=== PATIENT | male | born 1945 | race Hispanic/Latino ===

== ENCOUNTER 2017-11-09 15:39 | Inpatient (IN) | payer OTHER, MEDICARE ==
[2017-11-09] VITALS (12 sets, daily range): BP systolic 104–128; BP diastolic 50–87
[~2017-11-09] VITALS: Ht 162.6 cm; Wt 65.3 kg
[~2017-11-09 15:39] MED LIST: ETOMIDATE 40 MG/ 20ML VIAL IV ONE
[2017-11-09] MEDS: ASPIRIN 325 MG TAB PO ONE ×2 (17:50→18:35)
[2017-11-09] MEDS ORDERED: ONDANSETRON HCL INJ 2 MG/ML VIAL IV STA (17:51)
[2017-11-09] MEDS ORDERED: MORPHINE SULFATE INJ 4 MG/ML INJ IV ONE (18:00)
--- NOTE | 2017-11-09 18:02 | Diagnostic Imaging Report ---
EXAMINATION: CXR 1 [facility] INDICATION: Active heart attack. COMPARISON: None FINDINGS: TUBES and LINES: Median sternotomy wires and mediastinal clips. LUNGS: Lungs are well inflated. There is mild prominence of the central pulmonary vasculature, consistent with pulmonary venous congestion. PLEURA: Possible tiny right pleural effusion. No pneumothorax. HEART AND MEDIASTINUM: Cardiac size is moderately enlarged. There are atherosclerotic calcifications within the aorta. BONES AND SOFT TISSUES: No acute osseous lesion. Soft tissues are unremarkable. UPPER ABDOMEN: No free air under the diaphragm. IMPRESSION: Moderate cardiomegaly with central pulmonary venous congestion. Signed by: Dr. Jourdan Wright M.D. on 11/09/2017 5:59 PM
[2017-11-09] MEDS: DEXTROSE 5%/0.45% SOD CHL 1,000 ML IV SCH (18:23)
[2017-11-09] MEDS ORDERED: ACETAMINOPHEN 325 MG TAB PO STA (18:25)
[2017-11-09] MEDS ORDERED: INSULIN REGULAR, HUMAN 100 UNIT/1 ML 3ML VIAL ONE (18:26)
[2017-11-09] MEDS ORDERED: INSULIN REGULAR, HUMAN 3ML VL 100 UNIT in SODIUM CHLORIDE 0.9% 100 ML IV SCH ×2 (18:30)
[2017-11-09] MEDS ORDERED: SODIUM CHLORIDE 0.9% 250ML 250 ML IV ONE (18:30)
[2017-11-09] MEDS ORDERED: MORPHINE SULFATE 2 MG/ML SYR IV PRN (18:30)
[2017-11-09] MEDS ORDERED: DIPHENHYDRAMINE HCL INJ 50 MG/ML VIAL IV ONE (18:30)
[2017-11-09] MEDS ORDERED: INSULIN DETEMIR 100 UNIT/ML PEN SQ PRN (18:30)
[2017-11-09] MEDS ORDERED: SODIUM CHLORIDE FLUSH 10 ML SYR INJ PRN (18:30)
[2017-11-09] MEDS ORDERED: POTASSIUM CHLORIDE 20MEQ/100ML 200 ML IV PRN (18:30)
[2017-11-09] MEDS: SODIUM CHLORIDE 0.9% 1000ML 1,000 ML IV SCH ×2 (18:37→22:06)
[2017-11-09] MEDS ORDERED: ROCURONIUM BROMIDE 1 ML ONE ×2 (18:40→18:41)
[2017-11-09] MEDS ORDERED: INSULIN REGULAR, HUMAN 100 UNIT/1 ML 3ML VIAL IV ONE (18:45)
[2017-11-09] MEDS ORDERED: CALCIUM GLUCONATE 10% INJ 4.65 MEQ in SODIUM CHLORIDE 0.9% 50ML 50 ML IV ONE (18:45)
[2017-11-09] MEDS ORDERED: MORPHINE SULFATE INJ 4 MG/ML INJ IV PRN (18:45)
[2017-11-09] MEDS ORDERED: ETOMIDATE 2 MG/ML 10 ML INJ IV STA (18:56)
[2017-11-09] MEDS ORDERED: ROCURONIUM BROMIDE 10 MG/ML 5ML VIAL IV ONE (18:56)
[2017-11-09 19:01] LABS: BASOPHILS % 0.1 % (0.0-1.0); LYMPHOCYTES # (AUTO) 1.1 (1.0-3.2); LYMPHOCYTES % 9.5 % (18.0-39.1); MEAN CORPUSCULAR HEMOGLOBIN 29.3 pg (28-32); MEAN CORPUSCULAR HGB CONC 31.5 g/dL (31-35); MEAN CORPUSCULAR VOLUME 92.9 fL (81-99); MONOCYTES # (AUTO) 0.6 (0.2-0.8); MONOCYTES % 5.3 % (4.4-11.3); NEUTROPHILS # (AUTO) 9.1 (2.1-6.9); NEUTROPHILS % 80.1 % (38.7-80.0); PLATELET COUNT 190 x10e3/uL (140-360); RED BLOOD COUNT 1.98 x10e6/uL (4.3-5.7); RED CELL DISTRIBUTION WIDTH 16.5 % (11.7-14.4)
[2017-11-09 19:02] LABS: HEMOGLOBIN 5.8 g/dL (14.0-18.0)
[2017-11-09 19:03] LABS: HEMATOCRIT 18.4 % (38.2-49.6)
[2017-11-09 19:16] LABS: INR 2.01; PROTHROMBIN TIME 24.3 seconds (11.9-14.5)
[2017-11-09 19:19] LABS: ALBUMIN 2.8 g/dL (3.5-5.0); ALBUMIN/GLOBULIN RATIO 0.9 (0.8-2.0); ANION GAP 29.1 mmol/L (8-16); CALCIUM 7.1 mg/dL (8.4-10.2); CREATININE, SERUM 5.14 mg/dL (0.72-1.25)
[2017-11-09 19:25] LABS: CREATINE KINASE MB 4.9 ng/mL (0-5.0)
[2017-11-09 19:28] LABS: POTASSIUM 7.1 mmol/L (3.5-5.1)
[2017-11-09 19:29] LABS: ABG HCO3 14 mmol/L (23-28); ABG PCO2 29 mmHg (41-51); ABG PH 7.28 (7.31-7.41); ABG PO2 237 mmHg (80-105)
[2017-11-09] MEDS ORDERED: FENTANYL CITRATE INJ 2,000 MCG in SODIUM CHLORIDE 0.9% 250ML 210 ML IV PRN (19:30)
[2017-11-09] MEDS ORDERED: MIDAZOLAM HCL 25 MG in SODIUM CHLORIDE 0.9% 50ML 45 ML IV PRN (19:30)
--- NOTE | 2017-11-09 19:40 | Diagnostic Imaging Report ---
EXAMINATION: CHEST XRAY POST PROCEDURE INDICATION: \S\INTUBATION COMPARISON: Chest x-ray 11/09/2017 FINDINGS: AP view TUBES and LINES: Interval placement of endotracheal tube with tip 4.5 cm above the kathy. Median sternotomy wires and mediastinal clips remain present. LUNGS: Lungs are not well inflated. There are bibasilar atelectasis. There is perihilar interstitial opacities, consistent with interstitial edema. PLEURA: No pleural effusion or pneumothorax. HEART AND MEDIASTINUM: Cardiac size is moderately enlarged. There are atherosclerotic calcifications within the aorta. BONES AND SOFT TISSUES: No acute osseous lesion. Soft tissues are unremarkable. UPPER ABDOMEN: No free air under the diaphragm. IMPRESSION: 1. Endotracheal tube tip 4.5 cm above the kathy. 2. Development of interstitial edema. Signed by: Dr. Jourdan Wright M.D. on 11/09/2017 7:37 PM
[2017-11-09] MEDS ORDERED: CARVEDILOL25 MG PO (19:50)
[2017-11-09] MEDS ORDERED: DEXAMETHASONE4 MG PO (19:50)
[2017-11-09] MEDS ORDERED: VALACYCLOVIR500 MG PO (19:50)
[2017-11-09] MEDS ORDERED: ASPIRIN81 MG PO (19:50)
[2017-11-09] MEDS ORDERED: CRESTOR40 MG PO (19:50)
[2017-11-09] MEDS ORDERED: ISOSORBIDE MONO30 MG PO (19:50)
[2017-11-09] MEDS ORDERED: JANUVIA50 MG PO (19:50)
[2017-11-09] MEDS ORDERED: CLOPIDOGREL75 MG PO (19:50)
[2017-11-09 20:17] LABS: LYMPHOCYTES % (MANUAL) 7 % (19-48); MONOCYTES % (MANUAL) 3 % (3.4-9.0); NEUTROPHILS % (MANUAL) 90 % (40-74)
[2017-11-09 20:18] LABS: HYPOCHROMASIA MARKED; PLATELET ESTIMATE ADEQUATE; PLATELET MORPHOLOGY COMMENT NORMAL; RBC MORPHOLOGY COMMENT NORMAL
[2017-11-09 21:27] LABS: ANION GAP 24.7 mmol/L (8-16); CREATININE, SERUM 5.02 mg/dL (0.72-1.25); MAGNESIUM 1.5 MG/DL (1.3-2.1); POTASSIUM 5.7 mmol/L (3.5-5.1)
[2017-11-09 21:39] LABS: CALCIUM 6.8 mg/dL (8.4-10.2)
[2017-11-09 22:04] LABS: CREATINE KINASE MB 4.8 ng/mL (0-5.0)
[2017-11-10] VITALS (85 sets, daily range): BP systolic 106–138; BP diastolic 55–106
[2017-11-10] MEDS ORDERED: SODIUM CHLORIDE 0.9% 250ML 250 ML ONE (01:15)
[2017-11-10] MEDS: SODIUM CHLORIDE 0.9% 1000ML 1,000 ML IV SCH ×3 (01:24→17:49)
[2017-11-10 01:31] LABS: ANION GAP 20.3 mmol/L (8-16); CREATININE, SERUM 4.97 mg/dL (0.72-1.25); MAGNESIUM 1.6 MG/DL (1.3-2.1)
[2017-11-10 01:34] LABS: CALCIUM 6.6 mg/dL (8.4-10.2); POTASSIUM 5.3 mmol/L (3.5-5.1)
[2017-11-10] MEDS ORDERED: MAGNESIUM SULF 1GRAM/DEXTROSE 100 ML IV ONE (01:44)
[2017-11-10] MEDS: MAGNESIUM SULF 1GRAM/DEXTROSE 100 ML IV PRN ×2 (01:48→14:25)
[2017-11-10] MEDS: DEXTROSE 5%/0.45% SOD CHL 1,000 ML IV SCH ×2 (02:03→14:23)
[2017-11-10] MEDS ORDERED: SODIUM CHLORIDE 0.9% 100 ML ONE (04:38)
[2017-11-10] MEDS ORDERED: INSULIN REGULAR, HUMAN 100 UNIT/1 ML 3ML VIAL ONE (04:38)
[2017-11-10 05:45] LABS: ANION GAP 20.2 mmol/L (8-16); CHOL/HDL RATIO 3.3 (3.9-4.7); CREATININE, SERUM 5.04 mg/dL (0.72-1.25); MAGNESIUM 1.9 MG/DL (1.3-2.1); POTASSIUM 5.2 mmol/L (3.5-5.1)
[2017-11-10 05:47] LABS: CREATINE KINASE MB 4.9 ng/mL (0-5.0)
[2017-11-10 05:48] LABS: CALCIUM 6.5 mg/dL (8.4-10.2)
[2017-11-10 06:06] LABS: BASOPHILS % 0.2 % (0.0-1.0); HEMATOCRIT 21.9 % (38.2-49.6); HEMOGLOBIN 7.3 g/dL (14.0-18.0); LYMPHOCYTES # (AUTO) 0.8 (1.0-3.2); MEAN CORPUSCULAR HEMOGLOBIN 30.3 pg (28-32); MEAN CORPUSCULAR HGB CONC 33.3 g/dL (31-35); MEAN CORPUSCULAR VOLUME 90.9 fL (81-99); MONOCYTES # (AUTO) 0.4 (0.2-0.8); MONOCYTES % 4.6 % (4.4-11.3); NEUTROPHILS # (AUTO) 6.9 (2.1-6.9); NEUTROPHILS % 82.3 % (38.7-80.0); PLATELET COUNT 150 x10e3/uL (140-360); RED BLOOD COUNT 2.41 x10e6/uL (4.3-5.7); RED CELL DISTRIBUTION WIDTH 15.1 % (11.7-14.4)
[2017-11-10] MEDS ORDERED: CALCIUM GLUCONATE 10% INJ 0.465 MEQ/ML VIAL ONE (06:20)
[2017-11-10] MEDS ORDERED: SODIUM CHLORIDE 0.45% 100 ML 100 ML IV ONE (06:21)
[2017-11-10] MEDS ORDERED: CALCIUM GLUCONATE 10% INJ 4.65 MEQ in SODIUM CHLORIDE 0.9% 50ML 100 ML IV ONE (06:45)
--- NOTE | 2017-11-10 07:02 | Diagnostic Imaging Report ---
EXAMINATION: CHEST SINGLE (PORTABLE) INDICATION: Intubated COMPARISON: 11/09/2017 FINDINGS: TUBES and LINES: Endotracheal tube is visualized with tip 3.3 cm above the kathy in good position. LUNGS: Lungs are not well inflated. Interlobular septi thickening noted more significant at the lung bases There is mild prominence of the central pulmonary vasculature, consistent with pulmonary venous congestion. PLEURA: No pleural effusion or pneumothorax. HEART AND MEDIASTINUM: Cardiac size is moderately enlarged. There are atherosclerotic calcifications within the aorta. BONES AND SOFT TISSUES: No acute osseous lesion. Soft tissues are unremarkable. UPPER ABDOMEN: No free air under the diaphragm. IMPRESSION: Findings are compatible with cardiogenic fluid overload/edema Signed by: Dr. David Rojas M.D. on 11/10/2017 6:59 AM
[2017-11-10] MEDS ORDERED: PROPOFOL IV EMULSION 10MG/ML 100 ML IV PRN (08:30)
[2017-11-10] MEDS: SODIUM CHLORIDE 0.9% 250ML IRRIG IR SCH ×4 (08:30→21:21)
[2017-11-10] MEDS ORDERED: ENOXAPARIN INJ 80 MG/0.8 ML SYR SC SCH (09:00)
[2017-11-10] MEDS ORDERED: ENOXAPARIN SODIUM INJ 100 MG/ML SYR SC SCH (09:00)
[2017-11-10] MEDS: MIDAZOLAM HCL 2 MG/2 ML VIAL IV PRN ×4 (09:00→22:53)
[2017-11-10] MEDS ORDERED: PHYTONADIONE 10 MG/ML AMP SQ NR (09:00)
[2017-11-10 09:02] LABS: ANISOCYTOSIS MODE; BAND NEUTROPHILS % (MANUAL) 2 %; LYMPHOCYTES % (MANUAL) 16 % (19-48); MONOCYTES % (MANUAL) 4 % (3.4-9.0); NEUTROPHILS % (MANUAL) 78 % (40-74); NUCLEATED RED BLOOD CELLS 1; PLATELET ESTIMATE ADEQUATE; PLATELET MORPHOLOGY COMMENT FEW LARGE; POIKILOCYTOSIS SLIGHT; RBC MORPHOLOGY COMMENT ABNORMAL
[2017-11-10 09:21] LABS: ANION GAP 19.1 mmol/L (8-16); CREATININE, SERUM 5.13 mg/dL (0.72-1.25); MAGNESIUM 1.9 MG/DL (1.3-2.1); POTASSIUM 5.1 mmol/L (3.5-5.1)
--- NOTE | 2017-11-10 09:24 | Consultation ---
DATE OF CONSULTATION: November 10, 2017 PULMONARY CONSULTATION This is a patient of Dr. Palmer, Dr. Holland, and Dr. Mason. This unfortunate, 72-year-old gentleman was admitted approximately 24 hours after receiving chemotherapy. Admitted with shortness of breath, nausea, diaphoresis. The patient has a history of also chest pain. He has been increasingly short of breath lately according to with decreased appetite. He has a history of bone cancer. She was not sure what type, presumably myeloma. He was anemic on admission with a hemoglobin of 5.6. He was acidotic with renal failure. DKA with a glucose of 660. Respiratory failure. He was intubated. According to , his diabetes was diagnosed 2 months ago. He has a history of coronary disease with bypass surgery in the past. He was recently diagnosed with cancer. According to record, his home medications included aspirin, Plavix, Decadron, 40 mg, Ismo, valacyclovir, Coreg, Crestor and Januvia. 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 Born in [facility]. Family history is noncontributory. He did not smoke and rarely drank. PHYSICAL EXAMINATION GENERAL: He is a well-developed white male, awake, alert, intubated. VITALS: Temperature 97.8, pulse 56, respirations 18, blood pressure 118/64. HEENT: Head is normocephalic and atraumatic. LUNGS: Bilateral rales. HEART: Regular rhythm. ABDOMEN: Median sternotomy scar noted. Abdomen is nontender. EXTREMITIES: Not edematous. : Joe catheter is in place. ASSESSMENT 1. Multiorgan system failure. 2. Hyperglycemia. 3. Renal failure. 4. Anemia. 5. Coagulopathy with elevated prothrombin time of 24. 6. Elevated liver functions. 7. Elevated troponin. 8. Inferior wall electrocardiographic changes. Will defer to cardiology and renal services. Consider vitamin K with coagulopathy and liver failure. Continue mechanical ventilator support. Thank you for this kind referral. Job#: [id number]
[2017-11-10 09:36] LABS: ALBUMIN 2.7 g/dL (3.5-5.0); BILIRUBIN,DIRECT 0.7 mg/dL (0.0-0.5)
[2017-11-10] MEDS: METOPROLOL TARTRATE 25 MG TAB PO SCH ×2 (09:45→17:00)
[2017-11-10] MEDS: FUROSEMIDE INJ 10 MG/ML 4 ML VIAL IV SCH ×2 (09:45→18:02)
--- NOTE | 2017-11-10 10:42 | Consultation ---
DATE OF CONSULTATION: November 10, 2017 CARDIOLOGY CONSULTATION REQUESTING PHYSICIAN: Dr. Palmer REASON FOR CONSULTATION: Piq-IA-sbuwzqapd myocardial infarction. HISTORY OF PRESENT ILLNESS: This is a 72-year-old man with chronic systolic heart failure (EF 40%), coronary artery disease status post PCI April 2017, chronic kidney disease with baseline creatinine 2.5, multiple myeloma, diabetes mellitus, and hyperlipidemia, who presents with complaints of shortness of breath. The patient is currently intubated and sedated. All history is therefore obtained from the medical record as well as the patient's . The patient apparently has been complaining of shortness of breath and fatigue for approximately the last year. No history of orthopnea could be elicited, but the patient's suggests the patient may have had symptoms consistent with paroxysmal nocturnal dyspnea for this period of time. Three months ago, the patient began to complain of chest heaviness daily. Patient was recently diagnosed with multiple myeloma and had his first round of chemotherapy on Monday. He subsequently developed worsening chest pain and shortness of breath. He was brought into the ER and subsequently intubated for respiratory distress. REVIEW OF SYSTEMS: Unable to obtain secondary to intubation and sedation. PAST MEDICAL HISTORY: 1. Coronary artery disease status post PCI April 2017. 2. Chronic systolic heart failure with baseline EF 40%. 3. Chronic kidney disease with baseline creatinine 2.5. 4. Multiple myeloma. 5. Diabetes mellitus. 6. Hyperlipidemia. PAST SURGICAL HISTORY: Eye surgery. ALLERGIES: PENICILLIN. MEDICATIONS: Please see medication list. SOCIAL HISTORY: Denies tobacco or illicit drugs. Social alcohol. FAMILY HISTORY: Noncontributory. PHYSICAL EXAMINATION: VITAL SIGNS: Temperature 97.1 degrees, pulse 55, respiratory rate 18, blood pressure 118/64, oxygen saturation 100% on mechanical ventilation. GENERAL: Elderly man, in no acute distress, well-developed, well-nourished. HEENT: Normocephalic, atraumatic. NECK: Supple. No thyromegaly or cervical lymphadenopathy. No carotid bruits. LUNGS: Clear to auscultation bilaterally. No wheezes or crackles. CARDIOVASCULAR: Normal rate, regular rhythm. No murmur. Normal S1 and S2. ABDOMEN: Soft, nontender. EXTREMITIES: 1+ pitting edema. NEURO: Unable to assess secondary to intubation and sedation. LABS: WBC 8.4, hemoglobin 7.3, hematocrit 21.9, platelets 150,000. Sodium 129, potassium 5.2, chloride 99, CO2 15, BUN 58, creatinine 5.04, glucose 432, calcium 6.5. Troponin 6.338. Cholesterol 69, triglycerides 41, HDL 21, LDL 40. Chest x-ray, findings are compatible with cardiogenic fluid overload/edema. EKG, sinus rhythm with first-degree AV block with occasional PVCs; nonspecific intraventricular block; lateral infarct, age undetermined; inferior infarct, age undetermined; T-wave abnormalities. IMPRESSIONS: 1. Asy-OA-qhesnvvid myocardial infarction. 2. Mblpf-dh-faunirf systolic heart failure. 3. Acute renal failure. 4. Hyperosmotic hyperglycemic state. 5. Elevated liver function tests. 6. Anemia. 7. Multiple myeloma. 8. Diabetes mellitus. 9. Hyperlipidemia. RECOMMENDATIONS: Continue aspirin and Plavix given his recent stent as well as ugo-JQ-walbzuuwi myocardial infarction, place patient on heparin drip. Patient is not a candidate for invasive cardiac evaluation at this time given his acute renal failure. Medical management for now. Will attempt diuresis given patient's pehhm-fk-xwqlnbs systolic heart failure. However, given his acute renal failure, he may require dialysis for volume removal. No statin at this time due to elevated LFTs. This may be secondary to congestive hepatopathy. We will monitor in response to volume removal. Continue monitoring patient on telemetry. Trend cardiac enzymes until downtrending. Continue insulin drip. Monitor hemoglobin and hematocrit closely. If his H and H continues to drop, we may need to stop heparin at that time. Thank you for this consult. We will continue to follow. Job#: [id number]
--- NOTE | 2017-11-10 11:38 | Diagnostic Imaging Report ---
EXAM: RUQ ULTRASOUND Date: 11/10/2017 12:00 AM Indication: Comparison: None Technique: Sonographic evaluation of the right upper quadrant. Color doppler was utilized to supplement evaluation. FINDINGS: LIVER: No focal lesion is identified. The liver measures 19.4 cm in the right midclavicular line. Echotexture is normal. BILIARY: The gallbladder has a normal appearance, without evidence for gallstones, gallbladder wall thickening or pericholecystic fluid. The common bile duct measures 0.3 cm. Wall measures 0.5 cm. PANCREAS: The pancreas is incompletely visualized due to overlying bowel gas, but no abnormality identified involving the visualized portions of the pancreas. RIGHT KIDNEY: Measures 11.5 cm in length. No hydronephrosis or solid mass lesion identified. PERITONEUM: No free fluid. VASCULATURE: Aorta: Visualized portions appear unremarkable. Interior vena cava: Visualized portions appear unremarkable. Portal Vein: Nondilated with hepatopedal flow. IMPRESSION: Nonspecific gallbladder wall thickening with no distinct shadowing gallstones identified. Common duct is normal. Findings likely represent decompression. Acalculus cholecystitis could have similar imaging findings. Clinical and laboratory correlation recommended. HIDA scan could be obtained if indicated. Hepatomegaly. Signed by: Dr. Yoshi Antonio MD on 11/10/2017 11:34 AM
[2017-11-10] MEDS ORDERED: LIDOCAINE HCL 1% LOCAL INJ 20 ML VIAL ONE (11:59)
[2017-11-10] MEDS: PANTOPRAZOLE 40 MG 10ML VIAL IV SCH (12:00)
--- NOTE | 2017-11-10 12:37 | Diagnostic Imaging Report ---
PROCEDURE:X-RAY ABDOMEN - KUB COMPARISON:Chest radiograph 11/10/17. INDICATIONS:POST OG TUBE PLACEMENT FINDINGS: NG Tube tip terminates near the GE junction, with the side port in the distal esophagus. Prominent small bowel loops, incompletely evaluated on this radiograph. Partially seen median sternotomy changes. Patchy bibasilar opacities, likely atelectasis. CONCLUSION: NG tube terminates near the GE junction, side port is in the distal esophagus. Recommend advancement of the tube by at least 8 cm. Prominent small bowel loops, which could represent ileus or obstruction, incompletely evaluated on this radiograph. The above findings were discussed by phone with the ICU team on 11/10/17 at 1140 AM, who indicated that the communication was understood. Dictated by: SUE DEWITT M.D. on 11/10/2017 at 11:43 Electronically approved by: SUE DEWITT M.D. on 11/10/2017 at 11:43
[2017-11-10 12:54] LABS: INR 2.01; PARTIAL THROMBOPLASTIN TIME 31.4 seconds (23.8-35.5); PROTHROMBIN TIME 24.3 seconds (11.9-14.5)
[2017-11-10] MEDS: IPRATROPIUM BROMIDE 0.02% 2.5 ML NEB NEB SCH ×3 (13:00→19:10)
[2017-11-10 13:13] LABS: CREATINE KINASE MB 4.6 ng/mL (0-5.0)
[2017-11-10 13:28] LABS: ANION GAP 18.8 mmol/L (8-16); CREATININE, SERUM 5.22 mg/dL (0.72-1.25); MAGNESIUM 1.7 MG/DL (1.3-2.1); POTASSIUM 4.8 mmol/L (3.5-5.1)
[2017-11-10 13:29] LABS: CALCIUM 6.6 mg/dL (8.4-10.2)
--- NOTE | 2017-11-10 13:58 | Diagnostic Imaging Report ---
EXAMINATION: CHEST XRAY LINE PLACEMENT INDICATION: Line placement COMPARISON: Chest radiograph 11/10/2017 and KUB . FINDINGS: TUBES and LINES: Interval placement of a right IJ non tunneled hemodialysis catheter with tip in the lower SVC near the cavoatrial junction. Endotracheal tube terminates 3.3 cm above the kathy. Enteric tube terminates near the GE junction, the side port is in the distal esophagus. LUNGS AND PLEURA: Low lung volumes. Small bilateral pleural effusions, right greater than left. Patchy opacities persist in the lower lung zones. Mild bilateral interstitial opacities. No evidence of pneumothorax. HEART AND MEDIASTINUM: The cardiomediastinal silhouette is unchanged. BONES AND SOFT TISSUES: No acute osseous lesion. Soft tissues are unremarkable. UPPER ABDOMEN: No free air under the diaphragm. IMPRESSION: Interval placement of right IJ non tunneled hematosis catheter with tip near the cavoatrial junction. No evidence of pneumothorax. Other lines and tubes as above. Enteric tube has retracted and terminates near the GE junction, the side-port is in the distal esophagus. Suggest advancement of the tube by at least 9 cm. Mild pulmonary interstitial edema and small bilateral pleural effusions with associated patchy atelectasis. Findings were discussed with the ICU team on 11/10/2017 at 1354, who indicated that the communication was understood. Signed by: Dr. Cristel Dennis MD on 11/10/2017 1:55 PM
--- NOTE | 2017-11-10 14:09 | Diagnostic Imaging Report ---
Procedure: Right internal jugular non-tunneled hemodialysis catheter placement with ultrasound guidance gelatin dynamite packing operator: Dr. Cristel Dennis Pre-operative diagnosis: Requiring HD access. Post-operative diagnosis: Status post HD access placement Sedation: Local The patient's heart rate and pulse oximetry were continuously monitored by the ICU nurse Additional Medications: Lidocaine 1% for local anesthesia Estimated blood loss: Minimal Specimens: None Implants: 13 Fr x 15 cm Trialysis non-tunneled hemodialysis catheter TECHNIQUE/FINDINGS: Informed consent was obtained from the healthcare proxy and documented in the medical record after discussion of risks and benefits. The patient was placed in the supine position. Preliminary sonographic evaluation of the right neck confirmed a patent and compressible right internal jugular vein. The neck was then prepped and draped in a standard sterile fashion. Subsequently, 1% lidocaine was infiltrated into the skin and subcutaneous tissues for local anesthesia. Then under continuous sonographic guidance an 21 gauge needle was advanced into the right internal jugular vein and a .018'' wire was placed. A 5 Fr micropuncture sheath was placed and the existing wire was exchanged for an .035'' Amplatz wire. The tract was sequentially dilated. Then, a 13 Fr x 15 cm Trialysis triple lumen non-tunneled hemodialysis catheter was advanced. The wire was then removed. Each lumen was tested and showed adequate bidirectional flow. The catheter was secured to the skin with Monocryl, flushed with saline, and covered by a sterile dressing. No evidence of immediate complication. IMPRESSION: Placement of a right IJ non-tunneled hemodialysis catheter with ultrasound guidance as above. Signed by: Dr. Cristel Dennis MD on 11/10/2017 2:06 PM
--- NOTE | 2017-11-10 14:20 | Diagnostic Imaging Report ---
Exam: Abdominal radiograph - 1 view Clinical History: NG tube position. Comparison: KUB 11/10/2017 at 1008AM. Findings: Sensitivity limited by portable technique. Single view radiograph centered near the gastroesophageal junction. Enteric tube terminates at the GE junction, the side-port is in the distal esophagus. The lower abdomen is not visualized. Please refer to the concurrently performed chest radiograph for further details. Bowel gas pattern is non-specific. No acute bony findings. Impression: Enteric tube has retracted and terminates near the GE junction, the side-port is in the distal esophagus. Suggest advancement of the tube by at least 9 cm. Please refer to the concurrently performed chest radiograph for further details. Findings were discussed with the ICU team on 11/10/2017 at 1354, who indicated that the communication was understood. Signed by: Dr. Cristel Dennis MD on 11/10/2017 2:17 PM
[2017-11-10] MEDS ORDERED: DEXTROSE 5% 1,000 ML IV SCH (14:30)
[2017-11-10 15:42] LABS: HEMATOCRIT 22.3 % (38.2-49.6); HEMOGLOBIN 7.4 g/dL (14.0-18.0); LYMPHOCYTES # (AUTO) 0.7 (1.0-3.2); LYMPHOCYTES % 8.2 % (18.0-39.1); MEAN CORPUSCULAR HEMOGLOBIN 30.1 pg (28-32); MEAN CORPUSCULAR HGB CONC 33.2 g/dL (31-35); MEAN CORPUSCULAR VOLUME 90.7 fL (81-99); MONOCYTES # (AUTO) 0.4 (0.2-0.8); MONOCYTES % 4.6 % (4.4-11.3); NEUTROPHILS # (AUTO) 6.7 (2.1-6.9); NEUTROPHILS % 83.5 % (38.7-80.0); PLATELET COUNT 127 x10e3/uL (140-360); RED BLOOD COUNT 2.46 x10e6/uL (4.3-5.7); RED CELL DISTRIBUTION WIDTH 15.8 % (11.7-14.4)
[2017-11-10 16:05] LABS: CLARITY,URINE SL CLOUDY (CLEAR); COLOR,URINE YELLOW (YELLOW); LEUKOCYTE ESTERASE ,URINE NEGATIVE (NEGATIVE); NITRITE,URINE NEGATIVE (NEGATIVE); PROTEIN,URINE DIPSTICK 2+ (NEGATIVE)
[2017-11-10 16:06] LABS: BILIRUBIN,URINE NEGATIVE (NEGATIVE); KETONES,URINE NEGATIVE (NEGATIVE); URINE UROBILINOGEN 0.2 mg/dL (0.2 - 1)
[2017-11-10 16:17] LABS: POTASSIUM,URINE 46.3 mmol/L
[2017-11-10 16:18] LABS: WBC,URINE (MAN) 0-5 /HPF (0-5)
[2017-11-10 16:19] LABS: AMORPHOUS SEDIMENT,URINE MANY (FEW); EPITHELIAL CELLS,URINE FEW /LPF
--- NOTE | 2017-11-10 16:24 | Diagnostic Imaging Report ---
RADIOGRAPH(S) OF THE ABDOMEN AND PELVIS, 1 view(s) HISTORY: Recheck OG tube COMPARISON: KUB November 10, 2017 FINDINGS: Sensitivity limited by portable technique. Single image centered near the gastroesophageal junction. Multiple overlying artifacts. The endotracheal tube appears unchanged. Interval advancement of the OG-tube, the tip now projects at the region of the mid to distal stomach. IMPRESSION: Interval advancement of the OG-tube. Signed by: Dr. Delroy Gonzalez D.O., M.M.M. on 11/10/2017 4:20 PM
[2017-11-10] MEDS: ASPIRIN 325 MG TAB EC PO SCH (17:48)
[2017-11-10] MEDS: CLOPIDOGREL BISULFATE 75 MG TAB PO SCH (17:49)
[2017-11-10 18:10] LABS: ANION GAP 18.6 mmol/L (8-16); CREATININE, SERUM 5.32 mg/dL (0.72-1.25); POTASSIUM 4.6 mmol/L (3.5-5.1)
[2017-11-10 18:12] LABS: CALCIUM 6.8 mg/dL (8.4-10.2)
[2017-11-10] MEDS ORDERED: DEXTROSE 50% SYRINGE 50 ML IV PRN (18:30)
[2017-11-10] MEDS ORDERED: INSULIN LISPRO 100 UNIT/1 ML 3ML VIAL SQ SCH (21:00)
[2017-11-10] MEDS: HEPARIN 25,000U/0.45% NS 250ML 800 UNIT in SODIUM CHLORIDE 0.9% 250ML 0 ML IV SCH (21:14)
[2017-11-11] VITALS (78 sets, daily range): BP systolic 81–120; BP diastolic 39–56
[2017-11-11] MEDS: SODIUM CHLORIDE 0.9% 250ML IRRIG IR SCH ×6 (01:05→20:31)
[2017-11-11] MEDS: IPRATROPIUM BROMIDE 0.02% 2.5 ML NEB NEB SCH ×4 (02:35→18:45)
[2017-11-11 03:30] LABS: INR 1.72; PROTHROMBIN TIME 21.5 seconds (11.9-14.5)
[2017-11-11 03:31] LABS: PARTIAL THROMBOPLASTIN TIME 34.9 seconds (23.8-35.5)
[2017-11-11 04:49] LABS: HEMATOCRIT 23.4 % (38.2-49.6); LYMPHOCYTES # (AUTO) 0.4 (1.0-3.2); LYMPHOCYTES % 5.7 % (18.0-39.1); MEAN CORPUSCULAR HEMOGLOBIN 29.5 pg (28-32); MEAN CORPUSCULAR HGB CONC 32.9 g/dL (31-35); MEAN CORPUSCULAR VOLUME 89.7 fL (81-99); MONOCYTES # (AUTO) 0.5 (0.2-0.8); MONOCYTES % 6.9 % (4.4-11.3); NEUTROPHILS # (AUTO) 5.9 (2.1-6.9); NEUTROPHILS % 85.1 % (38.7-80.0); PLATELET COUNT 137 x10e3/uL (140-360); RED BLOOD COUNT 2.61 x10e6/uL (4.3-5.7); RED CELL DISTRIBUTION WIDTH 15.6 % (11.7-14.4)
[2017-11-11 04:51] LABS: HEMOGLOBIN 7.7 g/dL (14.0-18.0)
[2017-11-11 05:11] LABS: ALBUMIN 2.2 g/dL (3.5-5.0); ANION GAP 19.4 mmol/L (8-16); BILIRUBIN,DIRECT 0.6 mg/dL (0.0-0.5); CALCIUM 7.5 mg/dL (8.4-10.2); CREATININE, SERUM 4.48 mg/dL (0.72-1.25); POTASSIUM 4.4 mmol/L (3.5-5.1)
[2017-11-11 05:35] LABS: THYROID STIMULATING HORMONE 2.498 uIU/mL (0.350-4.940)
[2017-11-11] MEDS: MIDAZOLAM HCL 2 MG/2 ML VIAL IV PRN (06:00)
[2017-11-11 07:01] LABS: LYMPHOCYTES % (MANUAL) 9 % (19-48); MONOCYTES % (MANUAL) 6 % (3.4-9.0); NEUTROPHILS % (MANUAL) 85 % (40-74); PLATELET ESTIMATE SLIGHTLY DECREASED; PLATELET MORPHOLOGY COMMENT NORMAL; RBC MORPHOLOGY COMMENT NORMAL
--- NOTE | 2017-11-11 07:35 | Diagnostic Imaging Report ---
EXAMINATION: CHEST SINGLE (PORTABLE) INDICATION: \S\sob \[id number] \S\[id number] COMPARISON: Chest radiograph 11/10/2017 FINDINGS: AP view TUBES and LINES: Right IJ central catheter tip projects at the cavoatrial junction. ET tube tip projects 2.5 cm above the kathy. NG/OG tube tip extends through the GE junction below the field of view. LUNGS: Stable interstitial edema with bibasilar atelectasis. PLEURA: Small bilateral pleural effusion, right greater and left. HEART AND MEDIASTINUM: Stable mild enlargement of the cardiac silhouette. BONES AND SOFT TISSUES: No acute osseous lesion. Median sternotomy wires. Soft tissues are unremarkable. UPPER ABDOMEN: No free air under the diaphragm. IMPRESSION: Stable interstitial edema with bibasilar atelectasis and small pleural effusions. Signed by: DR. Everett Reed MD on 11/11/2017 7:31 AM
[2017-11-11] MEDS ORDERED: SODIUM CHLORIDE 0.9% 1000ML 1,000 ML ONE (07:40)
[2017-11-11] MEDS ORDERED: SODIUM CHLORIDE 0.9% 1000ML 2,000 ML IV PRN (08:30)
[2017-11-11] MEDS ORDERED: HEPARIN SOD (PORCINE) 1000 UNIT/ML SDV IV PRN (08:30)
[2017-11-11] MEDS: FUROSEMIDE INJ 10 MG/ML 4 ML VIAL IV SCH ×3 (09:00→17:00)
[2017-11-11] MEDS: METOPROLOL TARTRATE 25 MG TAB PO SCH ×2 (09:00→17:00)
--- NOTE | 2017-11-11 11:27 | Progress Note ---
DATE: CARDIOLOGY PROGRESS NOTE SUBJECTIVE: Unable to report. OBJECTIVE VITAL SIGNS: Temperature not recorded, pulse 66, respiratory rate not available, blood pressure 104/44, oxygen saturation 100% on mechanical ventilator. CARDIOVASCULAR MEDICATIONS 1. Metolazone IV titrate. 2. Lasix 40 mg IV b.i.d. 3. Plavix 75 p.o. daily. 4. Aspirin 325 p.o. daily. 5. Metoprolol 25 p.o. b.i.d. 6. Propofol IV titrate. LABS: WBC 6.98, hemoglobin 7.7, hematocrit 23.4, platelets 137. Sodium 138, potassium 4.4, BUN 50, creatinine 4.48, calcium 7.5. AST 830, ALT 173, alkaline phosphatase 469. Troponin 3.233. PT 21.5, INR 1.72, PTT 34.9. Chest x-ray from today with stable interstitial edema with bibasilar atelectasis and a small pleural effusion. Echocardiogram from yesterday with left ventricular ejection fraction 20-25% and cljc-zt-operrigf mitral regurgitation present. PHYSICAL EXAM GENERAL: Intubated and sedated. NECK: Supple. LUNGS: Diminished breath sounds throughout with scattered rhonchi. CARDIOVASCULAR: Regular rate and rhythm. Systolic murmur present. Distant heart sounds. ABDOMEN: Rounded. EXTREMITIES: 2+ pitting edema. IMPRESSION 1. Non-ST elevation myocardial infarction. 2. Dentw-fq-blllapc systolic heart failure. 3. Acute renal failure, requiring hemodialysis. 4. Hyperosmotic hyperglycemic state. 5. Elevated liver function test. 6. Anemia. 7. Multiple myeloma. 8. Diabetes mellitus. 9. Hyperlipidemia. RECOMMENDATIONS: Continue with the above-listed cardiac medications given his recent stent as well as non-ST elevation myocardial infarction. This patient is not a candidate for invasive cardiac evaluation at this point given his comorbid condition and also acute renal failure requiring dialysis and acute illness. We will attempt diuresis given his acute systolic heart failure. Renal managing volume. Maintain on telemetry at all time. Continue to monitor H and H closely. Unable to initiate heparin with hemoglobin noted to be 7.7 today. Dictated by: Katia Soto NP Job#: [id number] PKU
[2017-11-11] MEDS: INSULIN LISPRO 100 UNIT/1 ML 3ML VIAL SQ SCH ×3 (12:00→23:45)
[2017-11-11] MEDS: EPOETIN ALFA 10000 UNIT/ML VIAL SC SCH (12:29)
[2017-11-11] MEDS: PANTOPRAZOLE 40 MG 10ML VIAL IV SCH (12:29)
[2017-11-11 13:26] LABS: BASOPHILS % 0.1 % (0.0-1.0); HEMATOCRIT 24.4 % (38.2-49.6); HEMOGLOBIN 8.1 g/dL (14.0-18.0); LYMPHOCYTES # (AUTO) 0.5 (1.0-3.2); LYMPHOCYTES % 5.8 % (18.0-39.1); MEAN CORPUSCULAR HEMOGLOBIN 29.5 pg (28-32); MEAN CORPUSCULAR HGB CONC 33.2 g/dL (31-35); MEAN CORPUSCULAR VOLUME 88.7 fL (81-99); MONOCYTES # (AUTO) 0.8 (0.2-0.8); MONOCYTES % 9.4 % (4.4-11.3); NEUTROPHILS # (AUTO) 6.7 (2.1-6.9); PLATELET COUNT 127 x10e3/uL (140-360); RED BLOOD COUNT 2.75 x10e6/uL (4.3-5.7); RED CELL DISTRIBUTION WIDTH 16.1 % (11.7-14.4)
--- NOTE | 2017-11-11 14:00 | Diagnostic Imaging Report ---
EXAMINATION: CHEST SINGLE (PORTABLE) INDICATION: \S\OGT placement \[id number] \S\1300 COMPARISON: Chest radiograph 11/11/2017 FINDINGS: AP view TUBES and LINES: Right IJ catheter tip projects over the cavoatrial junction. ET tube tip projects 2.8 cm above the kathy. Nasogastric tube tip extends to the GE junction after the field of view. LUNGS: Lungs are well inflated. Stable interstitial edema with bibasilar atelectasis. PLEURA: Stable small pleural effusions, right greater than left. HEART AND MEDIASTINUM: Stable mild enlargement of the cardiac silhouette. BONES AND SOFT TISSUES: No acute osseous lesion. Median sternotomy wires. Soft tissues are unremarkable. UPPER ABDOMEN: No free air under the diaphragm. IMPRESSION: Stable interstitial edema and small pleural effusions. Signed by: DR. Everett Reed MD on 11/11/2017 1:56 PM
--- NOTE | 2017-11-11 14:02 | Diagnostic Imaging Report ---
EXAM: ABDOMEN-1VIEW (KUB), DATE: 11/11/2017 12:58 PM INDICATION: Status post dialysis, intubation COMPARISON: None FINDINGS: LINES/TUBES: NG/OG-tube tip projects over the second duodenal segment. Left femoral catheter tip projects over the left pelvis. BOWEL PATTERN: No evidence for obstruction. SOFT TISSUES: No abnormal calcifications. No mass effect. LUNG BASES: Please refer to same-day chest radiograph. BONES: Median sternotomy wires. No acute findings. IMPRESSION: NG/OG-tube tip projects over the second duodenal segment. Signed by: DR. Everett Reed MD on 11/11/2017 1:59 PM
[2017-11-11] MEDS: ASPIRIN 325 MG TAB EC PO SCH (15:14)
[2017-11-11] MEDS: CLOPIDOGREL BISULFATE 75 MG TAB PO SCH (15:14)
[2017-11-11] MEDS: HEPARIN 25,000U/0.45% NS 250ML 800 UNIT in SODIUM CHLORIDE 0.9% 250ML 0 ML IV SCH (15:15)
--- NOTE | 2017-11-11 18:27 | Consultation ---
DATE OF CONSULTATION: November 11, 2017 CHIEF COMPLAINT: Anemia. HISTORY OF PRESENT ILLNESS: This is a very pleasant 72-year-old man with history of diabetes, admitted with myocardial infarction, diabetic ketoacidosis, and anemia. Hemoglobin was 6.4 on admission. He was intubated and no gross bleeding reported. Patient has some renal failure. Elevated liver function test consistent with shock liver is also present. Patient is currently critically ill. No active bleeding noted or previous bleeding; however, he is anemic. PAST MEDICAL HISTORY: Heart disease, diabetes, hypertension. SURGICAL HISTORY: Open heart surgery. FAMILY HISTORY: Noncontributory. SOCIAL HISTORY: Patient lives at home, no toxic habits. MEDICATIONS: See list that include Plavix. ALLERGIES: NONE SIGNIFICANT. PHYSICAL EXAMINATION VITAL SIGNS: Blood pressure 140/80, pulse 80, temperature 98. GENERAL: This is an elderly man. He is intubated. HEENT: There is no pallor. HEART: Regular rate. LUNGS: Scattered rhonchi. ABDOMEN: Soft, nontender. EXTREMITIES: No edema. ASSESSMENT AND PLAN: Anemia, multifactorial. No evidence of GI bleed. Patient will be transfused and put on PPI for prophylaxis of ulcers. Patient also had elevated LFTs consistent with shock liver. No evidence of gallstones. Ultrasound showed no dilated bowel ducts. White count is normal. We recommend at this time supportive care, continue PPI, dialysis. We will observe for the next 24 hours. If patient is stable, we might start tube feedings as nutritional support. Job#: [id number] CELESTINO
[2017-11-12] VITALS (58 sets, daily range): BP systolic 101–166; BP diastolic 42–67
[2017-11-12] MEDS: SODIUM CHLORIDE 0.9% 250ML IRRIG IR SCH ×6 (00:31→20:30)
[2017-11-12] MEDS: IPRATROPIUM BROMIDE 0.02% 2.5 ML NEB NEB SCH ×4 (02:15→19:00)
[2017-11-12 04:28] LABS: BASOPHILS % 0.1 % (0.0-1.0); HEMATOCRIT 22.9 % (38.2-49.6); HEMOGLOBIN 7.6 g/dL (14.0-18.0); LYMPHOCYTES # (AUTO) 0.7 (1.0-3.2); LYMPHOCYTES % 7.7 % (18.0-39.1); MEAN CORPUSCULAR HGB CONC 33.2 g/dL (31-35); MEAN CORPUSCULAR VOLUME 90.5 fL (81-99); MONOCYTES # (AUTO) 0.9 (0.2-0.8); MONOCYTES % 10.9 % (4.4-11.3); NEUTROPHILS # (AUTO) 6.7 (2.1-6.9); NEUTROPHILS % 79.3 % (38.7-80.0); PLATELET COUNT 129 x10e3/uL (140-360); RED BLOOD COUNT 2.53 x10e6/uL (4.3-5.7); RED CELL DISTRIBUTION WIDTH 16.5 % (11.7-14.4)
[2017-11-12 04:39] LABS: INR 1.32; PROTHROMBIN TIME 17.5 seconds (11.9-14.5)
[2017-11-12 04:48] LABS: ALBUMIN 2.1 g/dL (3.5-5.0); ALBUMIN/GLOBULIN RATIO 0.8 (0.8-2.0); ANION GAP 15.8 mmol/L (8-16); CALCIUM 7.6 mg/dL (8.4-10.2); CREATININE, SERUM 4.02 mg/dL (0.72-1.25); POTASSIUM 3.8 mmol/L (3.5-5.1)
[2017-11-12] MEDS: INSULIN LISPRO 100 UNIT/1 ML 3ML VIAL SQ SCH ×3 (06:11→17:51)
--- NOTE | 2017-11-12 06:56 | Diagnostic Imaging Report ---
EXAMINATION: CHEST SINGLE (PORTABLE) INDICATION: Intubation COMPARISON: 11/11/2017 at 1310 hours FINDINGS: AP view TUBES and LINES: Right IJ catheter tip projects over the cavoatrial junction. ET tube tip projects 2.8 cm above the kathy. Nasogastric tube tip extends to the GE junction after the field of view. LUNGS: Lungs are not well inflated. Stable interstitial edema with bibasilar atelectasis. PLEURA: Stable small pleural effusions, right greater than left. HEART AND MEDIASTINUM: Cardiac size is moderately enlarged. BONES AND SOFT TISSUES: No acute osseous lesion. Median sternotomy wires. Soft tissues are unremarkable. UPPER ABDOMEN: No free air under the diaphragm. IMPRESSION: Stable interstitial edema and small pleural effusions. Tubes and lines are stable in good position. Signed by: Dr. David Rojas M.D. on 11/12/2017 6:53 AM
[2017-11-12] MEDS ORDERED: SODIUM CHLORIDE 0.9% 250ML 250 ML IV ONE (07:45)
[2017-11-12 07:47] LABS: BAND NEUTROPHILS % (MANUAL) 7 %; LYMPHOCYTES % (MANUAL) 5 % (19-48); MONOCYTES % (MANUAL) 9 % (3.4-9.0); NEUTROPHILS % (MANUAL) 79 % (40-74)
[2017-11-12 07:48] LABS: PLATELET ESTIMATE ADEQUATE; PLATELET MORPHOLOGY COMMENT NORMAL; RBC MORPHOLOGY COMMENT NORMAL
[2017-11-12] MEDS: CLOPIDOGREL BISULFATE 75 MG TAB PO SCH (08:34)
[2017-11-12] MEDS: ASPIRIN 325 MG TAB EC PO SCH (08:34)
[2017-11-12] MEDS: FUROSEMIDE INJ 10 MG/ML 4 ML VIAL IV SCH ×2 (08:34→17:50)
[2017-11-12] MEDS: PANTOPRAZOLE 40 MG 10ML VIAL IV SCH (08:34)
[2017-11-12] MEDS: METOPROLOL TARTRATE 25 MG TAB PO SCH ×2 (09:00→17:15)
--- NOTE | 2017-11-12 10:13 | Consultation ---
DATE OF CONSULTATION: November 11, 2017 ATTENDING PHYSICIAN: Dr. Ruelas. Thank you Dr. Ruelas for this consultation. REASON FOR CONSULTATION: Myeloma with anemia. HISTORY OF PRESENT ILLNESS: This is a 72-year-old gentleman with a past medical history includes coronary artery disease, status post PCI in April 2017, chronic systolic heart failure, diabetes, multiple myeloma, hyperlipidemia, and chronic kidney disease. Patient was presented to the hospital with worsening shortness of breath required intubation and mechanical ventilation. Patient was diagnosed with multiple myeloma and started on treatment. He had treatment last Monday. Son was a source of history, does not remember name of the medicine. He does receive dexamethasone with chemo, likely chemo was Velcade. Patient had worsening shortness of breath and chest pain after the treatment. admission showed white cell count was 8.4, hemoglobin 7.3, hematocrit 21.9, BUN 58, creatinine was 5.04, glucose was 432, calcium was 6.5. Patient's x-ray was consistent with fluid overload. Patient had EKG abnormality. Patient was followed with ice guard tester. Initial intubation was possible with non-ST elevation myocardial infarction. Patient recently had good stent placement. Patient was started on Insulin, Plavix, and Heparin. I am currently involved for further management. Patient has been followed with Dr. Arango at [facility]. hematemesis, melena, hematochezia. PAST MEDICAL HISTORY: Coronary artery disease, status post PCI in April 2017, multiple myeloma, diabetes, hyperlipidemia, and chronic kidney disease. PAST SURGICAL HISTORY: Eye surgery. ALLERGY: PENICILLIN. MEDICATIONS: List reviewed. SOCIAL HISTORY: No habits. FAMILY HISTORY: Not relevant. REVIEW OF SYSTEMS: Fully abnormal because of mental condition. PHYSICAL EXAMINATION GENERAL: Patient is currently intubated, appear comfortable with no evidence of any bleeding. HEENT: Normocephalic, atraumatic with sclerae pale. Conjunctivae clear. NECK: Supple. No thyromegaly or cervical lymphadenopathy. LUNGS: Clear to auscultation. No wheezing or crackles. CARDIOVASCULAR: Regular rate and rhythm. ABDOMEN: Soft and nontender. EXTREMITIES: 1+ edema. COMPLIANCE QUALITY PERFORMANCE ANALYST: Patient sedated. SKIN: Intact. LABS AND IMAGING: Reviewed. ASSESSMENT AND PLAN 1. The patient with history of multiple medical conditions, currently in the hospital with non-ST elevation myocardial infarction with congestive heart failure. 2. Acute on chronic kidney disease. 3. Patient is currently following ice guard tester. 4. Patient was also recently diagnosed with multiple myeloma, received treatment. 5. Patient had worsening anemia. RECOMMENDATIONS 1. Complete anemia evaluation. 2. Etiology of anemia multifactorial includes anemia of chronic disease and because of myeloma. 3. We will start the patient on Procrit. 4. Keep hemoglobin above 8. 5. Blood transfusion is needed. 6. Multiple myeloma; newly diagnosed; started on treatment. 7. Calcium is normal. 8. Kidney function got worse, requiring hemodialysis. 9. Continue monitor closely. 10. Further myeloma treatment as an outpatient. 11. Acute on chronic kidney disease. 12. Patient is started on hemodialysis. 13. We will continue remaining care. 14. We will follow patient closely. Job#: [id number] GEMA
--- NOTE | 2017-11-12 10:57 | Progress Note ---
DATE: CARDIOLOGY PROGRESS NOTE SUBJECTIVE: Patient is unable to report. He remains intubated and also sedated. OBJECTIVE VITAL SIGNS: Temperature 96.6, pulse 74, respiratory rate 18, blood pressure 122/50, oxygen saturation 95% on mechanical ventilator. CARDIOVASCULAR MEDICATIONS 1. Plavix 75 mg p.o. daily. 2. Lasix 40 mg IV push b.i.d. 3. Aspirin 325 mg p.o. daily. LABS: WBC 8.45, hemoglobin 7.6, hematocrit 22.9, platelets 129. Sodium 138, potassium 3.8, BUN 35, creatinine 4.02, calcium 7.6. AST 217, ALT 1191, alkaline phosphatase 385. Chest x-ray from this morning with stable interstitial edema and a small pleural effusion. PHYSICAL EXAMINATION GENERAL: Appears to be resting comfortably. Son at the bedside. NECK: Supple. LUNGS: Diminished breath sounds throughout. No wheezing, no rhonchi or crackles noted. CARDIOVASCULAR: Regular rate and rhythm. Systolic murmur present. Distant heart sounds. ABDOMEN: Rounded, nontender. EXTREMITIES: Lower extremities, 2+ pitting edema. IMPRESSION 1. Non-ST elevation myocardial infarction. 2. Giykx-bj-rflpcts systolic heart failure. 3. Acute renal failure requiring hemodialysis. 4. Hyperosmic hyperglycemic state. 5. Elevated liver function tests. 6. Anemia. 7. Multiple myeloma. 8. Diabetes mellitus. 9. Hyperlipidemia. RECOMMENDATIONS: Continue with the above-listed cardiac medications. Given his recent stent as well as gmu-IZ-thonzoiwg myocardial infarction, this patient will need continuation of dual-antiplatelet therapy; however, monitor anemia closely. This patient is not a candidate for invasive cardiovascular evaluation at this point given his comorbid condition as well as acute renal failure requiring hemodialysis. Continue with diuresis and management of volume per nephrology given his acute heart failure. Monitor H and H closely. Recent echocardiogram with ejection fraction between 20-25% and enlarged left atrium with moderate mitral regurgitation present. Dictated by: Katia Soto NP Job#: [id number]
[2017-11-12] MEDS ORDERED: AZTREONAM 1 GM/NS 50 ML 50 ML IV SCH (14:00)
[2017-11-12] MEDS ORDERED: VANCOMYCIN 750MG/NS 150ML IVPB 150 ML IV SCH (14:00)
[2017-11-12] MEDS ORDERED: AZTREONAM 1 GM VIAL IV SCH (14:15)
[2017-11-12] MEDS ORDERED: HEPARIN SOD (PORCINE) 1000 UNIT/ML SDV IV PRN ×2 (14:15→15:45)
[2017-11-12] MEDS ORDERED: HEPARIN SOD (PORCINE) 5,000 UNIT/ML VIAL ONE (14:25)
[2017-11-12] MEDS ORDERED: SODIUM CITRATE 10 GM/250 ML BAG IVF PRN (15:00)
[2017-11-12] MEDS: AZTREONAM 1 GM VIAL IV SCH (16:02)
[2017-11-12 17:55] LABS: BASOPHILS % 0.2 % (0.0-1.0); HEMATOCRIT 30.2 % (38.2-49.6); LYMPHOCYTES # (AUTO) 0.7 (1.0-3.2); LYMPHOCYTES % 6.8 % (18.0-39.1); MEAN CORPUSCULAR HEMOGLOBIN 29.6 pg (28-32); MEAN CORPUSCULAR HGB CONC 33.1 g/dL (31-35); MEAN CORPUSCULAR VOLUME 89.3 fL (81-99); MONOCYTES # (AUTO) 0.9 (0.2-0.8); MONOCYTES % 8.9 % (4.4-11.3); NEUTROPHILS % 81.7 % (38.7-80.0); PLATELET COUNT 121 x10e3/uL (140-360); RED BLOOD COUNT 3.38 x10e6/uL (4.3-5.7); RED CELL DISTRIBUTION WIDTH 15.3 % (11.7-14.4)
[2017-11-13] VITALS (44 sets, daily range): BP systolic 124–170; BP diastolic 48–94
[2017-11-13] MEDS: INSULIN LISPRO 100 UNIT/1 ML 3ML VIAL SQ SCH ×5 (00:20→23:36)
[2017-11-13] MEDS: SODIUM CHLORIDE 0.9% 250ML IRRIG IR SCH ×6 (00:22→19:37)
[2017-11-13 05:05] LABS: BASOPHILS % 0.2 % (0.0-1.0); EOSINOPHILS % 0.2 % (0.0-6.0); HEMATOCRIT 28.7 % (38.2-49.6); HEMOGLOBIN 9.8 g/dL (14.0-18.0); LYMPHOCYTES # (AUTO) 0.7 (1.0-3.2); LYMPHOCYTES % 7.8 % (18.0-39.1); MEAN CORPUSCULAR HEMOGLOBIN 30.2 pg (28-32); MEAN CORPUSCULAR HGB CONC 34.1 g/dL (31-35); MEAN CORPUSCULAR VOLUME 88.3 fL (81-99); MONOCYTES # (AUTO) 0.8 (0.2-0.8); MONOCYTES % 9.6 % (4.4-11.3); NEUTROPHILS # (AUTO) 6.8 (2.1-6.9); NEUTROPHILS % 79.9 % (38.7-80.0); PLATELET COUNT 127 x10e3/uL (140-360); RED BLOOD COUNT 3.25 x10e6/uL (4.3-5.7); RED CELL DISTRIBUTION WIDTH 15.9 % (11.7-14.4)
[2017-11-13 05:41] LABS: ALBUMIN 2.1 g/dL (3.5-5.0); ALBUMIN/GLOBULIN RATIO 0.7 (0.8-2.0); ANION GAP 11.5 mmol/L (8-16); CALCIUM 8.2 mg/dL (8.4-10.2); CREATININE, SERUM 3.65 mg/dL (0.72-1.25); MAGNESIUM 1.7 MG/DL (1.3-2.1); PHOSPHORUS 3.9 MG/DL (2.3-4.7); POTASSIUM 3.5 mmol/L (3.5-5.1)
[2017-11-13] MEDS: IPRATROPIUM BROMIDE 0.02% 2.5 ML NEB NEB SCH ×4 (07:00→20:00)
--- NOTE | 2017-11-13 07:12 | Diagnostic Imaging Report ---
PROCEDURE: CHEST SINGLE (PORTABLE) COMPARISON: 11/12/2017. INDICATIONS: INTUBATED FINDINGS: Endotracheal tube, enteric tube, and right internal jugular temporary hemodialysis catheter are unchanged in position. Aeration of the right lung base has slightly improved relative to 11/12/2017. Persistent cardiomegaly with prominence of the pulmonary interstitium and small bilateral pleural effusions, left greater than right. New airspace consolidations. No acute osseous abnormality. CONCLUSION: Stable position of support lines and tubes. Interval improvement in aeration of the right lung base. Otherwise stable appearance of the chest, with cardiomegaly, interstitial edema, and small bilateral pleural effusions. Dictated by: Narendra Carballo M.D. on 11/13/2017 at 7:20 Electronically approved by: Narendra Carballo M.D. on 11/13/2017 at 7:20
[2017-11-13] MEDS ORDERED: INSULIN DETEMIR 100 UNIT/ML PEN SQ SCH (09:00)
--- NOTE | 2017-11-13 09:31 | Progress Note ---
DATE: November 13, 2017 The patient seen and examined today. Patient appears comfortable, resting comfortably. Patient is off sedation. No evidence of any acute bleeding. Patient's current hemoglobin 9.8. Platelet count also trending upward. PHYSICAL EXAMINATION GENERAL: Patient resting comfortably. HEENT: Normocephalic and atraumatic. Sclerae pink. Conjunctivae clear. NECK: Supple. CHEST: Poor inspiration. ABDOMEN: Soft, distended. CARDIOVASCULAR: Regular rate and rhythm. EXTREMITIES: No edema. COLLEGE FOOTBALL COACH: Patient is resting. LABS: Hemoglobin 9.8, white cell count 8.57, and platelet count 127,000. INR 1.3. Glucose 286, creatinine 3.65, alkaline phosphatase 356, and ALT 780. X-ray shows improvement. ASSESSMENT AND PLAN: Patient with history of multiple medical conditions, include multiple myeloma recently diagnosed, treated on Monday, admitted with shortness of breath. Workup consistent with non-ST elevation myocardial infarction, congestive heart failure, pogcg-wg-rwensik kidney disease. Patient required multiple dialysis, also required blood transfusions. Counts are improving. Kidney function is also improving. Recommendation to continue current care. Myeloma treatment as an outpatient. We will monitor CBC closely, try to avoid frequent blood drawn, try to avoid thrombocytopenic medications. We will monitor patient. Job#: [id number] ELLIE
[2017-11-13] MEDS ORDERED: VANCOMYCIN 750MG/NS 150ML IVPB 150 ML IV PRN (09:45)
[2017-11-13] MEDS: FUROSEMIDE INJ 10 MG/ML 4 ML VIAL IV SCH ×2 (09:48→20:17)
[2017-11-13] MEDS: HEPARIN SOD (PORCINE) 5,000 UNIT/ML VIAL SC SCH ×2 (09:48→20:24)
[2017-11-13] MEDS: AZTREONAM 1 GM VIAL IV SCH (09:48)
[2017-11-13] MEDS: PANTOPRAZOLE 40 MG 10ML VIAL IV SCH (09:48)
[2017-11-13] MEDS: CLOPIDOGREL BISULFATE 75 MG TAB PO SCH (09:49)
[2017-11-13] MEDS: ASPIRIN 325 MG TAB EC PO SCH (09:49)
[2017-11-13] MEDS: METOPROLOL TARTRATE 25 MG TAB PO SCH ×2 (09:49→20:17)
[2017-11-13] MEDS: MAGNESIUM HYDROXIDE 30 ML UDC PO PRN (09:50)
--- NOTE | 2017-11-13 14:32 | Progress Note ---
DATE: November 13, 2017 CARDIOLOGY PROGRESS NOTE SUBJECTIVE: Patient remains unresponsive, off sedation. He is intubated and on mechanical ventilation. OBJECTIVE VITAL SIGNS: Temperature 99.9 degrees, pulse 79, respiratory rate 18, blood pressure 148/63, oxygen saturation 97% on mechanical ventilation. GENERAL: Well-developed and well-nourished man, no acute distress. LUNGS: Clear to auscultation bilaterally. No wheezes or crackles. CARDIOVASCULAR: Normal rate, regular rhythm. No murmur. Normal S1 and S2. ABDOMEN: Soft, nontender. EXTREMITIES: No edema. CARDIAC MEDICATIONS 1. Metoprolol tartrate 25 mg p.o. q.12 hours. 2. Plavix 75 mg p.o. daily. 3. Aspirin 325 mg p.o. daily. 4. Prozac 40 mg IV q.12 hours. LABS: WBC 8.57, hemoglobin 9.8, hematocrit 28.7, and platelets 127. Sodium 134, potassium 3.5, chloride 99, CO2 27, BUN 35, and creatinine 3.65. AST 66, ALT 780, and alkaline phosphatase 356. Sputum culture growing E. coli and staphylococcus aureus. Chest x-ray; stable position of support life and tubes. Interval improvement in aeration of the right lung base, otherwise stable appearance of the chest with cardiomegaly, interstitial edema, and small bilateral pleural effusions. TELEMETRY: Normal sinus rhythm. IMPRESSION 1. Non-ST elevation myocardial infarction. 2. Esvkq-vm-jfbaoim systolic heart failure. 3. Acute renal failure, requiring hemodialysis. 4. Hyperosmotic hyperglycemic state. 5. Elevated liver function tests. 6. Multiple myelomas. 7. Anemia. 8. Diabetes mellitus. 9. Hyperlipidemia. RECOMMENDATIONS: Continue current cardiac medications including dual antiplatelet therapy given patient's recent stent placement in April of this year. No anticoagulation at this time given patient's anemia requiring blood transfusion. Continue diuresis and volume management per nephrology given initiation on hemodialysis. Given his acute renal failure, he is not a candidate for invasive cardiac evaluation. Continue medical management. Glycemic control per primary. Management of multiple myeloma per oncology. LFTs are improving likely secondary to improving volume status. Once they have normalized, we will need to start statin therapy. Continue monitoring patient on telemetry. Thank you for this consult. We will continue to follow. Job#: [id number] PRISCA LEMONS
[2017-11-13] MEDS: DOCUSATE SODIUM LIQD 100 MG/10 ML UDC NG SCH (17:30)
[2017-11-13] MEDS ORDERED: HEPARIN SOD (PORCINE) 5,000 UNIT/ML VIAL SC SCH (21:00)
--- NOTE | 2017-11-13 22:05 | Diagnostic Imaging Report ---
Examination: CT head without contrast Clinical Indication: Obtunded; not responsive. Technique: Transaxial noncontrast images from the skull base through the vertex were obtained. Sagittal and coronal reformatted images were done. Dose modulation, iterative reconstruction, and/or weight based adjustment of the mA/kV was utilized to reduce the radiation dose to as low as reasonably achievable. Comparison: None. Findings: Scalp: No abnormalities. Bones: Intact. No fractures. No blastic or lytic lesions. Brain sulci: Mild volume loss for patient's age. Ventricles: No hydrocephalus. Extra-axial space: No abnormalities. Parenchyma: A 4mm dystrophic calcification of the right middle frontal gyrus from prior infectious or inflammatory process. There are mild confluent areas of low-attenuation within subcortical and periventricular white matter, nonspecific, but could represent microvascular ischemic disease. No masses, hemorrhage, or acute or chronic cortical based vascular insults. Suprasellar region: No abnormalities. Craniocervical junction: The foramen magnum is patent. No Chiari one malformation. Incidental findings: Atherosclerotic calcification of the cavernous and supraclinoid internal carotid arteries. Impression: 1. No acute intracranial finding. 2. Mild chronic microvascular ischemic change and moderate volume loss. Signed by: Dr. Kristie Byrd M.D. on 11/13/2017 10:02 PM
[2017-11-14] VITALS (49 sets, daily range): BP systolic 113–192; BP diastolic 59–97
[2017-11-14] MEDS: SODIUM CHLORIDE 0.9% 250ML IRRIG IR SCH ×6 (00:30→20:16)
[2017-11-14] MEDS: IPRATROPIUM BROMIDE 0.02% 2.5 ML NEB NEB SCH ×4 (00:30→19:15)
--- NOTE | 2017-11-14 05:33 | Diagnostic Imaging Report ---
EXAM: CHEST SINGLE (PORTABLE), AP 1 view INDICATION: Pulmonary edema COMPARISON: AP view of the chest November 12, 2017 FINDINGS: LINES/TUBES: stable appearance of endotracheal tube, nasal/orogastric tube and right internal jugular vein temporary hemodialysis catheter. LUNGS: Improving pulmonary edema PLEURA: Improving pleural effusions HEART AND MEDIASTINUM: Cardiomegaly and median sternotomy wires BONES AND SOFT TISSUES: No acute findings. IMPRESSION: Improving pulmonary edema and pleural effusions Signed by: Dr. Sandra Duong M.D. on 11/14/2017 5:30 AM
[2017-11-14 05:39] LABS: BASOPHILS % 0.2 % (0.0-1.0); EOSINOPHILS % 0.1 % (0.0-6.0); HEMATOCRIT 28.8 % (38.2-49.6); HEMOGLOBIN 9.6 g/dL (14.0-18.0); LYMPHOCYTES # (AUTO) 0.7 (1.0-3.2); LYMPHOCYTES % 7.8 % (18.0-39.1); MEAN CORPUSCULAR HEMOGLOBIN 29.5 pg (28-32); MEAN CORPUSCULAR HGB CONC 33.3 g/dL (31-35); MEAN CORPUSCULAR VOLUME 88.6 fL (81-99); MONOCYTES # (AUTO) 0.7 (0.2-0.8); MONOCYTES % 7.7 % (4.4-11.3); NEUTROPHILS # (AUTO) 7.9 (2.1-6.9); NEUTROPHILS % 82.4 % (38.7-80.0); PLATELET COUNT 127 x10e3/uL (140-360); RED BLOOD COUNT 3.25 x10e6/uL (4.3-5.7); RED CELL DISTRIBUTION WIDTH 16.3 % (11.7-14.4)
[2017-11-14] MEDS: INSULIN LISPRO 100 UNIT/1 ML 3ML VIAL SQ SCH ×4 (06:09→23:40)
[2017-11-14 06:44] LABS: CREATININE, SERUM 4.97 mg/dL (0.72-1.25); POTASSIUM 4.2 mmol/L (3.5-5.1)
[2017-11-14 08:39] LABS: CALCIUM 7.4 mg/dL (8.4-10.2)
[2017-11-14 08:44] LABS: ANION GAP 26.2 mmol/L (8-16)
[2017-11-14] MEDS ORDERED: INSULIN DETEMIR 100 UNIT/ML PEN SQ SCH (09:00)
[2017-11-14] MEDS: INSULIN DETEMIR 100 UNIT/ML PEN SQ SCH (10:00)
--- NOTE | 2017-11-14 10:16 | Progress Note ---
DATE: November 14, 2017 SUBJECTIVE: The patient was seen and examined today. The patient appeared comfortable, still intubated. Receiving hemodialysis. Blood count is stable. PHYSICAL EXAMINATION GENERAL: Intubated. HEENT: Normocephalic and atraumatic. Sclerae pink. Conjunctivae clear. NECK: Supple. CHEST: Decreased breath sounds at the bases. CARDIOVASCULAR: Regular rhythm. ABDOMEN: Soft. EXTREMITIES: 1+ edema. HUMAN RESOURCES CLERK: The patient is resting. SKIN: Intact. LABS AND IMAGING: Reviewed. ASSESSMENT AND PLAN: The patient with history of multiple medical conditions, including oxo-YW-eoepzncrm myocardial infarction; congestive heart failure; jdhsz-gd-qygljfq kidney disease, on hemodialysis; history of multiple myeloma, received treatment; anemia. The patient's blood counts are stable. Clinical condition is improving. Kidney function has improved. No worsening thrombocytopenia and anemia noted. At current, continue Procrit treatment, monitor hemoglobin closely. Monitor platelet closely. Try to avoid thrombocytopenic medication. Will monitor patient. Oncological intervention recommendation as an outpatient. Job#: [id number]
--- NOTE | 2017-11-14 10:49 | Progress Note ---
DATE: November 14, 2017 CARDIOLOGY PROGRESS NOTE SUBJECTIVE: Patient remains intubated and sedated. He is receiving hemodialysis. OBJECTIVE VITAL SIGNS: Temperature 99.1 degrees, pulse 74, respiratory rate 18, blood pressure 161/72, oxygen saturation 100% on mechanical ventilation. GENERAL: Well-developed and well-nourished man, no acute distress, unresponsive. LUNGS: Clear to auscultation anterior lung garcia. No wheezes or crackles. CARDIOVASCULAR: Normal rate, regular rhythm. No murmur. Normal S1 and S2. ABDOMEN: Soft, nontender. EXTREMITIES: No edema. CARDIAC MEDICATIONS 1. Metoprolol tartrate 25 mg p.o. q.12 h. 2. Furosemide 40 mg IV q.12 h. 3. Plavix 75 mg p.o. daily. 4. Aspirin 325 mg p.o. q.a.m. LABS: WBC 9.54, hemoglobin 9.6, hematocrit 28.8, and platelets 127. Sodium 137, potassium 4.2, chloride 97, CO2 18, BUN 59 and creatinine 4.97. Chest x-ray: Improving pulmonary edema and pleural effusion. CT brain: No acute intracranial finding. Mild chronic microvascular ischemic changes and moderate volume loss. TELEMETRY: Normal sinus rhythm. IMPRESSION 1. Non-ST elevation myocardial infarction. 2. Dslsi-td-dnhmhyx systolic heart failure. 3. Acute renal failure requiring hemodialysis. 4. Hyperosmolar, hyperglycemic state. 5. Elevated liver function tests, likely shock liver. 6. Multiple myeloma. 7. Anemia. 8. Diabetes mellitus. 9. Hyperlipidemia. RECOMMENDATIONS: Continue current cardiac medications including dual antiplatelet therapy given recent stent placement in April of this year and dcy-EI-rvpvoasgo myocardial infarction. No anticoagulation at this time given anemia requiring blood transfusion. Diuresis and volume management per nephrology, given initiation on hemodialysis. Given his acute renal failure, he is not a candidate for invasive cardiac evaluation at this time. We will continue medical management. Glycemic control per primary. Management of multiple myeloma per oncology. The patient's LFTs are improving, likely secondary to improving volume status. Once they have normalized, we will need to start statin therapy. Monitor the patient on telemetry while admitted. Thank you for this consult. We will continue to follow. Job#: [id number]
[2017-11-14] MEDS: FUROSEMIDE INJ 10 MG/ML 4 ML VIAL IV SCH ×2 (12:10→20:20)
[2017-11-14] MEDS: AZTREONAM 1 GM VIAL IV SCH (12:10)
[2017-11-14] MEDS: DOCUSATE SODIUM LIQD 100 MG/10 ML UDC NG SCH ×2 (12:11→17:17)
[2017-11-14] MEDS: CLOPIDOGREL BISULFATE 75 MG TAB PO SCH (12:11)
[2017-11-14] MEDS: HEPARIN SOD (PORCINE) 5,000 UNIT/ML VIAL SC SCH ×2 (12:11→20:25)
[2017-11-14] MEDS: ASPIRIN 325 MG TAB EC PO SCH (12:11)
[2017-11-14] MEDS: VANCOMYCIN 750MG/NS 150ML IVPB 150 ML IV SCH (12:11)
[2017-11-14] MEDS: PANTOPRAZOLE 40 MG 10ML VIAL IV SCH (12:11)
[2017-11-14] MEDS: EPOETIN ALFA 10000 UNIT/ML VIAL SC SCH (12:11)
[2017-11-14] MEDS: METOPROLOL TARTRATE 25 MG TAB PO SCH ×2 (12:11→20:20)
[2017-11-15] VITALS (46 sets, daily range): BP systolic 100–186; BP diastolic 54–108
[2017-11-15] MEDS ORDERED: DEXMEDETOMIDINE HCL 200 MCG in SODIUM CHLORIDE 0.9% 50ML 48 ML IV PRN ×2
[2017-11-15] MEDS: SODIUM CHLORIDE 0.9% 250ML IRRIG IR SCH ×6 (00:40→20:38)
[2017-11-15 04:36] LABS: BASOPHILS % 0.1 % (0.0-1.0); EOSINOPHILS # (AUTO) 0.1 (0.0-0.4); EOSINOPHILS % 0.7 % (0.0-6.0); HEMOGLOBIN 8.8 g/dL (14.0-18.0); LYMPHOCYTES # (AUTO) 1.2 (1.0-3.2); LYMPHOCYTES % 11.3 % (18.0-39.1); MEAN CORPUSCULAR HEMOGLOBIN 29.7 pg (28-32); MEAN CORPUSCULAR HGB CONC 32.6 g/dL (31-35); MEAN CORPUSCULAR VOLUME 91.2 fL (81-99); MONOCYTES % 9.3 % (4.4-11.3); NEUTROPHILS # (AUTO) 7.8 (2.1-6.9); NEUTROPHILS % 76.3 % (38.7-80.0); PLATELET COUNT 120 x10e3/uL (140-360); RED BLOOD COUNT 2.96 x10e6/uL (4.3-5.7); RED CELL DISTRIBUTION WIDTH 16.8 % (11.7-14.4)
[2017-11-15 05:06] LABS: ALBUMIN 2.1 g/dL (3.5-5.0); ALBUMIN/GLOBULIN RATIO 0.7 (0.8-2.0); ANION GAP 17.4 mmol/L (8-16); CALCIUM 8.1 mg/dL (8.4-10.2); CREATININE, SERUM 3.75 mg/dL (0.72-1.25); POTASSIUM 4.4 mmol/L (3.5-5.1)
[2017-11-15] MEDS: INSULIN LISPRO 100 UNIT/1 ML 3ML VIAL SQ SCH ×3 (05:49→18:42)
[2017-11-15] MEDS: IPRATROPIUM BROMIDE 0.02% 2.5 ML NEB NEB SCH ×4 (07:25→19:00)
[2017-11-15] MEDS: PANTOPRAZOLE 40 MG 10ML VIAL IV SCH (08:42)
[2017-11-15] MEDS: DOCUSATE SODIUM LIQD 100 MG/10 ML UDC NG SCH ×3 (08:42→21:04)
[2017-11-15] MEDS: FUROSEMIDE INJ 10 MG/ML 4 ML VIAL IV SCH ×2 (08:42→21:04)
[2017-11-15] MEDS: METOPROLOL TARTRATE 25 MG TAB PO SCH ×2 (08:42→21:04)
[2017-11-15] MEDS: AZTREONAM 1 GM VIAL IV SCH (08:42)
[2017-11-15] MEDS: CLOPIDOGREL BISULFATE 75 MG TAB PO SCH (08:42)
[2017-11-15] MEDS: MAGNESIUM HYDROXIDE 30 ML UDC PO PRN (08:42)
[2017-11-15] MEDS: ASPIRIN 325 MG TAB EC PO SCH (08:42)
[2017-11-15] MEDS: INSULIN DETEMIR 100 UNIT/ML PEN SQ SCH (08:46)
[2017-11-15] MEDS: HEPARIN SOD (PORCINE) 5,000 UNIT/ML VIAL SC SCH ×2 (08:46→21:13)
--- NOTE | 2017-11-15 09:09 | Progress Note ---
DATE: November 15, 2017 Patient was seen and examined today. Patient is awake. He is still intubated. Hemoglobin 8.8. No other evidence of any bleeding. Platelet count of 120,000. PHYSICAL EXAMINATION GENERAL: Intubated, awake. HEENT: Normocephalic and atraumatic. Sclerae pink. Conjunctivae clear. NECK: Supple. CHEST: Decreased breath sounds. CARDIOVASCULAR: Regular rate and rhythm. ABDOMEN: Soft. EXTREMITIES: No edema. LABS AND IMAGING: Reviewed. ASSESSMENT AND PLAN 1. The patient with a history of zsc-NM-mdirxymwl myocardial infarction. 2. Jjont-kv-hslasxt systolic hypertension. 3. Acute renal failure. 4. Multiple myeloma. 5. Anemia. 6. Thrombocytopenia. 7. Diabetes. 8. Shock liver. The patient's clinical condition has improved. Kidney function is improved. Hemoglobin slightly dropped, but above 8. Platelet count is stable. No evidence of any active bleeding. At current, continue current care. Oncological workup and management as an outpatient. Will monitor the patient closely. Job#: [id number] TN
[2017-11-15 09:25] LABS: ABG PCO2 47 mmHg (41-51); ABG PH 7.39 (7.31-7.41); ABG PO2 62 mmHg (80-105)
[2017-11-15 09:26] LABS: ABG HCO3 29 mmol/L (23-28)
[2017-11-15] MEDS: DEXMEDETOMIDINE 200MCG/NS 50ML 50 ML IV SCH ×2 (15:44→21:10)
[2017-11-15] MEDS: VANCOMYCIN 750MG/NS 150ML IVPB 150 ML IV SCH (17:45)
--- NOTE | 2017-11-15 18:42 | Progress Note ---
DATE: November 15, 2017 CARDIOLOGY PROGRESS NOTE SUBJECTIVE: Remains intubated and sedated. Plan for hemodialysis followed by attempt at extubation today. OBJECTIVE VITAL SIGNS: Temperature 98.4, pulse 64, respiratory rate 16, blood pressure 170/79 satting 99% on mechanical ventilation. GENERAL: Well-developed, well-nourished man intubated and sedated in no acute distress and able to follow commands. CARDIOVASCULAR: Regular rate and rhythm. PMI is displaced and diffuse, sustained, no murmurs, rubs or gallops. Palpable carotid pulses. Palpable radial pulses. LUNGS: Coarse bilaterally on anterior exam with no wheezes. ABDOMEN: Soft and nondistended. EXTREMITIES: Without significant edema. CARDIAC MEDICATIONS: Reviewed. TELEMETRY DATA: Reviewed and shows normal sinus rhythm. LABORATORY DATA: Reviewed. IMAGING: Chest x-ray reviewed, improving pulmonary edema. ASSESSMENT 1. Une-VL-krampchvc myocardial infarction. 2. Lusym-pm-xigpjxz systolic heart failure. 3. Acute renal failure requiring hemodialysis. 4. Hyperosmolar hyperglycemic state. 5. Elevated liver function test, likely shock liver. 6. Multiple myeloma. 7. Anemia. 8. Diabetes mellitus. 9. Hyperlipidemia. 10. Coronary artery disease status post CABG. PLAN: Continue current cardiac medications including dual antiplatelet therapy given recent stent placement in April of this year and jyw-DN-ltyimkzbm [place]. Was given heparin IV earlier this admission; however, his troponins have long since peaked. Continue DVT prophylaxis only. Diuresis and management per nephrology given initiation of hemodialysis though he does continue to make good urine with Lasix. Given his acute renal failure and critical illness as well as recent anemia requiring blood transfusion, he is not a good candidate for invasive management of his Non-STEMI. He hemodynamically remains stable so will continue to manage medically for now. Once he is extubated and recovers from his ICU stay, will discuss with patient and family regarding undergoing stress test for risk stratification prior to discharge. Thank you for this consult. Will continue to follow. Job#: [id number]
[2017-11-16] VITALS (57 sets, daily range): BP systolic 133–187; BP diastolic 63–107
[2017-11-16] MEDS: INSULIN LISPRO 100 UNIT/1 ML 3ML VIAL SQ SCH ×4 (00:15→18:02)
[2017-11-16] MEDS: SODIUM CHLORIDE 0.9% 250ML IRRIG IR SCH ×6 (00:49→19:47)
[2017-11-16] MEDS: IPRATROPIUM BROMIDE 0.02% 2.5 ML NEB NEB SCH ×4 (02:10→19:15)
[2017-11-16 05:37] LABS: ANION GAP 18.5 mmol/L (8-16); CALCIUM 7.8 mg/dL (8.4-10.2); CREATININE, SERUM 4.87 mg/dL (0.72-1.25); POTASSIUM 4.5 mmol/L (3.5-5.1)
[2017-11-16 06:31] LABS: BASOPHILS % 0.1 % (0.0-1.0); EOSINOPHILS # (AUTO) 0.1 (0.0-0.4); EOSINOPHILS % 0.6 % (0.0-6.0); HEMATOCRIT 26.4 % (38.2-49.6); HEMOGLOBIN 8.6 g/dL (14.0-18.0); LYMPHOCYTES # (AUTO) 1.1 (1.0-3.2); LYMPHOCYTES % 11.6 % (18.0-39.1); MEAN CORPUSCULAR HEMOGLOBIN 29.7 pg (28-32); MEAN CORPUSCULAR HGB CONC 32.6 g/dL (31-35); MONOCYTES # (AUTO) 0.9 (0.2-0.8); MONOCYTES % 9.4 % (4.4-11.3); NEUTROPHILS # (AUTO) 7.4 (2.1-6.9); NEUTROPHILS % 76.6 % (38.7-80.0); PLATELET COUNT 125 x10e3/uL (140-360); RED CELL DISTRIBUTION WIDTH 16.7 % (11.7-14.4)
[2017-11-16] MEDS: CLOPIDOGREL BISULFATE 75 MG TAB PO SCH ×2 (09:00→20:05)
[2017-11-16] MEDS: INSULIN DETEMIR 100 UNIT/ML PEN SQ SCH (09:00)
[2017-11-16] MEDS: ASPIRIN 325 MG TAB EC PO SCH ×2 (09:00→20:05)
[2017-11-16] MEDS: METOPROLOL TARTRATE 25 MG TAB PO SCH ×2 (09:00→21:30)
[2017-11-16] MEDS: DOCUSATE SODIUM LIQD 100 MG/10 ML UDC NG SCH ×2 (09:00→21:30)
[2017-11-16 09:15] LABS: ABG HCO3 25 mmol/L (23-28); ABG PCO2 43 mmHg (41-51); ABG PH 7.37 (7.31-7.41); ABG PO2 110 mmHg (80-105)
[2017-11-16] MEDS ORDERED: METOPROLOL TARTRATE INJ 1 MG/ML VIAL ONE (09:36)
[2017-11-16] MEDS: FUROSEMIDE INJ 10 MG/ML 4 ML VIAL IV SCH ×2 (09:38→21:30)
[2017-11-16] MEDS: PANTOPRAZOLE 40 MG 10ML VIAL IV SCH (09:38)
[2017-11-16] MEDS: AZTREONAM 1 GM VIAL IV SCH (09:38)
[2017-11-16] MEDS ORDERED: EPINEPHRINE 2.25% INH NEBU SOL 0.5 ML VIAL INH STA (09:43)
[2017-11-16] MEDS: ALBUTEROL/IPRATROPIUM 3 ML NEB NEB SCH ×5 (09:45→23:10)
[2017-11-16] MEDS ORDERED: EPINEPHRINE 2.25% INH NEBU SOL 0.5 ML VIAL INH PRN (10:00)
[2017-11-16] MEDS: ONDANSETRON HCL INJ 2 MG/ML VIAL IV PRN (10:04)
[2017-11-16] MEDS: HEPARIN SOD (PORCINE) 5,000 UNIT/ML VIAL SC SCH ×2 (10:05→21:30)
--- NOTE | 2017-11-16 11:41 | Progress Note ---
DATE: November 16, 2017 CARDIOLOGY PROGRESS NOTE SUBJECTIVE: Patient was extubated earlier this morning. He is scheduled to receive hemodialysis. Patient is awake and denies chest pain. OBJECTIVE VITAL SIGNS: Temperature 98.9 degrees, pulse 98, respiratory rate 18, blood pressure 149/60, oxygen saturation 100% on nasal cannula. GENERAL: Well-developed and well-nourished man, no acute distress, awake and alert. LUNGS: Clear to auscultation bilaterally. No wheezes or crackles. CARDIOVASCULAR: Normal rate, regular rhythm. No murmur. Normal S1 and S2. ABDOMEN: Soft, nontender. EXTREMITIES: No edema. CARDIAC MEDICATIONS 1. Furosemide 40 mg IV q.12 hours. 2. Metoprolol tartrate 25 mg p.o. q.12 hours. 3. Plavix 75 mg p.o. daily. 4. Aspirin 325 mg p.o. daily. LABS: Sodium 140, potassium 4.5, chloride 101, CO2 25, BUN 91 and creatinine 4.87. WBC 9.61, hemoglobin 8.6, hematocrit 36.4, and platelets 125. TELEMETRY: Sinus tachycardia. IMPRESSION 1. Non-ST elevation myocardial infarction. 2. Ptimn-fw-dfasfeg systolic heart failure. 3. Acute renal failure requiring hemodialysis. 4. Methicillin-resistant Staphylococcus aureus pneumonia. 5. Hyperosmolar, hyperglycemic state. 6. Elevated liver function tests, likely shock liver. 7. Acute respiratory failure, now extubated. 8. Multiple myeloma. 9. Anemia. 10. Diabetes mellitus. 11. Hyperlipidemia. 12. Coronary artery disease status post recent percutaneous coronary intervention. RECOMMENDATIONS: Continue current cardiac medications. Patient needs to have his swallow evaluation today as he no longer has PO access. If he does not pass his swallow evaluation, he will need NG tube placed for dual antiplatelet therapy administration. Continue current cardiac medications otherwise. Volume management per nephrology, given need for hemodialysis. Given patient's acute renal failure, he is not a candidate for invasive cardiac evaluation at this time. Continue medical management. Based on his clinical course, we will discuss further ischemic evaluation prior to discharge. Antibiotics per primary service. Once his LFTs stabilize, we will need to start statin therapy. Thank you for this consult. We will continue to follow. Job#: [id number] RADHA
--- NOTE | 2017-11-16 11:59 | Progress Note ---
DATE: November 16, 2017 Job#: [id number] PRISCA LEMONS
[2017-11-16] MEDS: METOPROLOL TARTRATE INJ 1 MG/ML VIAL IV SCH ×2 (12:00→16:20)
[2017-11-16] MEDS ORDERED: LIDOCAINE HCL 2% JELLY 5 ML TUBE TOP ONE (14:15)
--- NOTE | 2017-11-16 14:15 | Progress Note ---
DATE: November 16, 2017 Patient seen and examined today. Patient appears better, more awake. He is still intubated, waiting for weaning procedure. No evidence of any bleeding. PHYSICAL EXAMINATION GENERAL: Awake, intubated. HEENT: Normocephalic and atraumatic. Sclerae are pink. Conjunctivae are clear. NECK: Supple. CHEST: Decreased breath sounds at bases. CARDIOVASCULAR: Regular rate and rhythm. EXTREMITIES: No edema. LABS AND IMAGING: Reviewed. ASSESSMENT AND PLAN: The patient has a history of multiple myeloma, anemia, ifz-SB-xbagxbgvu myocardial infarction and thrombocytopenia. The patient also has ledrd-ad-uelrwxk renal failure. The patient is clinically doing better, currently on hemodialysis. Respiratory failure is improving. Counts are stable. At this point, we will continue current myeloma treatment as an outpatient. We will follow the patient. Job#: [id number]
[2017-11-16] MEDS: VANCOMYCIN 750MG/NS 150ML IVPB 150 ML IV SCH (15:38)
[2017-11-16] MEDS: EPOETIN ALFA 10000 UNIT/ML VIAL SC SCH (16:20)
[2017-11-16] MEDS ORDERED: EPINEPHRINE 2.25% INH NEBU SOL 0.5 ML VIAL ONE (16:57)
[2017-11-16] MEDS: HYDRALAZINE HCL 20 MG/ML VIAL IV PRN (17:05)
--- NOTE | 2017-11-16 17:53 | Diagnostic Imaging Report ---
Examination: Single AP view of the chest. COMPARISON: None. INDICATION: Extubation DISCUSSION: Lines/tubes: Interval extubation. Enteric tube with the distal tip not visualized. Right IJ central venous line with the tip at the cavoatrial junction. Sternotomy wires. Lungs: Stable pulmonary edema. Left lower lung atelectasis. Pleura: Left greater than right effusion. Heart and mediastinum: Heart enlarged. Bones and soft tissues: No acute bony abnormalities. IMPRESSION: Stable pulmonary edema. Interval extubation. Signed by: Dr. Vikram Malik M.D. on 11/16/2017 5:49 PM
[2017-11-16] MEDS ORDERED: METHYLPREDNISOLONE SOD SUCC 40 MG/ML VIAL IV NR (18:00)
--- NOTE | 2017-11-16 18:00 | Diagnostic Imaging Report ---
Exam: Abdominal film Clinical History: Enteric tube Comparison: None. DISCUSSION: Frontal view of the abdomen shows a nonobstructive bowel gas pattern with mild amount of retained stool. Enteric tube with the distal tip right of midline overlying the expected distal stomach. IMPRESSION: 1. Enteric tube with the distal tip right of midline overlying the expected distal stomach. Signed by: Dr. Vikram Malik M.D. on 11/16/2017 5:57 PM
[2017-11-16] MEDS: METHYLPREDNISOLONE SOD SUCC 40 MG/ML VIAL IV SCH (22:08)
[2017-11-17] VITALS (41 sets, daily range): BP systolic 141–164; BP diastolic 60–89
[2017-11-17] MEDS: METOPROLOL TARTRATE INJ 1 MG/ML VIAL IV SCH ×4 (00:01→18:34)
[2017-11-17] MEDS: INSULIN LISPRO 100 UNIT/1 ML 3ML VIAL SQ SCH ×4 (00:03→18:36)
[2017-11-17] MEDS: SODIUM CHLORIDE 0.9% 250ML IRRIG IR SCH ×6 (00:04→20:30)
[2017-11-17] MEDS: IPRATROPIUM BROMIDE 0.02% 2.5 ML NEB NEB SCH ×4 (00:56→19:17)
[2017-11-17] MEDS: ALBUTEROL/IPRATROPIUM 3 ML NEB NEB SCH ×6 (02:50→23:20)
[2017-11-17 04:13] LABS: BASOPHILS % 0.2 % (0.0-1.0); EOSINOPHILS % 0.1 % (0.0-6.0); HEMATOCRIT 28.9 % (38.2-49.6); HEMOGLOBIN 9.2 g/dL (14.0-18.0); LYMPHOCYTES % 10.6 % (18.0-39.1); MEAN CORPUSCULAR HEMOGLOBIN 29.6 pg (28-32); MEAN CORPUSCULAR HGB CONC 31.8 g/dL (31-35); MEAN CORPUSCULAR VOLUME 92.9 fL (81-99); MONOCYTES # (AUTO) 0.4 (0.2-0.8); MONOCYTES % 4.7 % (4.4-11.3); NEUTROPHILS # (AUTO) 7.5 (2.1-6.9); NEUTROPHILS % 79.9 % (38.7-80.0); PLATELET COUNT 151 x10e3/uL (140-360); RED BLOOD COUNT 3.11 x10e6/uL (4.3-5.7); RED CELL DISTRIBUTION WIDTH 16.5 % (11.7-14.4)
[2017-11-17 04:35] LABS: ALBUMIN 2.4 g/dL (3.5-5.0); ALBUMIN/GLOBULIN RATIO 0.7 (0.8-2.0); ANION GAP 19.7 mmol/L (8-16); CALCIUM 8.6 mg/dL (8.4-10.2); CREATININE, SERUM 3.41 mg/dL (0.72-1.25); POTASSIUM 4.7 mmol/L (3.5-5.1)
[2017-11-17] MEDS: METHYLPREDNISOLONE SOD SUCC 40 MG/ML VIAL IV SCH ×2 (05:40→14:00)
[2017-11-17] MEDS: DOCUSATE SODIUM LIQD 100 MG/10 ML UDC NG SCH ×2 (08:41→21:30)
[2017-11-17] MEDS: PANTOPRAZOLE 40 MG 10ML VIAL IV SCH (08:41)
[2017-11-17] MEDS: AZTREONAM 1 GM VIAL IV SCH (08:41)
[2017-11-17] MEDS: FUROSEMIDE INJ 10 MG/ML 4 ML VIAL IV SCH ×2 (08:41→21:30)
[2017-11-17] MEDS: CLOPIDOGREL BISULFATE 75 MG TAB PO SCH (08:41)
[2017-11-17] MEDS: ASPIRIN 325 MG TAB EC PO SCH (08:41)
[2017-11-17] MEDS: METOPROLOL TARTRATE 25 MG TAB PO SCH ×2 (08:50→21:30)
[2017-11-17] MEDS: HEPARIN SOD (PORCINE) 5,000 UNIT/ML VIAL SC SCH ×2 (08:56→21:31)
[2017-11-17] MEDS: INSULIN DETEMIR 100 UNIT/ML PEN SQ SCH (08:57)
--- NOTE | 2017-11-17 09:54 | Progress Note ---
DATE: November 17, 2017 CARDIOLOGY PROGRESS NOTE SUBJECTIVE: Patient denies chest pain or shortness of breath. OBJECTIVE VITAL SIGNS: Temperature 98.6 degrees, pulse 73, respiratory rate 18, blood pressure 156/71, oxygen saturation 100% on 4 liters nasal cannula. GENERAL: Well-developed, well-nourished man, no acute distress, awake and alert. LUNGS: Clear to auscultation bilaterally. No wheezes or crackles. CARDIOVASCULAR: Normal rate, regular rhythm. No murmur. Normal S1 and S2. ABDOMEN: Soft, nontender. EXTREMITIES: No edema. CARDIAC MEDICATIONS 1. Metoprolol 25 mg p.o. q.12 h. 2. Furosemide 40 mg IV q.12 h. 3. Plavix 75 mg p.o. daily. 4. Aspirin 325 mg p.o. q.a.m. LABS: WBC 9.38, hemoglobin 9.2, hematocrit 28.9, platelets 151. Sodium 140, potassium 4.7, chloride 99, CO2 26, BUN 59 and creatinine 3.41. AST 172, ALT 245. CHEST X-RAY: Stable pulmonary edema with interval extubation. TELEMETRY: Normal sinus rhythm. IMPRESSION 1. Btp-XA-cdyfmylxc myocardial infarction. 2. Ottzd-ng-ywpolgv systolic heart failure. 3. Acute renal failure requiring hemodialysis. 4. Methicillin-resistant Staphylococcus aureus pneumonia. 5. Hyperosmolar, hyperglycemic state. 6. Elevated liver function tests, likely shock liver versus component of congestive hepatopathy. 7. Acute respiratory failure, now extubated. 8. Multiple myeloma. 9. Anemia. 10. Diabetes mellitus. 11. Hyperlipidemia. 12. Coronary artery disease status post recent percutaneous coronary intervention earlier this year. RECOMMENDATIONS: Continue current cardiac medications including dual antiplatelet therapy. Volume management per nephrology. He is scheduled for further ultrafiltration today. Given the patient's acute renal failure, he is not a candidate for invasive cardiac evaluation at this time. Continue medical management. Based on his clinical course, we will discuss further ischemic evaluation prior to discharge. Antibiotics per primary service. Decrease aspirin to 81 mg today. We will need to start statin once LFTs normalize. Thank you for this consult. We will continue to follow. Job#: [id number]
[2017-11-17 10:04] LABS: ANISOCYTOSIS SLIGHT; EOSINOPHILS % (MANUAL) 1 % (0-7); HYPOCHROMASIA SLIGHT; LYMPHOCYTES % (MANUAL) 17 % (19-48); METAMYELOCYTES % (MANUAL) 2 % (0-0); MONOCYTES % (MANUAL) 11 % (3.4-9.0); MYELOCYTES % (MANUAL) 1 % (0-0); NEUTROPHILS % (MANUAL) 68 % (40-74); PLATELET ESTIMATE ADEQUATE; PLATELET MORPHOLOGY COMMENT FEW LARGE; RBC MORPHOLOGY COMMENT NORMAL
[2017-11-17] MEDS: VANCOMYCIN 750MG/NS 150ML IVPB 150 ML IV SCH (12:30)
[2017-11-17] MEDS ORDERED: INSULIN REGULAR, HUMAN 100 UNIT/1 ML 3ML VIAL IV ONE ×2 (12:30→14:45)
[2017-11-17] MEDS ORDERED: INSULIN DETEMIR 100 UNIT/ML PEN SQ ONE (12:30)
[2017-11-17 16:33] LABS: ANION GAP 25.6 mmol/L (8-16); CALCIUM 7.9 mg/dL (8.4-10.2); CREATININE, SERUM 4.2 mg/dL (0.72-1.25); POTASSIUM 4.6 mmol/L (3.5-5.1)
--- NOTE | 2017-11-17 16:55 | Progress Note ---
DATE: NO DICTATION, length 0 minutes 15 seconds. Job#: [id number] EV
--- NOTE | 2017-11-17 16:59 | Progress Note ---
DATE: HEMATOLOGY/ONCOLOGY PROGRESS NOTE SUBJECTIVE: Patient is seen and examined today. Patient appears comfortable. Clinically doing better. Currently resting. On 2 liters oxygen through nasal cannula. Current count is stable. OBJECTIVE GENERAL: Alert, awake, communicative. HEENT: Normocephalic, atraumatic. Sclerae pale. Conjunctivae clear. NECK: Supple. CHEST: Clear to auscultation. CARDIOVASCULAR: Regular rate and rhythm. ABDOMEN: Soft. EXTREMITIES: No edema. Labs, imaging reviewed. ASSESSMENT AND PLAN: Patient with history of known ST-elevation myocardial infarction, congestive heart failure, fnjiu-wk-pdhhxer kidney failure, multiple myeloma, anemia and thrombocytopenia. Patient clinically doing better. Current count is stable. Hematologically, condition is improving. RECOMMENDATION: Myeloma management as outpatient. Continue current care. Will monitor patient closely. Job#: [id number] EV
[2017-11-18] VITALS (63 sets, daily range): BP systolic 119–173; BP diastolic 52–92
[2017-11-18] MEDS: SODIUM CHLORIDE 0.9% 250ML IRRIG IR SCH (00:03)
[2017-11-18] MEDS: METOPROLOL TARTRATE INJ 1 MG/ML VIAL IV SCH ×3 (00:15→12:00)
[2017-11-18] MEDS: INSULIN LISPRO 100 UNIT/1 ML 3ML VIAL SQ SCH ×5 (00:16→23:44)
[2017-11-18] MEDS: IPRATROPIUM BROMIDE 0.02% 2.5 ML NEB NEB SCH ×4 (00:52→19:00)
[2017-11-18] MEDS: ALBUTEROL/IPRATROPIUM 3 ML NEB NEB SCH ×5 (02:55→23:15)
[2017-11-18] MEDS: HEPARIN SOD (PORCINE) 5,000 UNIT/ML VIAL SC SCH ×2 (09:00→23:33)
[2017-11-18] MEDS: INSULIN DETEMIR 100 UNIT/ML PEN SQ SCH (09:00)
[2017-11-18] MEDS ORDERED: ASPIRIN 325 MG TAB EC PO SCH (09:00)
[2017-11-18] MEDS: DOCUSATE SODIUM LIQD 100 MG/10 ML UDC NG SCH ×2 (09:00→23:31)
[2017-11-18] MEDS: METHYLPREDNISOLONE SOD SUCC 40 MG/ML VIAL IV SCH (09:00)
[2017-11-18] MEDS: METOPROLOL TARTRATE 25 MG TAB PO SCH (09:00)
[2017-11-18] MEDS: CLOPIDOGREL BISULFATE 75 MG TAB PO SCH (09:00)
[2017-11-18] MEDS: AZTREONAM 1 GM VIAL IV SCH (09:00)
[2017-11-18] MEDS: PANTOPRAZOLE 40 MG 10ML VIAL IV SCH (09:00)
[2017-11-18] MEDS: ASPIRIN 81 MG ENTERIC COATED PO SCH (09:00)
[2017-11-18] MEDS: FUROSEMIDE INJ 10 MG/ML 4 ML VIAL IV SCH ×2 (10:00→23:31)
[2017-11-18] MEDS: EPOETIN ALFA 10000 UNIT/ML VIAL SC SCH (10:00)
[2017-11-18] MEDS: HYDRALAZINE HCL 20 MG/ML VIAL IV PRN (12:43)
--- NOTE | 2017-11-18 13:37 | Progress Note ---
DATE: November 18, 2017 CARDIOLOGY PROGRESS NOTE SUBJECTIVE: Patient denies chest pain or shortness of breath. OBJECTIVE VITAL SIGNS: Temperature 97.6 degrees, pulse 67, respiratory rate 18, blood pressure 170/81, oxygen saturation 100% on 3 liters nasal cannula. GENERAL: Well-developed, well-nourished man, no acute distress, awake and alert. LUNGS: Clear to auscultation bilaterally. No wheezes or crackles. CARDIOVASCULAR: Normal rate, regular rhythm. No murmur. Normal S1 and S2. ABDOMEN: Soft, nontender. EXTREMITIES: No edema. CARDIAC MEDICATIONS 1. Metoprolol tartrate 5 mg IV q.6 hours. 2. Furosemide 40 mg IV q.12 hours. 3. Aspirin 81 mg p.o. daily. 4. Metoprolol tartrate 25 mg p.o. q.12 hours. 5. Plavix 75 mg p.o. daily. LABS: WBC 9.38, hemoglobin 9.2, hematocrit 28.9, and platelets 151. Sodium 137, potassium 4.6, chloride 95, CO2 of 21, BUN 87, creatinine 4.2. TELEMETRY: Normal sinus rhythm. IMPRESSION 1. Znl-EG-htyivnuhc myocardial infarction. 2. Scsgv-jl-krtxnpk systolic heart failure. 3. Acute renal failure, requiring hemodialysis. 4. Methicillin-resistant Staphylococcus aureus pneumonia. 5. Hyperosmolar hyperglycemic state. 6. Elevated liver function tests, likely shock liver versus component of congestive hepatopathy. 7. Acute respiratory failure, now extubated. 8. Multiple myeloma. 9. Anemia. 10. Diabetes mellitus. 11. Hyperlipidemia. 12. Coronary artery disease, status post recent percutaneous coronary intervention earlier this year. RECOMMENDATIONS: Continue current cardiac medications including dual-antiplatelet therapy. The patient does not need to be on IV and p.o. metoprolol. We will discontinue IV metoprolol. Volume management per nephrology given need for hemodialysis. Given the patient's acute renal failure, he is not a candidate for invasive cardiac evaluation at this time. Continue medical management. Based on his clinical course, we will discuss further ischemic evaluation prior to discharge. Titrate up beta blockade given hypertension. Antibiotics per primary service. Plan to start statin once LFTs normalized and are stable, likely in the next few days. Thank you for this consult. We will continue to follow. Job#: [id number] PRISCA LEMONS
--- NOTE | 2017-11-18 14:21 | Progress Note ---
DATE: November 18, 2017 SUBJECTIVE: He says his breathing is okay. Staff had noted some wheezing earlier. OBJECTIVE VITAL SIGNS: Temperature of 96.7, blood pressure 170/81, respiratory rate 18. HEENT: Atraumatic. NECK: No definite JVD. CHEST: Faint crackles at the bases. No wheezes. Air entry seems generally diminished. CARDIAC: Normal heart tones. Rhythm sounds regular. EXTREMITIES: Trace edema. LABS: K 4.6, creatinine 4.2, and BUN 87, this is from yesterday. ASSESSMENT 1. Acute kidney injury, presumed acute tubular necrosis with myeloma kidney. 2. Mild acidosis. 3. Fluid overload is improved. PLAN: The plan was to dialyze him back to back for better clearance. Plan hemodialysis today. Plan a 3-1/2-hour run, 2 potassium bath, 2 liters fluid removal, blood flow rate 350 mL per minute, dialysate flow rate is about 500 mL per minute. P.r.n. mannitol and saline for blood pressure support. We will follow along. Job#: [id number] [facility]
[2017-11-18] MEDS: CARVEDILOL 3.125 MG TAB PO SCH (16:23)
--- NOTE | 2017-11-18 16:30 | Progress Note ---
PROGRESS NOTE SUBJECTIVE: I am covering for Dr. Palmer today. The patient has made some improvement. He is not complaining of dyspnea with cough. PHYSICAL EXAMINATION VITAL SIGNS: The patient is afebrile. The vital signs are stable. HEENT: Shows no facial swelling or erythema. The nasal mucosa is normal. The oropharynx is normal. LYMPHATIC: Shows no submandibular, cervical, or supraclavicular adenopathy. CARDIAC: Reveals regular rate and rhythm with a normal S1 and S2. There are no murmurs or rubs. LUNGS: Auscultation of the lungs reveals rhonchorous breath sounds bilaterally. There is some wheezing. ABDOMEN: Soft and nontender. There is no rebound or guarding. EXTREMITIES: There is no leg edema or calf tenderness. IMPRESSION 1. Twisa-tq-lfeleer systolic heart failure. 2. Acute respiratory failure. 3. Methicillin-resistant Staphylococcus aureus pneumonia. 4. Acute renal failure. PLAN Continue dialysis and monitoring by nephrology. Transfer out of ICU. Continue current antibiotics. Job#: [id number] [facility]
[2017-11-18] MEDS: VANCOMYCIN 750MG/NS 150ML IVPB 150 ML IV SCH (23:31)
[2017-11-19] VITALS (10 sets, daily range): BP systolic 126–166; BP diastolic 53–90
[2017-11-19] MEDS: IPRATROPIUM BROMIDE 0.02% 2.5 ML NEB NEB SCH ×4 (01:00→19:00)
[2017-11-19] MEDS: ALBUTEROL/IPRATROPIUM 3 ML NEB NEB SCH ×6 (03:25→22:45)
[2017-11-19 05:29] LABS: CALCIUM 8.3 mg/dL (8.4-10.2); MAGNESIUM 2.8 MG/DL (1.3-2.1); PHOSPHORUS 4.5 MG/DL (2.3-4.7)
[2017-11-19] MEDS: INSULIN LISPRO 100 UNIT/1 ML 3ML VIAL SQ SCH ×3 (06:00→17:50)
[2017-11-19] MEDS: METHYLPREDNISOLONE SOD SUCC 40 MG/ML VIAL IV SCH (08:42)
[2017-11-19] MEDS: ASPIRIN 81 MG ENTERIC COATED PO SCH (08:42)
[2017-11-19] MEDS: AZTREONAM 1 GM VIAL IV SCH (08:42)
[2017-11-19] MEDS: DOCUSATE SODIUM LIQD 100 MG/10 ML UDC NG SCH ×2 (08:42→20:45)
[2017-11-19] MEDS: HEPARIN SOD (PORCINE) 5,000 UNIT/ML VIAL SC SCH ×2 (08:42→20:45)
[2017-11-19] MEDS: FUROSEMIDE INJ 10 MG/ML 4 ML VIAL IV SCH ×2 (08:42→20:45)
[2017-11-19] MEDS: CLOPIDOGREL BISULFATE 75 MG TAB PO SCH (08:42)
[2017-11-19] MEDS: CARVEDILOL 3.125 MG TAB PO SCH ×2 (08:42→16:26)
[2017-11-19] MEDS: PANTOPRAZOLE 40 MG 10ML VIAL IV SCH (08:42)
[2017-11-19] MEDS: INSULIN DETEMIR 100 UNIT/ML PEN SQ SCH (08:43)
--- NOTE | 2017-11-19 12:54 | Progress Note ---
DATE: SUBJECTIVE: Patient was transferred out of the intensive care unit today. He feels better. He has less dyspnea, less congestion, although he has not been out of bed yet. OBJECTIVE VITAL SIGNS: The blood pressure is 166/86 and the saturation is 99% on 2 L. Pulse is 70 and the respiratory rate is 16. HEENT: Shows no facial swelling or erythema. The nasal mucosa is normal. The oropharynx is normal. LYMPHATIC: Shows no submandibular, cervical, or supraclavicular adenopathy. CARDIAC: Reveals regular rate and rhythm with normal S1 and S2. There are no murmurs or rubs. LUNGS: Auscultation of the lungs reveals a few crackles at the bases. ABDOMEN: Soft and nontender. There is no rebound or guarding. EXTREMITIES: There is no leg edema. IMPRESSION 1. Letxl-hi-lysfvoi systolic heart failure. 2. Acute respiratory failure. 3. Methicillin-resistant Staphylococcus aureus pneumonia. 4. Acute renal failure. 5. Diabetes out of control with elevated blood sugars. 6. Passive liver congestion and elevated liver function tests. 7. Multiple myeloma. 8. Anemia. PLAN 1. Continue dialysis as recommended through nephrology. 2. Repeat x-ray in a.m. 3. Repeat blood tests in a.m. 4. Begin physical therapy tomorrow. 5. Continue current antibiotics. Job#: [id number]
--- NOTE | 2017-11-19 22:30 | Progress Note ---
DATE: November 19, 2017 CARDIOLOGY PROGRESS NOTE SUBJECTIVE: Patient denies chest pain or shortness of breath. OBJECTIVE VITAL SIGNS: Temperature 97.9 degrees, pulse 70, respiratory rate 16, blood pressure 166/86, oxygen saturation 99% on 2 L nasal cannula. GENERAL: Well-developed, well-nourished man, no acute distress, awake and alert. LUNGS: Clear to auscultation bilaterally. No wheezes or crackles. CARDIOVASCULAR: Normal rate, regular rhythm. No murmur. Normal S1, S2. ABDOMEN: Soft, nontender. EXTREMITIES: No edema. CARDIAC MEDICATIONS 1. Furosemide 40 mg IV q.12 h. 2. Carvedilol 6.25 mg p.o. b.i.d. 3. Aspirin 81 mg p.o. daily. 4. Plavix 75 mg p.o. daily. LABS: Sodium 140, potassium 4, chloride 99, CO2 22, BUN 66, creatinine 4. TELEMETRY: Normal sinus rhythm. IMPRESSIONS 1. Uqg-KR-mbbpzrcnj myocardial infarction. 2. Vnopj-cw-sflqhjs systolic heart failure. 3. Acute renal failure, requiring hemodialysis. 4. Methicillin-resistant Staphylococcus aureus pneumonia. 5. Hyperosmolar hyperglycemic state. 6. Elevated liver function tests, likely shock liver versus component of congestive hepatopathy. 7. Acute respiratory failure, now extubated. 8. Multiple myeloma. 9. Anemia. 10. Diabetes mellitus. 11. Hyperlipidemia. 12. Coronary artery disease, status post recent percutaneous coronary intervention earlier this year. RECOMMENDATIONS: Continue current cardiac medications including dual-antiplatelet therapy. Volume management per nephrology given need for hemodialysis. Given the patient's acute renal failure, he is not a candidate for invasive cardiac evaluation at this time. Continue medical management. Repeat LFTs in the morning. If they are stable, plan to start statin. As patient remains hypertensive, we will titrate beta-mari further. Based on his clinical course, we will further discuss ischemic evaluation prior to discharge. Antibiotics per primary service. Thank you for this consult. We will continue to follow. Job#: [id number] CQ CRISTO
[2017-11-20] MEDS: INSULIN LISPRO 100 UNIT/1 ML 3ML VIAL SQ SCH ×5 (00:32→23:23)
[2017-11-20] MEDS: IPRATROPIUM BROMIDE 0.02% 2.5 ML NEB NEB SCH ×4 (01:00→19:00)
[2017-11-20] MEDS: ALBUTEROL/IPRATROPIUM 3 ML NEB NEB SCH ×6 (03:05→23:40)
[2017-11-20 04:21] VITALS: BP 148/64
[2017-11-20 05:47] LABS: BASOPHILS % 0.3 % (0.0-1.0); EOSINOPHILS % 0.1 % (0.0-6.0); HEMATOCRIT 31.1 % (38.2-49.6); HEMOGLOBIN 10.2 g/dL (14.0-18.0); LYMPHOCYTES # (AUTO) 1.4 (1.0-3.2); LYMPHOCYTES % 14.4 % (18.0-39.1); MEAN CORPUSCULAR HEMOGLOBIN 29.7 pg (28-32); MEAN CORPUSCULAR HGB CONC 32.8 g/dL (31-35); MEAN CORPUSCULAR VOLUME 90.4 fL (81-99); MONOCYTES # (AUTO) 1.2 (0.2-0.8); MONOCYTES % 11.8 % (4.4-11.3); NEUTROPHILS % 71.6 % (38.7-80.0); PLATELET COUNT 215 x10e3/uL (140-360); RED BLOOD COUNT 3.44 x10e6/uL (4.3-5.7); RED CELL DISTRIBUTION WIDTH 16.2 % (11.7-14.4)
[2017-11-20 05:59] LABS: ALBUMIN 2.8 g/dL (3.5-5.0); BILIRUBIN,DIRECT 0.4 mg/dL (0.0-0.5)
--- NOTE | 2017-11-20 06:45 | Diagnostic Imaging Report ---
EXAM: CHEST SINGLE (PORTABLE), AP 1 view INDICATION: Pulmonary edema COMPARISON: AP view of the chest November 16, 2017 FINDINGS: LINES/TUBES: Stable position right internal jugular vein temporary hemodialysis catheter. Interval removal of nasal/orogastric tube. LUNGS: Improving pulmonary edema. PLEURA: Improving effusions. HEART AND MEDIASTINUM: Stable appearance. BONES AND SOFT TISSUES: No acute findings. IMPRESSION: Improving pulmonary edema and effusions. Signed by: Dr. Sandra Duong M.D. on 11/20/2017 6:42 AM
[2017-11-20 08:00] VITALS: BP 193/91
[2017-11-20] MEDS: CARVEDILOL 12.5 MG TAB PO SCH ×2 (08:00→17:00)
[2017-11-20 08:59] LABS: ANION GAP 26.4 mmol/L (8-16); CALCIUM 7.4 mg/dL (8.4-10.2); CREATININE, SERUM 5.37 mg/dL (0.72-1.25); POTASSIUM 4.4 mmol/L (3.5-5.1)
--- NOTE | 2017-11-20 08:59 | Progress Note ---
DATE: November 20, 2017 Patient is seen and examined today. Patient appears comfortable. Clinical condition is improving. PHYSICAL EXAMINATION GENERAL: Alert, awake and communicative. HEENT: Normocephalic and atraumatic. Sclerae pale. Conjunctivae clear. NECK: Supple. CHEST: Clear to auscultation with decreased breath sounds at the bases. CARDIOVASCULAR: Regular rate and rhythm. ABDOMEN: Soft. EXTREMITIES: No edema. LABS AND IMAGING: Reviewed. ASSESSMENT AND PLAN: The patient with a history of multiple myeloma admitted with ixu-HH-ypjqjxiaw myocardial infarction, anemia, pancytopenia, renal failure, managed conservatively. The patient is intubation and dialysis. Current condition has improved. Hemoglobin improved. Counts improved. Continue current care. Continue Procrit. Avoid frequent blood draws. Avoid thrombocytopenic medications. Myeloma treatment as an outpatient. Will follow. Job#: [id number] [place]
[2017-11-20] MEDS: CLOPIDOGREL BISULFATE 75 MG TAB PO SCH (09:00)
[2017-11-20] MEDS: DOCUSATE SODIUM LIQD 100 MG/10 ML UDC NG SCH ×2 (09:00→21:12)
[2017-11-20] MEDS: INSULIN DETEMIR 100 UNIT/ML PEN SQ SCH (09:00)
[2017-11-20] MEDS: ASPIRIN 81 MG ENTERIC COATED PO SCH (09:00)
[2017-11-20] MEDS: PANTOPRAZOLE 40 MG 10ML VIAL IV SCH (09:00)
[2017-11-20] MEDS: FUROSEMIDE INJ 10 MG/ML 4 ML VIAL IV SCH ×2 (09:00→21:12)
[2017-11-20] MEDS: METHYLPREDNISOLONE SOD SUCC 40 MG/ML VIAL IV SCH (09:00)
[2017-11-20] MEDS: FAMOTIDINE 20 MG TAB PO SCH (11:00)
[2017-11-20 11:52] VITALS: BP 191/86
--- NOTE | 2017-11-20 12:10 | Progress Note ---
DATE: November 20, 2017 CARDIOLOGY PROGRESS NOTE SUBJECTIVE: The patient denies chest pain or shortness of breath. OBJECTIVE VITALS: Temperature 96.5 degrees, pulse 73, respiratory rate 21, blood pressure 193/91, oxygen saturation 99% on 2 liters nasal cannula. GENERAL: Well-developed, well-nourished man, in no acute distress. Awake and alert. LUNGS: Clear to auscultation bilaterally. No wheezes or crackles. CARDIOVASCULAR: Normal rate. Regular rhythm. No murmur. Normal S1 and S2. ABDOMEN: Soft and nontender. EXTREMITIES: No edema. CARDIAC MEDICATIONS 1. Aspirin 81 mg p.o. daily. 2. Furosemide 40 mg IV q.12 hours. 3. Plavix 75 mg p.o. daily. 4. Carvedilol 12.5 mg p.o. b.i.d. LABS: WBC 9.74, hemoglobin 10.2, hematocrit 31.1, and platelets 215. Sodium 138, potassium 4.4, chloride 96, CO2 of 20, BUN 95, creatinine 5.37. AST 14, ALT 80. TELEMETRY: Normal sinus rhythm. IMPRESSION 1. Non-ST elevation myocardial infarction. 2. Akcgu-vk-zjelmyc systolic heart failure. 3. Acute renal failure, requiring hemodialysis. 4. Methicillin-resistant Staphylococcus aureus pneumonia. 5. Hyperosmolar hyperglycemic state. 6. Elevated liver function tests, likely shock liver versus component of congestive hepatopathy. 7. Acute respiratory failure, now extubated. 8. Multiple myeloma. 9. Diabetes mellitus. 10. Hyperlipidemia. 11. Coronary artery disease, status post recent percutaneous coronary intervention earlier this year. 12. Anemia. RECOMMENDATIONS: Continue current cardiac medications including dual-antiplatelet therapy. Volume measure per nephrology given need for hemodialysis. Patient will not be declared end-stage renal disease, but he will need outpatient dialysis for acute kidney injury. He is therefore not a candidate for invasive cardiac evaluation at this time. Continue medical management. We will discuss options with the patient including continuation of medical therapy verus stress test to evaluate burden of ischemia; however, even if ischemia was found, he would be at high risk for cardiac catheterization for contrast-induced nephropathy. No statin at this time as LFTs remained elevated. Follow up as outpatient for initiation. Thank you for this consul. We will continue to follow. Job#: [id number] PRISCA
[2017-11-20 16:00] VITALS: BP 173/81
[2017-11-20 20:48] VITALS: BP 161/72
[2017-11-21] VITALS (10 sets, daily range): BP systolic 168–188; BP diastolic 76–92
[2017-11-21] MEDS: IPRATROPIUM BROMIDE 0.02% 2.5 ML NEB NEB SCH ×4 (00:25→19:00)
[2017-11-21] MEDS: HYDRALAZINE HCL 20 MG/ML VIAL IV PRN ×3 (01:36→20:50)
[2017-11-21] MEDS: ALBUTEROL/IPRATROPIUM 3 ML NEB NEB SCH ×6 (03:35→23:35)
[2017-11-21] MEDS: INSULIN LISPRO 100 UNIT/1 ML 3ML VIAL SQ SCH ×3 (05:59→17:21)
[2017-11-21] MEDS ORDERED: DEXTROSE 5%/0.45% SOD CHL 1,000 ML IV ONE (06:15)
[2017-11-21 06:35] LABS: ANION GAP 26.3 mmol/L (8-16); CREATININE, SERUM 6.58 mg/dL (0.72-1.25); POTASSIUM 4.3 mmol/L (3.5-5.1)
[2017-11-21 06:42] LABS: CALCIUM 6.9 mg/dL (8.4-10.2)
[2017-11-21] MEDS: CARVEDILOL 12.5 MG TAB PO SCH ×2 (08:00→17:00)
[2017-11-21] MEDS ORDERED: CALCIUM GLUCONATE 10% INJ 4.65 MEQ in SODIUM CHLORIDE 0.9% 100 ML IV ONE (08:15)
[2017-11-21] MEDS: CLOPIDOGREL BISULFATE 75 MG TAB PO SCH (09:00)
[2017-11-21] MEDS: FAMOTIDINE 20 MG TAB PO SCH (09:00)
[2017-11-21] MEDS: DOCUSATE SODIUM LIQD 100 MG/10 ML UDC NG SCH ×2 (09:00→20:49)
[2017-11-21] MEDS: FUROSEMIDE INJ 10 MG/ML 4 ML VIAL IV SCH ×2 (09:00→20:49)
[2017-11-21] MEDS: ASPIRIN 81 MG ENTERIC COATED PO SCH (09:00)
--- NOTE | 2017-11-21 09:14 | Progress Note ---
DATE: November 21, 2017 Patient was seen and examined today. Patient appeared comfortable. Clinical condition is stable. No worsening events noted. PHYSICAL EXAMINATION GENERAL: Alert, awake and communicative. HEENT: Normocephalic and atraumatic. Sclerae pink. Conjunctivae clear. NECK: Supple. CHEST: Decreased breath sounds at the bases. CARDIOVASCULAR: Regular rate and rhythm. ABDOMEN: Soft. EXTREMITIES: No edema. LABS AND IMAGING: Reviewed. ASSESSMENT AND PLAN 1. The patient with a history of jjv-XW-dqhwiltrl myocardial infarction. 2. Wckal-hp-bbtbaxd systolic heart failure. 3. Acute renal failure. 4. Pneumonia. 5. Anemia 6. Thrombocytopenia. 7. Multiple myeloma. 8. Diabetes. 9. Hyperlipidemia. Clinical condition has improved. Patient's blood count including platelets and white count are stable and not worsening. Myeloma management as an outpatient. Continue remaining care. Will monitor the patient closely. Job#: [id number] JOSE ALFREDO
--- OUTSIDE RECORDS SUMMARY | 2017-11-21 10:48 | XMS REPORT | Clinical Summary ---
Author Author [facility] Organization [facility] Address Unknown Phone Unavailable Care Team Providers Care Carpenter General Name Role Phone PCP Unavailable Allergies Active Allergy Reactions Severity Noted Date Comments Penicillin G Hives Medium 11/28/2014 Current Medications Prescription Sig. Disp. Refills Start End Date Status Date aspirin (ASPIRIN) 81 mg Chew and swallow 1 tablet 90 tablet 3 04/21/19 Active chewable by mouth daily. 18 tabletIndications: Non-ST elevation (NSTEMI) myocardial infarction carvedilol (COREG) 12.5 Take 1 tablet by mouth 2 90 tablet 3 04/21/19 Active mg tabletIndications: times daily. 18 Non-ST elevation (NSTEMI) myocardial infarction Sitagliptin (JANUVIA) 50 Take 50 mg by mouth Active mg tablet daily. lisinopril (PRINIVIL, Take 2.5 mg by mouth Active ZESTRIL) 2.5 mg tablet daily. ergocalciferol (VITAMIN Take 50,000 Units by Active D2) 50,000 unit capsule mouth weekly. hydrALAZINE (APRESOLINE) Take 1 tablet by mouth 3 30 tablet 3 08/25/19 Active 25 mg tabletIndications: times daily. 18 Non-ST elevation (NSTEMI) myocardial infarction rosuvastatin (CRESTOR) 40 Take 40 mg by mouth at Active mg tablet bedtime nightly. furosemide (LASIX) 20 mg Take 1 tablet by mouth 90 tablet 3 08/24/19 Active tabletIndications: Non-ST daily. 18 elevation (NSTEMI) myocardial infarction hydrALAZINE (APRESOLINE) Take 1 tablet by mouth 3 180 tablet 3 08/24/19 Active 25 mg tabletIndications: times daily. 18 Non-ST elevation (NSTEMI) myocardial infarction clopidogrel (PLAVIX) 75 Take 1 tablet by mouth 90 tablet 3 08/24/19 Active mg tabletIndications: daily. 18 Non-ST elevation (NSTEMI) myocardial infarction amLODIPine (NORVASC) 5 mg Take 1 tablet by mouth 90 tablet 3 08/24/19 Active tabletIndications: daily. 18 Essential hypertension lisinopril (PRINIVIL, Take 1 tablet by mouth 90 tablet 3 08/24/19 Active ZESTRIL) 40 mg daily. 18 tabletIndications: Non-ST elevation (NSTEMI) myocardial infarction atorvastatin (LIPITOR) 80 Take 1 tablet by mouth at 90 tablet 3 08/24/19 Active mg tabletIndications: bedtime nightly. 18 Non-ST elevation (NSTEMI) myocardial infarction gabapentin (NEURONTIN) Take 300 mg by mouth 3 04/21/19 Discontin 300 mg capsule times daily. 18 ued lisinopril (PRINIVIL, Take 2.5 mg by mouth 04/21/19 Discontin ZESTRIL) 2.5 mg tablet daily. 18 ued Sitagliptin-Metformin Take 1 tablet by mouth 2 04/21/19 Discontin (JANUMET) 50-500 mg per times daily (with meals). 18 ued tablet canagliflozin (INVOKANA) Take 1 tablet by mouth 04/21/19 Discontin 300 mg tablet daily (with breakfast). 18 ued rosuvastatin (CRESTOR) 40 Take 40 mg by mouth at 04/21/19 Discontin mg tablet bedtime nightly. 18 ued aspirin (ASPIRIN) 81 mg Chew and swallow 81 mg by 04/21/19 Discontin chewable tablet mouth daily. 18 ued atorvastatin (LIPITOR) 80 Take 1 tablet by mouth at 90 tablet 3 04/21/19 08/24/19 Discontin mg tabletIndications: bedtime nightly. 18 18 ued Non-ST elevation (NSTEMI) myocardial infarction clopidogrel (PLAVIX) 75 Take 1 tablet by mouth 90 tablet 3 04/21/19 08/24/19 Discontin mg tabletIndications: daily. 18 18 ued Non-ST elevation (NSTEMI) myocardial infarction hydrALAZINE (APRESOLINE) Take 1 tablet by mouth 3 30 tablet 3 04/21/19 08/24/19 Discontin 25 mg tabletIndications: times daily. 18 18 ued Non-ST elevation (NSTEMI) myocardial infarction furosemide (LASIX) 20 mg Take 1 tablet by mouth 90 tablet 3 04/21/19 08/24/19 Discontin tabletIndications: Non-ST daily. 18 18 ued elevation (NSTEMI) myocardial infarction amLODIPine (NORVASC) 5 mg Take 5 mg by mouth daily. 08/24/19 Discontin tablet 18 ued lisinopril (PRINIVIL) 10 Take 1 tablet by mouth 30 tablet 3 05/18/19 05/27/19 Discontin mg tabletIndications: daily. 18 18 ued Non-ST elevation (NSTEMI) myocardial infarction lisinopril (PRINIVIL, Take 1 tablet by mouth 90 tablet 3 05/27/19 08/24/19 Discontin ZESTRIL) 40 mg daily. 18 18 ued tabletIndications: Non-ST elevation (NSTEMI) myocardial infarction Active Problems Problem Noted Date Shortness of breath 04/13/2017 Non-ST elevation (NSTEMI) myocardial infarction 04/13/2017 Pulmonary edema cardiac cause 04/13/2017 Elevated troponin 04/13/2017 Hypertensive emergency 04/13/2017 Ischemic cardiomyopathy Acute kidney injury Encounters Date Type Specialty Care Team Description 08/23/2017 Office Visit Cardiology Mary Bueno MD Coronary artery disease of [place] artery [place] heart with stable angina pectoris (Primary Dx); Dizziness; Non-ST elevation (NSTEMI) myocardial infarction; Essential hypertension; Ischemic cardiomyopathy 08/23/2017 Orders Only Cardiology Mary Bueno MD Dizziness; Coronary artery disease of [place] artery [place] heart with stable angina pectoris 08/18/2017 Refill Cardiology Mary Bueno MD Non-ST elevation (NSTEMI) myocardial infarction 06/02/2017 Office Visit Cardiology Mary Bueno MD Uncontrolled hypertension (Primary Dx) 05/26/2017 Office Visit Cardiology Mary Bueno MD Non-ST elevation (NSTEMI) myocardial infarction 05/17/2017 Office Visit Cardiology Adrian Schmidt MD Ischemic cardiomyopathy Mary Bueno MD (Primary Dx); Non-ST elevation (NSTEMI) myocardial infarction; Shortness of breath; Hypertensive emergency 05/04/2017 Office Visit Internal Medicine Chandu Samuel ResidentMD NO SHOW ENCOUNTER (Primary Dx) 04/18/2017 Telephone Luzma Andrew 04/17/2017 Telephone Mic Heller I Interpretation 04/13/2017 Hospital David Patterson MD Non-ST elevation (NSTEMI) - Encounter Mary Bueno MD myocardial infarction 04/20/2017 (Primary Dx); Shortness of breath 04/13/2017 Telephone Aakash Gomez Interpretation after 11/08/2016 Social History Tobacco Use Types Packs/Day Years Used Date Former Smoker Smokeless Tobacco: Never Used Alcohol Use Drinks/Week oz/Week Comments No Sex Assigned at Date Recorded Not on file Last Filed Vital Signs Vital Sign Reading Time Taken Blood Pressure 147/59 08/23/2017 2:10 PM CDT Pulse 76 08/23/2017 2:10 PM CDT Temperature 36.6 C (97.9 F) 08/23/2017 2:06 PM CDT Respiratory Rate 18 08/23/2017 2:06 PM CDT Oxygen Saturation 98% 08/23/2017 2:06 PM CDT Inhaled Oxygen - - Concentration Weight 77.1 kg (170 lb) 08/23/2017 2:06 PM CDT Height 162.6 cm (5' 4") 08/23/2017 2:06 PM CDT Body Mass Index 29.18 08/23/2017 2:06 PM CDT Plan of Treatment Health Maintenance Due Date Last Done Comments Colorectal Cancer Scrn 05/25/1995 Annual (FIT/FOBT) Age 50 to 75 IMM Pneumococcal Age 65 2010 and Up IMM Influenza Seasonal 11/06/2017Nov to April (>/=19 yrs) CORONARY ARTERY DISEASE 04/14/2018 04/14/2017 AGE 18 AND UP Procedures Procedure Name Priority Date/Time Associated Diagnosis Comments BMP POC Routine 05/17/2017 Results for this 2:03 PM CDT procedure are in the results section. POCT BNP (BRAIN Routine 05/17/2017 Results for this NATRIURETIC PEPTIDE) 1:47 PM CDT procedure are in the results section. GLUCOSE POC Routine 04/20/2017 Results for this 12:02 PM CDT procedure are in the results section. GLUCOSE POC Routine 04/20/2017 Results for this 8:22 AM CDT procedure are in the results section. 12 LEAD EKG Routine 04/20/2017 Results for this 4:54 AM CDT procedure are in the results section. MAGNESIUM Routine 04/20/2017 Results for this 4:05 AM CDT procedure are in the results section. CBC Routine 04/20/2017 Results for this 4:05 AM CDT procedure are in the results section. BASIC METABOLIC PANEL Routine 04/20/2017 Results for this 4:05 AM CDT procedure are in the results section. GLUCOSE POC Routine 04/19/2017 Results for this 8:03 PM CDT procedure are in the results section. GLUCOSE POC Routine 04/19/2017 Results for this 5:14 PM CDT procedure are in the results section. BASIC METABOLIC PANEL STAT 04/19/2017 Results for this 12:05 PM CDT procedure are in the results section. GLUCOSE POC Routine 04/19/2017 Results for this 12:00 PM CDT procedure are in the results section. GLUCOSE POC Routine 04/19/2017 Results for this 8:13 AM CDT procedure are in the results section. 12 LEAD EKG Routine 04/19/2017 Results for this 7:37 AM CDT procedure are in the results section. SEQUENTIAL COMPRESSION Routine 04/19/2017 PUMP 4:48 AM CDT MAGNESIUM Routine 04/19/2017 Results for this 4:00 AM CDT procedure are in the results section. CBC Routine 04/19/2017 Results for this 4:00 AM CDT procedure are in the results section. BASIC METABOLIC PANEL Routine 04/19/2017 Results for this 4:00 AM CDT procedure are in the results section. GLUCOSE POC Routine 04/18/2017 Results for this 8:42 PM CDT procedure are in the results section. GLUCOSE POC Routine 04/18/2017 Results for this 5:06 PM CDT procedure are in the results section. GLUCOSE POC Routine 04/18/2017 Results for this 12:30 PM CDT procedure are in the results section. FOLIC ACID STAT 04/18/2017 Results for this 3:45 AM CDT procedure are in the results section. VITAMIN B12 STAT 04/18/2017 Results for this 3:45 AM CDT procedure are in the results section. PHOSPHORUS STAT 04/18/2017 Results for this 3:45 AM CDT procedure are in the results section. MAGNESIUM STAT 04/18/2017 Results for this 3:45 AM CDT procedure are in the results section. CBC/DIFF STAT 04/18/2017 Results for this 3:45 AM CDT procedure are in the results section. BASIC METABOLIC PANEL STAT 04/18/2017 Results for this 3:45 AM CDT procedure are in the results section. 12 LEAD EKG Routine 04/18/2017 Results for this 3:18 AM CDT procedure are in the results section. GLUCOSE POC Routine 04/17/2017 Results for this 5:43 PM CDT procedure are in the results section. GLUCOSE POC Routine 04/17/2017 Results for this 4:27 PM CDT procedure are in the results section. GLUCOSE POC Routine 04/17/2017 Results for this 10:27 AM CDT procedure are in the results section. CORONARY ANGIOGRAPHY WITH 04/17/2017 Results for this GRAFTS 8:46 AM CDT procedure are in the results section. GLUCOSE POC Routine 04/17/2017 Results for this 7:44 AM CDT procedure are in the results section. 12 LEAD EKG Routine 04/17/2017 Results for this 4:08 AM CDT procedure are in the results section. B NATRIURETIC PEPT STAT 04/17/2017 Results for this 4:00 AM CDT procedure are in the results section. IRON PROFILE Routine 04/17/2017 Results for this 2:30 AM CDT procedure are in the results section. FERRITIN Routine 04/17/2017 Results for this 2:30 AM CDT procedure are in the results section. PT/INR/PTT Routine 04/17/2017 Results for this 2:30 AM CDT procedure are in the results section. PHOSPHORUS Routine 04/17/2017 Results for this 2:30 AM CDT procedure are in the results section. MAGNESIUM Routine 04/17/2017 Results for this 2:30 AM CDT procedure are in the results section. CBC/DIFF Routine 04/17/2017 Results for this 2:30 AM CDT procedure are in the results section. BASIC METABOLIC PANEL Routine 04/17/2017 Results for this 2:30 AM CDT procedure are in the results section. GLUCOSE POC Routine 04/16/2017 Results for this 8:35 PM CDT procedure are in the results section. GLUCOSE POC Routine 04/16/2017 Results for this 5:36 PM CDT procedure are in the results section. PT/INR/PTT STAT 04/16/2017 Results for this 5:19 PM CDT procedure are in the results section. XRAY CHEST 1 VIEW Routine 04/16/2017 Shortness of breath Results for this 2:55 PM CDT procedure are in the results section. B NATRIURETIC PEPT STAT 04/16/2017 Results for this 1:17 PM CDT procedure are in the results section. GLUCOSE POC Routine 04/16/2017 Results for this 12:13 PM CDT procedure are in the results section. GLUCOSE POC Routine 04/16/2017 Results for this 7:37 AM CDT procedure are in the results section. PTT Routine 04/16/2017 Results for this 5:00 AM CDT procedure are in the results section. PHOSPHORUS STAT 04/16/2017 Results for this 5:00 AM CDT procedure are in the results section. MAGNESIUM STAT 04/16/2017 Results for this 5:00 AM CDT procedure are in the results section. CBC/DIFF STAT 04/16/2017 Results for this 5:00 AM CDT procedure are in the results section. BASIC METABOLIC PANEL STAT 04/16/2017 Results for this 5:00 AM CDT procedure are in the results section. 12 LEAD EKG Routine 04/16/2017 Results for this 4:06 AM CDT procedure are in the results section. PTT Routine 04/15/2017 Results for this 8:53 PM [employer] procedure are in the results section. GLUCOSE POC Routine 04/15/2017 Results for this 8:28 PM [employer] procedure are in the results section. GLUCOSE POC Routine 04/15/2017 Results for this 5:11 PM [employer] procedure are in the results section. GLUCOSE POC Routine 04/15/2017 Results for this 12:16 PM [employer] procedure are in the results section. PTT STAT 04/15/2017 Results for this 12:15 PM [employer] procedure are in the results section. GLUCOSE POC Routine 04/15/2017 Results for this 7:50 AM [employer] procedure are in the results section. 12 LEAD EKG Routine 04/15/2017 Results for this 3:31 AM [employer] procedure are in the results section. PTT Routine 04/15/2017 Results for this 3:25 AM [employer] procedure are in the results section. PHOSPHORUS STAT 04/15/2017 Results for this 3:25 AM [employer] procedure are in the results section. MAGNESIUM STAT 04/15/2017 Results for this 3:25 AM [employer] procedure are in the results section. CBC/DIFF STAT 04/15/2017 Results for this 3:25 AM [employer] procedure are in the results section. BASIC METABOLIC PANEL STAT 04/15/2017 Results for this 3:25 AM [employer] procedure are in the results section. GLUCOSE POC Routine 04/14/2017 Results for this 8:52 PM [employer] procedure are in the results section. PTT STAT 04/14/2017 Results for this 6:15 PM [employer] procedure are in the results section. GLUCOSE POC Routine 04/14/2017 Results for this 5:21 PM [employer] procedure are in the results section. BASIC METABOLIC PANEL STAT 04/14/2017 Results for this 2:00 PM [employer] procedure are in the results section. GLUCOSE POC Routine 04/14/2017 Results for this 11:56 AM [employer] procedure are in the results section. PTT STAT 04/14/2017 Results for this 11:15 AM [employer] procedure are in the results section. PT/INR STAT 04/14/2017 Results for this 11:15 AM [employer] procedure are in the results section. TROPONIN I STAT 04/14/2017 Results for this 9:05 AM [employer] procedure are in the results section. CK, TOTAL STAT 04/14/2017 Results for this 9:05 AM [employer] procedure are in the results section. GLUCOSE POC Routine 04/14/2017 Results for this 8:00 AM [employer] procedure are in the results section. 12 LEAD EKG Routine 04/14/2017 Results for this 3:33 AM [employer] procedure are in the results section. TROPONIN I STAT 04/14/2017 Results for this 12:20 AM [employer] procedure are in the results section. PHOSPHORUS STAT 04/14/2017 Results for this 12:20 AM [employer] procedure are in the results section. MAGNESIUM STAT 04/14/2017 Results for this 12:20 AM [employer] procedure are in the results section. LIPID PROFILE STAT 04/14/2017 Results for this 12:20 AM [employer] procedure are in the results section. HEMOGLOBIN A1C STAT 04/14/2017 Results for this 12:20 AM [employer] procedure are in the results section. CBC/DIFF STAT 04/14/2017 Results for this 12:20 AM [employer] procedure are in the results section. BASIC METABOLIC PANEL STAT 04/14/2017 Results for this 12:20 AM [employer] procedure are in the results section. SEQUENTIAL COMPRESSION STAT 04/13/2017 PUMP 6:16 PM [employer] GLUCOSE POC Routine 04/13/2017 Results for this 5:30 PM [employer] procedure are in the results section. 12 LEAD EKG Routine 04/13/2017 Results for this 5:10 PM [employer] procedure are in the results section. TROPONIN I STAT 04/13/2017 Results for this 5:00 PM [employer] procedure are in the results section. CK, TOTAL STAT 04/13/2017 Results for this 5:00 PM [employer] procedure are in the results section. PHOSPHORUS STAT 04/13/2017 Results for this 5:00 PM [employer] procedure are in the results section. MAGNESIUM STAT 04/13/2017 Results for this 5:00 PM [employer] procedure are in the results section. BASIC METABOLIC PANEL STAT 04/13/2017 Results for this 5:00 PM [employer] procedure are in the results section. B NATRIURETIC PEPT STAT 04/13/2017 Results for this 5:00 PM [employer] procedure are in the results section. TROPONIN I STAT 04/13/2017 Results for this 5:00 PM [employer] procedure are in the results section. CK, TOTAL STAT 04/13/2017 Results for this 5:00 PM [employer] procedure are in the results section. BASIC METABOLIC PANEL STAT 04/13/2017 Results for this 5:00 PM [employer] procedure are in the results section. TRANSTHORACIC ECHO (TTE) STAT 04/13/2017 Results for this 2:06 PM [employer] procedure are in the results section. TROPONIN I POC Routine 04/13/2017 Results for this 1:16 PM [employer] procedure are in the results section. 12 LEAD EKG Routine 04/13/2017 Results for this 11:21 AM [employer] procedure are in the results section. B NATRIURETIC PEPT STAT 04/13/2017 Results for this 11:20 AM [employer] procedure are in the results section. UA CHEMISTRIES STAT 04/13/2017 Results for this 11:10 AM [employer] procedure are in the results section. XRAY CHEST 1 VIEW STAT 04/13/2017 Shortness of breath Results for this 11:03 AM [employer] procedure are in the results section. VBG POC Routine 04/13/2017 Results for this 10:46 AM [employer] procedure are in the results section. BMP POC Routine 04/13/2017 Results for this 10:45 AM [employer] procedure are in the results section. PT/INR/PTT STAT 04/13/2017 Results for this 10:44 AM [employer] procedure are in the results section. COMPREHENSIVE METABOLIC STAT 04/13/2017 Results for this PANEL(DBIL NOT INCLUDED) 10:44 AM [employer] procedure are in the results section. CBC/DIFF STAT 04/13/2017 Results for this 10:44 AM [employer] procedure are in the results section. TROPONIN I POC Routine 04/13/2017 Results for this 10:43 AM [employer] procedure are in the results section. 12 LEAD EKG Routine 04/13/2017 Results for this 10:38 AM [employer] procedure are in the results section. after 11/08/2016 Results * BMP POC (05/17/2017 2:03 PM) Only the most recent of 2 results within the time period is included. CO2 POC 27 21 - 32 mmol/L [facility] 1 Chloride POC 96 (L) 98 - 107 mmol/L [facility] 1 Potassium POC 4.6 3.50 - 5.10 mmol/L [facility] 1 Sodium POC 134 (L) 136 - 145 mmol/L [facility] 1 Glucose POC 277 (H) 74 - 106 mg/dL [facility] 1 Urea Nitrogen POC 32 (H) 7 - 18 mg/dL [facility] 1 Creatinine POC 1.5 (H) 0.6 - 1.3 mg/dL [facility] 1 Calcium Ionized POC 1.08 (L) 1.15 - 1.29 mmol/L [facility] 1 Hemoglobin POC 12.9 (L) 14.0 - 18.0 g/dL [facility] 1 Hematocrit POC 38.0 (L) 40.0 - 54.0 % [facility] 1 GFR, Estimated 46 mL/min/1.73 m2 [facility] 1 GFR, Estim, Afr-Am 56 mL/min/1.73 m2 [facility] 1 Performing Organization Address City/[facility]/Zipcode Phone Number MISYS [facility] * POCT BNP (BRAIN NATRIURETIC PEPTIDE) (05/17/2017 1:47 PM) B Natr Pept POC 660 (H) 0 - 100 pg/mL [facility] 1 Performing Organization Address City/[facility]/Zipcode Phone Number MISYS [facility] * GLUCOSE POC (04/20/2017 12:02 PM) Only the most recent of 26 results within the time period is included. Glucose POC 259 (H) 74 - 106 mg/dL [facility] 1 Performing Organization Address City/State/Zipcode Phone Number MISYS [facility] * 12 LEAD EKG (04/20/2017 4:54 AM) 12 LEAD EKG FOR [facility] Test Date:2017-04-20 Pat Name: MINISTERIO KERN Department: Room: Gender: M Mold Chipper: JACKSON :1946-0 05-24 Requested By: Order Number: R courtney MD: Adrian Schmidt M.D. Measurements Intervals [place] Rate: 62 P:34 UT: 207 QRS: 5 QRSD: 114 T: 208 QT: 474 QTc:484 Interpretive Statements SINUS RHYTHM LEFT VENTRICULAR HYPERTROPHY AND ST-T CHANGE Electronically Signed On 04-20-17 05:38:30 CDT by Adrian Schmidt M.D. Performing Organization Address [facility] [place] Phone Number SMS * MAGNESIUM (04/20/2017 4:05 AM) Only the most recent of 8 results within the time period is included. Magnesium 2.2 1.9 - 2.7 mg/dL [facility] 3 Specimen Blood Performing Organization Address [facility] [place] Phone Number MISYS [facility] 3 * CBC (04/20/2017 4:05 AM) Only the most recent of 2 results within the time period is included. WBC 8.1 4.5 - 12.0 K/uL [facility] 2 RBC 3.35 (L) 4.60 - 6.20 M/uL [facility] 2 Hemoglobin 10.2 (L) 14.0 - 18.0 g/dL [facility] 2 Hematocrit 31.5 (L) 40.0 - 54.0 % [facility] 2 MCV 94 (H) 82 - 92 fL [facility] 2 MCH 30.4 27.0 - 31.0 pg [facility] 2 MCHC 32.4 32.0 - 36.0 g/dL [facility] 2 RDW 48.5 (H) 35.1 - 43.9 fL [facility] 2 Platelet 238 150 - 400 K/uL [facility] 2 Mean Platelet Volume 10.7 9.4 - 12.4 fL [facility] 2 Percent NRBC 0.0 [facility] 2 Absolute NRBC 0.00 BT [facility] 2 Specimen Blood Performing Organization Address [facility] [place] Phone Number MISYS [facility] 2 * BASIC METABOLIC PANEL (04/20/2017 4:05 AM) Only the most recent of 11 results within the time period is included. CO2 23 21 - 31 mmol/L [facility] 3 Chloride 100 98 - 107 mmol/L [facility] 3 Potassium 4.3 3.5 - 5.1 mmol/L [facility] 3 Sodium 135 (L) 136 - 145 mmol/L [facility] 3 Glucose 124 (H) 70 - 110 mg/dL [facility] 3 Urea Nitrogen 28 (H) 7 - 25 mg/dL [facility] 3 Creatinine 1.40 (H) 0.7 - 1.3 mg/dL [facility] 3 Anion Gap 12 [facility] 3 Calcium 9.1 8.6 - 10.3 mg/dL [facility] 3 GFR, Estimated 50 mL/min/1.73 m2 [facility] 3 GFR, Estim, Afr-Am >60 mL/min/1.73 m2 [facility] 3 Specimen Blood Performing Organization Address [facility] Phone Number MISYS [facility] * 12 LEAD EKG (04/19/2017 7:37 AM) 12 LEAD EKG FOR [facility] Test Date:2017-04-19 Pat Name: MINISTERIO KERN Department: Room: Gender: M Mold Chipper: [id number] :[id number] Requested By: Order Number: Kamran valdez MD: Adrian Schmidt M.D. Measurements Intervals [place] Rate: 67 P:45 UT: 201 QRS: 66 QRSD: 114 T: 247 QT: 451 QTc:479 Interpretive Statements SINUS RHYTHM LEFT VENTRICULAR HYPERTROPHY AND ST-T CHANGE Electronically Signed On 04-19-17 09:53:25 CDT by Adrian Schmidt M.D. Performing Organization Address City/[facility] Phone Number SMS * FOLIC ACID (04/18/2017 3:45 AM) Folic Acid >24.0 5.9 - 24.8 ng/mL [facility] 2 Specimen Blood Performing Organization Address City/[email or web address] Phone Number MISYS [facility] 2 * VITAMIN B12 (04/18/2017 3:45 AM) Vitamin B12 >1500 (H) 211 - 911 pg/mL BT [facility] 2 Specimen Blood Performing Organization Address [facility]/[email or web address] Phone Number MISYS [facility] 2 * PHOSPHORUS (04/18/2017 3:45 AM) Only the most recent of 6 results within the time period is included. Phosphorus 4.7 2.5 - 5.0 mg/dL BT [facility] 4 Specimen Blood Performing Organization Address City/State/Zipcode Phone Number MISYS [facility] 4 * CBC/DIFF (04/18/2017 3:45 AM) Only the most recent of 6 results within the time period is included. WBC 6.2 4.5 - 12.0 K/uL BT [facility] 2 RBC 3.27 (L) 4.60 - 6.20 M/uL BT [facility] 2 Hemoglobin 9.8 (L) 14.0 - 18.0 g/dL BT [facility] 2 Hematocrit 30.8 (L) 40.0 - 54.0 % BT [facility] 2 MCV 94 (H) 82 - 92 fL BT [facility] 2 MCH 30.0 27.0 - 31.0 pg BT [facility] 2 MCHC 31.8 (L) 32.0 - 36.0 g/dL BT [facility] 2 RDW 49.3 (H) 35.1 - 43.9 fL BT [facility] 2 Platelet 264 150 - 400 K/uL [facility] 2 Mean Platelet Volume 11.0 9.4 - 12.4 fL BT MAIN-STATION 2 Percent NRBC 0.0 BT MAIN-STATION 2 Absolute NRBC 0.00 BT MAIN-STATION 2 Neutrophil 47.0 34.0 - 67.9 % BT MAIN-STATION 2 Lymphocyte 40.0 21.8 - 50.0 % BT MAIN-STATION 2 Monocyte 7.0 5.3 - 12.0 % BT MAIN-STATION 2 Eosinophil 4.0 0.8 - 5.0 % BT MAIN-STATION 2 Basophil 2.0 (H) 0.2 - 1.2 % BT MAIN-STATION 2 Neutrophil, Abs 2.90 1.78 - 5.36 K/uL BT MAIN-STATION 2 Lymphocyte, Abs 2.47 1.32 - 3.57 K/uL BT MAIN-STATION 2 Monocyte, Abs 0.43 0.30 - 0.82 K/uL BT MAIN-STATION 2 Eosinophil, Abs 0.25 0.04 - 0.54 K/uL BT MAIN-STATION 2 Basophil, Abs 0.12 (H) 0.01 - 0.08 K/uL BT MAIN-STATION 2 Specimen Blood Performing Organization Address [facility] Phone Number ABRILYS BT MAIN-STATION 2 * 12 LEAD EKG (04/18/2017 3:18 AM) 12 LEAD EKG FOR [facility] Test Date:2017-04-18 Pat Name: MINISTERIO KERN Department: Room: Gender: M Mold Chipper: [id number] :1946 Requested By: Order Number: Kamran valdez MD: Adrian Schmidt M.D. Measurements Intervals [place] Rate: 69 P:20 UT: 195 QRS: 0 QRSD: 114 T: 174 QT: 460 QTc:493 Interpretive Statements SINUS RHYTHM WITH SINUS ARRHYTHMIA POSSIBLE LEFT ATRIAL ENLARGEMENT LEFT VENTRICULAR HYPERTROPHY AND ST-T CHANGE Electronically Signed On 04-18-17 05:14:48 CDT by Adrian Schmidt M.D. Performing Organization Address [facility] Phone Number [facility] * CORONARY ANGIOGRAPHY WITH GRAFTS (04/17/2017 8:46 AM) CORONARY ANGIOGRAPHY WITH Invasive Cardiology Report [facility] MINISTERIO FERGUSON Age:71Gender: M :1945 Exam Date: 04/17/2017 08:46 Exam Location:[facility] Cath Ordering Phys: MARY BUENO ([facility]) Referring Phys:[id number] Reading Phys:Mary Bueno Fellow Phys: Tory Gresham M.D. Fellow Phys: Reason For Exam: Indications: Cardiomyopathy Interventional Fellow Phys: Interventional Fellow Phys: ICD-9 Codes:I42.3 Exam Type:Invasive Cardiology Procedure CPT: 62079 Additional CPT:97890 86241 Height: BSA: Weight: BP:/ HR: Rhythm: Technical Quality: excellent PROCEDURE NOTES History: 71y.o. male with a PMH of CAD s/p 3V CABG in 2001, HTN, DM2 who was transferred from [facility] on 04/13/2017 with heart failure exacerbation and hypertensive urgency. TTE shows EF 20-24% with global HK and inferior AK. Trop .15->.15->.17->11. Procedures Performed: Selective coronary angiography Interpretation & Supervision - Coronaries Left heart catheterization Femoral Angiogram Fluoroscopy 12 lead EKG Vascular closure device Access Site:Right femoral artery. Complications: No complications. Estimated Blood Loss:10ml [place] Removed:No Blood Transfusion: No Device Implanted:Yes Closure Mynx Device Anesthesia/Sedation: No Post ASA Classification: 3 Total Radiation Dose:1786 (mGy) Procedure Staff: Mary Bueno MD Procedure Notes: After explaining the risks and benefits of the procedure informed consent was obtained. (See nursing notes for medications administered.) The right groin was prepped in a sterile fashion and draped. 1% lidocaine was used to infiltrate the right groin. A 6Fr sheath was placed in the right femoral artery using the modified Seldinger technique.Coronary angiography was performed using 6Fr JL4 and JR4 preformed catheters.LVEDP was obtained using JR4 catheter. Nonselective aortogram was performed using 6Fr pigtail catheter. All catheters were removed over a guide wire. The access site was closed using a Mynx vascular closure device. The case ended without any complications. Interventional Information: Hemodynamic Data (pressures in mmHg, all other quantities in CGS units) Hemodynamics Findings LVEDP 24 Intervention Information Intervention Summary Left Ventriculography Mitral Stenosis: Mitral Insufficiency: EF: % EF Method: Left Ventriculography Findings Aortography Aortic Stenosis: Aortic Insufficiency: Aortography Findings: Coronary Diagram Dominance: Right Vessel Angiography Findings LM: 10% stenosis distally LAD: Proximal [employer]EMENT[employer]PERATOR, large high D1 branch with mild diffuse plaque CX: Small system with 2 OM branches, mild diffuse plaque RCA: Ostial [employer]DER [employer]PERATOR, distal rPL & rPD supplied by SVG graft and collaterals from [place] D1 NOLASCO-LAD: patent, supplies LAD and D2 SVG-OM: occluded at the ostium SVG-dRCA: patent with 30% long segment of stenosis in the mid vein graft Other Angiographic Findings Right access site is at the level of the bifurcation which is at the level of the bottom third of the femoral head. No significant atherosclerotic disease seen in visualized vessels. CONCLUSIONS 1. Occluded [place] LAD and RCA with patent NOLASCO and SVG grafts. 2. Occluded SVG-OM graft; [place] CX is small with mild diffuse plaque. 3. LVEDP 24. Recommendations Continue medical management and risk factor modification. Event Log Case Times: Inventory: Procedure Log: Medications: Vital Signs: IMAGE ANCHOR CONTROL - DO NOT REMOVE!!!! Mary Bueno (Electronically Signed) Final Date:20 April 2017 15:10 Performing Organization Address [facility] Phone Number SMS * 12 LEAD EKG (04/17/2017 4:08 AM) 12 LEAD EKG FOR [facility] Test Date:2017-04-17 Pat Name: MINISTERIO KERN Department: Room: Gender: Mold Chipper: 24 :1946-0 05-24 Requested By: Order Number: Kamran valdez MD: Adrian Schmidt M.D. Measurements Intervals [place] Rate: 75 P:22 UT: 200 QRS: 5 QRSD: 113 T: 172 QT: 427 QTc:478 Interpretive Statements SINUS RHYTHM POSSIBLE LEFT ATRIAL ENLARGEMENT [-0.1mV P WAVE IN V1/V2] LEFT VENTRICULAR HYPERTROPHY AND ST-T CHANGE [VOLTAGE CRITERIA PLUS ST/T ABNORMALITY] Electronically Signed On 04-17-17 17:30:06 CDT by Adrian Schmidt M.D. Performing Organization Address [facility] Phone Number SMS * B NATRIURETIC PEPT (04/17/2017 4:00 AM) Only the most recent of 4 results within the time period is included. B Natriuretic Pept 899 (H) <101 pg/mL BT OUTPATIENT DRAW 2 Specimen Blood Performing Organization Address [facility] Phone Number MISYS BT OUTPATIENT DRAW 2 * FERRITIN (04/17/2017 2:30 AM) Ferritin 144.30 23.9 - 336.2 ng/mL BT MAIN-STATION 4 Performing Organization Address [facility] Phone Number MISYS BT MAIN-STATION 4 * PT/INR/PTT (04/17/2017 2:30 AM) Only the most recent of 3 results within the time period is included. PT 13.9 11.8 - 15.0 Seconds BT MAIN-STATION 3 INR 1.1 BT MAIN-STATION 3 SUGGESTED THERAPEUTIC RANGES: INR 2.0-3.0 for MODERATE INTENSITY ANTICOAGULATION INR 2.5-3.5 for HIGH INTENSITY ANTICOAGULATION PTT 99.8 (H)Comment: Discrepancy 23.6 - 36.4 Seconds BT MAIN-STATION 3 from previous results noted, please repeat for confirmation Performing Organization Address [facility] Phone Number MISYS BT MAIN-STATION 3 * IRON PROFILE (04/17/2017 2:30 AM) Iron 51 50 - 212 ug/dL BT MAIN-STATION 4 TIBC 256 250 - 450 ug/dL BT MAIN-STATION 4 % Iron Sat 20 % BT MAIN-STATION 4 Performing Organization Address City/State/Zipcode Phone Number FERNANDEZ BT MAIN-STATION 4 * XRAY CHEST 1 VIEW (04/16/2017 2:55 PM) Only the most recent of 2 results within the time period is included. Impressions Performed At IMPRESSION: SMS Improved pulmonary edema with stable trace bilateral pleural effusions. A "PRELIMINARY" report was made available via [employer] at the time of dictation by the resident indicated below. If the report is described as "FINALIZED" it indicates the attending/staff radiologist below has reviewed the images and agrees with the resident's interpretation. Dictated By: Jamel Putnam MD, 04/17/2017 8:52 AM I have reviewed the study and agree with the findings in this report. Signed By: Lis Hernández MD, 04/17/2017 10:01 AM Narrative Performed At EXAM: XR CHEST 1 VIEW SMS DATE: 04/16/2017 3:07 PM INDICATION: shortness of breath COMPARISON: Chest x-ray 04/13/2017 FINDINGS: Devices, Lines, and Tubes: None. Heart and Mediastinum: Stable but enlarged cardiac silhouette. Lungs and Pleura: Decreased prominence of the hilum with improved diffuse bilateral interstitial opacities. Trace bilateral pleural effusions stable. No pneumothorax. Bones and Soft Tissues: No acute abnormalities. Upper Abdomen: No acute abnormalities. No pneumoperitoneum. Procedure Note Interface, Rad/Mammog In - 04/17/2017 10:07 AM CDT EXAM: XR CHEST 1 VIEW DATE: 04/16/2017 3:07 PM INDICATION: shortness of breath COMPARISON: Chest x-ray 04/13/2017 FINDINGS: Devices, Lines, and Tubes: None. Heart and Mediastinum: Stable but enlarged cardiac silhouette. Lungs and Pleura: Decreased prominence of the hilum with improved diffuse bilateral interstitial opacities. Trace bilateral pleural effusions stable. No pneumothorax. Bones and Soft Tissues: No acute abnormalities. Upper Abdomen: No acute abnormalities. No pneumoperitoneum. IMPRESSION IMPRESSION: Improved pulmonary edema with stable trace bilateral pleural effusions. A "PRELIMINARY" report was made available via [employer] at the time of dictation by the resident indicated below. If the report is described as "FINALIZED" it indicates the attending/staff radiologist below has reviewed the images and agrees with the resident's interpretation. Dictated By: Jamel Putnam MD, 04/17/2017 8:52 AM I have reviewed the study and agree with the findings in this report. Signed By: Lis Hernández MD, 04/17/2017 10:01 AM Performing Organization Address City/State/Zipcode Phone Number SMS * PTT (04/16/2017 5:00 AM) Only the most recent of 6 results within the time period is included. PTT 76.7 (H) 23.6 - 36.4 Seconds BT MAIN-STATION 3 Performing Organization Address [facility] Phone Number MISYS BT MAIN-STATION 3 * 12 LEAD EKG (04/16/2017 4:06 AM) 12 LEAD EKG FOR [facility] Test Date:2017-04-16 Pat Name: MINISTERIO KERN Department: Room: Gender: M Mold Chipper: 24 :1946-0 05-24 Requested By: Order Number: Kamran valdez MD: Adrian Schmidt M.D. Measurements Intervals [place] Rate: 90 P:51 UT: 188 QRS: 7 QRSD: 110 T: 175 QT: 386 QTc:473 Interpretive Statements SINUS RHYTHM POSSIBLE LEFT ATRIAL ENLARGEMENT [-0.1mV P WAVE IN V1/V2] LEFT VENTRICULAR HYPERTROPHY AND ST-T CHANGE [VOLTAGE CRITERIA PLUS ST/T ABNORMALITY] Electronically Signed On 04-17-17 17:30:04 CDT by Adrian Schmidt M.D. Performing Organization Address [facility] Phone Number SMS * 12 LEAD EKG (04/15/2017 3:31 AM) 12 LEAD EKG FOR [facility] Test Date:2017-04-15 Pat Name: MINISTERIO KERN Department: Room: Gender: M Mold Chipper: 24 :1946-0 05-24 Requested By: Order Number: Kamran valdez MD: Lynn Martinez MD Measurements Intervals [place] Rate: 88 P:65 UT: 191 QRS: 10 QRSD: 112 T: 169 QT: 404 QTc:489 Interpretive Statements SINUS RHYTHM LEFT VENTRICULAR HYPERTROPHY AND ST-T CHANGE [VOLTAGE CRITERIA PLUS ST/T ABNORMALITY] Electronically Signed On 04-18-17 10:06:30 CDT by Lynn Martinez MD Performing Organization Address [facility] Phone Number SMS * PT/INR (04/14/2017 11:15 AM) PT 14.3 11.8 - 15.0 Seconds BT MAIN-STATION 3 INR 1.1 BT MAIN-STATION 3 SUGGESTED THERAPEUTIC RANGES: INR 2.0-3.0 for MODERATE INTENSITY ANTICOAGULATION INR 2.5-3.5 for HIGH INTENSITY ANTICOAGULATION Specimen Blood Performing Organization Address [facility] Phone Number [facility] 3 * TROPONIN I (04/14/2017 9:05 AM) Only the most recent of 4 results within the time period is included. Troponin I 0.11 (H) <0.04 ng/mL BT OUTPATIENT DRAW 2 Specimen Blood Performing Organization Address [facility] Phone Number [facility] OUTPATIENT DRAW 2 * CK, TOTAL (04/14/2017 9:05 AM) Only the most recent of 3 results within the time period is included. CK, Total 50 30 - 200 U/L BT OUTPATIENT DRAW 2 Specimen Blood Performing Organization Address [facility] Phone Number [facility] BT OUTPATIENT DRAW 2 * 12 LEAD EKG (04/14/2017 3:33 AM) 12 LEAD EKG FOR [facility] Test Date:2017-04-14 Pat Name: MINISTERIO KERN Department: Room: Gender: M Mold Chipper: GISELLE :1946-0 05-24 Requested By: Order Number: Kamran valdez MD: mariluz wyatt Measurements Intervals [place] Rate: 88 P:17 UT: 148 QRS: 7 QRSD: 118 T: 188 QT: 438 QTc:530 Interpretive Statements SINUS RHYTHM POSSIBLE LEFT ATRIAL ENLARGEMENT [-0.1mV P WAVE IN V1/V2] T wave abnormality consider anterior ischemia LEFT VENTRICULAR HYPERTROPHY AND ST-T CHANGE [VOLTAGE CRITERIA PLUS ST/T ABNORMALITY] Electronically Signed On 04-14-17 14:46:07 HAUL TRUCK DRIVER by mariluz wyatt Performing Organization Address [facility] Phone Number SMS * HEMOGLOBIN A1C (04/14/2017 12:20 AM) Hemoglobin A1c 10.0 (H) 4.3 - 6.1 % BT DIAGNOSTIC IMMUNOLOGY Est Average Gluc 240.3 mg/dL BT DIAGNOSTIC IMMUNOLOGY Performing Organization Address [facility] Phone Number MISYS BT DIAGNOSTIC IMMUNOLOGY * LIPID PROFILE (04/14/2017 12:20 AM) Cholesterol 168 mg/dL BT MAIN-STATION 3 Comment: REFERENCE RANGE: Desirable: <200 mg/dL Borderline: 200-240 mg/dL High Risk: >240 mg/dL Triglyceride 185 (H) <150 mg/dL BT MAIN-STATION 3 Comment: REFERENCE RANGE: Normal: <150 mg/dL Borderline High: 150-199 mg/dL High: 200-499 mg/dL Very High: >ep=180 mg/dL HDL 30 mg/dL BT MAIN-STATION 3 Comment: Increased CHD risk: <40 mg/dL Decreased CHD risk: >60 mg/dL LDL 101 mg/dL BT MAIN-STATION 3 Comment: REFERENCE RANGE: Optimal: <100 mg/dL Near Optimal: 100-129 mg/dL Borderline High: 130-159 mg/dL High: 160-189 mg/dL Very High: >dx=990 mg/dL Performing Organization Address [facility] Phone Number MISYS BT MAIN-STATION 3 * 12 LEAD EKG (04/13/2017 5:10 PM) 12 LEAD EKG FOR [facility] Test Date:2017-04-13 Pat Name: MINISTERIO KERN Department: Room: Gender: M Mold Chipper: LONNIE :1946-0 05-24 Requested By: Order Number: Kamran valdez MD: James LUBIN Measurements Intervals [place] Rate: 106 P: 40 UT: 152 QRS: 5 QRSD: 120 T: 189 QT: 417 QTc:555 Interpretive Statements SINUS TACHYCARDIA Poor anterior R wave cannot r/o prior Anteroseptal Infarct LEFT VENTRICULAR HYPERTROPHY AND ST-T CHANGE [VOLTAGE CRITERIA PLUS ST/T ABNORMALITY] Non-specific ST-T changes in part c/w ischemia Prolonged QTc Abnormal ECG Electronically Signed On 04-13-17 17:40:09 HAUL TRUCK DRIVER by James LUBIN Performing Organization Address [facility]/Zipcode Phone Number SMS * TRANSTHORACIC ECHO (TTE) (04/13/2017 2:06 PM) TRANSTHORACIC ECHO (TTE) Transthoracic SMS Echo Report MINISTERIO KERN Age:71 Gender: M :1945 Exam Date: 04/13/2017 14:06 Exam Location: [facility] Echo Ordering Phys: DAVID PATTERSON Referring Phys:Xi, LEONARDO Reading Phys:Manny Mcneal MD Fellow Phys: Fellow Phys: [employer] Planner: Margarito Pandya Reason For Exam: Indications: acute CHF ICD-9 Codes: Exam Type: Transthoracic Echo Procedure CPT:39572 Addtional CPT: Ht (in): 60 BSA: 1.78HR: 115 Rhythm: Sinus tachycardia Wt (lb): 160BP: 188/ 100 Technical Quality: Technically difficult study History: MEASUREMENTS(Male / Female) Normal Values 2D ECHO LV Diastolic Diameter PLAX4.8 cm 4.2 - 5.9 / 3.9 - 5.3 cm LV Systolic Diameter PLAX 4.2 cm 2.1 - 4.0 cm LV Fractional Shortening PLAX 11.8 % 25 - 46% IVS Diastolic Thickness 1.3 cm IVS Systolic Thickness 1.5 cm LVPW Diastolic Thickness1 .1 cm LVPW Systolic Thickness 1.5 cm LV Relative Wall Thickness0.52 LVOT Diameter 2.2 cm Aortic Root Diameter 3.6 cm LA Systolic Diameter LX 4.2 cm 3.0 - 4.0 / 2.7 - 3.8 cm LA Ao Ratio 1.2 LV Diastolic Volume MOD BP135 cm 67 - 155 / 56 - 104 cm LV Systolic Volume MOD BP 105 cm 22 - 58 / 19 - 49 cm LV Ejection Fraction MOD BP 22.1 % >=55% LV Stroke Volume MOD BP 29.9 cm LV Cardiac Output MOD [id number] cm/min LV Cardiac Index MOD BP 1932 cm/minm LA Area 2C View 19.9 cm <=20 cm LA Length 2C 1.9 cm LA Volume 77 cm 18 - 58 / 22 - 52 cm LA Volume Index 43.2 cm/m 16 - 28 cm/m LA Volume MOD 2C 64.9 cm 18 - 58 / 22 - 52 cm DOPPLER AV Peak Velocity 132 cm/s AV Peak Gradient 7 mmHg AV Mean Velocity 80.1 cm/s AV Mean Gradient 3 mmHg AV Velocity Time Integral 17.1 cm LVOT Peak Velocity 77.6 cm/s LVOT Peak Gradient 2.4 mmHg LVOT Mean Velocity 46 cm/s LVOT Mean Gradient 1 mmHg LVOT Velocity Time Integral 12.1 cm LVOT Stroke Volume 44.4 cm AV Area Cont Eq vti 2.6 cm AV Area Cont Eq pk 2.2 cm RVOT Peak Velocity 81 cm/s RVOT Peak Gradient 2.6 mmHg LV E' Lateral Velocity 10.9 cm/s LV E' Septal Velocity 6.2 cm/s FINDINGS Left Ventricle Ultrasound contrast was used for LV opacification. The left ventricle is at the upper limit of normal in volume. Mild concentric left ventricular hypertrophy. LV mass index 128 g/m2. Severely reduced global left ventricular systolic function. Left ventricular ejection fraction is 20-24%. Abnormal septal motion consistent with left bundle branch block. Severe diffuse hypokinsis with regional variations including inferior akinesis. Cannot grade LV diastology due to tachycardia and E-A fusion. Right Ventricle The right ventricle is normal in size, low-normal systolic function.TAPSE= 1.7 cm. Right Atrium The right atrium is normal in size. Left Atrium Moderate left atrial dilatation. IAS Mitral Valve Structurally normal mitral valve without significant stenosis or prolapse. There is mild mitral regurgitation. Aortic Valve The aortic valve is trileaflet, mildly thickened leaflets (particularly right coronary cusp), otherwise structurally normal. There is aortic valve sclerosis without significant stenosis. There is mild aortic regurgitation. Tricuspid Valve Structurally normal tricuspid valve without significant stenosis. There is trace tricuspid regurgitation.Insufficient TR jet to estimate pulmonary artery systolic pressure. Pulmonic Valve Pulmonic valve not well visualized. No significant pulmonic stenosis or regurgitation by Doppler assessment. Pericardium No pericardial effusion. Aorta Normal aortic root for body surface area. IVC The inferior vena cava is normal in size with greater than 50% respiratory change in dimension, consistent with RA pressure 0-5 mmHg. CONCLUSIONS Technically difficult study, ultrasound contrast was used for LV opacification. The left ventricle is at the upper limit of normal in volume. Mild concentric left ventricular hypertrophy. Severely reduced global left ventricular systolic function, ejection fraction is 20-24%. Severe diffuse hypokinsis with regional variations including inferior akinesis. Abnormal septal motion consistent with left bundle branch block. Cannot grade LV diastology due to tachycardia and E-A fusion. The right ventricle is normal in size, low-normal systolic function. Moderate left atrial dilatation. There is mild mitral regurgitation. There is aortic valve sclerosis without significant stenosis. There is mild aortic regurgitation. Insufficient TR jet to estimate pulmonary artery systolic pressure. No other significant abnormalities noted. No prior study for comparison. Manny Mcneal MD (Electronically Signed) Final Date:13 April 2017 15:12 Amended: 13 April 2017 15:43 2D ECHO LV Diastolic Diameter PLAX4.8 cm 4.2 - 5.9 / 3.9 - 5.3 cm LV Systolic Diameter PLAX 4.2 cm 2.1 - 4.0 cm LV Fractional Shortening PLAX 11.8 % 25 - 46% IVS Diastolic Thickness 1.3 cm IVS Systolic Thickness 1.5 cm LVPW Diastolic Thickness1 .1 cm LVPW Systolic Thickness 1.5 cm LV Relative Wall Thickness0.52 LVOT Diameter 2.2 cm Aortic Root Diameter 3.6 cm LA Systolic Diameter LX 4.2 cm 3.0 - 4.0 / 2.7 - 3.8 cm LA Ao Ratio 1.2 LV Diastolic Volume MOD BP135 cm 67 - 155 / 56 - 104 cm LV Systolic Volume MOD BP 105 cm 22 - 58 / 19 - 49 cm LV Ejection Fraction MOD BP 22.1 % >=55% LV Stroke Volume MOD BP 29.9 cm LV Cardiac Output MOD [id number] cm/min LV Cardiac Index MOD BP 1932 cm/minm LA Area 2C View 19.9 cm <=20 cm LA Length 2C 1.9 cm LA Volume 77 cm 18 - 58 / 22 - 52 cm LA Volume Index 43.2 cm/m 16 - 28 cm/m LA Volume MOD 2C 64.9 cm 18 - 58 / 22 - 52 cm DOPPLER AV Peak Velocity 132 cm/s AV Peak Gradient 7 mmHg AV Mean Velocity 80.1 cm/s AV Mean Gradient 3 mmHg AV Velocity Time Integral 17.1 cm LVOT Peak Velocity 77.6 cm/s LVOT Peak Gradient 2.4 mmHg LVOT Mean Velocity 46 cm/s LVOT Mean Gradient 1 mmHg LVOT Velocity Time Integral 12.1 cm LVOT Stroke Volume 44.4 cm AV Area Cont Eq vti 2.6 cm AV Area Cont Eq pk 2.2 cm RVOT Peak Velocity 81 cm/s RVOT Peak Gradient 2.6 mmHg LV E' Lateral Velocity 10.9 cm/s LV E' Septal Velocity 6.2 cm/s [facility] Organization Address City/[facility] Phone Number SMS * TROPONIN I POC (04/13/2017 1:16 PM) Only the most recent of 2 results within the time period is included. Troponin POC 0.13 (HH) 0.00 - 0.08 ng/mL [facility] MAIN-STATION 1 Performing Organization Address [facility] Phone Number MISYS [facility] MAIN-STATION 1 * 12 LEAD EKG (04/13/2017 11:21 AM) [facility] Date:2017-04-13 Pat Name: MINISTERIO KERN Department: Room: Gender: M Mold Chipper: SHAUN :1946-0 05-24 Requested By: Order Number: Kamran valdez MD: James LUBIN Measurements Intervals [place] Rate: 117 P: 45 UT: 181 QRS: -1 QRSD: 112 T: 203 QT: 315 QTc:441 Interpretive Statements SINUS TACHYCARDIA POSSIBLE LEFT ATRIAL ENLARGEMENT [-0.1mV P WAVE IN V1/V2] LEFT VENTRICULAR HYPERTROPHY AND ST-T CHANGE [VOLTAGE CRITERIA PLUS ST/T ABNORMALITY] Non-specific ST-T changes in part c/w ischemia Poor anterior R wave cannot r/o prior Anteroseptal Infarct ABNORMAL EKG Electronically Signed On 04-13-17 13:04:58 HAUL TRUCK DRIVER by James LUBIN Performing Organization Address [facility] Phone Number SMS * UA CHEMISTRIES (04/13/2017 11:10 AM) Color Yellow [facility] MAIN-STATION 2 Clarity Clear [facility] MAIN-STATION 2 Spec [place] 1.026 1.001 - 1.035 [facility] MAIN-STATION 2 pH 5.0 5 - 8 [facility] MAIN-STATION 2 Protein 3+ (A) NEG [facility] MAIN-STATION 2 Glucose 3+ (A) NEG [facility] MAIN-STATION 2 Ketone 1+ (A) NEG [facility] MAIN-STATION 2 Bilirubin Negative NEG [facility] MAIN-STATION 2 Nitrate Negative NEG [facility] MAIN-STATION 2 Urobilinogen <1.0 0.2 - 1.0 EU/dL [facility] MAIN-STATION 2 Leukocyte Negative NEG [facility] MAIN-STATION 2 Blood Negative NEG [facility] MAIN-STATION 2 RBC 13 (H) 0 - 4 /HPF [facility] MAIN-STATION 2 WBC 11 (H) 0 - 5 /HPF [facility] MAIN-STATION 2 Bacteria Few [facility] MAIN-STATION 2 Epithelial Cell <1 /HPF [facility] MAIN-STATION 2 Amorphous Sed Present [facility] MAIN-STATION 2 Mucous Present [facility] MAIN-STATION 2 Hyaline Cast 16 /LPF [facility] MAIN-STATION 2 Granular Cast 4 /LPF [facility] MAIN-STATION 2 Specimen Urine Performing Organization Address [facility] Phone Number FERNANDEZ [facility] MAINSTATION 2 * VBG POC (04/13/2017 10:46 AM) pH, Rhett POC 7.39Comment: Physician 7.33 - 7.43 [facility] MAIN-STATION 1 Notified pCO2, Rhett POC 42.4 38.0 - 50.0 mm Hg [facility] MAIN-STATION 1 pO2, Rhett POC 26 (L) 50 - 75 mm Hg [facility] [facility] Base Excess, Rhett POC 1 mmol/L [facility] 1 HCO3, Rhett POC 25.8 22.0 - 26.0 mmol/L [facility] % Sat, Rhett POC 46 (L) 60 - 85 % [facility] 1 Lactic Acid, Rhett POC 1.99 0.4 - 2.0 mmol/L [facility] Sample Type Rhett [facility] 1 TCO2, RHETT POC 27 21 - 32 mmol/L [facility] 1 Performing Organization Address [facility] [place] Phone [facility] * COMPREHENSIVE METABOLIC PANEL(DBIL NOT INCLUDED) (04/13/2017 10:44 AM) Albumin 3.6 3.4 - 5.0 g/dL [facility] 2 Calcium 8.9 8.50 - 10.20 mg/dL [facility] 2 CO2 27 21 - 32 mmol/L [facility] 2 Chloride 96 (L) 98 - 107 mmol/L [facility] 2 Creatinine 1.24 0.60 - 1.30 mg/dL [facility] 2 Glucose 244 (H) 70 - 99 mg/dL [facility] 2 Alk Phos 89 45 - 117 U/L [facility] 2 Potassium 3.9 3.50 - 5.10 mmol/L [facility] 2 Sodium 133 (L) 136 - 145 mmol/L [facility] 2 ALT 26 12 - 78 U/L [facility] AST 18 15 - 37 U/L [facility] 2 Urea Nitrogen 11 7 - 18 mg/dL [facility] 2 T Bilirubin 0.4 0.2 - 1.0 mg/dL [facility] 2 T Protein 6.9 6.4 - 8.2 g/dL [facility] 2 GFR, Estimated 57 mL/min/1.73 m2 [facility] 2 GFR, Estim, Afr-Am >60 mL/min/1.73 m2 [facility] 2 Anion Gap 10 [facility] 2 Specimen Blood Performing Organization Address [facility] Phone Number MISYS [facility] * 12 LEAD EKG (04/13/2017 10:38 AM) 12 LEAD EKG FOR [facility] Test Date:2017-04-13 Pat Name: MINISTERIO KERN Department: Room: Gender: M Mold Chipper: SHAUN :[id number] [id number] Requested By: Order Number: Kamran valdez MD: James LUBIN Measurements Intervals [place] Rate: 132 P: 16 UT: 133 QRS: -1 QRSD: 110 T: 186 QT: 308 QTc:457 Interpretive Statements IRREGULAR BASELINE - REGULAR SUPRAVENTRICULAR TACHYCARDIA (ATRIAL FLUTTER VS. SINUS TACHYCARDIA) LEFT VENTRICULAR HYPERTROPHY AND ST-T CHANGE [VOLTAGE CRITERIA PLUS ST/T ABNORMALITY] Non-specific ST-T changes Abnormal ECG Technically Poor Tracing affects interpretation Suggest repeat tracing if clinically indicated. Electronically Signed On 04-13-17 11:50:46 [employer] by James LUBIN Performing Organization Address [facility] Phone Number [facility] after 11/08/2016
--- OUTSIDE RECORDS SUMMARY | 2017-11-21 10:49 | XMS REPORT | Clinical Summary ---
Author Author MAYELIN [facility] Address Unknown Phone Unavailable Care Team Providers Care Oracle Applications Developer Name Role Phone PCP Unavailable Allergies Active Allergy Reactions Severity Noted Date Comments Penicillin G Hives Medium 11/28/2014 Penicillins 10/05/2017 Current Medications Prescription Sig. Disp. Refills Start End Date Status Date aspirin 81 MG chewable Take 81 mg by mouth Active tablet daily. hydrALAZINE (APRESOLINE) Take 25 mg by mouth 3 Active 25 MG tablet (three) times daily. amLODIPine (NORVASC) 10 Take 10 mg by mouth Active MG tablet daily. rosuvastatin (CRESTOR) 40 Take 40 mg by mouth Active MG tablet daily. clopidogrel (PLAVIX) 75 Take 75 mg by mouth Active mg tablet daily. isosorbide mononitrate Take 1 tablet (30 mg 60 tablet 0 10/18/19 Active (IMDUR) 30 MG 24 hr total) by mouth daily. 18 tablet nitroglycerin (NITROSTAT) Put 1 pill under tongue 90 tablet 0 10/17/19 10/17/19 Active 0.4 MG SL tablet every 5min as needed for 18 19 chest pain.. carvedilol (COREG) 25 MG Take 1 tablet (25 mg 120 tablet 0 10/17/19 Active tablet total) by mouth 2 (two) 18 times daily. SITagliptin (JANUVIA) 50 Take 0.5 tablets (25 mg 60 tablet 0 10/17/19 Active MG tablet total) by mouth daily. 18 furosemide (LASIX) 20 MG Take 20 mg by mouth 10/17/19 Discontin tablet daily. 18 ued SITagliptin (JANUVIA) 50 Take 50 mg by mouth 10/17/19 Discontin MG tablet daily. 18 ued SITagliptin-metFORMIN Take 1 tablet by mouth 2 10/17/19 Discontin (JANUMET) 50-500 mg per (two) times daily with 18 ued tablet breakfast and dinner. carvedilol (COREG) 12.5 Take 12.5 mg by mouth 2 10/17/19 Discontin MG tablet (two) times daily with 18 ued breakfast and dinner. Active Problems Problem Noted Date Multiple myeloma (HCC) 10/13/2017 Plasma cell neoplasm 10/12/2017 Hypercalcemia 10/05/2017 Acute kidney injury superimposed on CKD (HCC) 10/05/2017 Type 2 diabetes mellitus, without long-term current use of insulin (HCC) 10/05/2017 Type 2 diabetes mellitus with hyperglycemia, without long-term current use 10/05/2017 of insulin ([facility]) CAD (coronary artery disease), by hx 10/05/2017 Diabetic polyneuropathy associated with type 2 diabetes mellitus ([facility]), by 10/05/2017 hx Anemia 10/05/2017 Hx of CABG 10/05/2017 Ischemic cardiomyopathy, LVEF 20-24% per 04-13-2017 Echo 10/05/2017 Acute renal failure, unspecified acute renal failure type ([facility]) 10/05/2017 Hypertension 10/05/2017 Resolved Problems Problem Noted Date Resolved Date Cardiomyopathy (HCC), 20-24% LVEF per 04-13-2017 Echo 10/05/2017 10/05/2017 Encounters Date Type Specialty Care Team Description 10/05/2017 [facility] General Internal Medicine Junior Dubon MD Acute renal failure, - Encounter Anmol Gonzalez, unspecified acute renal 10/16/2017 [place] failure type ([facility]) MD Silvana (Primary Brain Díaz Dx);Hypercalcemia;Acute kidney injury superimposed on CKD ([facility]);Type 2 diabetes mellitus with diabetic nephropathy, without long-term current use of insulin ([facility]);Ischemic cardiomyopathy, LVEF 20-24% per 04-13-2017 Echo ;Multiple myeloma not having achieved remission ([facility]) 10/05/2017 Orders Only General Internal Medicine after 11/08/2016 Social History Tobacco Use Types Packs/Day Years Used Date Never Smoker Smokeless Tobacco: Never Used Alcohol Use Drinks/Week oz/Week Comments No Sex Assigned at Date Recorded Not on file Last Filed Vital Signs Vital Sign Reading Time Taken Blood Pressure 158/70 10/16/2017 7:43 AM CDT Pulse 66 10/16/2017 7:43 AM CDT Temperature 36 C (96.8 F) 10/16/2017 7:43 AM CDT Respiratory Rate 18 10/16/2017 7:43 AM CDT Oxygen Saturation 97% 10/16/2017 7:43 AM CDT Inhaled Oxygen - - Concentration Weight 71.2 kg (157 lb) 10/14/2017 5:04 AM CDT Height 162.6 cm (5' 4") 10/05/2017 11:53 AM CDT Body Mass Index 26.95 10/14/2017 5:04 AM CDT Plan of Treatment Not on file Procedures Procedure Name Priority Date/Time Associated Diagnosis Comments CRITICAL CARE Routine 10/08/2017 Results for this 1:57 AM CDT procedure are in the results section. after 11/08/2016 Results * RHYTHM STRIP - SCAN (10/17/2017 1:20 PM) * POC-Glucose meter (10/16/2017 7:48 AM) Only the most recent of 38 results within the time period is included. Component Value Ref Range POC-Glucose Meter 113 (H)Comment: TESTED AT [address] 70 - 110 mg/dL [place] [address] Specimen Performing Laboratory Blood [address] [address] * CBC (hemogram only) (10/16/2017 5:47 AM) Only the most recent of 7 results within the time period is included. Component Value Ref Range WBC 8.1 3.5 - 10.5 K/L RBC 2.79 (L) 4.63 - 6.08 M/L Hemoglobin 8.3 (L) 13.7 - 17.5 GM/DL Hematocrit 24.5 (L) 40.1 - 51.0 % MCV 87.8 79.0 - 92.2 fL MCH 29.7 25.7 - 32.2 pg MCHC 33.9 32.3 - 36.5 GM/DL RDW 15.2 (H) 11.6 - 14.4 % Platelets 183 150 - 450 K/CU MM MPV 10.0 9.4 - 12.4 fL nRBC 0 0 - 0 /100 WBC Specimen Performing Laboratory Blood - Arm, Right [address] [address] * Basic Metabolic Panel (10/16/2017 5:47 AM) Only the most recent of 13 results within the time period is included. Component Value Ref Range Sodium 136 136 - 145 meq/L Potassium 3.9 3.5 - 5.1 meq/L Chloride 106 98 - 107 meq/L CO2 21 (L) 22 - 29 meq/L BUN 75 (H) 7 - 21 mg/dL Creatinine 3.29 (H) 0.57 - 1.25 mg/dL Glucose 84 70 - 105 mg/dL Calcium 7.7 (L) 8.4 - 10.2 mg/dL EGFR 19Comment: ESTIMATED GFR IS NOT ACCURATE mL/min/1.73 sq m CREATININE CLEARANCE IN PREDICTING GLOMERULAR FILTRATION RATE. ESTIMATED GFR IS NOT APPLICABLE FOR DIALYSIS PATIENTS. Specimen Performing Laboratory Blood - Arm, [place] [address] * TRANSFUSION SERVICE REPORT - SCAN (10/15/2017 5:51 PM) Only the most recent of 4 results within the time period is included. * Prepare Leuko-Red RBC (10/14/2017 11:55 PM) Only the most recent of 2 results within the time period is included. Component Value Ref Range CROSSMATCH COMPATIBLE Unit ABO B Pos UNIT NUMBER [id number] Status TRANSFUSED Blood Bank Product RED BLOOD CELLS PRODUCT CODE [id number] Specimen Performing Laboratory Other [employer] [place] * Transfuse Leuko-Red RBC (10/13/2017 4:36 PM) Only the most recent of 4 results within the time period is included. * Type and screen, automated (10/13/2017 11:07 AM) Only the most recent of 2 results within the time period is included. Component Value Ref Range ABO/RH AUTOMATED (BEAKER) B POSITIVE Ab Scrn NEGATIVE Specimen Performing Laboratory Blood [address] [address] * Hemoglobin and hematocrit (10/13/2017 9:44 AM) Only the most recent of 2 results within the time period is included. Component Value Ref Range Hemoglobin 6.7 (L) 13.7 - 17.5 GM/DL Hematocrit 20.0 (L) 40.1 - 51.0 % Specimen Performing Laboratory Blood - Arm, Left [address] [address] * Magnesium (10/13/2017 6:17 AM) Only the most recent of 3 results within the time period is included. Component Value Ref Range Magnesium 2.0 1.6 - 2.6 mg/dL Specimen Performing Laboratory Blood - Arm, [place] [address] * CBC with platelet count + automated diff (10/12/2017 5:33 AM) Only the most recent of 7 results within the time period is included. Component Value Ref Range WBC 9.2 3.5 - 10.5 K/L RBC 2.57 (L) 4.63 - 6.08 M/L Hemoglobin 7.6 (L) 13.7 - 17.5 GM/DL Hematocrit 21.7 (L) 40.1 - 51.0 % MCV 84.4 79.0 - 92.2 fL MCH 29.6 25.7 - 32.2 pg MCHC 35.0 32.3 - 36.5 GM/DL RDW 15.3 (H) 11.6 - 14.4 % Platelets 182 150 - 450 K/CU MM MPV 10.0 9.4 - 12.4 fL nRBC 0 0 - 0 /100 WBC % Neutros 83 % % Lymphs 11 % % Monos 4 % % Eos 0 % % Baso 0 % # Neutros 7.64 (H) 1.78 - 5.38 K/L # Lymphs 1.03 (L) 1.32 - 3.57 K/L # Monos 0.36 0.30 - 0.82 K/L # Eos 0.00 (L) 0.04 - 0.54 K/L # Baso 0.01 0.01 - 0.08 K/L Immature 2 (H) 0 - 1 % Granulocytes-Relative Specimen Performing Laboratory Blood - Arm, [place] [address] * CBC with platelet count + automated diff (10/12/2017 5:33 AM) Only the most recent of 7 results within the time period is included. Specimen Performing Laboratory Blood Narrative The following orders were created for panel order CBC with platelet count + automated diff. Procedure Abnormality Status --------- ------ CBC with platelet count ...[[id number]]AbnormalFinal result Please view results for these tests on the individual orders. * Hemoglobin A1c (10/12/2017 5:33 AM) Component Value Ref Range Hemoglobin A1C 9.1 (H) 4.3 - 6.1 % Specimen Performing Laboratory Blood - Arm, Right [address] [address] * Cortisol (10/11/2017 4:27 AM) Component Value Ref Range Cortisol, Total 3.4 (L) 3.7 - 19.4 ug/dL Specimen Performing Laboratory Blood [address] [address] * Sodium, random urine (10/10/2017 6:14 PM) Component Value Ref Range Sodium Urine <20 meq/L Specimen Performing Laboratory Urine [address] [address] Narrative Reference Range: No Normals * Chromosomes Cancer Study (10/10/2017 11:56 AM) Component Value Ref Range Scan Result Specimen Performing Laboratory Bone Marrow [facility] [address] [place] [address] * Flow Cytometry Requisition (10/10/2017 10:27 AM) Component Value Ref Range Flow Cytometry See Separate Report Case # [id number] Specimen Performing Laboratory Bone Marrow [address] [address] * Bone Marrow- Pathology Exam (10/10/2017 10:27 AM) Component Value Ref Range Anatomic Case# [id number] Ordering Physician MULU Performing Physician Pb Clot Rec'd? Yes Biopsy Rec'd? Yes Rec'd for Culture? No Rec'd for Flow? Yes Rec'd for Cytogenetics? Yes Rec'd for Molecular Hold Genetics? Specimen Performing Laboratory Bone Marrow - Iliac [facility] Crest, Left [address] [place] [address] * Flow Cytometry (10/10/2017 10:27 AM) Component Value Ref Range Case Report Flow Cytometry Report Case: [id number] Authorizing Provider:Karli Lindsay MDCollected: 10/10/2017 1027 Ordering Location: [address] Received:10/10/2017 1324 Service Pathologist: Preston Black MD Specimen:Other Flow Interpretation BONE MARROW, FLOW CYTOMETRY: MONOCLONAL KAPPA RESTRICTED PLASMA CELL POPULATION. CORRELATION WITH MORPHOLOGIC FINDINGS REQUIRED. CPT Code(s) 07739 CLINICAL HISTORY Suspected plasma cell neoplasm SPECIMEN SOURCE Bone marrow CELLULAR BIOMARKER CD8, surface-[place], CD56, surface-Lambda, CD5, ANALYSIS CD19, CD10, CD3, CD20, CD4, CD45, CD14, CD13, CD33, CD117, CD34, cKappa, cLambda, CD38, CD138 IMMUNOPHENOTYPIC FINDINGS Specimen Viability: 88.7% Abnormal plasma cell population identified(12.77% of total cellularity) POSITIVE: CD38, CD138, CD56, KAPPA NEGATIVE: CD19, CD20, LAMBDA In addition, the following populations are identified: Blasts: the dim CD45+ CD34+ blasts comprise less than 1% of total cells. The majority of these cells express CD13 and CD33 (myeloblasts). Lymphocytes: Bright CD45+ lymphocytes comprise 6.1% of total cells. T cells show a CD4:CD8 ratio of 1.2. B cells are polytypic with a kappa:lambda ratio of 1.4. Myeloid/monocytic populations: As identified by CD45 and light scatter characteristics, granulocytes comprise the majority of cells analyzed, and monocytes comprise 1.8% of total cells. Plasma cells: as described above. The remaining events analyzed represent nonviable cells, non-hematolymphoid cells, and debris DISCLAIMER These tests were developed and their performance characteristics determined by [facility]. They have not been cleared or approved by the U.S. Food and Drug Administration. The FDA has determined that such clearance or approval is not necessary. It should not be regarded as investigational or for research. This laboratory is certified under the Clinical Laboratory Improvement Amendments of 1988 ("CLIA") as qualified to perform high-complexity clinical testing. Specimen Performing [place] [address] * Bone Marrow Exam (10/10/2017 10:27 AM) Component Value Ref Range Case Report Bone Marrow Pathology Report Case: [id number] Authorizing Provider:Gabriela Calderon MD Collected: 10/10/2017 1027 Ordering Location: [address] Received:10/10/2017 1053 Service Pathologist: Preston Black MD Specimens: A) - Iliac Crest, Left B) - C) - ADDENDUM 2 Expanded plasma cell neoplasm FISH panel is notable for the following abnormalities: Dup1q negative Gains 5, 9, 15 POSITIVE Del13q POSITIVE Del1p negative Del17p(TP53) POSITIVE IGH rearrangement negative. See attached scanned report. ADDENDUM Special stain for Congo Red performed on block C1 (core biopsy) is NEGATIVE for amyloid. 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 RESIDUAL TRILINEAGE HEMATOPOIESIS IS PRESENT. CYTOGENETIC STUDIES ARE PENDING, ADDENDUM TO FOLLOW. PERIPHERAL BLOOD: RARE PLASMACYTOID LYMPHOCYTES. Signing Pathologist Direct Phone Line: [phone] COMMENT Congo red stain for amyloid is pending, an addendum report will follow. CPT Code(s) 80109; 41715; 16166 x 2; 15910; 25669V6, 51041, 75311X1 CLINICAL HISTORY Hypercalcemia, ischemic cardiomyopathy, acute renal failure, acute kidney injury, type 2 diabetes mellitus with diabetic nephropathy, clinical suspicion of plasma cell disorder, multiple myeloma SPECIMEN SOURCE A. Several aspirate smears to include one unstained slide for iron stain; B. Bone marrow aspirate; C. Bone marrow biopsy GROSS DESCRIPTION The specimen is received in three containers labeled with the patient's name, medical record number and site. Specimen A consists of several aspirate smears to include one unstained slide for iron stain. Specimen B: Received in formalin is a 1.0 x 1.0 x 0.5 cm portion of clotted blood. Entirely submitted in cassette B1 Specimen C: in formalin is a 0.5 cm in length altman-white core of osseous tissue. The specimen is entirely submitted in cassettes C1 for decalcification. DB/pl MICROSCOPIC DESCRIPTION BONE MARROW ASPIRATE: QUALITY: Aspirate- Adequate Touch imprint- Adequate MARROW DIFFERENTIAL COUNT: Number of cells counted:200 3% Blasts 8% Promyelocytes 10% Myelocytes/Metamyelocytes 2% Bands/Segmented granulocytes 2% Eosinophils and precursors 0% Basophils and precursors 9% Erythroid precursors 4% Lymphocytes 3% Monocytes 59% Plasma cells Blasts: Not increased Erythropoiesis: Megaloblastoid changes present. Myelopoiesis: Left shifted Lymphocytes/Plasma cells: Small and mature Megakaryocytes: Hypolobated forms present. Stainable iron is identified on marrow particles present on the aspirate smear and appears increased. Occasional ring sideroblasts are identified (less than 1% of erythroid precursors). BONE MARROW BIOPSY: Biopsy- Adequate Clot- Suboptimal, limited marrow present. The marrow core demonstrates a cellularity of approximately 40%. Immunohistochemical studies performed on the core biopsy demonstrates a population of neoplastic plasma cells which are positive for CD138, CD56, and kappa light chain. They are negative for CD20, cyclin D1, and lambda light chain. This population accounts for approximately 80% of the cellular marrow. Blasts are not increased by CD34. Background T cells are highlighted by CD3. Residual trilineage hematopoiesis is present. Stainable iron is not identified on the clot section by the Perls iron special stain, however limited marrow is present for evaluation. PERIPHERAL BLOOD: Red cells: Mild anisopoikilocytosis. White cells: Rare plasmacytoid lymphocytes. Some large granular lymphocytes. No significant Rouleaux formation. Platelets: Unremarkable SPECIAL STUDIES The following special studies were performed on this case and the interpretation is incorporated in the diagnostic report above: BLOCK B1- PERLS IRON BLOCK C1- CD20, CD3, CD34, CD138, CD56, CYCLIN D1, KAPPA, LAMBDA, CONGO RED The immunohistochemistry test was developed and its performance characteristics determined by [facility], Pathology Laboratory. It has not been cleared or approved by the U.S. Food and Drug Administration. The FDA has determined that such clearance or approval is not necessary. The test is used for clinical purposes. It should not be regarded as investigational or for research. This laboratory is certified under the Clinical Laboratory Improvement Amendments of 1988 (CLIA-88) as qualified to perform high complexity clinical laboratory testing. Specimen Performing Laboratory Bone Marrow - Iliac [facility] Crest, Left [address] [place] [address] * Multiple Myeloma Fish (10/10/2017 8:08 AM) Component Value Ref Range Scan Result Specimen Performing Laboratory Bone Marrow [facility] [address] [place] [address] * Troponin I (10/10/2017 4:29 AM) Only the most recent of 9 results within the time period is included. Component Value Ref Range Troponin I 0.24 (HH) 0.00 - 0.03 ng/mL Specimen Performing Laboratory Blood - Arm, Right [address] [address] Narrative Troponin I (TnI) levels must be interpreted in the context of the presenting symptoms and the clinical findings. Elevated TnI levels indicate myocardial damage, but are not specific for ischemic heart disease. Elevated TnI levels are seen in patients with other cardiac conditions (including myocarditis and congestive heart failure), and slight TnI elevations occur in patients with other conditions, including sepsis, renal failure, acidosis, acute neurological disease, and persistent tachyarrhythmia. * Platelet count (10/10/2017 4:29 AM) Component Value Ref Range Platelets 161 150 - 450 K/CU MM Specimen Performing Laboratory Blood - Arm, Right [address] [address] Narrative Baseline and daily starting prior to initiation of heparin infusion * Calcium, Ionized (10/09/2017 5:50 AM) Only the most recent of 15 results within the time period is included. Component Value Ref Range Calcium, Ion 1.36 (H) 1.12 - 1.27 mmol/L pH, Blood 7.48 Specimen Performing Laboratory Blood - Arm, Left [address] [address] * Calcium (10/08/2017 11:56 PM) Only the most recent of 10 results within the time period is included. Component Value Ref Range Calcium 12.4 (H) 8.4 - 10.2 mg/dL Specimen Performing Laboratory Blood - Arm, Left [address] [address] * Urine Immunofixation, random (10/08/2017 11:06 PM) Component Value Ref Range Protein, Urine 58 (H) 0 - 14 mg/dL Albumin %, Urine 20.6 % Globulin %, Urine 79.4 % URINE CHEO ID Free kappa light chains, monoclonal Pathologist: Tabitha Reich MD (electronic signature) Specimen Performing Laboratory Urine - Urine, Voided [address] [address] * ECHOCARDIOGRAM REPORT - SCAN (10/08/2017 5:25 PM) * [place] / lambda light chains, serum (10/08/2017 12:33 PM) Component Value Ref Range [place] Lt Chain,Free 1178.6 (H) 3.3 - 19.4 mg/L Lambda Lt Chain,Free 12.7 5.7 - 26.3 mg/L [place]/Lambda,Free 92.80 (H) 0.26 - 1.65 Comment: Free kappa/lambda ratio in serum of normal individuals is 0.26-1.65. Excess production of free kappa or lambda light chains alters the ratio. Ratios outside the normal range are attributed to the presence of monoclonal free light chains. Monoclonal free light chains are found in the serum of patients with multiple myeloma, Waldenstrom's macroglobulinemia, mu-heavy chain disease, primary amyloidosis, light chain deposition disease, monoclonal gammopathy of undetermined significance, and lymphoproliferative disorders. Measurement of free light chain concentration in serum is useful for diagnosis, prognosis, monitoring disease activity and following response to therapy of these disorders. Specimen Performing Laboratory Blood - Arm, [facility] [address] [address] Narrative Performing Lab [facility] [address] [address] Rebeka Ballard MD, PhD, LAURA * aPTT (10/08/2017 12:33 PM) Only the most recent of 6 results within the time period is included. Component Value Ref Range PTT 64.6 (H) 22.5 - 36.0 seconds Specimen Performing Laboratory Blood - Arm, [address] [address] * Immunofixation electrophoresis (CHEO) (10/08/2017 12:33 PM) Component Value Ref Range IgG 618 540 - 1822 mg/dL IgA 102 63 - 484 mg/dL IgM 23 22 - 293 mg/dL Serum CHEO Identification Free kappa light chains, monoclonal Pathologist: Tabitha Reich MD (electronic signature) Specimen Performing Laboratory Blood - Arm, [address] [address] * Immunoglobulin A (IgA) (10/08/2017 12:33 PM) Component Value Ref Range IgA 102 63 - 484 mg/dL Specimen Performing Laboratory Blood - Arm, [address] [address] * Immunoglobulin M (IgM) (10/08/2017 12:33 PM) Component Value Ref Range IgM 23 22 - 293 mg/dL Specimen Performing Laboratory Blood - Arm, [address] [address] * Immunoglobulin G (IgG) (10/08/2017 12:33 PM) Component Value Ref Range IgG 618 540 - 1822 mg/dL Specimen Performing Laboratory Blood - Arm, Right [facility] [address] [address] * 2D Echo W/Doppler(CW/PW/Color) (10/08/2017 11:43 AM) Component Value Ref Range Ejection Fraction Specimen Performing Laboratory SLE ECHO [facility] MKCKESSON CPACS Narrative Transthoracic Echocardiography Report (TTE) Demographics Patient Name SAMMY ASHLEY Date of Study 10/08/2017 ENE [id number] Visit Number [id number] Room Number 7306 Number Date of Birth1945Referring Physician VEDA Gonzalez Age72 year(s)[employer] Loader Dominga [place], [facility] AnalystIzoPhysician DANITZA Price Procedure Type of Study TTE procedure:2DECHO W DOPPLER(CW/PW/COLOR) (SONI) Indications:Acute Chest Pain/ Suspected CAD. Clinical History CABG, Coronary artery disease, Congestive heart failure, Diabetes mellitus II, Hyperlipidemia, Hypertension, Acute kidney injury, Chronic kidney disease, Ischemic cardiomyopathy (EF 20-24% on previous echo 04/13/17) HGB 6.2 HCT 18.6 % Height: 64 inches Weight: 72.12 kg (159 lbs) BSA: 1.77 m^2 BMI: 27.29 kg/m^2 HR: 70 bpm BP: 161/67 mmHg Summary The left ventricle is chamber size (by PSLAX dimension) is normal (male - LVIDd 4.2-5.8cm) . Mild concentric LV hypertrophy. The following segment(s) appear hypokinetic: basal inferior . The other segments contract normally. LVEF by Sinha's method of disk assessment is normal (55-60%) . The LVEF was measured using Sinha's bi-plane method of disk . Unable to estimate peak systolic PA pressure; inadequate TR velocity signal. No pericardial effusion is visualized. Signature Findings Technical Quality: Good visualization Left Ventricle The left ventricle is chamber size (by PSLAX dimension) is normal (male - LVIDd 4.2-5.8cm) . Mild concentric LV hypertrophy. The following segment(s) appear hypokinetic: basal inferior . The other segments contract normally. LVEF by Sinha's method of disk assessment is normal (55-60%) . The LVEF was measured using Sinha's bi-plane method of disk . Left AtriumLA size is severely enlarged (>48 ml/m2) . Right VentricleThe right ventricular chamber size and systolic function are within normal limits. Right Atrium RA cavity size is normal . Aortic Valve Mild AoV cusp thickening. A trace of aortic regurgitation. Mitral Valve Mild MV leaflet thickening. Mild mitral annular calcification. Trace mitral regurgitation. Tricuspid ValveTV structure is normal. Unable to estimate peak systolic PA pressure; inadequate TR velocity signal. Pulmonic Valve PV is not well visualized; function appears normal by Doppler visualized. AortaAortic root size (SInus of Valsalva diameter) is normal . Proximal ascending aorta size is normal . PericardiumNo pericardial effusion is visualized. IVC/SVC/PA/PV/PleuralThe estimated RA pressure by IVC dynamics 5-10mmHg . Chambers/Structures Left Atrium LA Volume: 103.91 mlLA Area: 29.08 cm^2 LA Vol. Index: 59 ml/m^2 Left Ventricle LVIDd: 4.66 cm LV Septum Diastolic: 1.47 cm LV PW Diastolic: 1.29 cm LVEDV Sinha's:120 ml LVESV Sinha's:51.87 ml LVEF Sinha's: 56.8 %LVEDVI: 68 ml/m^2 LVESVI: 29 ml/m^2 LVOT Diameter: 2.08 cm Right Atrium RA Vol. (Sngl Plane): 51.99 ml Aorta Ao Root S of Graciela.: 3.28 cmAscending Aorta: 3.29 cm Doppler/Quantitative Measurements Aortic Valve Peak Velocity: 1.64 m/sMean Velocity: 1.09 m/s Peak Gradient: 10.74 mmHgMean Gradient: 5.66 mmHg AV Area (continuity): 2.75 cm^2 AV VTI: 32.05 cm AV DVI: 0.81 LVOT Peak Velocity: 1.13 m/s Peak Gradient: 5.09 mmHg Mean Velocity: 0.84 m/s Mean Gradient: 3.17 mmHg LVOT Diameter: 2.08 cmLVOT VTI: 25.96 cm LVOT Area: 3.4 cm^2 LVOT SV:88.17 ml LVOT CO: 6.17 l/min LVOT CI: 3.49 l/min/m^2 Procedure Note Interface, External Ris In - 10/08/2017 4:49 PM CDT Transthoracic Echocardiography Report (TTE) Demographics Patient Name SAMMY ASHLEY Date of Study 10/08/2017 ENE Gender Male Visit Number [id number] Race Unknown Room Number 7306 Number Date of 1945 Referring Physician VEDA Gonzalez Age 72 year(s) [employer] Dominga Samayoa, [facility] Manager Deli Janis Samson Interpreting Physician DANITZA Banegas Procedure Type of Study TTE procedure:2DECHO W DOPPLER(CW/PW/COLOR) (SONI) Indications:Acute Chest Pain/ Suspected CAD. Clinical History CABG, Coronary artery disease, Congestive heart failure, Diabetes mellitus II, Hyperlipidemia, Hypertension, Acute kidney injury, Chronic kidney disease, Ischemic cardiomyopathy (EF 20-24% on previous echo 04/13/17) HGB 6.2 HCT 18.6 % Height: 64 inches Weight: 72.12 kg (159 lbs) BSA: 1.77 m^2 BMI: 27.29 kg/m^2 HR: 70 bpm BP: 161/67 mmHg Summary The left ventricle is chamber size (by PSLAX dimension) is normal (male - LVIDd 4.2-5.8cm) . Mild concentric LV hypertrophy. The following segment(s) appear hypokinetic: basal inferior . The other segments contract normally. LVEF by Sinha's method of disk assessment is normal (55-60%) . The LVEF was measured using Sinha's bi-plane method of disk . Unable to estimate peak systolic PA pressure; inadequate TR velocity signal. No pericardial effusion is visualized. Signature Findings Technical Quality: Good visualization Left Ventricle The left ventricle is chamber size (by PSLAX dimension) is normal (male - LVIDd 4.2-5.8cm) . Mild concentric LV hypertrophy. The following segment(s) appear hypokinetic: basal inferior . The other segments contract normally. LVEF by Sinha's method of disk assessment is normal (55-60%) . The LVEF was measured using Sinha's bi-plane method of disk . Left Atrium LA size is severely enlarged (>48 ml/m2) . Right Ventricle The right ventricular chamber size and systolic function are within normal limits. Right Atrium RA cavity size is normal . Aortic Valve Mild AoV cusp thickening. A trace of aortic regurgitation. Mitral Valve Mild MV leaflet thickening. Mild mitral annular calcification. Trace mitral regurgitation. Tricuspid Valve TV structure is normal. Unable to estimate peak systolic PA pressure; inadequate TR velocity signal. Pulmonic Valve PV is not well visualized; function appears normal by Doppler visualized. Aorta Aortic root size (SInus of Valsalva diameter) is normal . Proximal ascending aorta size is normal . Pericardium No pericardial effusion is visualized. IVC/SVC/PA/PV/Pleural The estimated RA pressure by IVC dynamics 5-10mmHg . Chambers/Structures Left Atrium LA Volume: 103.91 ml LA Area: 29.08 cm^2 LA Vol. Index: 59 ml/m^2 Left Ventricle LVIDd: 4.66 cm LV Septum Diastolic: 1.47 cm LV PW Diastolic: 1.29 cm LVEDV Sinha's:120 ml LVESV Sinha's:51.87 ml LVEF Sinha's: 56.8 % LVEDVI: 68 ml/m^2 LVESVI: 29 ml/m^2 LVOT Diameter: 2.08 cm Right Atrium RA Vol. (Sngl Plane): 51.99 ml Aorta Ao Root S of Graciela.: 3.28 cm Ascending Aorta: 3.29 cm Doppler/Quantitative Measurements Aortic Valve Peak Velocity: 1.64 m/s Mean Velocity: 1.09 m/s Peak Gradient: 10.74 mmHg Mean Gradient: 5.66 mmHg AV Area (continuity): 2.75 cm^2 AV VTI: 32.05 cm AV DVI: 0.81 LVOT Peak Velocity: 1.13 m/s Peak Gradient: 5.09 mmHg Mean Velocity: 0.84 m/s Mean Gradient: 3.17 mmHg LVOT Diameter: 2.08 cm LVOT VTI: 25.96 cm LVOT Area: 3.4 cm^2 LVOT SV:88.17 ml LVOT CO: 6.17 l/min LVOT CI: 3.49 l/min/m^2 * Protein electrophoresis, serum (10/08/2017 4:07 AM) Only the most recent of 2 results within the time period is included. Component Value Ref Range Albumin Fraction 3.5 3.5 - 5.5 g/dL Alpha 1 Fraction 0.4 0.2 - 0.4 g/dL Alpha 2 Fraction 1.2 (H) 0.5 - 0.9 g/dL Beta Fraction 1.1 0.6 - 1.1 g/dL Gamma Globulin Fraction 0.8 0.7 - 1.7 g/dL Interpretation Pattern continues to be consistent with acute inflammatory response; no significant change from previous study performed 10-05-17. No monoclonal bands detected. Pathologist: Tabitha Reich MD (electronic signature) Protein, Total 6.9 6.0 - 8.3 gm/dL Specimen Performing Laboratory Blood [address] [address] * Lactate dehydrogenase (LDH) (10/08/2017 4:07 AM) Component Value Ref Range LDH 192 125 - 220 U/L Specimen Performing Laboratory Blood [address] [address] * Beta 2 microglobulin (10/08/2017 4:07 AM) Component Value Ref Range B2 Microglobulin, Serum 11.80 (H) < OR=2.51 mg/L Specimen Performing Laboratory Blood [facility] [address] [place] [address] Narrative Performing Lab [facility] [address] [place] [address] Rebeka Ballard MD, PhD, LAURA * ED ECG Interpretation (10/08/2017 1:57 AM) Junior Sanchez MD 10/08/20171:57 AM ECG/EKG Interpretation Date/Time: 10/05/2017 3:31 PM Performed by: JUNIOR DUBON Authorized by: JUNIOR DUBON The ECG was interpreted by ED physician. This ECG was not compared with previous ECG(s).There was no previous ECG available for comparison. The ECG is interpreted as sinus rhythm. Rate is normal rate. Heart rate is 74 BPM. Abnormal conduction noted: pr. 0.220and 1st degree. ST segments normal. T waves normal. [place] is normal. Other findings include: LVH. Q-waves are present in lead(s) II. Clinical Impression: abnormal ECGECG reviewed and does not meet STEMI criteria. Patient tolerance: Patient tolerated the procedure well with no immediate complications * Critical Care (10/08/2017 1:57 AM) Junior Sanchez MD 10/08/20171:57 AM Critical Care Performed by: JUNIOR DUBON Authorized by: JUNIOR DUBON Total critical care time: 45 minutes Critical care was necessary to treat or prevent imminent or life-threatening deterioration of the following conditions: dehydration, metabolic crisis, endocrine crisis and renal failure. Critical care was time spent personally by me on the following activities: development of treatment plan with patient or surrogate, discussions with consultants, interpretation of cardiac output measurements, evaluation of patient's response to treatment, examination of patient, obtaining history from patient or surrogate, ordering and performing treatments and interventions, ordering and review of laboratory studies, ordering and review of radiographic studies, pulse oximetry, re-evaluation of patient's condition and review of old charts. * ECG 12 lead (10/07/2017 7:52 PM) Only the most recent of 6 results within the time period is included. Specimen Performing Laboratory [facility] M[facility] Narrative Ventricular Rate 89 BPM Atrial Rate 89 BPM P-R Interval 224 ms QRS Duration 118 ms Q-T Interval 364 ms QTC Calculation(Bazett) 442 ms P [place] 68 degrees R [place] 15 degrees T [place] 191 degrees Sinus rhythm with 1st degree A-V block LVH with repolarization abnormality Incomplete left bundle branch block Possible Inferior infarct (cited on or before 06-OCT-2017) ST depression inferolateral leads + ST elevattion in aVR consider subendocardial sichemia or changes secondary to LVH Abnormal ECG When compared with ECG of 07-OCT-2017 06:09, No significant changes Confirmed by MD ENCINAS YOCHAI ([id number]) on 10/11/2017 8:11:11 AM Procedure Note Interface, External Ris In - 10/11/2017 8:11 AM CDT Ventricular Rate 89 BPM Atrial Rate 89 BPM P-R Interval 224 ms QRS Duration 118 ms Q-T Interval 364 ms QTC Calculation(Bazett) 442 ms P [place] 68 degrees R [place] 15 degrees T [place] 191 degrees Sinus rhythm with 1st degree A-V block LVH with repolarization abnormality Incomplete left bundle branch block Possible Inferior infarct (cited on or before 06-OCT-2017) ST depression inferolateral leads + ST elevattion in aVR consider subendocardial sichemia or changes secondary to LVH Abnormal ECG When compared with ECG of 07-OCT-2017 06:09, No significant changes Confirmed by MD ENCINAS YOCHAI ([id number]) on 10/11/2017 8:11:11 AM * CT chest without IV contrast (10/07/2017 6:04 PM) Specimen Performing Laboratory [facility] Narrative FINAL REPORT CLINICAL HISTORY: Unintended weight loss, nonlocalized abdominal pain FINDINGS: Multiple axial images of the chest, abdomen and pelvis were performed without IV contrast.Oral contrast was given. This exam was performed according to our departmental dose-optimization program, which includes automated exposure control, adjustment of the mA and/or kV according to patient size and/or use of the iterative reconstruction technique. The examination is limited by motion artifact. Comparison: None. Chest: Lung parenchyma: No pulmonary mass or suspicious nodule. Bilateral dependent atelectasis. Pleural effusion: Trace bilateral effusions Pneumothorax: None. Tracheobronchial tree: No significant findings. Pulmonary vasculature: No significant findings. Cardiac contours and great vessels: Cardiomegaly. Atherosclerotic calcification of the coronary arteries, aorta and great vessels arising from the arch. Previous CABG. Mediastinum: No significant findings. Lymph Nodes: No adenopathy in the mediastinum or allison. Skeleton: Innumerable punctate lucent lesions throughout the skeleton. Abdomen and pelvis: Liver: No significant findings. Gallbladder and biliary tree: No significant findings. Spleen: No significant findings. Adrenal Glands: No significant findings. Kidneys and ureters: Atrophic left kidney Stomach and Duodenum: No significant findings. Pancreas: No significant findings. Bowel: No significant findings. Appendix: Not seen. No local inflammatory changes. Bladder: No significant findings. Major vascular structures: Atherosclerotic calcifications Reproductive organs: No significant findings. Other: No free air, fluid or adenopathy Skeleton: Diffuse punctate lucent lesions throughout the skeleton. IMPRESSION: There are innumerable punctate lucent lesions throughout the visualized skeleton. The appearance is nonspecific but concerning for primary myelogenous or metastatic malignancy. Evaluation with skeletal survey MRI or bone scan is recommended. No suspicious lesion is seen elsewhere in the chest, abdomen or pelvis. Cardiomegaly and trace bilateral pleural effusions. Signed: Luis Miguel Gamez MD Report Verified Date/Time:10/07/2017 18:54:11 Reading Location: [address] Reading Room Procedure Note Interface, External Ris In - 10/07/2017 6:56 PM CDT FINAL REPORT CLINICAL HISTORY: Unintended weight loss, nonlocalized abdominal pain FINDINGS: Multiple axial images of the chest, abdomen and pelvis were performed without IV contrast. Oral contrast was given. This exam was performed according to our departmental dose-optimization program, which includes automated exposure control, adjustment of the mA and/or kV according to patient size and/or use of the iterative reconstruction technique. The examination is limited by motion artifact. Comparison: None. Chest: Lung parenchyma: No pulmonary mass or suspicious nodule. Bilateral dependent atelectasis. Pleural effusion: Trace bilateral effusions Pneumothorax: None. Tracheobronchial tree: No significant findings. Pulmonary vasculature: No significant findings. Cardiac contours and great vessels: Cardiomegaly. Atherosclerotic calcification of the coronary arteries, aorta and great vessels arising from the arch. Previous CABG. Mediastinum: No significant findings. Lymph Nodes: No adenopathy in the mediastinum or allison. Skeleton: Innumerable punctate lucent lesions throughout the skeleton. Abdomen and pelvis: Liver: No significant findings. Gallbladder and biliary tree: No significant findings. Spleen: No significant findings. Adrenal Glands: No significant findings. Kidneys and ureters: Atrophic left kidney Stomach and Duodenum: No significant findings. Pancreas: No significant findings. Bowel: No significant findings. Appendix: Not seen. No local inflammatory changes. Bladder: No significant findings. Major vascular structures: Atherosclerotic calcifications Reproductive organs: No significant findings. Other: No free air, fluid or adenopathy Skeleton: Diffuse punctate lucent lesions throughout the skeleton. IMPRESSION: There are innumerable punctate lucent lesions throughout the visualized skeleton. The appearance is nonspecific but concerning for primary myelogenous or metastatic malignancy. Evaluation with skeletal survey MRI or bone scan is recommended. No suspicious lesion is seen elsewhere in the chest, abdomen or pelvis. Cardiomegaly and trace bilateral pleural effusions. Signed: Luis Miguel Gamez MD Report Verified Date/Time: 10/07/2017 18:54:11 Reading Location: [address] Reading Room * CT abdomen/pelvis without iv contrast (10/07/2017 6:04 PM) Specimen Performing Laboratory [facility] Narrative FINAL REPORT CLINICAL HISTORY: Unintended weight loss, nonlocalized abdominal pain FINDINGS: Multiple axial images of the chest, abdomen and pelvis were performed without IV contrast.Oral contrast was given. This exam was performed according to our departmental dose-optimization program, which includes automated exposure control, adjustment of the mA and/or kV according to patient size and/or use of the iterative reconstruction technique. The examination is limited by motion artifact. Comparison: None. Chest: Lung parenchyma: No pulmonary mass or suspicious nodule. Bilateral dependent atelectasis. Pleural effusion: Trace bilateral effusions Pneumothorax: None. Tracheobronchial tree: No significant findings. Pulmonary vasculature: No significant findings. Cardiac contours and great vessels: Cardiomegaly. Atherosclerotic calcification of the coronary arteries, aorta and great vessels arising from the arch. Previous CABG. Mediastinum: No significant findings. Lymph Nodes: No adenopathy in the mediastinum or allison. Skeleton: Innumerable punctate lucent lesions throughout the skeleton. Abdomen and pelvis: Liver: No significant findings. Gallbladder and biliary tree: No significant findings. Spleen: No significant findings. Adrenal Glands: No significant findings. Kidneys and ureters: Atrophic left kidney Stomach and Duodenum: No significant findings. Pancreas: No significant findings. Bowel: No significant findings. Appendix: Not seen. No local inflammatory changes. Bladder: No significant findings. Major vascular structures: Atherosclerotic calcifications Reproductive organs: No significant findings. Other: No free air, fluid or adenopathy Skeleton: Diffuse punctate lucent lesions throughout the skeleton. IMPRESSION: There are innumerable punctate lucent lesions throughout the visualized skeleton. The appearance is nonspecific but concerning for primary myelogenous or metastatic malignancy. Evaluation with skeletal survey MRI or bone scan is recommended. No suspicious lesion is seen elsewhere in the chest, abdomen or pelvis. Cardiomegaly and trace bilateral pleural effusions. Signed: Luis Miguel Gamez MD Report Verified Date/Time:10/07/2017 18:54:11 Reading Location: [address] Reading Room Procedure Note Interface, External Ris In - 10/07/2017 6:56 PM CDT FINAL REPORT CLINICAL HISTORY: Unintended weight loss, nonlocalized abdominal pain FINDINGS: Multiple axial images of the chest, abdomen and pelvis were performed without IV contrast. Oral contrast was given. This exam was performed according to our departmental dose-optimization program, which includes automated exposure control, adjustment of the mA and/or kV according to patient size and/or use of the iterative reconstruction technique. The examination is limited by motion artifact. Comparison: None. Chest: Lung parenchyma: No pulmonary mass or suspicious nodule. Bilateral dependent atelectasis. Pleural effusion: Trace bilateral effusions Pneumothorax: None. Tracheobronchial tree: No significant findings. Pulmonary vasculature: No significant findings. Cardiac contours and great vessels: Cardiomegaly. Atherosclerotic calcification of the coronary arteries, aorta and great vessels arising from the arch. Previous CABG. Mediastinum: No significant findings. Lymph Nodes: No adenopathy in the mediastinum or allison. Skeleton: Innumerable punctate lucent lesions throughout the skeleton. Abdomen and pelvis: Liver: No significant findings. Gallbladder and biliary tree: No significant findings. Spleen: No significant findings. Adrenal Glands: No significant findings. Kidneys and ureters: Atrophic left kidney Stomach and Duodenum: No significant findings. Pancreas: No significant findings. Bowel: No significant findings. Appendix: Not seen. No local inflammatory changes. Bladder: No significant findings. Major vascular structures: Atherosclerotic calcifications Reproductive organs: No significant findings. Other: No free air, fluid or adenopathy Skeleton: Diffuse punctate lucent lesions throughout the skeleton. IMPRESSION: There are innumerable punctate lucent lesions throughout the visualized skeleton. The appearance is nonspecific but concerning for primary myelogenous or metastatic malignancy. Evaluation with skeletal survey MRI or bone scan is recommended. No suspicious lesion is seen elsewhere in the chest, abdomen or pelvis. Cardiomegaly and trace bilateral pleural effusions. Signed: Luis Miguel Gamez MD Report Verified Date/Time: 10/07/2017 18:54:11 Reading Location: [address] Reading Room * Vitamin B12 and Folate (10/07/2017 4:01 PM) Component Value Ref Range Vitamin B12 >2000 (H) 213 - 816 pg/mL Folate 13.2 >=7.0 ng/mL Specimen Performing Laboratory Blood - Arm, [address] [address] * Iron, TIBC, % sat. (without ferritin) (10/07/2017 4:01 PM) Component Value Ref Range Iron 47 40 - 160 ug/dL TIBC 206 (L) 250 - 450 ug/dL Iron % Saturation 23 20 - 55 % Specimen Performing Laboratory Blood - Arm, [address] [address] * Ferritin (10/07/2017 4:01 PM) Component Value Ref Range Ferritin 730 (H) 5 - 275 ng/mL Specimen Performing Laboratory Blood - Arm, [address] [address] * C-Reactive Protein (10/07/2017 6:22 AM) Component Value Ref Range CRP 8.97 (H) 0.00 - 0.50 mg/dL Specimen Performing Laboratory Blood [address] [address] * Prothrombin time/INR (10/07/2017 6:22 AM) Component Value Ref Range Protime 14.7 11.7 - 14.7 seconds INR 1.1 <=5.9 Specimen Performing [place] [address] Narrative RECOMMENDED COUMADIN/WARFARIN INR THERAPY RANGES STANDARD DOSE: 2.0 - 3.0 Includes: PROPHYLAXIS for venous thrombosis, systemic embolization; TREATMENT for venous thrombosis and/or pulmonary embolus. HIGH RISK: Target INR is 2.5-3.5 for patients with mechanical heart valves. * B-type natriuretic peptide (10/07/2017 6:22 AM) Component Value Ref Range BNP 2783 (H) 0 - 100 pg/mL Specimen Performing [place] [address] * Lipid panel (10/07/2017 6:22 AM) Component Value Ref Range Triglycerides 177 mg/dL Cholesterol 136 mg/dL HDL 34 mg/dL LDL Calculated 67 mg/dL Specimen Performing [place] [address] Narrative Triglyceride Reference Range: Low Risk <150 [id number] High Risk 200-499 Very High Risk>=500 Cholesterol Reference Range: Low Risk <200 [id number] High Risk>240 HDL Cholesterol Reference Range: Low Risk >=60 High Risk <40 LDL Cholesterol Reference Range: Optimal<100 Near [id number] Very High >=190 * Creatine Kinase (CK), Total and MB (10/07/2017 4:03 AM) Only the most recent of 2 results within the time period is included. Component Value Ref Range Total CK 49 29 - 200 U/L CK-MB 3.3 0.0 - 6.6 ng/mL MB Relative Index 6.7 % Specimen Performing Laboratory Blood [address] [address] Narrative CK-MB Reference Range: <6.7Normal 6.7-10.0Borderline >10.0 Abnormal * XR skull less than 4 views (10/06/2017 11:46 PM) Specimen Performing Laboratory [facility] Narrative FINAL REPORT CLINICAL HISTORY: hypoercalcemiahypercalcemia TECHNIQUE: 2 views of the skull COMPARISON: None IMPRESSION: The calvarium is intact without evidence of fracture. No aggressive osseous lesions in the thyroid on this two view plain radiograph of the skull. Again noted is osteopenia particularly of the scapula. Partially evaluated median sternotomy. Visualized lungs are clear. Ribs are intact. Signed: Edward Pinon MD Report Verified Date/Time:10/06/2017 23:52:35 Reading Location: [address] Transitional Reading Room Procedure Note Interface, External Ris In - 10/06/2017 11:54 PM CDT FINAL REPORT CLINICAL HISTORY: hypoercalcemiahypercalcemia TECHNIQUE: 2 views of the skull COMPARISON: None IMPRESSION: The calvarium is intact without evidence of fracture. No aggressive osseous lesions in the thyroid on this two view plain radiograph of the skull. Again noted is osteopenia particularly of the scapula. Partially evaluated median sternotomy. Visualized lungs are clear. Ribs are intact. Signed: Edward Pinon MD Report Verified Date/Time: 10/06/2017 23:52:35 Reading Location: [address] Transitional Reading Room * Blood gas, arterial (10/06/2017 8:56 PM) Component Value Ref Range pH, Arterial 7.44 7.35 - 7.45 pCO2, Arterial 41 35 - 45 mmHg pO2, Arterial 272 (H) 80 - 90 mmHg O2 Sat, Arterial 99.7 (H) 96.0 - 97.0 % HCO3, Arterial 27 21 - 29 mmol/L Base Excess, Arterial 2.6 -2.0 - 3.0 mmol/L Patient Temperature 36.9 C FIO2 100.0 % Specimen Performing Laboratory Blood, [place] [address] * XR chest 1 view portable / bedside (10/06/2017 8:45 PM) Specimen Performing Laboratory [facility] Narrative FINAL REPORT RAD, CHEST, 1 VIEW, NON DEPT INDICATION: hypoxia, SOB COMPARISON: Prior day's exam FINDINGS: Portable frontal view of the chest. IMPRESSION: Support Lines: Stable. Lungs and pleura: Low lung volumes with increased pulmonary vascular congestion. Mild bilateral lower lobe atelectasis, superimposed infection cannot be excluded. No pneumothorax. No pleural effusion. Heart and mediastinum: Stable contours. Stable surgical changes. Additional findings: None. Signed: Edward Pinon MD Report Verified Date/Time:10/06/2017 23:16:53 Reading Location: [address] Transitional Reading Room Procedure Note Interface, External Ris In - 10/06/2017 11:19 PM CDT FINAL REPORT RAD, CHEST, 1 VIEW, NON DEPT INDICATION: hypoxia, SOB COMPARISON: Prior day's exam FINDINGS: Portable frontal view of the chest. IMPRESSION: Support Lines: Stable. Lungs and pleura: Low lung volumes with increased pulmonary vascular congestion. Mild bilateral lower lobe atelectasis, superimposed infection cannot be excluded. No pneumothorax. No pleural effusion. Heart and mediastinum: Stable contours. Stable surgical changes. Additional findings: None. Signed: Edward Pinon MD Report Verified Date/Time: 10/06/2017 23:16:53 Reading Location: [address] Transitional Reading Room * Creatinine, random urine (10/06/2017 12:02 PM) Component Value Ref Range Creatinine, Ur 29.5 mg/dL Specimen Performing Laboratory Urine - Urine, [place] [address] Narrative Reference Range: No Normals * Calcium, random urine (10/06/2017 12:02 PM) Component Value Ref Range Calcium, Ur 18.8 mg/dL Specimen Performing Laboratory Urine - [place]rine, [place] [address] Narrative Reference Range: No Normals * Calcitriol (10/06/2017 12:00 PM) Component Value Ref Range Vit.D,1,25 (Oh)2,Tot <8 (L) 18 - 72 pg/mL Vit.D3, 1,25 (Oh)2 <8 pg/mL Vit.D2, 1,25 (Oh)2 <8 pg/mL Comment: Vitamin D2, 1,25 (OH)2: Reference ranges are established for total 1,25-dihydroxy vitamin D. Values for subcomponents D2 (derived from plant or fungal sources) and D3 (derived from human or animal sources) are provided for informational purposes only. This test was developed and its analytical performance characteristics have been determined by [employer] [facility]. It has not been cleared or approved by the [place] Food and Drug Administration. This assay has been validated pursuant to the CLIA regulations and is used for clinical purposes. Specimen Performing Laboratory Blood - Arm, Right [facility] [address] [place] [address] Narrative Performing Lab *[facility], [address] [place] [address] [place] MD, PhD * Urine Protein Electrophoresis, random (10/06/2017 10:39 AM) Component Value Ref Range Protein, Urine 67 (H) 0 - 14 mg/dL Albumin %, Urine 20.6 % Globulin %, Urine 79.4 % UPEP,ID Spillage of albumin and all globulin fractions. Indistinct restriction in terminal gamma region; therefore, urine CHEO pending for further characterization and to exclude presence of monoclonal protein. Pathologist: Tabitha Reich MD (electronic signature) Specimen Performing Laboratory Urine - Urine, [place] [address] * PSA, total and free (10/06/2017 8:41 AM) Component Value Ref Range PSA, Total 0.9 < OR=4.0 ng/mL PSA, Free 0.20 ng/mL PSA, % Free N/A (A) >25 % (calc) Comment: Reference Ranges for % Free PSA: Estimated (x) PSA Free PSA Probability of ng/mL % Cancer (as %) 0-2.5 (N/A) Approx. 1 2.6-4.0 (1) 0-27 (2)24 (3) 4.1-10 ([phone] 11-15 28 16-20 20 21-25 16 >=26 8 >10 (+) N/A>50 References: (1) Obi et al.: Urology 60: 469-474 (2002) (2) Obi et al.: J Urol 168: 922-925 (2002) Free PSA %Sensitivity (%)Specificity (%) <=2585 19 <=3093 9 (3) Catalradha, et al.: JEFFERY 277: 3753-9278 (1996) (4) Catalona, et al.: JEFFERY 279: 5784-9076 (1997) (x) These estimates vary with age, ethnicity, family history and KAVON results. (N/A) The diagnostic usefulness of % Free PSA has not been established in patients with total PSA below 2.6 ng/mL. (+) In men with PSA values above 10 ng/mL, prostate cancer risk is determined by total PSA alone. The Total PSA value from this assay system is standardized against the equimolar PSA standard. The test result will be approximately 20% higher when compared to the WHO-standardized Total PSA (Siemens assay). Comparison of serial PSA results should be interpreted with this fact in mind. PSA was performed using the Rodney Klever Immunoassay method. Values obtained from different assay methods cannot be used interchangeably. PSA levels, regardless of value, should not be interpreted as absolute evidence of the presence or absence of disease. Specimen Performing Laboratory Blood - Arm, Right [facility] [address] [address] Narrative Performing Lab [facility] [address] [address] Rebeka Ballard MD, PhD, LAURA * Alkaline phosphatase (10/06/2017 8:41 AM) Component Value Ref Range Alkaline Phosphatase 115 40 - 150 U/L Specimen Performing Laboratory Blood - Arm, [place] [address] * Phosphorus (10/06/2017 5:23 AM) Only the most recent of 2 results within the time period is included. Component Value Ref Range Phosphorus 3.9 2.3 - 4.7 mg/dL Specimen Performing [place] [address] * US renal complete (10/05/2017 6:31 PM) Specimen Performing Laboratory Otto Clave RIS Narrative FINAL REPORT Ultrasound of the Kidneys Clinical History:Acute renal failure Discussion: Sonographic evaluation of the kidneys is performed. Right kidney:Measures 11.4 x 6.1 x 5.6 cm, with cortical thickness of 1.6 cm.Normal cortical echogenicity.No mass.No shadowing calculus. No hydronephrosis. Left kidney: Measures 8 x 3.9 x 3.2 cm, with cortical thickness of 1.1 cm.Normal cortical echogenicity.No mass.No shadowing calculus.No hydronephrosis. Limited doppler evaluation of bilateral main renal arteries and veins demonstrate patency. Bladder:Unremarkable. Impression: Atrophic left kidney. Otherwise unremarkable renal ultrasound. No hydronephrosis. Signed: Jorje Swain MD Report Verified Date/Time:10/05/2017 19:08:08 Reading Location: [facility] C013 Consult Reading Room Procedure Note Interface, External Ris In - 10/05/2017 7:10 PM CDT FINAL REPORT Ultrasound of the Kidneys Clinical History: Acute renal failure Discussion: Sonographic evaluation of the kidneys is performed. Right kidney: Measures 11.4 x 6.1 x 5.6 cm, with cortical thickness of 1.6 cm. Normal cortical echogenicity. No mass. No shadowing calculus. No hydronephrosis. Left kidney: Measures 8 x 3.9 x 3.2 cm, with cortical thickness of 1.1 cm. Normal cortical echogenicity. No mass. No shadowing calculus. No hydronephrosis. Limited doppler evaluation of bilateral main renal arteries and veins demonstrate patency. Bladder: Unremarkable. Impression: Atrophic left kidney. Otherwise unremarkable renal ultrasound. No hydronephrosis. Signed: Jorje Swain MD Report Verified Date/Time: 10/05/2017 19:08:08 Reading Location: [facility] C013 Consult Reading Room * PTH-related peptide (10/05/2017 6:11 PM) Component Value Ref Range PTH-Related Protein 21 14 - 27 pg/mL Comment: This is a C-terminal PTH-RP assay. PTH-RP is useful in the differential diagnosis of hypercalcemia and levels may be elevated in patients with tumor-associated hypercalcemia. Elevated results may also be observed in patients with renal disease. This test was developed and its analytical performance characteristics have been determined by [employer] [facility]. It has not been cleared or approved by FDA. This assay has been validated pursuant to the CLIA regulations and is used for clinical purposes. Specimen Performing Laboratory Blood - Arm, Left [facility] [address] [address] Narrative Performing Lab [facility] [address] [address] Rebeka Ballard MD, PhD, LAURA * Urinalysis w/Microscopic (10/05/2017 5:07 PM) Component Value Ref Range Color, UA Light Yellow Clarity, UA Clear Specific [place], UA 1.004 1.001 - 1.035 pH, UA 7.5 5.0 - 8.0 Protein, UA 30 mg/dL (A) Negative Glucose, UA 100 mg/dL (A) Negative Ketones, UA Negative Negative Bilirubin, UA Negative Negative Blood, UA Small (A) Negative Nitrite, UA Negative Negative Leukocytes, UA Negative Negative Urobilinogen, UA 0.2 0.2 - 1.0 mg/dL RBC, UA <1 /HPF WBC, UA <1 /HPF Bacteria, UA Rare Squam Epithel, UA <1 /HPF Specimen Source Urine, Voided Specimen Performing Laboratory Urine - Urine, [place] [address] * TSH/Free T4 If Indicated (10/05/2017 3:12 PM) Component Value Ref Range TSH 2.71 0.35 - 4.94 uIU/mL Specimen Performing Laboratory Blood - Arm, [place] [address] * Hepatic function panel (10/05/2017 3:12 PM) Component Value Ref Range Protein, Total 7.8 6.0 - 8.3 gm/dL Albumin 4.4 3.5 - 5.0 g/dL Total Bilirubin 0.8 0.2 - 1.2 mg/dL Bilirubin, Direct 0.4 0.1 - 0.5 mg/dL Alkaline Phosphatase 136 40 - 150 U/L AST 20 5 - 34 U/L ALT 14 6 - 55 U/L Specimen Performing Laboratory Blood - Arm, [place] [address] * XR chest 2 views (10/05/2017 2:51 PM) Specimen Performing Laboratory GE RIS Narrative FINAL REPORT TECHNIQUE: Frontal and lateral chest radiographs dated 10/05/2017. CLINICAL HISTORY: Abnormal COMPARISON STUDY: None FINDINGS: Lungs are clear. No pleural effusion or pneumothorax. Cardiomediastinal silhouette is normal in size. No pulmonary edema. No fracture. Degenerative changes are seen in the spine. Bones are osteopenic. Midline sternotomy wires are intact and well aligned. IMPRESSION: Clear lungs. Signed: Bere Valencia MD Report Verified Date/Time:10/05/2017 16:22:10 Reading Location: [facility] [address] Radiology Reading Room Procedure Note Interface, External Ris In - 10/05/2017 4:24 PM CDT FINAL REPORT TECHNIQUE: Frontal and lateral chest radiographs dated 10/05/2017. CLINICAL HISTORY: Abnormal COMPARISON STUDY: None FINDINGS: Lungs are clear. No pleural effusion or pneumothorax. Cardiomediastinal silhouette is normal in size. No pulmonary edema. No fracture. Degenerative changes are seen in the spine. Bones are osteopenic. Midline sternotomy wires are intact and well aligned. IMPRESSION: Clear lungs. Signed: Bere Valencia MD Report Verified Date/Time: 10/05/2017 16:22:10 Reading Location: [facility] [address] Radiology Reading Room * Blood gas, venous (10/05/2017 2:50 PM) Component Value Ref Range pH, Rhett 7.41 7.32 - 7.42 pCO2, Rhett 61 (H) 41 - 51 mmHg pO2, Rhett 32 25 - 40 mmHg O2 Sat, Rhett 59.5 40.0 - 70.0 % HCO3, Rhett 38 (H) 21 - 29 mmol/L Base Excess, Rhett 11.8 (H) -2.0 - 3.0 mmol/L Patient Temperature 37.0 C FIO2 21.0 % Specimen Performing Laboratory Blood - Arm, Left [address] [address] after 11/08/2016
--- OUTSIDE RECORDS SUMMARY | 2017-11-21 10:50 | XMS REPORT ---
Author Author [facility] Address Unknown Phone Unavailable Care Team Providers Care Specimen Transporter Name Role Phone ODELL Keya ADILENE Unavailable Unavailable JUNIOR DUBON Unavailable Unavailable Problems This patient has no known problems. Allergies, Adverse Reactions, Alerts This patient has no known allergies or adverse reactions. Medications This patient has no known medications. Encounters Start Date/Time End Date/Time Encounter Type Admission Type Attending [facility] Care Facility Care Department Encounter ID 2017-04-16 14:03:36 [facility] [id number] 2017-10-04 00:00:00 2017-10-04 00:00:00 Out[facility] [id number] 2017-09-06 00:00:00 2017-09-06 00:00:00 [facility] [id number] 2017-08-28 00:00:00 2017-08-28 00:00:00 [facility] [id number] 2017-08-23 14:02:30 2017-08-23 14:02:30 [facility] [id number] 2017-06-02 12:22:29 2017-06-02 12:22:29 [facility] [id number] 2017-05-26 11:04:04 2017-05-26 11:04:04 [facility] [id number] 2017-05-18 00:00:00 2017-05-18 00:00:00 [facility] [id number] 2017-05-17 12:35:40 2017-05-17 12:35:40 [facility] [id number] 2017-05-04 00:00:00 2017-05-04 00:00:00 [facility] [id number] 2017-04-17 08:06:46 2017-04-17 00:00:00 [facility]patient [facility] [id number] 2017-04-15 23:14:43 2017-04-15 00:00:00 [facility]patient [facility] [id number] 2017-04-13 11:46:07 2017-04-13 11:46:07 Emergency [facility] [id number] 2017-04-13 10:50:58 2017-04-13 10:50:58 Emergency [facility] [id number] 2017-04-13 10:31:22 2017-04-13 10:31:22 Inpatient [facility] [id number] Results Test Description Test Time Test Comments Text Results Atomic Results Result Comments CHEST SINGLE (PORTABLE) 2017-11-20 06:41:00 [place] [address] Patient Name: MINISTERIO KERN MR #: [id number] : 1945 Age/Sex: 72/M Req #: [id number] Adm Physician: ADILENE BAIN MD Ordered by: MAUDE DOMINGUEZ MD Report #: [id number] Location: MED/SURG2 Room/Bed: [facility] Procedure: [id number] DX/CHEST SINGLE (PORTABLE) Exam Date: 11/20/17 Exam Time: 0535 REPORT STATUS: Signed EXAM: CHEST SINGLE (PORTABLE), AP 1 view INDICATION: Pulmonary edema COMPARISON: AP view of the chest November 16, 2017 FINDINGS: LINES/TUBES: Stable position right internal jugular vein temporary hemodialysis catheter. Interval removal of nasal/orogastric tube. LUNGS: Improving pulmonary edema. PLEURA: Improving effusions. HEART AND MEDIASTINUM: Stable appearance. BONES AND SOFT TISSUES: No acute findings. IMPRESSION: Improving pulmonary edema and effusions. Signed by: Dr. Indra Duong M.D. on 11/20/2017 6:42 AM Dictated By: INDRA DUONG MD 1 Transcribed By: REGLA on 11/20/17641 COPY TO: MAUDE DOMINGUEZ MD ABDOMEN-1VIEW (KUB) 2017-11-16 17:56:00 [place] [address] Patient Name: MINISTERIO KERN MR #: [id number] : 1945 Age/Sex: 72/M Req #: [id number] Adm Physician: ADILENE BAIN MD Ordered by: ADILENE BAIN MD Report #: [id number] Location: ICU Room/Bed: ICU [facility] Procedure: [id number] DX/ABDOMEN-1VIEW (KUB) Exam Date: 11/16/17 Exam Time: 1720 REPORT STATUS: Signed Exam: Abdominal film Clinical History: Enteric tube Comparison: None. DISCUSSION: Frontal view of the abdomen shows a nonobstructive bowel gas pattern with mild amount of retained stool. Enteric tube with the distal tip right of midline overlying the expected distal stomach. IMPRESSION: 1. Enteric tube with the distal tip right of midline overlying the expected distal stomach. Signed by: Dr. Brandin Delgado M.D. on 11/16/2017 5:57 PM Dictated By: BRANDIN DELGADO MD 56 Transcribed By: REGLA on 11/16/171756 COPY TO: ADILENE BAIN MD CHEST SINGLE (PORTABLE) 2017-11-16 17:48:00 [place] [address] Patient Name: MINISTERIO KERN MR #: [id number] : 1945 Age/Sex: 72/M Req #: [id number] Adm Physician: ADILENE BAIN MD Ordered by: AMIRA SULLIVAN MD Report #: [id number] Location: ICU Room/Bed: ICU [facility] Procedure: [id number] DX/CHEST SINGLE (PORTABLE) Exam Date: 11/16/17 Exam Time: 1720 REPORT STATUS: Signed Examination: Single AP view of the chest. COMPARISON: None. INDICATION: Extubation DISCUSSION: Lines/tubes: Interval extubation. Enteric tube with the distal tip not visualized. Right IJ central venous line with the tip at the cavoatrial junction. Sternotomy wires. Lungs: Stable pulmonary edema. Left lower lung atelectasis. Pleura: Left greater than right effusion. Heart and mediastinum: Heart enlarged. Bones and soft tissues: No acute bony abnormalities. IMPRESSION: Stable pulmonary edema. Interval extubation. Signed by: Dr. Brandin Delgado M.D. on 11/16/2017 5:49 PM Dictated By: BRANDIN DELGADO MD 48 Transcribed By: REGLA on 11/16/171748 COPY TO: AMIRA SULLIVAN MD CHEST SINGLE (PORTABLE) 2017-11-14 05:29:00 [place] [address] Patient Name: MINISTERIO KERN MR #: [id number] : 1945 Age/Sex: 72/M Req #: [id number] Adm Physician: ADILENE BAIN MD Ordered by: ADILENE BAIN MD Report #: [id number] Location: ICU Room/Bed: ICU 189 Procedure: [id number] DX/CHEST SINGLE (PORTABLE) Exam Date: 11/14/17 Exam Time: 0415 REPORT STATUS: Signed EXAM: CHEST SINGLE (PORTABLE), AP 1 view INDICATION: Pulmonary edema COMPARISON: AP view of the chest November 12, 2017 FINDINGS: LINES/TUBES: stable appearance of endotracheal tube, nasal/orogastric tube and right internal jugular vein temporary hemodialysis catheter. LUNGS: Improving pulmonary edema PLEURA: Improving pleural effusions HEART AND MEDIASTINUM: Cardiomegaly and median sternotomy wires BONES AND SOFT TISSUES: No acute findings. IMPRESSION: Improving pulmonary edema and pleural effusions Signed by: Dr. Indra Duong M.D. on 11/14/2017 5:30 AM Dictated By: INDRA DUONG MD 9 Transcribed By: REGLA on 11/14/17529 COPY TO: ADILENE BAIN MD CT BRAIN WO 2017-11-13 21:54:00 [place] [address] Patient Name: MINISTERIO KERN MR #: [id number] : 1945 Age/Sex: 72/M Req #: [id number] Adm Physician: ADILENE BAIN MD Ordered by: ADILENE BAIN MD Report #: [id number] Location: ICU Room/Bed: ICU 189 Procedure: [id number] CT/CT BRAIN WO Exam Date: 11/13/17 Exam Time: 2038 REPORT STATUS: Signed Examination: CT head without contrast Clinical Indication: Obtunded; not responsive. Technique: Transaxial noncontrast images from the skull base through the vertex were obtained. Sagittal and coronal reformatted images were done. Dose modulation, iterative reconstruction, and/or weight based adjustment of the mA/kV was utilized to reduce the radiation dose to as low as reasonably achievable. Comparison: None. Findings: Scalp: No abnormalities. Bones: Intact. No fractures. No blastic or lytic lesions. Brain sulci: Mild volume loss for patient's age. Ventricles: No hydrocephalus. Extra-axial space: No abnormalities. Parenchyma: A 4mm dystrophic calcification of the right middle frontal gyrus from prior infectious or inflammatory process. There are mild confluent areas of low-attenuation within subcortical and periventricular white matter, nonspecific, but could represent microvascular ischemic disease. No masses, hemorrhage, or acute or chronic cortical based vascular insults. Suprasellar region: No abnormalities. Craniocervical junction: The foramen magnum is patent. No Chiari one malformation. Incidental findings: Atherosclerotic calcification of the cavernous and supraclinoid internal carotid arteries. Impression: 1. No acute intracranial finding. 2. Mild chronic microvascular ischemic change and moderate volume loss. Signed by: Dr. Nela Byrd M.D. on 11/13/2017 10:02 PM Dictated By: NELA RAMIREZ MD 01 Transcribed By: REGLA on 11/13/172201 COPY TO: ADILENE BAIN MD CHEST SINGLE (PORTABLE) 2017-11-13 07:20:00 [place] [address] Patient Name: MINISTERIO KERN MR #: [id number] : 1945 Age/Sex: 72/M Req #: [id number] Adm Physician: ADILENE BAIN MD Ordered by: KHADRA MELLO MD Report #: [id number] Location: ICU Room/Bed: ICU [facility] Procedure: [id number] DX/CHEST SINGLE (PORTABLE) Exam Date: Exam Time: REPORT STATUS: Signed PROCEDURE: CHEST SINGLE (PORTABLE) COMPARISON: 11/12/2017. INDICATIONS: INTUBATED FINDINGS: Endotracheal tube, enteric tube, and right internal jugular temporary hemodialysis catheter are unchanged in position. Aeration of the right lung base has slightly improved relative to 11/12/2017. Persistent cardiomegaly with prominence of the pulmonary interstitium and small bilateral pleural effusions, left greater than right. New airspace consolidations. No acute osseous abnormality. CONCLUSION: Stable position of support lines and tubes. Interval improvement in aeration of the right lung base. Otherwise stable appearance of the chest, with cardiomegaly, interstitial edema, and small bilateral pleural effusions. Dictated by: Khadra Carballo M.D. on 11/13/2017 at 7:20 Electronically approved by: Khadra Carballo M.D. on 11/13/2017 at 7:20 Dictated By: KHADRA CARBALLO MD 9 Transcribed By: RADHA on 11/13/17719 COPY TO: KHADRA MELLO MD CHEST SINGLE (PORTABLE) 2017-11-12 06:36:00 [place] [address] Patient Name: MINISTERIO KERN MR #: [id number] : 1945 Age/Sex: 72/M Req #: [id number] Adm Physician: ADILENE BAIN MD Ordered by: KHADRA MELLO MD Report #: [id number] Location: ICU Room/Bed: ICU [facility] Procedure: [id number] DX/CHEST SINGLE (PORTABLE) Exam Date: 11/12/17 Exam Time: 0545 REPORT STATUS: Signed EXAMINATION: CHEST SINGLE (PORTABLE) INDICATION: Intubation COMPARISON: 11/11/2017 at 1310 hours FINDINGS: AP view TUBES and LINES: Right IJ catheter tip projects over the cavoatrial junction. ET tube tip projects 2.8 cm above the kathy. Nasogastric tube tip extends to the GE junction after the field of view. LUNGS: Lungs are not well inflated. Stable interstitial edema with bibasilar atelectasis. PLEURA: Stable small pleural effusions, right greater than left. HEART AND MEDIASTINUM: Cardiac size is moderately enlarged. BONES AND SOFT TISSUES: No acute osseous lesion. Median sternotomy wires. Soft tissues are unremarkable. UPPER ABDOMEN: No free air under the diaphragm. IMPRESSION: Stable interstitial edema and small pleural effusions. Tubes and lines are stable in good position. Signed by: Dr. David Rojas M.D. on 11/12/2017 6:53 AM Dictated By: DAVID HENAO MD 2 Transcribed By: REGLA on 11/12/17652 COPY TO: KHADRA MELLO MD [facility] (KUB) 2017-11-11 13:57:00 [place] [address] Patient Name: MINISTERIO KERN MR #: [id number] : 1945 Age/Sex: 72/M Req #: [id number] Adm Physician: ADILENE BAIN MD Ordered by: KHADRA MELLO MD Report #: [id number] Location: ICU Room/Bed: ICU [facility] Procedure: [id number] DX/ABDOMEN-1VIEW (KUB) Exam Date: 11/11/17 Exam Time: 1300 REPORT STATUS: Signed EXAM: ABDOMEN-1VIEW (KUB), DATE: 11/11/2017 12:58 PM INDICATION: Status post dialysis, intubation COMPARISON: None FINDINGS: LINES/TUBES: NG/OG-tube tip projects over the second duodenal segment. Left femoral catheter tip projects over the left pelvis. BOWEL PATTERN: No evidence for obstruction. SOFT TISSUES: No abnormal calcifications. No mass effect. LUNG BASES: Please refer to same- day chest radiograph. BONES: Median sternotomy wires. No acute findings. IMPRESSION: NG/OG-tube tip projects over the second duodenal segment. Signed by: DR. Everett Sidhu MD on 11/11/2017 1:59 PM Dictated By: EVERETT SIDHU MD 1354 Transcribed By: REGLA on 11/11/17 1359 COPY TO: KHADRA MELLO MD CHEST SINGLE (PORTABLE) 2017-11-11 13:53:00 [place] [address] Patient Name: MINISTERIO KERN MR #: [id number] : 1945 Age/Sex: 72/M Req #: [id number] Adm Physician: ADILENE BAIN MD Ordered by: KHADRA MELLO MD Report #: [id number] Location: ICU Room/Bed: ICU 189 Procedure: [id number] DX/CHEST SINGLE (PORTABLE) Exam Date: 11/11/17 Exam Time: 1300 REPORT STATUS: Signed EXAMINATION: CHEST SINGLE (PORTABLE) INDICATION: COMPARISON: Chest radiograph 11/11/2017 FINDINGS: AP view TUBES and LINES: Right IJ catheter tip projects over the cavoatrial junction. ET tube tip projects 2.8 cm above the kathy. Nasogastric tube tip extends to the GE junction after the field of view. LUNGS: Lungs are well inflated. Stable interstitial edema with bibasilar atelectasis. PLEURA: Stable small pleural effusions, right greater than left. HEART AND MEDIASTINUM: Stable mild enlargement of the cardiac silhouette. BONES AND SOFT TISSUES: No acute osseous lesion. Median sternotomy wires. Soft tissues are unremarkable. UPPER ABDOMEN: No free air under the diaphragm. IMPRESSION: Stable interstitial edema and small pleural effusions. Signed by: DR. Everett Sidhu MD on 11/11/2017 1:56 PM Dictated By: EVERETT SIDHU MD 1356 Transcribed By: REGLA on 11/11/17 1356 COPY TO: KHADRA MELLO MD CHEST SINGLE (PORTABLE) 2017-11-11 07:26:00 [place] [address] Patient Name: MINISTERIO KERN MR #: [id number] : 1945 Age/Sex: 72/M Req #: [id number] Adm Physician: ADILENE BAIN MD Ordered by: KHADRA MELLO MD Report #: [id number] Location: ICU Room/Bed: ICU [facility] Procedure: [id number] DX/CHEST SINGLE (PORTABLE) Exam Date: 11/11/17 Exam Time: 514 REPORT STATUS: Signed EXAMINATION: CHEST SINGLE (PORTABLE) INDICATION: COMPARISON: Chest radiograph 11/10/2017 FINDINGS: AP view TUBES and LINES: Right IJ central catheter tip projects at the cavoatrial junction. ET tube tip projects 2.5 cm above the kathy. NG/OG tube tip extends through the GE junction below the field of view. LUNGS: Stable interstitial edema with bibasilar atelectasis. PLEURA: Small bilateral pleural effusion, right greater and left. HEART AND MEDIASTINUM: Stable mild enlargement of the cardiac silhouette. BONES AND SOFT TISSUES: No acute osseous lesion. Median sternotomy wires. Soft tissues are unremarkable. UPPER ABDOMEN: No free air under the diaphragm. IMPRESSION: Stable interstitial edema with bibasilar atelectasis and small pleural effusions. Signed by: DR. Everett Sidhu MD on 11/11/2017 7:31 AM Dictated By: EVERETT SIDHU MD 0 Transcribed By: REGLA on 11/11/17730 COPY TO: KHADRA MELLO MD ABDOMEN-1VIEW (KUB) 2017-11-10 16:17:00 [place] [address] Patient Name: MINISTERIO KERN MR #: [id number] : 1945 Age/Sex: 72/M Req #: [id number] Adm Physician: ADILENE BAIN MD Ordered by: ADILENE BAIN MD Report #: [id number] Location: ICU Room/Bed: ICU [facility] Procedure: [id number] DX/ABDOMEN-1VIEW (KUB) Exam Date: Exam Time: REPORT STATUS: Signed RADIOGRAPH(S) OF THE ABDOMEN AND PELVIS, 1 view(s) HISTORY: Recheck OG tube COMPARISON: KUB November 10, 2017 FINDINGS: Sensitivity limited by portable technique. Single image centered near the gastroesophageal junction. Multiple overlying artifacts. The endotracheal tube appears unchanged. Interval advancement of the OG-tube, the tip now projects at the region of the mid to distal stomach. IMPRESSION: Interval advancement of the OG-tube. Signed by: Dr. Delroy Desai D.O., M.M.M. on 11/10/2017 4:20 PM Dictated By: DELROY DESAI DO 19 Transcribed By: REGLA on 11/10/171619 COPY TO: ADILENE BAIN MD ABDOMEN-1VIEW ([facility]) 2017-11-10 13:55:00 [place] [address] Patient Name: MINISTERIO KERN MR #: [id number] : 1945 Age/Sex: 72/M Req #: [id number] Adm Physician: ADILENE BAIN MD Ordered by: SOCORRO EVANS MD Report #: [id number] Location: ICU Room/Bed: [place] [address] Procedure: [id number] DX/ABDOMEN-1VIEW ([facility]) Exam Date: 11/10/17 Exam Time: 1255 REPORT STATUS: Signed Exam: Abdominal radiograph - 1 view Clinical History: NG tube position. Comparison: KUB 11/10/2017 at 1008AM. Findings: Sensitivity limited by portable technique. Single view radiograph centered near the gastroesophageal junction. Enteric tube terminates at the GE junction, the side-port is in the distal esophagus. The lower abdomen is not visualized. Please refer to the concurrently performed chest radiograph for further details. Bowel gas pattern is non-specific. No acute bony findings. Impression: Enteric tube has retracted and terminates near the GE junction, the side-port is in the distal esophagus. Suggest advancement of the tube by at least 9 cm. Please refer to the concurrently performed chest radiograph for further details. Findings were discussed with the ICU team on 11/10/2017 at 1354, who indicated that the communication was understood. Signed by: Dr. Sue Dewitt MD on 11/10/2017 2:17 PM Dictated By: SUE DEWITT MD 16 Transcribed By: REGLA on 11/10/171416 COPY TO: SOCORRO EVANS MD CHEST XRAY LINE PLACEMENT 2017-11-10 13:46:00 [place] [address] Patient Name: MINISTERIO KERN MR #: [id number] : 1945 Age/Sex: 72/M Req #: [id number] Adm Physician: ADILENE BAIN MD Ordered by: SOCORRO EVANS MD Report #: [id number] Location: ICU Room/Bed: ICU [facility] Procedure: [id number] DX/CHEST XRAY LINE PLACEMENT Exam Date: 11/10/17 Exam Time: 1255 REPORT STATUS: Signed EXAMINATION: CHEST XRAY LINE PLACEMENT INDICATION: Line placement COMPARISON: Chest radiograph 11/10/2017 and KUB . FINDINGS: TUBES and LINES: Interval placement of a right IJ non tunneled hemodialysis catheter with tip in the lower SVC near the cavoatrial junction. Endotracheal tube terminates 3.3 cm above the kathy. Enteric tube terminates near the GE junction, the side port is in the distal esophagus. LUNGS AND PLEURA: Low lung volumes. Small bilateral pleural effusions, right greater than left. Patchy opacities persist in the lower lung zones. Mild bilateral interstitial opacities. No evidence of pneumothorax. HEART AND MEDIASTINUM: The cardiomediastinal silhouette is unchanged. BONES AND SOFT TISSUES: No acute osseous lesion. Soft tissues are unremarkable. UPPER ABDOMEN: No free air under the diaphragm. IMPRESSION: Interval placement of right IJ non tunneled hematosis catheter with tip near the cavoatrial junction. No evidence of pneumothorax. Other lines and tubes as above. Enteric tube has retracted and terminates near the GE junction, the side-port is in the distal esophagus. Suggest advancement of the tube by at least 9 cm. Mild pulmonary interstitial edema and small bilateral pleural effusions with associated patchy atelectasis. Findings were discussed with the ICU team on 11/10/2017 at 1354, who indicated that the communication was understood. Signed by: Dr. Sue Dewitt MD on 11/10/2017 1:55 PM Dictated By: SUE DEWITT MD 1355 Transcribed By: REGLA on 11/10/17 1355 COPY TO: SOCORRO EVANS MD IR CONSULT 2017-11-10 13:04:00 [place] [address] Patient Name: MINISTERIO KERN MR #: [id number] : 1945 Age/Sex: 72/M Req #: [id number] Adm Physician: ADILENE BAIN MD Ordered by: SOCORRO EVANS MD Report #: [id number] Location: ICU Room/Bed: ICU [facility] Procedure: [id number] DX/IR CONSULT Exam Date: Exam Time: REPORT STATUS: Signed Procedure: Right internal jugular non-tunneled hemodialysis catheter placement with ultrasound guidance rubber covering machine operator: Dr. Sue Dewitt Pre-operative diagnosis: Requiring HD access. Post-operative diagnosis: Status post HD access placement Sedation: Local The patient's heart rate and pulse oximetry were continuously monitored by the ICU nurse Additional Medications: Lidocaine 1% for local anesthesia Estimated blood loss: Minimal Specimens: None Implants: 13 Fr x 15 cm Trialysis non-tunneled hemodialysis catheter TECHNIQUE/FINDINGS: Informed consent was obtained from the healthcare proxy and documented in the medical record after discussion of risks and benefits. The patient was placed in the supine position. Preliminary sonographic evaluation of the right neck confirmed a patent and compressible right internal jugular vein. The neck was then prepped and draped in a standard sterile fashion. Subsequently, 1% lidocaine was infiltrated into the skin and subcutaneous tissues for local anesthesia. Then under continuous sonographic guidance an 21 gauge needle was advanced into the right internal jugular vein and a .018'' wire was placed. A 5 Fr micropuncture sheath was placed and the existing wire was exchanged for an .035'' Amplatz wire. The tract was sequentially dilated. Then, a 13 Fr x 15 cm Trialysis triple lumen non-tunneled hemodialysis catheter was advanced. The wire was then removed. Each lumen was tested and showed adequate bidirectional flow. The catheter was secured to the skin with Monocryl, flushed with saline, and covered by a sterile dressing. No evidence of immediate complication. IMPRESSION: Placement of a right IJ non-tunneled hemodialysis catheter with ultrasound guidance as above. Signed by: Dr. Sue Dewitt MD on 11/10/2017 2:06 PM Dictated By: SUE DEWITT MD 140 Transcribed By: REGLA on 11/10/17 1406 COPY TO: SOCORRO EVANS MD US GUIDANCE FOR VASCULAR ACCES 2017-11-10 13:04:00 [place] [address] Patient Name: MINISTERIO KERN MR #: [id number] : 1945 Age/Sex: 72/M Req #: [id number] [facility] Physician: ADLIENE BAIN MD Ordered by: SOCORRO EVANS MD Report #: [id number] Location: ICU Room/Bed: ICU [facility] Procedure: [id number] US/US GUIDANCE FOR VASCULAR ACCES Exam Date: 11/10/17 Exam Time: 1215 REPORT STATUS: Signed Procedure: Right internal jugular non- tunneled hemodialysis catheter placement with ultrasound guidance rubber covering machine operator: Dr. Sue Dewitt Pre-operative diagnosis: Requiring HD access. Post-operative diagnosis: Status post HD access placement Sedation: Local The patient's heart rate and pulse oximetry were continuously monitored by the ICU nurse Additional Medications: Lidocaine 1% for local anesthesia Estimated blood loss: Minimal Specimens: None Implants: 13 Fr x 15 cm Trialysis non-tunneled hemodialysis catheter TECHNIQUE/FINDINGS: Informed consent was obtained from the healthcare proxy and documented in the medical record after discussion of risks and benefits. The patient was placed in the supine position. Preliminary sonographic evaluation of the right neck confirmed a patent and compressible right internal jugular vein. The neck was then prepped and draped in a standard sterile fashion. Subsequently, 1% lidocaine was infiltrated into the skin and subcutaneous tissues for local anesthesia. Then under continuous sonographic guidance an 21 gauge needle was advanced into the right internal jugular vein and a .018'' wire was placed. A 5 Fr micropuncture sheath was placed and the existing wire was exchanged for an .035'' Amplatz wire. The tract was sequentially dilated. Then, a 13 Fr x 15 cm Trialysis triple lumen non-tunneled hemodialysis catheter was advanced. The wire was then removed. Each lumen was tested and showed adequate bidirectional flow. The catheter was secured to the skin with Monocryl, flushed with saline, and covered by a sterile dressing. No evidence of immediate complication. IMPRESSION: Placement of a right IJ non-tunneled hemodialysis catheter with ultrasound guidance as above. Signed by: Dr. Sue Dewitt MD on 11/10/2017 2:06 PM Dictated By: SUE DEWITT MD 05 Transcribed By: REGLA on 11/10/171405 COPY TO: SOCORRO EVANS MD NON-TUNNELLED CVC CATH PLACMNT 2017-11-10 13:04:00 [place] [address] Patient Name: MINISTERIO KERN MR #: [id number] : 1945 Age/Sex: 72/M Req #: [id number] Adm Physician: ADILENE BAIN MD Ordered by: SOCORRO EVANS MD Report #: [id number] Location: ICU Room/Bed: [place] [address] Procedure: [id number] IR/NON- TUNNELLED CVC CATH PLACMNT Exam Date: 11/10/17 Exam Time: 1215 REPORT STATUS: Signed Procedure: Right internal jugular non- tunneled hemodialysis catheter placement with ultrasound guidance rubber covering machine operator: Dr. Sue Dewitt Pre-operative diagnosis: Requiring HD access. Post-operative diagnosis: Status post HD access placement Sedation: Local The patient's heart rate and pulse oximetry were continuously monitored by the ICU nurse Additional Medications: Lidocaine 1% for local anesthesia Estimated blood loss: Minimal Specimens: None Implants: 13 Fr x 15 cm Trialysis non-tunneled hemodialysis catheter TECHNIQUE/FINDINGS: Informed consent was obtained from the healthcare proxy and documented in the medical record after discussion of risks and benefits. The patient was placed in the supine position. Preliminary sonographic evaluation of the right neck confirmed a patent and compressible right internal jugular vein. The neck was then prepped and draped in a standard sterile fashion. Subsequently, 1% lidocaine was infiltrated into the skin and subcutaneous tissues for local anesthesia. Then under continuous sonographic guidance an 21 gauge needle was advanced into the right internal jugular vein and a .018'' wire was placed. A 5 Fr micropuncture sheath was placed and the existing wire was exchanged for an .035'' Amplatz wire. The tract was sequentially dilated. Then, a 13 Fr x 15 cm Trialysis triple lumen non-tunneled hemodialysis catheter was advanced. The wire was then removed. Each lumen was tested and showed adequate bidirectional flow. The catheter was secured to the skin with Monocryl, flushed with saline, and covered by a sterile dressing. No evidence of immediate complication. IMPRESSION: Placement of a right IJ non-tunneled hemodialysis catheter with ultrasound guidance as above. Signed by: Dr. Sue Dewitt MD on 11/10/2017 2:06 PM Dictated By: SUE DEWITT MD 140 Transcribed By: REGLA on 11/10/17 140 COPY TO: SOCORRO EVANS MD ABDOMEN-1VIEW (KUB) 2017-11-10 11:44:00 [place] [address] Patient Name: MINISTERIO KERN MR #: [id number] : 1945 Age/Sex: 72/M Req #: [id number] Adm Physician: ADILENE BAIN MD Ordered by: ADILENE BAIN MD Report #: [id number] Location: ICU Room/Bed: ICU [facility] Procedure: [id number] DX/ABDOMEN-1VIEW (KUB) Exam Date: 11/10/17 Exam Time: 0940 REPORT STATUS: Signed PROCEDURE: X-RAY ABDOMEN - KUB COMPARISON: Chest radiograph 11/10/17. INDICATIONS: POST OG TUBE PLACEMENT FINDINGS: NG Tube tip terminates near the GE junction, with the side port in the distal esophagus. Prominent small bowel loops, incompletely evaluated on this radiograph. Partially seen median sternotomy changes. Patchy bibasilar opacities, likely atelectasis. CONCLUSION: NG tube terminates near the GE junction, side port is in the distal esophagus. Recommend advancement of the tube by at least 8 cm. Prominent small bowel loops, which could represent ileus or obstruction, incompletely evaluated on this radiograph. The above findings were discussed by phone with the ICU team on 11/10/17 at 1140 AM, who indicated th at the communication was understood. Dictated by: SUE DEWITT M.D. on 11/10/2017 at 11:43 Electronically approved by: SUE DEWITT M.D. on 11/10/2017 at 11:43 Dictated By: SUE DEWITT MD 1144 Transcribed By: RADHA on 11/10/17 1144 COPY TO: ADILENE BAIN MD US ABDOMEN LIMITED 2017-11-10 11:32:00 [place] [address] Patient Name: MINISTERIO KERN MR #: [id number] : 1945 Age/Sex: 72/M Req #: [id number] Adm Physician: ADILENE BAIN MD Ordered by: KHADRA MELLO MD Report #: [id number] Location: ICU Room/Bed: ICU [facility] Procedure: [id number] US/US ABDOMEN LIMITED Exam Date: 11/10/17 Exam Time: 954 REPORT STATUS: Signed EXAM: RUQ ULTRASOUND Date: 11/10/2017 12:00 AM Indication: Comparison: None Technique: Sonographic evaluation of the right upper quadrant. Color doppler was utilized to supplement evaluation. FINDINGS: LIVER: No focal lesion is identified. The liver measures 19.4 cm in the right midclavicular line. Echotexture is normal. BILIARY: The gallbladder has a normal marta earance, without evidence for gallstones, gallbladder wall thickening or pericholecystic fluid. The common bile duct measures 0.3 cm. Wall measures 0.5 cm. PANCREAS: The pancreas is incompletely visualized due to overlying bowel gas, but no abnormality identified involving the visualized portions of the pancreas. RIGHT KIDNEY: Measures 11.5 cm in length. No hydronephrosis or solid mass lesion identified. PERITONEUM: No free fluid. VASCULATURE: Aorta: Visualized portions appear unremarkable. Interior vena cava: Visualized portions appear unremarkable. Portal Vein: Nondilated with hepatopedal flow. IMPRESSION: Nonspecific gallbladder wall thickening with no distinct shadowing gallstones identified. Common duct is normal. Findings likely represent decompression. Acalculus cholecystitis could have similar imaging findings. Clinical and laboratory correlation recommended. HIDA scan could be obtained if indicated. Hepatomegaly. Signed by: Dr. Annie Antonio MD on 11/10/2017 11:34 AM Dictated By: ANNIE ANTONIO MD 1134 Transcribed By: REGLA on 11/10/17 1134 COPY TO: KHADRA MELLO MD CHEST SINGLE (PORTABLE) 2017-11-10 06:57:00 [place] [address] Patient Name: MINISTERIO KERN MR #: [id number] : 1945 Age/Sex: 72/M Req #: [id number] Adm Physician: ADILENE BAIN MD Ordered by: AMIRA SULLIVAN MD Report #: [id number] Location: ICU Room/Bed: ICU [facility] Procedure: [id number] DX/CHEST SINGLE (PORTABLE) Exam Date: 11/10/17 Exam Time: 0530 REPORT STATUS: Signed EXAMINATION: CHEST SINGLE (PORTABLE) INDICATION: Intubated COMPARISON: 11/09/2017 FINDINGS: TUBES and LINES: Endotracheal tube is visualized with tip 3.3 cm above the kathy in good position. LUNGS: Lungs are not well inflated. Interlobular septi thickening noted more significant at the lung bases There is mild prominence of the central pulmonary vasculature, consistent with pulmonary venous congestion. PLEURA: No pleural effusion or pneumothorax. HEART AND MEDIASTINUM: Cardiac size is moderately enlarged. There are atherosclerotic calcifications within the aorta. BONES AND SOFT TISSUES: No acute osseous lesion. Soft tissues are unremarkable. UPPER ABDOMEN: No free air under the diaphragm. IMPRESSION: Findings are compatible with cardiogenic fluid overload/edema Signed by: Dr. David Rojas M.D. on 11/10/2017 6:59 AM Dictated By: DAVID HENAO MD 8 Transcribed By: REGLA on 11/10/17658 COPY TO: AMIRA SULLIVAN MD CHEST XRAY POST PROCEDURE 2017-11-09 19:35:00 [place] [address] Patient Name: MINISTERIO KERN MR #: [id number] : 1945 Age/Sex: 72/M Req #: [id number] Adm Physician: ADILENE BAIN MD Ordered by: KATHIE MORALEZ MD Report #: [id number] Location: [facility] Room/Bed: [place] [address] Procedure: [id number] DX/CHEST XRAY POST PROCEDURE Exam Date: Exam Time: REPORT STATUS: Signed EXAMINATION: CHEST XRAY POST PROCEDURE INDICATION: S INTUBATION COMPARISON: Chest x-ray 11/09/2017 FINDINGS: AP view TUBES and LINES: Interval placement of endotracheal tube with tip 4.5 cm above the kathy. Median sternotomy wires and mediastinal clips remain present. LUNGS: Lungs are not well inflated. There are bibasilar atelectasis. There is perihilar interstitial opacities, consistent with interstitial edema. PLEURA: No pleural effusion or pneumothorax. HEART AND MEDIASTINUM: Cardiac size is moderately enlarged. There are atherosclerotic calcifications within the aorta. BONES AND SOFT TISSUES: No acute osseous lesion. Soft tissues are unremarkable. UPPER ABDOMEN: No free air under the diaphragm. IMPRESSION: 1. Endotracheal tube tip 4.5 cm above the kathy. 2. Development of interstitial edema. Signed by: Dr. Jourdan Wilkins M.D. on 11/09/2017 7:37 PM Dictated By: JOURDAN WILKINS MD 36 Transcribed By: REGLA on 11/09/171936 COPY TO: KATHIE MORALEZ MD CXR 1 VEW - HOPD 2017-11-09 17:58:00 [place] [address] Patient Name: MINISTERIO KERN MR #: [id number] : 1945 Age/Sex: 72/M Req #: [id number] Adm Physician: Ordered by: KEN CLEMONS MD Report #: [id number] Location: [facility] Room/Bed: Procedure: [id number] HOPD/CXR 1 VEW - HOPD Exam Date: Exam Time: REPORT STATUS: Signed EXAMINATION: CXR 1 W - [facility] INDICATION: Active heart attack. COMPARISON: None FINDINGS: TUBES and LINES: Median sternotomy wires and mediastinal clips. LUNGS: Lungs are well inflated. There is mild prominence of the central pulmonary vasculature, consistent with pulmonary venous congestion. PLEURA: Possible tiny right pleural effusion. No pneumothorax. HEART AND MEDIASTINUM: Cardiac size is moderately enlarged. There are atherosclerotic calcifications within the aorta. BONES AND SOFT TISSUES: No acute osseous lesion. Soft tissues are unremarkable. UPPER ABDOMEN: No free air under the diaphragm. IMPRESSION: Moderate cardiomegaly with central pulmonary venous congestion. Signed by: Dr. Jourdan Wilkins M.D. on 11/09/2017 5:59 PM Dictated By: JOUDRAN WILKINS MD 58 Transcribed By: REGLA on 11/09/171758 COPY TO: KEN CLEMONS MD BONE MARROW EXAM 2017-10-19 16:52:00 Bone Marrow Pathology Report Case: [id number] Authorizing Provider: Gabriela Calderon MD Collected: 10/10/2017 1027 Ordering Location: [address] Received: 10/10/2017 1053 Service Pathologist: Preston Black MD Specimens: A) - Iliac Crest, Left B) - C) - Expanded plasma cell neoplasm FISH panel is notable for the following abnormalities:Dup1q negativeGains 5, 9, 15 LGCLOFGQYzs89g VXYAKLHOChg9c aaadbirxDkb08j(TP53) POSITIVEIGH rearrangement negative.See attached scanned report.Addendum electronically signed by Preston Black MD on 10/19/2017 at 4:52 PMSpecial stain for Congo Red performed on block C1 (core biopsy) is NEGATIVE for amyloid.Addendum electronically signed by Preston Black MD on 10/13/2017 at 12:41 PMBONE MARROW ASPIRATE, CLOT, AND DECALCIFIED BIOPSY: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 PERIPHERAL BLOOD:RARE PLASMACYTOID LYMPHOCYTES. Signing Pathologist Direct Phone Line: [phone] signed by Preston Black MD on 10/11/2017 at 3:40 PMCongo red stain for amyloid is pending, an addendum report will follow. 29515; 56787; 55262 x 2; 82604; 63053K2, 57232, 34833L0Bpqgxabrcvzca, ischemic cardiomyopathy, acute renal failure, acute kidney injury, type 2 diabetes mellitus with diabetic nephropathy, clinical suspicion of plasma cell disorder, multiple myelomaA. Several aspirate smears to include one unstained slide for iron stain; B. Bone marrow aspirate; C. Bone marrow biopsyThe specimen is received in three containers labeled with the patient's name, medical record nu mber and site.Specimen A consists of several aspirate smears to include one unstained slide for iron stain. Specimen B: Received in formalin is a 1.0 x 1.0 x 0.5 cm portion of clotted blood. Entirely submitted in cassette B1 Specimen C: in formalin is a 0.5 cm in length altman-white core of osseous tissue. The specimen is entirely submitted in cassettes C1 for decalcification. DB/plBONE MARROW ASPIRATE: QUALITY: Aspirate- AdequateTouch imprint- AdequateMARROW DIFFERENTIAL COUNT: Number of cells counted:200 3% Blasts 8% Promyelocytes 10% Myelocytes/Metamyelocytes 2% Bands/Segmented granulocytes 2% Eosinophils and precursors 0% Basophils and precursors 9% Erythroid precursors 4% Lymphocytes 3% Monocytes 59% Plasma cells Blasts: Not increasedErythropoiesis: Megaloblastoid changes present.Myelopoiesis: Left shiftedLymphocytes/Plasma cells: Small and mature Megakaryocytes: Hypolobated forms present.Stainable iron is identified on marrow particles present on the aspirate smear and appears increased. Occasional ring sideroblasts are identified (less than 1% of erythroid precursors). BONE MARROW BIOPSY: Biopsy- Adequate Clot- Suboptimal, limited marrow present.The marrow core demonstrates a cellularity of approximately [...] limited marrow is present for evaluation. PERIPHERAL BLOOD:Red cells: Mild anisopoikilocytosis. White cells: Rare plasmacytoid lymphocytes. Some large granular lymphocytes. No significant Rouleaux formation.Platelets: UnremarkableThe following special studies were performed on this case and the interpretation is incorporated in the diagnostic report above:BLOCK B1- PERLS IRONBLOCK C1- CD20, CD3, CD34, CD138, CD56, CYCLIN D1, KAPPA, LAMBDA, CONGO REDThe immunohistochemistry test was developed and its performance characteristics determined by [facility], Pathology Laboratory. It has not been cleared or approved by the U.S. Food and Drug A dministration. The FDA has determined that such clearance or approval is not necessary. The test is used for clinical purposes. It should not be regarded as investigational or for research. This laboratory is certified under the Clinical Laboratory Improvement Amendments of 1988 (CLIA-88) as qualified to perform high complexity clinical laboratory testing. FLOW CYTOMETRY REQUISITION 2017-10-17 14:43:00 FLOW CYTOMETRY RESULT POINTER (JACK) (test hhmb=8789) See Separate Report FLOW CYTOMETRY AP CASE # (JACK) (test figx=6987) [id number] POCT-GLUCOSE [id number] 08:16:00* Test Item Value Reference Range Comments POC-GLUCOSE METER (JACK) (test kjxr=6814) 113 mg/dL 70-110 TESTED AT [address] [address] BASIC METABOLIC [id number] 06:50:00* Test Item Value Reference Range Comments SODIUM (BEAKER) (test lerv=018) 136 meq/L 136-145 POTASSIUM (BEAKER) (test waon=103) 3.9 meq/L 3.5-5.1 CHLORIDE (BEAKER) (test nlih=642) 106 meq/L 98-107 CO2 (BEAKER) (test txtn=928) 21 meq/L 22-29 BLOOD UREA NITROGEN (BEAKER) (test vogy=444) 75 mg/dL 7-21 CREATININE (BEAKER) (test reub=551) 3.29 mg/dL 0.57-1.25 GLUCOSE RANDOM (BEAKER) (test wvwg=550) 84 mg/dL 70-105 CALCIUM (BEAKER) (test afye=948) 7.7 mg/dL 8.4-10.2 EGFR (BEAKER) (test jdga=9276) 19 mL/min/1.73 sq m ESTIMATED GFR IS NOT ACCURATE CREATININE CLEARANCE IN PREDICTING GLOMERULAR FILTRATION RATE. ESTIMATED GFR IS NOT APPLICABLE FOR DIALYSIS PATIENTS. CBC (HEMOGRAM ONLY)2017-10-16 06:23:00* Test Item Value Reference Range Comments WHITE BLOOD CELL COUNT (BEAKER) (test wskl=319) 8.1 K/ L 3.5-10.5 RED BLOOD CELL COUNT (BEAKER) (test wjgl=708) 2.79 M/ L 4.63-6.08 HEMOGLOBIN (BEAKER) (test deqz=339) 8.3 GM/DL 13.7-17.5 HEMATOCRIT (BEAKER) (test jfoy=102) 24.5 % 40.1-51.0 MEAN CORPUSCULAR VOLUME (BEAKER) (test lkso=505) 87.8 fL 79.0-92.2 MEAN CORPUSCULAR HEMOGLOBIN (BEAKER) (test splg=559) 29.7 pg 25.7-32.2 MEAN CORPUSCULAR HEMOGLOBIN CONC (BEAKER) (test edhc=305) 33.9 GM/DL 32.3-36.5 RED CELL DISTRIBUTION WIDTH (BEAKER) (test uwcn=006) 15.2 % 11.6-14.4 PLATELET COUNT (BEAKER) (test bhuv=387) 183 K/CU MM 150-450 MEAN PLATELET VOLUME (BEAKER) (test kach=748) 10.0 fL 9.4-12.4 NUCLEATED RED BLOOD CELLS (BEAKER) (test baww=056) 0 /100 WBC 0-0 POCT-GLUCOSE [id number] 21:51:00* Test Item Value Reference Range Comments POC-GLUCOSE METER (BEAKER) (test udse=2046) 179 mg/dL 70-110 TESTED AT [facility] [address] [facility] [address] POCT-GLUCOSE [id number] 17:05:00* Test Item Value Reference Range Comments POC-GLUCOSE METER (BEAKER) (test wihz=0171) 142 mg/dL 70-110 TESTED AT [place] [id number] [facility] [address] POCT-GLUCOSE [id number] 11:34:00* Test Item Value Reference Range Comments POC-GLUCOSE METER (BEAKER) (test muvz=4447) 107 mg/dL 70-110 TESTED AT [place] [id number] [facility] [address] POCT-GLUCOSE [id number] 10:26:00* Test Item Value Reference Range Comments POC-GLUCOSE METER (BEAKER) (test kqgj=7225) 82 mg/dL 70-110 TESTED AT [address] [address] POCT-GLUCOSE [id number] 09:25:00* Test Item Value Reference Range Comments POC-GLUCOSE METER (BEAKER) (test weic=8065) 59 mg/dL 70-110 TESTED AT [address] [address] POCT-GLUCOSE [id number] 07:43:00* Test Item Value Reference Range Comments POC-GLUCOSE METER (BEAKER) (test xibg=5604) 73 mg/dL 70-110 TESTED AT [address] [address] BASIC METABOLIC [id number] 06:37:00* Test Item Value Reference Range Comments SODIUM (BEAKER) (test iqeq=886) 136 meq/L 136-145 POTASSIUM (BEAKER) (test hsbc=274) 3.9 meq/L 3.5-5.1 CHLORIDE (BEAKER) (test tusz=438) 104 meq/L 98-107 CO2 (BEAKER) (test pvlt=597) 20 meq/L 22-29 BLOOD UREA NITROGEN (BEAKER) (test zlwg=786) 92 mg/dL 7-21 CREATININE (BEAKER) (test oval=212) 3.78 mg/dL 0.57-1.25 GLUCOSE RANDOM (BEAKER) (test jmxq=506) 69 mg/dL 70-105 CALCIUM (BEAKER) (test ztsj=556) 8.0 mg/dL 8.4-10.2 EGFR (BEAKER) (test ashe=8862) 16 mL/min/1.73 sq m ESTIMATED GFR IS NOT ACCURATE CREATININE CLEARANCE IN PREDICTING GLOMERULAR FILTRATION RATE. ESTIMATED GFR IS NOT APPLICABLE FOR DIALYSIS PATIENTS. CBC (HEMOGRAM ONLY)2017-10-15 06:11:00* Test Item Value Reference Range Comments WHITE BLOOD CELL COUNT (BEAKER) (test zaco=512) 8.2 K/ L 3.5-10.5 RED BLOOD CELL COUNT (BEAKER) (test joiu=524) 2.43 M/ L 4.63-6.08 HEMOGLOBIN (BEAKER) (test kqvh=409) 7.5 GM/DL 13.7-17.5 HEMATOCRIT (BEAKER) (test xutp=708) 21.2 % 40.1-51.0 MEAN CORPUSCULAR VOLUME (BEAKER) (test locr=827) 87.2 fL 79.0-92.2 MEAN CORPUSCULAR HEMOGLOBIN (BEAKER) (test mpbs=306) 30.9 pg 25.7-32.2 MEAN CORPUSCULAR HEMOGLOBIN CONC (BEAKER) (test pfuw=019) 35.4 GM/DL 32.3-36.5 RED CELL DISTRIBUTION WIDTH (BEAKER) (test ylxj=978) 15.3 % 11.6-14.4 PLATELET COUNT (BEAKER) (test asnt=084) 214 K/CU MM 150-450 MEAN PLATELET VOLUME (BEAKER) (test wylk=275) 9.8 fL 9.4-12.4 NUCLEATED RED BLOOD CELLS (BEAKER) (test qvnh=589) 0 /100 WBC 0-0 POCT-GLUCOSE [id number] 22:15:00* Test Item Value Reference Range Comments POC-GLUCOSE METER (BEAKER) (test nkwo=4599) 229 mg/dL 70-110 TESTED AT [place] [id number] [facility] [address] POCT-GLUCOSE [id number] 17:04:00* Test Item Value Reference Range Comments POC-GLUCOSE METER (BEAKER) (test jner=0389) 195 mg/dL 70-110 TESTED AT [address] [address] POCT-GLUCOSE [id number] 11:52:00* Test Item Value Reference Range Comments POC-GLUCOSE METER (BEAKER) (test lsun=5400) 102 mg/dL 70-110 TESTED AT [address] [address] URINE IMMUNOFIXATION, [id number] 11:19:00* Test Item Value Reference Range Comments PROTEIN, URINE (BEAKER) (test qocu=1100) 58 mg/dL 0-14 ALBUMIN URINE ELP (BEAKER) (test dfyl=7492) 20.6 % GAMMA GLOBULIN URINE (BEAKER) (test xvft=6312) 79.4 % URINE CHEO ID-402 (BEAKER) (test iaao=7119) Free kappa light chains, monoclonal [id number] (BEAKER) (test lhzb=5771) Tabitha Reich MD (electronic signature) IMMUNOFIXATION ELECTROPHORESIS (CHEO)2017-10-14 11:19:00* Test Item Value Reference Range Comments IMMUNOGLOBULIN G (IGG) (BEAKER) (test covl=029) 618 mg/dL 540-1822 IMMUNOGLOBULIN A (IGA) (BEAKER) (test lgzx=994) 102 mg/dL 63-484 IMMUNOGLOBULIN M (IGM) (BEAKER) (test lyej=679) 23 mg/dL 22-293 SERUM CHEO ID (BEAKER) (test nxoy=4464) Free kappa light chains, monoclonal [id number] (BEAKER) (test emjj=0294) Tabitha Reich MD (electronic signature) POCT-GLUCOSE [id number] 09:31:00* Test Item Value Reference Range Comments POC-GLUCOSE METER (BEAKER) (test glfo=2032) 113 mg/dL 70-110 TESTED AT [place] [id number] POCT-GLUCOSE [id number] 08:00:00* Test Item Value Reference Range Comments POC-GLUCOSE METER (BEAKER) (test izeo=1815) 64 mg/dL 70-110 TESTED AT [address] [address] BASIC METABOLIC [id number] 07:26:00* Test Item Value Reference Range Comments SODIUM (BEAKER) (test pgpp=448) 133 meq/L 136-145 POTASSIUM (BEAKER) (test lhjt=743) 4.2 meq/L 3.5-5.1 CHLORIDE (BEAKER) (test yiqt=961) 103 meq/L 98-107 CO2 (BEAKER) (test ifad=107) 20 meq/L 22-29 BLOOD UREA NITROGEN (BEAKER) (test ptqu=685) 96 mg/dL 7-21 CREATININE (BEAKER) (test lgcg=442) 3.87 mg/dL 0.57-1.25 GLUCOSE RANDOM (BEAKER) (test wjio=381) 69 mg/dL 70-105 CALCIUM (BEAKER) (test aqij=407) 8.3 mg/dL 8.4-10.2 EGFR (BEAKER) (test ezar=3107) 15 mL/min/1.73 sq m ESTIMATED GFR IS NOT ACCURATE CREATININE CLEARANCE IN PREDICTING GLOMERULAR FILTRATION RATE. ESTIMATED GFR IS NOT APPLICABLE FOR DIALYSIS PATIENTS. CBC (HEMOGRAM ONLY)2017-10-14 05:51:00* Test Item Value Reference Range Comments WHITE BLOOD CELL COUNT (BEAKER) (test rrlu=846) 7.1 K/ L 3.5-10.5 RED BLOOD CELL COUNT (BEAKER) (test uyfj=518) 2.71 M/ L 4.63-6.08 HEMOGLOBIN (BEAKER) (test kbjx=383) 8.2 GM/DL 13.7-17.5 HEMATOCRIT (BEAKER) (test ihjj=166) 23.4 % 40.1-51.0 MEAN CORPUSCULAR VOLUME (BEAKER) (test drly=727) 86.3 fL 79.0-92.2 MEAN CORPUSCULAR HEMOGLOBIN (BEAKER) (test wvyv=755) 30.3 pg 25.7-32.2 MEAN CORPUSCULAR HEMOGLOBIN CONC (BEAKER) (test ifwr=291) 35.0 GM/DL 32.3-36.5 RED CELL DISTRIBUTION WIDTH (BEAKER) (test blnz=685) 15.2 % 11.6-14.4 PLATELET COUNT (BEAKER) (test qpoh=882) 180 K/CU MM 150-450 MEAN PLATELET VOLUME (BEAKER) (test rltf=920) 10.0 fL 9.4-12.4 NUCLEATED RED BLOOD CELLS (BEAKER) (test hokq=386) 0 /100 WBC 0-0 POCT-GLUCOSE [id number] 21:35:00* Test Item Value Reference Range Comments POC-GLUCOSE METER (BEAKER) (test lsam=4980) 176 mg/dL 70-110 TESTED AT [facility] [address] [facility] [address] POCT-GLUCOSE [id number] 17:32:00* Test Item Value Reference Range Comments POC-GLUCOSE METER (BEAKER) (test uavu=3657) 281 mg/dL 70-110 TESTED AT [facility] [address] [facility] [address] POCT-GLUCOSE [id number] 12:23:00* Test Item Value Reference Range Comments POC-GLUCOSE METER (BEAKER) (test njrg=2574) 313 mg/dL 70-110 Notified GARY BOSCH/TESTED AT [facility] [address] [facility] [address] HEMOGLOBIN AND [id number] 09:55:00* Test Item Value Reference Range Comments HEMOGLOBIN (BEAKER) (test monm=658) 6.7 GM/DL 13.7-17.5 HEMATOCRIT (BEAKER) (test mycu=518) 20.0 % 40.1-51.0 POCT-GLUCOSE [id number] 07:50:00* Test Item Value Reference Range Comments POC-GLUCOSE METER (BEAKER) (test gxjw=1365) 297 mg/dL 70-110 TESTED AT [place] [id number] [facility] [address] CBC (HEMOGRAM ONLY)2017-10-13 07:32:00* Test Item Value Reference Range Comments WHITE BLOOD CELL COUNT (BEAKER) (test lffe=554) 7.0 K/ L 3.5-10.5 RED BLOOD CELL COUNT (BEAKER) (test annm=024) 2.26 M/ L 4.63-6.08 HEMOGLOBIN (BEAKER) (test hnvu=950) 6.6 GM/DL 13.7-17.5 HEMATOCRIT (BEAKER) (test vwhe=436) 19.6 % 40.1-51.0 MEAN CORPUSCULAR VOLUME (BEAKER) (test viku=981) 86.7 fL 79.0-92.2 MEAN CORPUSCULAR HEMOGLOBIN (BEAKER) (test xqyy=034) 29.2 pg 25.7-32.2 MEAN CORPUSCULAR HEMOGLOBIN CONC (BEAKER) (test myap=064) 33.7 GM/DL 32.3-36.5 RED CELL DISTRIBUTION WIDTH (BEAKER) (test utrn=421) 15.7 % 11.6-14.4 PLATELET COUNT (BEAKER) (test fymq=798) 180 K/CU MM 150-450 MEAN PLATELET VOLUME (BEAKER) (test urhp=622) 9.9 fL 9.4-12.4 NUCLEATED RED BLOOD CELLS (BEAKER) (test tdki=270) 0 /100 WBC 0-0 BASIC METABOLIC [id number] 07:31:00* Test Item Value Reference Range Comments SODIUM (BEAKER) (test dqpg=528) 126 meq/L 136-145 POTASSIUM (BEAKER) (test umck=641) 4.2 meq/L 3.5-5.1 CHLORIDE (BEAKER) (test yxrc=979) 96 meq/L 98-107 CO2 (BEAKER) (test ibzg=256) 20 meq/L 22-29 BLOOD UREA NITROGEN (BEAKER) (test fetp=826) 105 mg/dL 7-21 CREATININE (BEAKER) (test dhsp=776) 4.04 mg/dL 0.57-1.25 GLUCOSE RANDOM (BEAKER) (test eimt=636) 280 mg/dL 70-105 CALCIUM (BEAKER) (test enxg=506) 8.1 mg/dL 8.4-10.2 EGFR (BEAKER) (test kfot=6385) 15 mL/min/1.73 sq m ESTIMATED GFR IS NOT ACCURATE CREATININE CLEARANCE IN PREDICTING GLOMERULAR FILTRATION RATE. ESTIMATED GFR IS NOT APPLICABLE FOR DIALYSIS PATIENTS. [id number] 07:28:00* Test Item Value Reference Range Comments MAGNESIUM (BEAKER) (test mxfl=251) 2.0 mg/dL 1.6-2.6 POCT-GLUCOSE [id number] 22:24:00* Test Item Value Reference Range Comments POC-GLUCOSE METER (BEAKER) (test pxpo=7266) 281 mg/dL 70-110 TESTED AT [address] [address] POCT-GLUCOSE [id number] 17:14:00* Test Item Value Reference Range Comments POC-GLUCOSE METER (BEAKER) (test shos=6669) 381 mg/dL 70-110 Notified GARY BOSCH/TESTED AT [address] [address] FLOW [id number] 15:39:00Flow Cytometry Report Case: [id number] Authorizing Provider: Karli Lindsay MD Collected: 10/10/2017 1027 Ordering Location: [address] Received: 10/10/2017 1324 Service Pathologist: Preston Black MD Specimen: Other BONE MARROW, FLOW CYTOMETRY:MONOCLONAL KAPPA RESTRICTED PLASMA CELL POPULATION.CORRELATION WITH MORPHOLOGIC FINDINGS REQUIRED. [id number] plasma cell neoplasmBone marrowCD8, surface-[place], CD56, surface-Lambda, CD5, CD19, CD10, CD3, CD20, CD4, CD45, CD14, CD13, CD33, CD117, CD34, cKappa, cLambda, CD38, [id number] Viability: 88.7%Abnormal plasma cell population identified (12.77% of total cellularity)POSITIVE: CD38, CD138, CD56, KAPPANEGATIVE: CD19, CD20, LAMBDAIn addition, the following populations are identified:Blasts: the dim CD45+ CD34+ blasts comprise less than 1% of total cells. The majority of these cells express CD13 and CD33 (myeloblasts).Lymphocytes: Bright CD45+ lymphocytes comprise 6.1% of total cells. T cells show a CD4:CD8 ratio of 1.2. B cells are polytypic with a kappa:lambda ratio of 1.4.Myeloid/monocytic populations: As identified by CD45 and light scatter characteristics, granulocytes comprise the majority of cells analyzed, and monocytes comprise 1.8% of total cells.Plasma cells: as described above.The remaining events analyzed represent nonviable cells, non- hematolymphoid cells, and debrisThese tests were developed and their performance characteristics determined by [facility]. They have not been cleared or approved by the U.S. Food and Drug Administration. The FDA has determined that such clearance or approval is not necessary. It should not be regarded as inve stigational or for research. This laboratory is certified under the Clinical Lab oratory Improvement Amendments of 1988 ("CLIA") as qualified to perform high-com plexity clinical testing.POCT-GLUCOSE [id number] 14:38:00* Test Item Value Reference Range Comments POC-GLUCOSE METER (BEAKER) (test lbzm=2087) 384 mg/dL 70-110 Notified GARY BOSCH/TESTED AT [facility] [address] [facility] [address] HEMOGLOBIN [id number] 13:37:00* Test Item Value Reference Range Comments HEMOGLOBIN A1C (BEAKER) (test hrwd=210) 9.1 % 4.3-6.1 POCT-GLUCOSE [id number] 12:12:00* Test Item Value Reference Range Comments POC-GLUCOSE METER (BEAKER) (test fyii=6656) 417 mg/dL 70-110 Notified GARY BOSCH/TESTED AT [address] [address] POCT-GLUCOSE [id number] 08:09:00* Test Item Value Reference Range Comments POC-GLUCOSE METER (BEAKER) (test ofju=7681) 322 mg/dL 70-110 TESTED AT [place] [id number] [facility] [address] BASIC METABOLIC [id number] 06:22:00* Test Item Value Reference Range Comments SODIUM (BEAKER) (test kmqo=368) 129 meq/L 136-145 POTASSIUM (BEAKER) (test eslt=987) 4.1 meq/L 3.5-5.1 CHLORIDE (BEAKER) (test ydzl=046) 96 meq/L 98-107 CO2 (BEAKER) (test poxs=764) 22 meq/L 22-29 BLOOD UREA NITROGEN (BEAKER) (test oacb=876) 87 mg/dL 7-21 CREATININE (BEAKER) (test mkfr=449) 4.26 mg/dL 0.57-1.25 GLUCOSE RANDOM (BEAKER) (test hvtl=698) 246 mg/dL 70-105 CALCIUM (BEAKER) (test lpet=090) 9.6 mg/dL 8.4-10.2 EGFR (BEAKER) (test onxu=1591) 14 mL/min/1.73 sq m ESTIMATED GFR IS NOT ACCURATE CREATININE CLEARANCE IN PREDICTING GLOMERULAR FILTRATION RATE. ESTIMATED GFR IS NOT APPLICABLE FOR DIALYSIS PATIENTS. CBC W/PLT COUNT & AUTO [id number] 06:14:00* Test Item Value Reference Range Comments WHITE BLOOD CELL COUNT (BEAKER) (test qwok=841) 9.2 K/ L 3.5-10.5 RED BLOOD CELL COUNT (BEAKER) (test cbks=484) 2.57 M/ L 4.63-6.08 HEMOGLOBIN (BEAKER) (test srri=188) 7.6 GM/DL 13.7-17.5 HEMATOCRIT (BEAKER) (test ksej=415) 21.7 % 40.1-51.0 MEAN CORPUSCULAR VOLUME (BEAKER) (test dbwa=755) 84.4 fL 79.0-92.2 MEAN CORPUSCULAR HEMOGLOBIN (BEAKER) (test rybs=709) 29.6 pg 25.7-32.2 MEAN CORPUSCULAR HEMOGLOBIN CONC (BEAKER) (test sjus=586) 35.0 GM/DL 32.3-36.5 RED CELL DISTRIBUTION WIDTH (BEAKER) (test gbhc=831) 15.3 % 11.6-14.4 PLATELET COUNT (BEAKER) (test nwzl=972) 182 K/CU MM 150-450 MEAN PLATELET VOLUME (BEAKER) (test hipz=298) 10.0 fL 9.4-12.4 NUCLEATED RED BLOOD CELLS (BEAKER) (test kkjb=549) 0 /100 WBC 0-0 NEUTROPHILS RELATIVE PERCENT (BEAKER) (test imgo=596) 83 % LYMPHOCYTES RELATIVE PERCENT (BEAKER) (test mrqc=622) 11 % MONOCYTES RELATIVE PERCENT (BEAKER) (test wluw=529) 4 % EOSINOPHILS RELATIVE PERCENT (BEAKER) (test liwg=550) 0 % BASOPHILS RELATIVE PERCENT (BEAKER) (test bdhb=953) 0 % NEUTROPHILS ABSOLUTE COUNT (BEAKER) (test fezv=150) 7.64 K/ L 1.78-5.38 LYMPHOCYTES ABSOLUTE COUNT (BEAKER) (test capg=801) 1.03 K/ L 1.32-3.57 MONOCYTES ABSOLUTE COUNT (BEAKER) (test rwej=125) 0.36 K/ L 0.30-0.82 EOSINOPHILS ABSOLUTE COUNT (BEAKER) (test juck=740) 0.00 K/ L 0.04-0.54 BASOPHILS ABSOLUTE COUNT (BEAKER) (test rfle=356) 0.01 K/ L 0.01-0.08 IMMATURE GRANULOCYTES-RELATIVE PERCENT (BEAKER) (test haso=3736) 2 % 0-1 CBC (HEMOGRAM ONLY)2017-10-12 05:58:00* Test Item Value Reference Range Comments WHITE BLOOD CELL COUNT (BEAKER) (test hcak=329) 9.2 K/ L 3.5-10.5 RED BLOOD CELL COUNT (BEAKER) (test cbiv=995) 2.57 M/ L 4.63-6.08 HEMOGLOBIN (BEAKER) (test euzx=533) 7.6 GM/DL 13.7-17.5 HEMATOCRIT (BEAKER) (test cxpn=949) 21.7 % 40.1-51.0 MEAN CORPUSCULAR VOLUME (BEAKER) (test bthg=397) 84.4 fL 79.0-92.2 MEAN CORPUSCULAR HEMOGLOBIN (BEAKER) (test kkhn=340) 29.6 pg 25.7-32.2 MEAN CORPUSCULAR HEMOGLOBIN CONC (BEAKER) (test biwe=547) 35.0 GM/DL 32.3-36.5 RED CELL DISTRIBUTION WIDTH (BEAKER) (test byej=113) 15.3 % 11.6-14.4 PLATELET COUNT (BEAKER) (test mjqb=880) 182 K/CU MM 150-450 MEAN PLATELET VOLUME (BEAKER) (test ztmr=612) 10.0 fL 9.4-12.4 NUCLEATED RED BLOOD CELLS (BEAKER) (test edsm=080) 0 /100 WBC 0-0 POCT-GLUCOSE [id number] 23:56:00* Test Item Value Reference Range Comments POC-GLUCOSE METER (BEAKER) (test mpvu=3221) 317 mg/dL 70-110 TESTED AT [address] [address] POCT-GLUCOSE [id number] 20:38:00* Test Item Value Reference Range Comments POC-GLUCOSE METER (BEAKER) (test xlmw=5148) 485 mg/dL 70-110 TESTED AT [address] [address] POCT-GLUCOSE [id number] 16:26:00* Test Item Value Reference Range Comments POC-GLUCOSE METER (BEAKER) (test wfyu=1148) 464 mg/dL 70-110 TESTED AT [address] [address] URINE PROTEIN ELECTROPHORESIS, [id number] 13:56:00* Test Item Value Reference Range Comments PROTEIN, URINE (BEAKER) (test mboy=3127) 67 mg/dL 0-14 ALBUMIN URINE ELP (BEAKER) (test lqzy=2674) 20.6 % GAMMA GLOBULIN URINE (BEAKER) (test cswm=3563) 79.4 % UPEP, ID-438 (BEAKER) (test lkmb=9210) Spillage of albumin and all globulin fractions. Indistinct restriction in terminal gamma region; therefore, urine CHEO pending for further characterization and to exclude presence of monoclonal protein. [id number] (BEAKER) (test soea=0840) Tabitha Reich MD (electronic signature) POCT-GLUCOSE [id number] 13:35:00* Test Item Value Reference Range Comments POC-GLUCOSE METER (BEAKER) (test zfsd=8675) 371 mg/dL 70-110 Notified GARY BOSCH/TESTED AT [address] [address] PROTEIN ELECTROPHORESIS, [id number] 12:54:00* Test Item Value Reference Range Comments ALBUMIN FRACTION (BEAKER) (test xhuk=729) 3.5 g/dL 3.5-5.5 ALPHA 1 FRACTION (BEAKER) (test zbdw=545) 0.4 g/dL 0.2-0.4 ALPHA 2 FRACTION (BEAKER) (test tdec=303) 1.2 g/dL 0.5-0.9 BETA FRACTION (BEAKER) (test rwjq=613) 1.1 g/dL 0.6-1.1 GAMMA GLOBULIN FRACTION (BEAKER) (test riga=870) 0.8 g/dL 0.7-1.7 INTERPRETATION-119 (BEAKER) (test ufln=4080) Pattern continues to be consistent with acute inflammatory response; no significant change from previous study performed 10-05-17. No monoclonal bands detected. [id number] (BEAKER) (test jevs=7806) Tabitha Reich MD (electronic signature) PROTEIN TOTAL SERUM, SPEP (BEAKER) (test isnk=7263) 6.9 gm/dL 6.0-8.3 POCT-GLUCOSE [id number] 12:10:00* Test Item Value Reference Range Comments POC-GLUCOSE METER (BEAKER) (test bqxc=5836) 429 mg/dL 70-110 TESTED AT [address] [address] POCT-GLUCOSE [id number] 07:56:00* Test Item Value Reference Range Comments POC-GLUCOSE METER (BEAKER) (test nccn=0364) 353 mg/dL 70-110 TESTED AT [address] [address] [id number] 06:17:00* Test Item Value Reference Range Comments CORTISOL, TOTAL (BEAKER) (test eymw=2566) 3.4 ug/dL 3.7-19.4 BASIC METABOLIC [id number] 06:01:00* Test Item Value Reference Range Comments SODIUM (BEAKER) (test cfvq=400) 130 meq/L 136-145 POTASSIUM (BEAKER) (test lrpj=230) 4.8 meq/L 3.5-5.1 CHLORIDE (BEAKER) (test itjw=969) 93 meq/L 98-107 CO2 (BEAKER) (test bieb=128) 24 meq/L 22-29 BLOOD UREA NITROGEN (BEAKER) (test fobq=093) 77 mg/dL 7-21 CREATININE (BEAKER) (test slbb=182) 4.97 mg/dL 0.57-1.25 GLUCOSE RANDOM (BEAKER) (test lmkp=156) 321 mg/dL 70-105 CALCIUM (BEAKER) (test ltgb=854) 10.8 mg/dL 8.4-10.2 EGFR (BEAKER) (test ajjq=8077) 12 mL/min/1.73 sq m ESTIMATED GFR IS NOT ACCURATE CREATININE CLEARANCE IN PREDICTING GLOMERULAR FILTRATION RATE. ESTIMATED GFR IS NOT APPLICABLE FOR DIALYSIS PATIENTS. CBC (HEMOGRAM ONLY)2017-10-11 05:13:00* Test Item Value Reference Range Comments WHITE BLOOD CELL COUNT (BEAKER) (test njno=305) 5.8 K/ L 3.5-10.5 RED BLOOD CELL COUNT (BEAKER) (test ysvz=603) 2.69 M/ L 4.63-6.08 HEMOGLOBIN (BEAKER) (test koeq=667) 7.8 GM/DL 13.7-17.5 HEMATOCRIT (BEAKER) (test bryq=470) 22.7 % 40.1-51.0 MEAN CORPUSCULAR VOLUME (BEAKER) (test yegs=207) 84.4 fL 79.0-92.2 MEAN CORPUSCULAR HEMOGLOBIN (BEAKER) (test vyix=107) 29.0 pg 25.7-32.2 MEAN CORPUSCULAR HEMOGLOBIN CONC (BEAKER) (test dvbz=459) 34.4 GM/DL 32.3-36.5 RED CELL DISTRIBUTION WIDTH (BEAKER) (test swkb=960) 15.0 % 11.6-14.4 PLATELET COUNT (BEAKER) (test laqh=134) 165 K/CU MM 150-450 MEAN PLATELET VOLUME (BEAKER) (test dhnp=825) 10.1 fL 9.4-12.4 NUCLEATED RED BLOOD CELLS (BEAKER) (test vyim=179) 0 /100 WBC 0-0 CBC W/PLT COUNT & AUTO [id number] 05:13:00* Test Item Value Reference Range Comments WHITE BLOOD CELL COUNT (BEAKER) (test pgty=087) 5.8 K/ L 3.5-10.5 RED BLOOD CELL COUNT (BEAKER) (test exnn=545) 2.69 M/ L 4.63-6.08 HEMOGLOBIN (BEAKER) (test bkwp=903) 7.8 GM/DL 13.7-17.5 HEMATOCRIT (BEAKER) (test pbfi=017) 22.7 % 40.1-51.0 MEAN CORPUSCULAR VOLUME (BEAKER) (test vkfj=670) 84.4 fL 79.0-92.2 MEAN CORPUSCULAR HEMOGLOBIN (BEAKER) (test eska=647) 29.0 pg 25.7-32.2 MEAN CORPUSCULAR HEMOGLOBIN CONC (BEAKER) (test pojc=816) 34.4 GM/DL 32.3-36.5 RED CELL DISTRIBUTION WIDTH (BEAKER) (test dwmb=696) 15.0 % 11.6-14.4 PLATELET COUNT (BEAKER) (test mlbd=604) 165 K/CU MM 150-450 MEAN PLATELET VOLUME (BEAKER) (test glrc=192) 10.1 fL 9.4-12.4 NUCLEATED RED BLOOD CELLS (BEAKER) (test fyep=617) 0 /100 WBC 0-0 NEUTROPHILS RELATIVE PERCENT (BEAKER) (test dzgb=245) 74 % LYMPHOCYTES RELATIVE PERCENT (BEAKER) (test oefl=669) 19 % MONOCYTES RELATIVE PERCENT (BEAKER) (test olaw=346) 3 % EOSINOPHILS RELATIVE PERCENT (BEAKER) (test sxvl=165) 1 % BASOPHILS RELATIVE PERCENT (BEAKER) (test afvo=069) 0 % NEUTROPHILS ABSOLUTE COUNT (BEAKER) (test vlkt=610) 4.29 K/ L 1.78-5.38 LYMPHOCYTES ABSOLUTE COUNT (BEAKER) (test vxtu=925) 1.12 K/ L 1.32-3.57 MONOCYTES ABSOLUTE COUNT (BEAKER) (test feyo=858) 0.17 K/ L 0.30-0.82 EOSINOPHILS ABSOLUTE COUNT (BEAKER) (test rovf=836) 0.08 K/ L 0.04-0.54 BASOPHILS ABSOLUTE COUNT (BEAKER) (test ytqe=540) 0.01 K/ L 0.01-0.08 IMMATURE GRANULOCYTES-RELATIVE PERCENT (BEAKER) (test lhwc=0544) 3 % 0-1 POCT-GLUCOSE [id number] 23:19:00* Test Item Value Reference Range Comments POC-GLUCOSE METER (BEAKER) (test eqdj=8328) 267 mg/dL 70-110 TESTED AT [facility] [address] [facility] [address] POCT-GLUCOSE [id number] 18:29:00* Test Item Value Reference Range Comments POC-GLUCOSE METER (BEAKER) (test lfvn=1241) 240 mg/dL 70-110 TESTED AT [address] [address] SODIUM, RANDOM [id number] 18:28:00* Test Item Value Reference Range Comments SODIUM URINE (BEAKER) (test mdef=253) < meq/L Reference Range: No NormalsBONE MARROW PROCESS.2017-10-10 10:57:00* Test Item Value Reference Range Comments ANATOMIC CASE# (BEAKER) (test rhjj=5857) [id number] ORDERED BY DOCTOR# (BEAKER) (test ukyv=7029) HU PERFORMED BY DOCTOR# (BEAKER) (test odsc=5168) [place] CLOT RECEIVED? (BEAKER) (test bzph=3215) Yes BIOPSY RECEIVED? (BEAKER) (test lonk=9365) Yes CULTURE RECEIVED? (BEAKER) (test lgmp=9525) No FLOW RECEIVED? (BEAKER) (test hehs=2552) Yes CYTOGENICS? (BEAKER) (test giaf=2151) Yes MOLECULAR GENETICS? (BEAKER) (test zvjp=7839) Hold BASIC METABOLIC [id number] 06:44:00* Test Item Value Reference Range Comments SODIUM (BEAKER) (test swhy=602) 129 meq/L 136-145 POTASSIUM (BEAKER) (test avcb=266) 3.5 meq/L 3.5-5.1 CHLORIDE (BEAKER) (test oghe=811) 91 meq/L 98-107 CO2 (BEAKER) (test lynn=052) 27 meq/L 22-29 BLOOD UREA NITROGEN (BEAKER) (test ctij=765) 61 mg/dL 7-21 CREATININE (BEAKER) (test gkez=488) 4.37 mg/dL 0.57-1.25 GLUCOSE RANDOM (BEAKER) (test afzt=894) 128 mg/dL 70-105 CALCIUM (BEAKER) (test wwjq=593) 10.8 mg/dL 8.4-10.2 EGFR (BEAKER) (test chsm=7718) 13 mL/min/1.73 sq m ESTIMATED GFR IS NOT ACCURATE CREATININE CLEARANCE IN PREDICTING GLOMERULAR FILTRATION RATE. ESTIMATED GFR IS NOT APPLICABLE FOR DIALYSIS PATIENTS. TROPONIN [id number] 06:31:00* Test Item Value Reference Range Comments TROPONIN I (BEAKER) (test wuce=548) 0.24 ng/mL 0.00-0.03 Troponin I (TnI) levels must be interpreted in the context of the presenting sym ptoms and the clinical findings. Elevated TnI levels indicate myocardial damage, but are not specific for ischemic heart disease. Elevated TnI levels are seen in patients with other cardiac conditions (including myocarditis and congestive h eart failure), and slight TnI elevations occur in patients with other conditions , including sepsis, renal failure, acidosis, acute neurological disease, and per sistent tachyarrhythmia.CBC W/PLT COUNT & AUTO [id number] 06:28:00* Test Item Value Reference Range Comments WHITE BLOOD CELL COUNT (BEAKER) (test qkyr=391) 4.5 K/ L 3.5-10.5 RED BLOOD CELL COUNT (BEAKER) (test hshl=270) 2.48 M/ L 4.63-6.08 HEMOGLOBIN (BEAKER) (test dtld=253) 7.3 GM/DL 13.7-17.5 HEMATOCRIT (BEAKER) (test vins=244) 21.2 % 40.1-51.0 MEAN CORPUSCULAR VOLUME (BEAKER) (test ikmr=461) 85.5 fL 79.0-92.2 MEAN CORPUSCULAR HEMOGLOBIN (BEAKER) (test byho=059) 29.4 pg 25.7-32.2 MEAN CORPUSCULAR HEMOGLOBIN CONC (BEAKER) (test qdki=441) 34.4 GM/DL 32.3-36.5 RED CELL DISTRIBUTION WIDTH (BEAKER) (test hvaq=026) 15.5 % 11.6-14.4 PLATELET COUNT (BEAKER) (test xryk=691) 161 K/CU MM 150-450 MEAN PLATELET VOLUME (BEAKER) (test ehrv=970) 10.3 fL 9.4-12.4 NUCLEATED RED BLOOD CELLS (BEAKER) (test wifx=232) 0 /100 WBC 0-0 NEUTROPHILS RELATIVE PERCENT (BEAKER) (test bxxq=383) 46 % LYMPHOCYTES RELATIVE PERCENT (BEAKER) (test bjez=666) 27 % MONOCYTES RELATIVE PERCENT (BEAKER) (test yzmu=130) 14 % EOSINOPHILS RELATIVE PERCENT (BEAKER) (test yeup=557) 11 % BASOPHILS RELATIVE PERCENT (BEAKER) (test hgzd=295) 0 % NEUTROPHILS ABSOLUTE COUNT (BEAKER) (test hjof=597) 2.06 K/ L 1.78-5.38 LYMPHOCYTES ABSOLUTE COUNT (BEAKER) (test qrbk=316) 1.21 K/ L 1.32-3.57 MONOCYTES ABSOLUTE COUNT (BEAKER) (test lugr=705) 0.62 K/ L 0.30-0.82 EOSINOPHILS ABSOLUTE COUNT (BEAKER) (test yksy=918) 0.50 K/ L 0.04-0.54 BASOPHILS ABSOLUTE COUNT (BEAKER) (test vwvo=615) 0.02 K/ L 0.01-0.08 IMMATURE GRANULOCYTES-RELATIVE PERCENT (BEAKER) (test gfem=4940) 1 % 0-1 PLATELET [id number] 06:10:00* Test Item Value Reference Range Comments PLATELET COUNT (BEAKER) (test xpiz=408) 161 K/CU MM 150-450 Baseline and daily starting prior to initiation of heparin infusionPOCT-GLUCOSE [id number] 18:25:00* Test Item Value Reference Range Comments POC-GLUCOSE METER (BEAKER) (test okns=4042) 217 mg/dL 70-110 TESTED AT [facility] [address] [facility] [address] POCT-GLUCOSE [id number] 17:07:00* Test Item Value Reference Range Comments POC-GLUCOSE METER (BEAKER) (test finm=6905) 204 mg/dL 70-110 TESTED AT [facility] [address] [facility] [address] POCT-GLUCOSE [id number] 12:38:00* Test Item Value Reference Range Comments POC-GLUCOSE METER (BEAKER) (test mdkr=5537) 271 mg/dL 70-110 TESTED AT [facility] [address] [facility] [address] POCT-GLUCOSE [id number] 08:57:00* Test Item Value Reference Range Comments POC-GLUCOSE METER (BEAKER) (test yotz=5924) 139 mg/dL 70-110 TESTED AT [facility] [address] [facility] [address] BASIC METABOLIC [id number] 06:34:00* Test Item Value Reference Range Comments SODIUM (BEAKER) (test ynbx=832) 129 meq/L 136-145 POTASSIUM (BEAKER) (test rezu=076) 3.6 meq/L 3.5-5.1 CHLORIDE (BEAKER) (test fptl=037) 89 meq/L 98-107 CO2 (BEAKER) (test iflk=904) 29 meq/L 22-29 BLOOD UREA NITROGEN (BEAKER) (test rvtb=623) 50 mg/dL 7-21 CREATININE (BEAKER) (test niav=123) 4.31 mg/dL 0.57-1.25 GLUCOSE RANDOM (BEAKER) (test pfui=989) 141 mg/dL 70-105 CALCIUM (BEAKER) (test bpbj=303) 12.2 mg/dL 8.4-10.2 EGFR (BEAKER) (test efph=5242) 14 mL/min/1.73 sq m ESTIMATED GFR IS NOT ACCURATE CREATININE CLEARANCE IN PREDICTING GLOMERULAR FILTRATION RATE. ESTIMATED GFR IS NOT APPLICABLE FOR DIALYSIS PATIENTS. CALCIUM, [id number] 06:09:00* Test Item Value Reference Range Comments CALCIUM IONIZED (BEAKER) (test wzsu=206) 1.36 mmol/L 1.12-1.27 PH, BLOOD (BEAKER) (test wwcj=1181) 7.48 CBC (HEMOGRAM ONLY)2017-10-09 06:05:00* Test Item Value Reference Range Comments WHITE BLOOD CELL COUNT (BEAKER) (test dmfp=987) 4.5 K/ L 3.5-10.5 RED BLOOD CELL COUNT (BEAKER) (test rkxe=960) 2.24 M/ L 4.63-6.08 HEMOGLOBIN (BEAKER) (test cqhn=224) 6.7 GM/DL 13.7-17.5 HEMATOCRIT (BEAKER) (test mchf=517) 19.7 % 40.1-51.0 MEAN CORPUSCULAR VOLUME (BEAKER) (test ltns=375) 87.9 fL 79.0-92.2 MEAN CORPUSCULAR HEMOGLOBIN (BEAKER) (test alea=337) 29.9 pg 25.7-32.2 MEAN CORPUSCULAR HEMOGLOBIN CONC (BEAKER) (test jmwk=448) 34.0 GM/DL 32.3-36.5 RED CELL DISTRIBUTION WIDTH (BEAKER) (test unet=941) 14.0 % 11.6-14.4 PLATELET COUNT (BEAKER) (test urfi=577) 175 K/CU MM 150-450 MEAN PLATELET VOLUME (BEAKER) (test njqv=788) 9.3 fL 9.4-12.4 NUCLEATED RED BLOOD CELLS (BEAKER) (test uity=217) 0 /100 WBC 0-0 [id number] 00:31:00* Test Item Value Reference Range Comments CALCIUM (BEAKER) (test gjfw=800) 12.4 mg/dL 8.4-10.2 POCT-GLUCOSE [id number] 21:20:00* Test Item Value Reference Range Comments POC-GLUCOSE METER (BEAKER) (test wzsm=0089) 201 mg/dL 70-110 TESTED AT [place] [id number] [facility] [address] [id number] 18:32:00* Test Item Value Reference Range Comments CALCIUM (BEAKER) (test zhfs=204) 13.2 mg/dL 8.4-10.2 CALCIUM, [id number] 18:19:00* Test Item Value Reference Range Comments CALCIUM IONIZED (BEAKER) (test xuqh=086) 1.48 mmol/L 1.12-1.27 PH, BLOOD (BEAKER) (test kabf=3019) 7.51 POCT-GLUCOSE [id number] 17:24:00* Test Item Value Reference Range Comments POC-GLUCOSE METER (BEAKER) (test ojnb=0057) 211 mg/dL 70-110 TESTED AT [facility] [address] [facility] [address] IMMUNOGLOBULIN M (IGM)2017-10-08 14:39:00* Test Item Value Reference Range Comments IMMUNOGLOBULIN M (IGM) (BEAKER) (test pxoz=230) 23 mg/dL 22-293 IMMUNOGLOBULIN G (IGG)2017-10-08 14:00:00* Test Item Value Reference Range Comments IMMUNOGLOBULIN G (IGG) (BEAKER) (test lgen=641) 618 mg/dL 540-1822 IMMUNOGLOBULIN A (IGA)2017-10-08 14:00:00* Test Item Value Reference Range Comments IMMUNOGLOBULIN A (IGA) (BEAKER) (test ozyt=520) 102 mg/dL 63-484 TROPONIN [id number] 13:14:00* Test Item Value Reference Range Comments TROPONIN I (BEAKER) (test rqtv=283) 0.43 ng/mL 0.00-0.03 Troponin I (TnI) levels must be interpreted in the context of the presenting sym ptoms and the clinical findings. Elevated TnI levels indicate myocardial damage, but are not specific for ischemic heart disease. Elevated TnI levels are seen in patients with other cardiac conditions (including myocarditis and congestive h eart failure), and slight TnI elevations occur in patients with other conditions , including sepsis, renal failure, acidosis, acute neurological disease, and per sistent tachyarrhythmia.[id number] 13:02:00* Test Item Value Reference Range Comments CALCIUM (BEAKER) (test ldnd=217) 13.4 mg/dL 8.4-10.2 [id number] 12:56:00* Test Item Value Reference Range Comments PARTIAL THROMBOPLASTIN TIME (BEAKER) (test wizx=046) 64.6 seconds 22.5-36.0 CALCIUM, [id number] 12:49:00* Test Item Value Reference Range Comments CALCIUM IONIZED (BEAKER) (test qayc=610) 1.52 mmol/L 1.12-1.27 PH, BLOOD (BEAKER) (test zhwp=4041) 7.49 HEMOGLOBIN AND [id number] 12:44:00* Test Item Value Reference Range Comments HEMOGLOBIN (BEAKER) (test rvyh=177) 7.4 GM/DL 13.7-17.5 HEMATOCRIT (BEAKER) (test fqrd=178) 21.4 % 40.1-51.0 POCT-GLUCOSE [id number] 12:26:00* Test Item Value Reference Range Comments POC-GLUCOSE METER (BEAKER) (test xzlr=7693) 270 mg/dL 70-110 TESTED AT [facility] [address] [facility] [address] CALCIUM, [id number] 05:45:00* Test Item Value Reference Range Comments CALCIUM IONIZED (BEAKER) (test qxfx=900) 1.56 mmol/L 1.12-1.27 PH, BLOOD (BEAKER) (test bqyz=9728) 7.45 BASIC METABOLIC [id number] 05:14:00* Test Item Value Reference Range Comments SODIUM (BEAKER) (test lnll=076) 133 meq/L 136-145 POTASSIUM (BEAKER) (test gqjp=385) 3.2 meq/L 3.5-5.1 CHLORIDE (BEAKER) (test yjvl=695) 90 meq/L 98-107 CO2 (BEAKER) (test cidx=175) 31 meq/L 22-29 BLOOD UREA NITROGEN (BEAKER) (test ewfi=413) 40 mg/dL 7-21 CREATININE (BEAKER) (test xjkz=245) 4.01 mg/dL 0.57-1.25 GLUCOSE RANDOM (BEAKER) (test xptc=315) 186 mg/dL 70-105 CALCIUM (BEAKER) (test uagb=388) 13.4 mg/dL 8.4-10.2 EGFR (BEAKER) (test rxdh=8653) 15 mL/min/1.73 sq m ESTIMATED GFR IS NOT ACCURATE CREATININE CLEARANCE IN PREDICTING GLOMERULAR FILTRATION RATE. ESTIMATED GFR IS NOT APPLICABLE FOR DIALYSIS PATIENTS. TROPONIN [id number] 05:14:00* Test Item Value Reference Range Comments TROPONIN I (BEAKER) (test wcfl=601) 0.57 ng/mL 0.00-0.03 Troponin I (TnI) levels must be interpreted in the context of the presenting sym ptoms and the clinical findings. Elevated TnI levels indicate myocardial damage, but are not specific for ischemic heart disease. Elevated TnI levels are seen in patients with other cardiac conditions (including myocarditis and congestive h eart failure), and slight TnI elevations occur in patients with other conditions , including sepsis, renal failure, acidosis, acute neurological disease, and per sistent tachyarrhythmia.CBC W/PLT COUNT & AUTO [id number] 04:50:00* Test Item Value Reference Range Comments WHITE BLOOD CELL COUNT (BEAKER) (test vtrc=588) 6.8 K/ L 3.5-10.5 RED BLOOD CELL COUNT (BEAKER) (test lpdr=229) 2.07 M/ L 4.63-6.08 HEMOGLOBIN (BEAKER) (test thgk=821) 6.2 GM/DL 13.7-17.5 HEMATOCRIT (BEAKER) (test nktq=293) 18.6 % 40.1-51.0 MEAN CORPUSCULAR VOLUME (BEAKER) (test ecsg=969) 89.9 fL 79.0-92.2 MEAN CORPUSCULAR HEMOGLOBIN (BEAKER) (test wilt=159) 30.0 pg 25.7-32.2 MEAN CORPUSCULAR HEMOGLOBIN CONC (BEAKER) (test crpk=965) 33.3 GM/DL 32.3-36.5 RED CELL DISTRIBUTION WIDTH (BEAKER) (test hiws=631) 14.1 % 11.6-14.4 PLATELET COUNT (BEAKER) (test zsjv=973) 219 K/CU MM 150-450 MEAN PLATELET VOLUME (BEAKER) (test mymy=153) 9.5 fL 9.4-12.4 NUCLEATED RED BLOOD CELLS (BEAKER) (test gzsu=776) 0 /100 WBC 0-0 NEUTROPHILS RELATIVE PERCENT (BEAKER) (test xghq=720) 60 % LYMPHOCYTES RELATIVE PERCENT (BEAKER) (test qjky=024) 24 % MONOCYTES RELATIVE PERCENT (BEAKER) (test kkee=424) 11 % EOSINOPHILS RELATIVE PERCENT (BEAKER) (test hzni=892) 5 % BASOPHILS RELATIVE PERCENT (BEAKER) (test rqob=146) 0 % NEUTROPHILS ABSOLUTE COUNT (BEAKER) (test dgmo=840) 4.05 K/ L 1.78-5.38 LYMPHOCYTES ABSOLUTE COUNT (BEAKER) (test lxjd=586) 1.59 K/ L 1.32-3.57 MONOCYTES ABSOLUTE COUNT (BEAKER) (test dqux=855) 0.73 K/ L 0.30-0.82 EOSINOPHILS ABSOLUTE COUNT (BEAKER) (test nztf=788) 0.32 K/ L 0.04-0.54 BASOPHILS ABSOLUTE COUNT (BEAKER) (test ujgc=580) 0.03 K/ L 0.01-0.08 IMMATURE GRANULOCYTES-RELATIVE PERCENT (BEAKER) (test edkw=2254) 1 % 0-1 LACTATE DEHYDROGENASE (LDH)2017-10-08 04:49:00* Test Item Value Reference Range Comments LACTATE DEHYDROGENASE (BEAKER) (test ddsw=827) 192 U/L 125-220 [id number] 04:39:00* Test Item Value Reference Range Comments PARTIAL THROMBOPLASTIN TIME (BEAKER) (test aijk=309) 95.2 seconds 22.5-36.0 [id number] 01:05:00* Test Item Value Reference Range Comments CALCIUM (BEAKER) (test axrx=269) 13.1 mg/dL 8.4-10.2 CALCIUM, [id number] 00:47:00* Test Item Value Reference Range Comments CALCIUM IONIZED (BEAKER) (test okpo=172) 1.54 mmol/L 1.12-1.27 PH, BLOOD (BEAKER) (test maoj=3130) 7.49 TROPONIN [id number] 23:19:00* Test Item Value Reference Range Comments TROPONIN I (BEAKER) (test hbbm=022) 0.58 ng/mL 0.00-0.03 Troponin I (TnI) levels must be interpreted in the context of the presenting sym ptoms and the clinical findings. Elevated TnI levels indicate myocardial damage, but are not specific for ischemic heart disease. Elevated TnI levels are seen in patients with other cardiac conditions (including myocarditis and congestive h eart failure), and slight TnI elevations occur in patients with other conditions , including sepsis, renal failure, acidosis, acute neurological disease, and per sistent tachyarrhythmia.[id number] 23:00:00* Test Item Value Reference Range Comments PARTIAL THROMBOPLASTIN TIME (BEAKER) (test lfck=063) 92.1 seconds 22.5-36.0 [id number] 19:38:00* Test Item Value Reference Range Comments CALCIUM (BEAKER) (test mwag=456) 13.7 mg/dL 8.4-10.2 POCT-GLUCOSE [id number] 19:35:00* Test Item Value Reference Range Comments POC-GLUCOSE METER (BEAKER) (test qmsi=7722) 255 mg/dL 70-110 TESTED AT [facility] [address] [facility] [address] CALCIUM, [id number] 19:05:00* Test Item Value Reference Range Comments CALCIUM IONIZED (BEAKER) (test zods=756) 1.47 mmol/L 1.12-1.27 PH, BLOOD (BEAKER) (test cywl=9926) 7.50 CT, CHEST, WITHOUT [id number] 18:54:00FINAL REPORT CLINICAL HISTORY: Unintended weight loss, nonlocalized [...] vessels arising from the arch. Previous CABG. M ediastinum: No significant findings. Lymph Nodes: No adenopathy in the mediastin um or alilson. Skeleton: Innumerable punctate lucent lesions throughout the skeleto n. Abdomen and pelvis: Liver: No significant findings. Gallbladder and biliary tree: No significant findings. Spleen: No significant findings. Adrenal Glands: No significant findings. Kidneys and ureters: Atrophic left kidney Stomach and D uodenum: No significant findings. Pancreas: No significant findings. Bowel: No s ignificant findings. Appendix: Not seen. No local inflammatory changes. Bladder: No significant findings. Major vascular structures: Atherosclerotic calcificati ons Reproductive organs: No significant findings. Other: No free air, fluid or a denopathy Skeleton: Diffuse punctate lucent lesions throughout the skeleton. IM PRESSION: There are innumerable punctate lucent lesions throughout the visualize d skeleton. The appearance is nonspecific but concerning for primary myelogenous or metastatic malignancy. Evaluation with skeletal survey MRI or bone scan is r ecommended. No suspicious lesion is seen elsewhere in the chest, abdomen or pelv is. Cardiomegaly and trace bilateral pleural effusions. Signed: Luis Miguel Gamez MD Report Verified Date/Time: 10/07/2017 18:54:11 Reading Location: [address] Reading Room Electronically signed by: LUIS MIGUEL GAMEZ M.D. on 06:[address], [id number] 18:54:00Patient has malignant hypercalcemiaFINAL REPORT CLINICAL HISTORY: Unintended weight loss, nonlocalized [...] skeletal survey MRI or bone scan is r ecommended. No suspicious lesion is seen elsewhere in the chest, abdomen or pelv is. Cardiomegaly and trace bilateral pleural effusions. Signed: Luis Miguel Gamez MD Report Verified Date/Time: 10/07/2017 18:54:11 Reading Location: [address] Reading Room Electronically signed by: LUIS MIGUEL GAMEZ M.D. on 06:54 PM VITAMIN B12 AND [id number] 17:22:00* Test Item Value Reference Range Comments VITAMIN B12 (BEAKER) (test atnf=686) > pg/mL 213-816 FOLATE (BEAKER) (test mydu=865) 13.2 ng/mL >=7.0 [id number] 17:15:00* Test Item Value Reference Range Comments FERRITIN (BEAKER) (test vtkr=412) 730 ng/mL 5-275 TROPONIN [id number] 16:50:00* Test Item Value Reference Range Comments TROPONIN I (BEAKER) (test uufi=797) 0.84 ng/mL 0.00-0.03 Troponin I (TnI) levels must be interpreted in the context of the presenting sym ptoms and the clinical findings. Elevated TnI levels indicate myocardial damage, but are not specific for ischemic heart disease. Elevated TnI levels are seen in patients with other cardiac conditions (including myocarditis and congestive h eart failure), and slight TnI elevations occur in patients with other conditions , including sepsis, renal failure, acidosis, acute neurological disease, and per sistent tachyarrhythmia.IRON, TIBC, % SAT. (WITHOUT FERRITIN)2017-10-07 16:39:00 * Test Item Value Reference Range Comments IRON (BEAKER) (test rqil=238) 47 ug/dL 40-160 TOTAL IRON BINDING CAPACITY (BEAKER) (test eakj=232) 206 ug/dL 250-450 IRON % SATURATION (2) (BEAKER) (test fzad=1693) 23 % 20-55 TROPONIN [id number] 16:29:00* Test Item Value Reference Range Comments TROPONIN I (BEAKER) (test mkph=793) 0.92 ng/mL 0.00-0.03 Troponin I (TnI) levels must be interpreted in the context of the presenting sym ptoms and the clinical findings. Elevated TnI levels indicate myocardial damage, but are not specific for ischemic heart disease. Elevated TnI levels are seen in patients with other cardiac conditions (including myocarditis and congestive h eart failure), and slight TnI elevations occur in patients with other conditions , including sepsis, renal failure, acidosis, acute neurological disease, and per sistent tachyarrhythmia.[id number] 14:14:00* Test Item Value Reference Range Comments CALCIUM (BEAKER) (test long=134) 13.7 mg/dL 8.4-10.2 [id number] 13:52:00* Test Item Value Reference Range Comments PARTIAL THROMBOPLASTIN TIME (BEAKER) (test nofc=383) 104.5 seconds 22.5-36.0 CALCIUM, [id number] 13:48:00* Test Item Value Reference Range Comments CALCIUM IONIZED (BEAKER) (test hagq=798) 1.40 mmol/L 1.12-1.27 PH, BLOOD (BEAKER) (test xyxc=8932) 7.46 TROPONIN [id number] 07:52:00* Test Item Value Reference Range Comments TROPONIN I (BEAKER) (test jjqn=203) 1.09 ng/mL 0.00-0.03 Troponin I (TnI) levels must be interpreted in the context of the presenting sym ptoms and the clinical findings. Elevated TnI levels indicate myocardial damage, but are not specific for ischemic heart disease. Elevated TnI levels are seen in patients with other cardiac conditions (including myocarditis and congestive h eart failure), and slight TnI elevations occur in patients with other conditions , including sepsis, renal failure, acidosis, acute neurological disease, and per sistent tachyarrhythmia.LIPID [id number] 07:36:00* Test Item Value Reference Range Comments TRIGLYCERIDES (BEAKER) (test bvwo=626) 177 mg/dL CHOLESTEROL (BEAKER) (test ojjq=350) 136 mg/dL HDL CHOLESTEROL (BEAKER) (test cqkf=175) 34 mg/dL LDL CHOLESTEROL CALCULATED (AKER) (test jkqp=604) 67 mg/dL Triglyceride Reference Range: Low Risk <150 Borderline 150-199 High Risk 200-499 Very High Risk >=500Cholesterol Reference Range: Low Risk <200 Borderline 200-239 High Risk >240HDL Cholesterol Reference Range: Low Risk >=60 High Risk <40LDL Cholesterol Reference Range: Optimal <100 Near Optimal 100-129 Borderline 130-159 High 160-189 Very High >=190 C- REACTIVE [id number] 07:36:00* Test Item Value Reference Range Comments C-REACTIVE PROTEIN (BEAKER) (test dfjh=074) 8.97 mg/dL 0.00-0.50 B-TYPE NATRIURETIC FACTOR (BNP)2017-10-07 07:18:00* Test Item Value Reference Range Comments B-TYPE NATRIURETIC PEPTIDE (BEAKER) (test ztlj=503) 2783 pg/mL 0-100 CALCIUM, [id number] 06:54:00* Test Item Value Reference Range Comments CALCIUM IONIZED (BEAKER) (test oiop=342) 1.58 mmol/L 1.12-1.27 PH, BLOOD (BEAKER) (test tjgz=0629) 7.43 PROTHROMBIN TIME/[id number] 06:50:00* Test Item Value Reference Range Comments PROTIME (BEAKER) (test exce=261) 14.7 seconds 11.7-14.7 INR (BEAKER) (test xhsn=534) 1.1 <=5.9 RECOMMENDED COUMADIN/WARFARIN INR THERAPY RANGESSTANDARD DOSE: 2.0 - 3.0 Inclu wilfredo: PROPHYLAXIS for venous thrombosis, systemic embolization; TREATMENT for [place] ous thrombosis and/or pulmonary embolus.HIGH RISK: Target INR is 2.5-3.5 for pat ients with mechanical heart valves.[id number] 06:50:00* Test Item Value Reference Range Comments PARTIAL THROMBOPLASTIN TIME (BEAKER) (test ucjd=113) 34.7 seconds 22.5-36.0 BASIC METABOLIC [id number] 05:06:00* Test Item Value Reference Range Comments SODIUM (BEAKER) (test dzzk=732) 138 meq/L 136-145 POTASSIUM (BEAKER) (test apxa=249) 3.5 meq/L 3.5-5.1 CHLORIDE (BEAKER) (test wjgo=761) 100 meq/L 98-107 CO2 (BEAKER) (test ovvb=585) 25 meq/L 22-29 BLOOD UREA NITROGEN (BEAKER) (test uzzh=004) 35 mg/dL 7-21 CREATININE (BEAKER) (test fxka=310) 3.91 mg/dL 0.57-1.25 GLUCOSE RANDOM (BEAKER) (test uxtg=610) 162 mg/dL 70-105 CALCIUM (BEAKER) (test nrcw=718) 13.2 mg/dL 8.4-10.2 EGFR (BEAKER) (test oixb=7975) 15 mL/min/1.73 sq m ESTIMATED GFR IS NOT ACCURATE CREATININE CLEARANCE IN PREDICTING GLOMERULAR FILTRATION RATE. ESTIMATED GFR IS NOT APPLICABLE FOR DIALYSIS PATIENTS. TROPONIN [id number] 05:05:00* Test Item Value Reference Range Comments TROPONIN I (BEAKER) (test vtkm=879) 0.99 ng/mL 0.00-0.03 Troponin I (TnI) levels must be interpreted in the context of the presenting sym ptoms and the clinical findings. Elevated TnI levels indicate myocardial damage, but are not specific for ischemic heart disease. Elevated TnI levels are seen in patients with other cardiac conditions (including myocarditis and congestive h eart failure), and slight TnI elevations occur in patients with other conditions , including sepsis, renal failure, acidosis, acute neurological disease, and per sistent tachyarrhythmia.CREATINE KINASE (CK), TOTAL AND [id number] 05:01:00* Test Item Value Reference Range Comments CREATINE KINASE TOTAL (BEAKER) (test ykqg=781) 49 U/L 29-200 CREATINE KINASE-MB (BEAKER) (test oxum=615) 3.3 ng/mL 0.0-6.6 CREATINE KINASE-MB INDEX (BEAKER) (test zhio=231) 6.7 % CK-MB Reference Range:<6.7 Normal6.7-10.0 Borderline>10.0 AbnormalCBC W/PLT COUNT & AUTO [id number] 04:39:00* Test Item Value Reference Range Comments WHITE BLOOD CELL COUNT (BEAKER) (test jfkt=838) 4.9 K/ L 3.5-10.5 RED BLOOD CELL COUNT (BEAKER) (test uxfs=702) 2.38 M/ L 4.63-6.08 HEMOGLOBIN (BEAKER) (test sofb=518) 7.2 GM/DL 13.7-17.5 HEMATOCRIT (BEAKER) (test dfqi=295) 22.4 % 40.1-51.0 MEAN CORPUSCULAR VOLUME (BEAKER) (test dvzl=099) 94.1 fL 79.0-92.2 MEAN CORPUSCULAR HEMOGLOBIN (BEAKER) (test zgvz=033) 30.3 pg 25.7-32.2 MEAN CORPUSCULAR HEMOGLOBIN CONC (BEAKER) (test ligi=560) 32.1 GM/DL 32.3-36.5 RED CELL DISTRIBUTION WIDTH (BEAKER) (test smxu=804) 14.5 % 11.6-14.4 PLATELET COUNT (BEAKER) (test vzci=193) 183 K/CU MM 150-450 MEAN PLATELET VOLUME (BEAKER) (test etby=410) 9.8 fL 9.4-12.4 NUCLEATED RED BLOOD CELLS (BEAKER) (test qcyx=871) 0 /100 WBC 0-0 NEUTROPHILS RELATIVE PERCENT (BEAKER) (test baek=790) 68 % LYMPHOCYTES RELATIVE PERCENT (BEAKER) (test eogy=478) 19 % MONOCYTES RELATIVE PERCENT (BEAKER) (test ifsp=423) 8 % EOSINOPHILS RELATIVE PERCENT (BEAKER) (test xxln=648) 4 % BASOPHILS RELATIVE PERCENT (BEAKER) (test xfhg=470) 1 % NEUTROPHILS ABSOLUTE COUNT (BEAKER) (test idvg=814) 3.33 K/ L 1.78-5.38 LYMPHOCYTES ABSOLUTE COUNT (BEAKER) (test gdtb=943) 0.93 K/ L 1.32-3.57 MONOCYTES ABSOLUTE COUNT (BEAKER) (test yuuo=321) 0.38 K/ L 0.30-0.82 EOSINOPHILS ABSOLUTE COUNT (BEAKER) (test gius=526) 0.21 K/ L 0.04-0.54 BASOPHILS ABSOLUTE COUNT (BEAKER) (test enia=900) 0.04 K/ L 0.01-0.08 IMMATURE GRANULOCYTES-RELATIVE PERCENT (BEAKER) (test uwra=7132) 1 % 0-1 RAD, SKULL, LESS THAN 4 [id number] 23:52:00Reason for exam:-> hypoercalcemiahypercalcemiaFINAL REPORT CLINICAL HISTORY: hypoercalcemiahypercalcemia TECHNIQUE: 2 views of the skull COMPARISON: None IMPRESSION: The calvarium is intact without evidence of fracture. No aggressive osseous lesions in the thyroid on this two view plain radiograph of the skull. Again noted is osteopenia particularly of the scapula. Partially evaluated median sternotomy. Visualized lungs are clear. Ribs are intact. Signed: Edward Pinon Verified Date/Time: 10/06/2017 23:52:35 Reading Location: [address] Reading Room , CHEST, 1 VIEW, NON DEPT 2017-10-06 23:16:00Reason for exam:->hypoxia, SOBShould this be performed at the bedside?->YesFINAL REPORT RAD, CHEST, 1 VIEW, NON DEPT INDICATION: hypoxia, SOB COMPARISON: Prior day's exam FINDINGS: Portable frontal view of the chest. IMPRESSION: Support Lines: Stable. Lungs and pleura: Low lung volumes with increased pulmonary vascular congestion. Mild bilateral lower lobe atelectasis, superimposed infection cannot be excluded. No pneumothorax. No pleural effusion.Heart and mediastinum: Stable contours. Stable surgical changes.Additional findings: None. Signed: Edward Pinon Verified Date/Time: 10/06/2017 23:16:53 Reading Location: [address] Transitional Reading Room ONIN [id number] 21:39:00* Test Item Value Reference Range Comments TROPONIN I (BEAKER) (test hkyi=500) 0.23 ng/mL 0.00-0.03 Troponin I (TnI) levels must be interpreted in the context of the presenting sym ptoms and the clinical findings. Elevated TnI levels indicate myocardial damage, but are not specific for ischemic heart disease. Elevated TnI levels are seen in patients with other cardiac conditions (including myocarditis and congestive h eart failure), and slight TnI elevations occur in patients with other conditions , including sepsis, renal failure, acidosis, acute neurological disease, and per sistent tachyarrhythmia.CREATINE KINASE (CK), TOTAL AND [id number] 21:33:00* Test Item Value Reference Range Comments CREATINE KINASE TOTAL (BEAKER) (test zirf=231) 55 U/L 29-200 CREATINE KINASE-MB (BEAKER) (test ldbr=402) 2.9 ng/mL 0.0-6.6 CREATINE KINASE-MB INDEX (BEAKER) (test jxyi=754) 5.3 % CK-MB Reference Range:<6.7 Normal6.7-10.0 Borderline>10.0 Abnormal BASIC METABOLIC [id number] 21:31:00* Test Item Value Reference Range Comments SODIUM (BEAKER) (test cjzy=592) 138 meq/L 136-145 POTASSIUM (BEAKER) (test zins=792) 3.8 meq/L 3.5-5.1 CHLORIDE (BEAKER) (test pntu=360) 101 meq/L 98-107 CO2 (BEAKER) (test befy=775) 24 meq/L 22-29 BLOOD UREA NITROGEN (BEAKER) (test meif=594) 34 mg/dL 7-21 CREATININE (BEAKER) (test wetw=062) 3.80 mg/dL 0.57-1.25 GLUCOSE RANDOM (BEAKER) (test idmr=290) 214 mg/dL 70-105 CALCIUM (BEAKER) (test bxmm=776) 13.1 mg/dL 8.4-10.2 EGFR (BEAKER) (test uxnc=1880) 16 mL/min/1.73 sq m ESTIMATED GFR IS NOT ACCURATE CREATININE CLEARANCE IN PREDICTING GLOMERULAR FILTRATION RATE. ESTIMATED GFR IS NOT APPLICABLE FOR DIALYSIS PATIENTS. CALCIUM, [id number] 21:08:00* Test Item Value Reference Range Comments CALCIUM IONIZED (BEAKER) (test qebn=365) 1.46 mmol/L 1.12-1.27 PH, BLOOD (BEAKER) (test jolp=1563) 7.44 BLOOD GAS, [id number] 21:08:00* Test Item Value Reference Range Comments PH ARTERIAL (BEAKER) (test nzxk=456) 7.44 7.35-7.45 PCO2 ARTERIAL (BEAKER) (test suaw=923) 41 mmHg 35-45 PO2 ARTERIAL (BEAKER) (test pcog=447) 272 mmHg 80-90 O2 SATURATION ARTERIAL (BEAKER) (test wddw=530) 99.7 % 96.0-97.0 HCO3 ARTERIAL (BEAKER) (test uwpz=913) 27 mmol/L 21-29 BASE EXCESS ARTERIAL (BEAKER) (test xbhr=258) 2.6 mmol/L -2.0-3.0 PATIENT TEMPERATURE (BEAKER) (test xjsq=5424) 36.9 C FIO2 (BEAKER) (test ilvt=4154) 100.0 % [id number] 19:03:00* Test Item Value Reference Range Comments CALCIUM (BEAKER) (test sdyr=597) 13.1 mg/dL 8.4-10.2 CALCIUM, [id number] 18:39:00* Test Item Value Reference Range Comments CALCIUM IONIZED (BEAKER) (test hdxp=807) 1.56 mmol/L 1.12-1.27 PH, BLOOD (BEAKER) (test ufpr=8134) 7.45 PROTEIN ELECTROPHORESIS, [id number] 15:36:00* Test Item Value Reference Range Comments ALBUMIN FRACTION (BEAKER) (test gkyg=901) 3.2 g/dL 3.5-5.5 ALPHA 1 FRACTION (BEAKER) (test stpl=152) 0.5 g/dL 0.2-0.4 ALPHA 2 FRACTION (BEAKER) (test sxwx=129) 1.1 g/dL 0.5-0.9 BETA FRACTION (BEAKER) (test tqdd=033) 0.9 g/dL 0.6-1.1 GAMMA GLOBULIN FRACTION (BEAKER) (test yujo=237) 0.8 g/dL 0.7-1.7 INTERPRETATION-119 (BEAKER) (test yxuu=6620) Pattern suggestive of acute inflammatory process. No monoclonal bands detected. [id number]-[id number]-212 (BEAKER) (test gblp=5814) Tabitha Reich MD (electronic signature) PROTEIN TOTAL SERUM, SPEP (BEAKER) (test gfuo=2973) 6.5 gm/dL 6.0-8.3 [id number] 13:03:00* Test Item Value Reference Range Comments CALCIUM (BEAKER) (test eqyg=414) 13.3 mg/dL 8.4-10.2 CALCIUM, RANDOM [id number] 12:54:00* Test Item Value Reference Range Comments CALCIUM URINE (BEAKER) (test lyws=315) 18.8 mg/dL Reference Range: No NormalsCREATININE, RANDOM [id number] 12:54:00* Test Item Value Reference Range Comments CREATININE URINE (BEAKER) (test jsvd=172) 29.5 mg/dL Reference Range: No NormalsCALCIUM, [id number] 12:06:00* Test Item Value Reference Range Comments CALCIUM IONIZED (BEAKER) (test yulq=183) 1.55 mmol/L 1.12-1.27 PH, BLOOD (BEAKER) (test onqu=1054) 7.43 ALKALINE [id number] 09:15:00* Test Item Value Reference Range Comments ALKALINE PHOSPHATASE (BEAKER) (test czvv=665) 115 U/L 40-150 [id number] 06:43:00* Test Item Value Reference Range Comments CALCIUM (BEAKER) (test uefj=204) 14.1 mg/dL 8.4-10.2 BASIC METABOLIC [id number] 06:43:00* Test Item Value Reference Range Comments SODIUM (BEAKER) (test ejxr=817) 136 meq/L 136-145 POTASSIUM (BEAKER) (test regu=148) 3.1 meq/L 3.5-5.1 CHLORIDE (BEAKER) (test qena=307) 99 meq/L 98-107 CO2 (BEAKER) (test qcpc=297) 26 meq/L 22-29 BLOOD UREA NITROGEN (BEAKER) (test trsm=264) 38 mg/dL 7-21 CREATININE (BEAKER) (test lbzm=271) 3.91 mg/dL 0.57-1.25 GLUCOSE RANDOM (BEAKER) (test hpya=586) 153 mg/dL 70-105 CALCIUM (BEAKER) (test xqln=610) 14.1 mg/dL 8.4-10.2 EGFR (BEAKER) (test jdzi=8981) 15 mL/min/1.73 sq m ESTIMATED GFR IS NOT ACCURATE CREATININE CLEARANCE IN PREDICTING GLOMERULAR FILTRATION RATE. ESTIMATED GFR IS NOT APPLICABLE FOR DIALYSIS PATIENTS. [id number] 06:31:00* Test Item Value Reference Range Comments PHOSPHORUS (BEAKER) (test gkah=834) 3.9 mg/dL 2.3-4.7 [id number] 06:31:00* Test Item Value Reference Range Comments MAGNESIUM (BEAKER) (test ronc=212) 1.5 mg/dL 1.6-2.6 CALCIUM, [id number] 06:23:00* Test Item Value Reference Range Comments CALCIUM IONIZED (BEAKER) (test culq=852) 1.66 mmol/L 1.12-1.27 PH, BLOOD (BEAKER) (test fbqy=8596) 7.40 CBC W/PLT COUNT & AUTO [id number] 06:00:00* Test Item Value Reference Range Comments WHITE BLOOD CELL COUNT (BEAKER) (test ghvk=795) 4.5 K/ L 3.5-10.5 RED BLOOD CELL COUNT (BEAKER) (test dkii=377) 2.34 M/ L 4.63-6.08 HEMOGLOBIN (BEAKER) (test gghp=536) 7.1 GM/DL 13.7-17.5 HEMATOCRIT (BEAKER) (test qjwf=618) 21.9 % 40.1-51.0 MEAN CORPUSCULAR VOLUME (BEAKER) (test mfnh=784) 93.6 fL 79.0-92.2 MEAN CORPUSCULAR HEMOGLOBIN (BEAKER) (test wzaq=214) 30.3 pg 25.7-32.2 MEAN CORPUSCULAR HEMOGLOBIN CONC (BEAKER) (test mkhs=654) 32.4 GM/DL 32.3-36.5 RED CELL DISTRIBUTION WIDTH (BEAKER) (test iwan=638) 14.3 % 11.6-14.4 PLATELET COUNT (BEAKER) (test allk=727) 157 K/CU MM 150-450 MEAN PLATELET VOLUME (BEAKER) (test ewxm=861) 10.0 fL 9.4-12.4 NUCLEATED RED BLOOD CELLS (BEAKER) (test oard=824) 0 /100 WBC 0-0 NEUTROPHILS RELATIVE PERCENT (BEAKER) (test npeh=707) 59 % LYMPHOCYTES RELATIVE PERCENT (BEAKER) (test bcdu=202) 22 % MONOCYTES RELATIVE PERCENT (BEAKER) (test ohki=801) 10 % EOSINOPHILS RELATIVE PERCENT (BEAKER) (test pfti=271) 9 % BASOPHILS RELATIVE PERCENT (BEAKER) (test tdrl=694) 0 % NEUTROPHILS ABSOLUTE COUNT (BEAKER) (test arad=753) 2.64 K/ L 1.78-5.38 LYMPHOCYTES ABSOLUTE COUNT (BEAKER) (test siio=485) 0.97 K/ L 1.32-3.57 MONOCYTES ABSOLUTE COUNT (BEAKER) (test qsxa=862) 0.46 K/ L 0.30-0.82 EOSINOPHILS ABSOLUTE COUNT (BEAKER) (test pnry=998) 0.38 K/ L 0.04-0.54 BASOPHILS ABSOLUTE COUNT (BEAKER) (test tjse=605) 0.01 K/ L 0.01-0.08 IMMATURE GRANULOCYTES-RELATIVE PERCENT (BEAKER) (test yptv=7013) 1 % 0-1 [id number] 01:04:00* Test Item Value Reference Range Comments CALCIUM (BEAKER) (test mwam=496) 13.8 mg/dL 8.4-10.2 CALCIUM, [id number] 00:34:00* Test Item Value Reference Range Comments CALCIUM IONIZED (BEAKER) (test vyhr=068) 1.66 mmol/L 1.12-1.27 PH, BLOOD (BEAKER) (test axkt=9693) 7.43 POCT-GLUCOSE [id number] 21:01:00* Test Item Value Reference Range Comments POC-GLUCOSE METER (BEAKER) (test dhmp=2844) 142 mg/dL 70-110 TESTED AT [facility] [address] [facility] [address] U/S, RENAL, [id number] 19:08:00Reason for exam:->ABNORMAL LABReason for exam:->acute renal failureFINAL REPORT Ultrasound of the Kidneys Clinical History: [...] renal ultrasound. No hydronephrosis. Signed: Jorje Swain MDReport Verified Date/Time: 10/05/2017 19:08:08 Reading Location: [facility] Consult Reading Room IUM, [id number] 18:14:00* Test Item Value Reference Range Comments CALCIUM IONIZED (BEAKER) (test bnqr=596) 1.53 mmol/L 1.12-1.27 PH, BLOOD (BEAKER) (test jcig=4720) 7.56 URINALYSIS W/ [id number] 17:23:00* Test Item Value Reference Range Comments COLOR (BEAKER) (test nvmx=490) Light Yellow CLARITY (BEAKER) (test henk=010) Clear SPECIFIC GRAVITY UA (BEAKER) (test xdbp=590) 1.004 1.001-1.035 PH UA (BEAKER) (test zsed=228) 7.5 5.0-8.0 PROTEIN UA (BEAKER) (test mutq=097) 30 mg/dL Negative GLUCOSE UA (BEAKER) (test eldg=759) 100 mg/dL Negative KETONES UA (BEAKER) (test jqiq=088) Negative Negative BILIRUBIN UA (BEAKER) (test qvsv=283) Negative Negative BLOOD UA (BEAKER) (test ormv=217) Small Negative NITRITE UA (BEAKER) (test kswn=944) Negative Negative LEUKOCYTE ESTERASE UA (BEAKER) (test bjmc=524) Negative Negative UROBILINOGEN UA (BEAKER) (test brmd=994) 0.2 mg/dL 0.2-1.0 RBC UA (BEAKER) (test eafm=499) < /HPF WBC UA (BEAKER) (test wxsh=000) < /HPF BACTERIA (BEAKER) (test txby=586) Rare SQUAMOUS EPITHELIAL (BEAKER) (test puth=473) < /HPF SOURCE(BEAKER) (test gexa=1768) Urine, Voided RAD, CHEST, 2 [id number] 16:22:00Reason for exam:->ABNORMAL LABFINAL REPORT TECHNIQUE: Frontal and lateral chest radiographs dated 10/05/2017. CLINICAL HISTORY: Abnormal COMPARISON STUDY: None FINDINGS: Lungs are clear. No pleural effusion or pneumothorax. Cardiomediastinal silhouette is normal in size. No pulmonary edema. No fracture. Degenerative changes are seen in the spine. Bones are osteopenic. Midline sternotomy wires are intact and well aligned. IMPRESSION: Clear lungs. Signed: Bere Valencia Verified Date/Time: 10/05/2017 16:22:10 Reading Location: [facility] Radiology Reading Room D GAS, [id number] 16:08:00* Test Item Value Reference Range Comments PH VENOUS (BEAKER) (test hylg=034) 7.41 7.32-7.42 PCO2 VENOUS (BEAKER) (test reec=022) 61 mmHg 41-51 PO2 VENOUS (BEAKER) (test yypm=984) 32 mmHg 25-40 O2 SATURATION VENOUS (BEAKER) (test parp=515) 59.5 % 40.0-70.0 HCO3 VENOUS (BEAKER) (test pdsn=281) 38 mmol/L 21-29 BASE EXCESS VENOUS (BEAKER) (test eyny=053) 11.8 mmol/L -2.0-3.0 PATIENT TEMPERATURE (BEAKER) (test xpxd=0976) 37.0 C FIO2 (BEAKER) (test nwvz=4384) 21.0 % TSH/FREE T4 IF [id number] 15:55:00* Test Item Value Reference Range Comments THYROID STIMULATING HORMONE (BEAKER) (test mwmk=406) 2.71 uIU/mL 0.35-4.94 [id number] 15:37:00* Test Item Value Reference Range Comments PHOSPHORUS (BEAKER) (test cbim=116) 4.3 mg/dL 2.3-4.7 [id number] 15:37:00* Test Item Value Reference Range Comments MAGNESIUM (BEAKER) (test spna=044) 1.8 mg/dL 1.6-2.6 HEPATIC FUNCTION [id number] 15:37:00* Test Item Value Reference Range Comments TOTAL PROTEIN (BEAKER) (test wrsa=424) 7.8 gm/dL 6.0-8.3 ALBUMIN (BEAKER) (test kxrd=0528) 4.4 g/dL 3.5-5.0 BILIRUBIN TOTAL (BEAKER) (test izvv=293) 0.8 mg/dL 0.2-1.2 BILIRUBIN DIRECT (BEAKER) (test zhsr=447) 0.4 mg/dL 0.1-0.5 ALKALINE PHOSPHATASE (BEAKER) (test esez=122) 136 U/L 40-150 AST (SGOT) (BEAKER) (test gosi=070) 20 U/L 5-34 ALT (SGPT) (BEAKER) (test jeuj=732) 14 U/L 6-55 [id number] 15:30:00* Test Item Value Reference Range Comments PARTIAL THROMBOPLASTIN TIME (BEAKER) (test mebu=754) 26.3 seconds 22.5-36.0 CALCIUM, [id number] 15:23:00* Test Item Value Reference Range Comments CALCIUM IONIZED (BEAKER) (test bbgf=064) 1.90 mmol/L 1.12-1.27 PH, BLOOD (BEAKER) (test genh=9026) 7.41 BASIC METABOLIC [id number] 12:45:00* Test Item Value Reference Range Comments SODIUM (BEAKER) (test cleg=201) 135 meq/L 136-145 POTASSIUM (BEAKER) (test caot=068) 3.6 meq/L 3.5-5.1 CHLORIDE (BEAKER) (test omds=142) 91 meq/L 98-107 CO2 (BEAKER) (test bhye=010) 32 meq/L 22-29 BLOOD UREA NITROGEN (BEAKER) (test vuau=612) 48 mg/dL 7-21 CREATININE (BEAKER) (test udus=154) 4.39 mg/dL 0.57-1.25 GLUCOSE RANDOM (BEAKER) (test yaos=128) 147 mg/dL 70-105 CALCIUM (BEAKER) (test kuno=195) 16.1 mg/dL 8.4-10.2 EGFR (BEAKER) (test kzon=8605) 13 mL/min/1.73 sq m ESTIMATED GFR IS NOT ACCURATE CREATININE CLEARANCE IN PREDICTING GLOMERULAR FILTRATION RATE. ESTIMATED GFR IS NOT APPLICABLE FOR DIALYSIS PATIENTS. CBC W/PLT COUNT & AUTO [id number] 12:31:00* Test Item Value Reference Range Comments WHITE BLOOD CELL COUNT (BEAKER) (test hyvb=354) 6.9 K/ L 3.5-10.5 RED BLOOD CELL COUNT (BEAKER) (test lpzy=006) 2.71 M/ L 4.63-6.08 HEMOGLOBIN (BEAKER) (test pvqn=046) 8.3 GM/DL 13.7-17.5 HEMATOCRIT (BEAKER) (test mnyj=968) 25.2 % 40.1-51.0 MEAN CORPUSCULAR VOLUME (BEAKER) (test afkq=857) 93.0 fL 79.0-92.2 MEAN CORPUSCULAR HEMOGLOBIN (BEAKER) (test ukoc=714) 30.6 pg 25.7-32.2 MEAN CORPUSCULAR HEMOGLOBIN CONC (BEAKER) (test ukuk=976) 32.9 GM/DL 32.3-36.5 RED CELL DISTRIBUTION WIDTH (BEAKER) (test ghgb=054) 14.6 % 11.6-14.4 PLATELET COUNT (BEAKER) (test lcnn=868) 176 K/CU MM 150-450 MEAN PLATELET VOLUME (BEAKER) (test zqek=037) 10.0 fL 9.4-12.4 NUCLEATED RED BLOOD CELLS (BEAKER) (test jdvg=085) 0 /100 WBC 0-0 NEUTROPHILS RELATIVE PERCENT (BEAKER) (test obem=155) 57 % LYMPHOCYTES RELATIVE PERCENT (BEAKER) (test qqzl=172) 24 % MONOCYTES RELATIVE PERCENT (BEAKER) (test qdvr=168) 11 % EOSINOPHILS RELATIVE PERCENT (BEAKER) (test zxmt=588) 8 % BASOPHILS RELATIVE PERCENT (BEAKER) (test ysar=330) 0 % NEUTROPHILS ABSOLUTE COUNT (BEAKER) (test gsmf=241) 3.90 K/ L 1.78-5.38 LYMPHOCYTES ABSOLUTE COUNT (BEAKER) (test zxxk=722) 1.63 K/ L 1.32-3.57 MONOCYTES ABSOLUTE COUNT (BEAKER) (test ohmo=841) 0.72 K/ L 0.30-0.82 EOSINOPHILS ABSOLUTE COUNT (BEAKER) (test gmkn=807) 0.57 K/ L 0.04-0.54 BASOPHILS ABSOLUTE COUNT (BEAKER) (test myet=431) 0.02 K/ L 0.01-0.08 IMMATURE GRANULOCYTES-RELATIVE PERCENT (BEAKER) (test wbmd=0320) 1 % 0-1
--- OUTSIDE RECORDS SUMMARY | 2017-11-21 10:56 | XMS REPORT | Clinical Summary ---
Author Author [facility] Organization [facility] Address Unknown Phone Unavailable Care Team Providers Care Senior Quality Control Technician Name Role Phone PCP Unavailable Allergies Active [...] Mary Bueno MD Coronary artery disease of [place] artery of [place] heart with stable angina pectoris (Primary Dx); Dizziness; Non-ST elevation (NSTEMI) myocardial infarction; Essential hypertension; Ischemic cardiomyopathy 08/23/2017 Orders Only Cardiology Mary Bueno MD Dizziness; Coronary artery disease of [place] artery of [place] heart with stable angina pectoris 08/18/2017 Refill [...] Routine 04/15/2017 Results for this 8:53 PM STONE CUTTER procedure are in the results section. GLUCOSE POC Routine 04/15/2017 Results for this 8:28 PM STONE CUTTER procedure are in the results section. GLUCOSE POC Routine 04/15/2017 Results for this 5:11 PM STONE CUTTER procedure are in the results section. GLUCOSE POC Routine 04/15/2017 Results for this 12:16 PM STONE CUTTER procedure are in the results section. PTT STAT 04/15/2017 Results for this 12:15 PM STONE CUTTER procedure are in the results section. GLUCOSE POC Routine 04/15/2017 Results for this 7:50 AM STONE CUTTER procedure are in the results section. 12 LEAD EKG Routine 04/15/2017 Results for this 3:31 AM STONE CUTTER procedure are in the results section. PTT Routine 04/15/2017 Results for this 3:25 AM STONE CUTTER procedure are in the results section. PHOSPHORUS STAT 04/15/2017 Results for this 3:25 AM STONE CUTTER procedure are in the results section. MAGNESIUM STAT 04/15/2017 Results for this 3:25 AM STONE CUTTER procedure are in the results section. CBC/DIFF STAT 04/15/2017 Results for this 3:25 AM STONE CUTTER procedure are in the results section. BASIC METABOLIC PANEL STAT 04/15/2017 Results for this 3:25 AM STONE CUTTER procedure are in the results section. GLUCOSE POC Routine 04/14/2017 Results for this 8:52 PM STONE CUTTER procedure are in the results section. PTT STAT 04/14/2017 Results for this 6:15 PM STONE CUTTER procedure are in the results section. GLUCOSE POC Routine 04/14/2017 Results for this 5:21 PM STONE CUTTER procedure are in the results section. BASIC METABOLIC PANEL STAT 04/14/2017 Results for this 2:00 PM STONE CUTTER procedure are in the results section. GLUCOSE POC Routine 04/14/2017 Results for this 11:56 AM STONE CUTTER procedure are in the results section. PTT STAT 04/14/2017 Results for this 11:15 AM STONE CUTTER procedure are in the results section. PT/INR STAT 04/14/2017 Results for this 11:15 AM STONE CUTTER procedure are in the results section. TROPONIN I STAT 04/14/2017 Results for this 9:05 AM STONE CUTTER procedure are in the results section. CK, TOTAL STAT 04/14/2017 Results for this 9:05 AM STONE CUTTER procedure are in the results section. GLUCOSE POC Routine 04/14/2017 Results for this 8:00 AM STONE CUTTER procedure are in the results section. 12 LEAD EKG Routine 04/14/2017 Results for this 3:33 AM STONE CUTTER procedure are in the results section. TROPONIN I STAT 04/14/2017 Results for this 12:20 AM STONE CUTTER procedure are in the results section. PHOSPHORUS STAT 04/14/2017 Results for this 12:20 AM STONE CUTTER procedure are in the results section. MAGNESIUM STAT 04/14/2017 Results for this 12:20 AM STONE CUTTER procedure are in the results section. LIPID PROFILE STAT 04/14/2017 Results for this 12:20 AM STONE CUTTER procedure are in the results section. HEMOGLOBIN A1C STAT 04/14/2017 Results for this 12:20 AM STONE CUTTER procedure are in the results section. CBC/DIFF STAT 04/14/2017 Results for this 12:20 AM STONE CUTTER procedure are in the results section. BASIC METABOLIC PANEL STAT 04/14/2017 Results for this 12:20 AM STONE CUTTER procedure are in the results section. SEQUENTIAL COMPRESSION STAT 04/13/2017 PUMP 6:16 PM STONE CUTTER GLUCOSE POC Routine 04/13/2017 Results for this 5:30 PM STONE CUTTER procedure are in the results section. 12 LEAD EKG Routine 04/13/2017 Results for this 5:10 PM STONE CUTTER procedure are in the results section. TROPONIN I STAT 04/13/2017 Results for this 5:00 PM STONE CUTTER procedure are in the results section. CK, TOTAL STAT 04/13/2017 Results for this 5:00 PM STONE CUTTER procedure are in the results section. PHOSPHORUS STAT 04/13/2017 Results for this 5:00 PM STONE CUTTER procedure are in the results section. MAGNESIUM STAT 04/13/2017 Results for this 5:00 PM STONE CUTTER procedure are in the results section. BASIC METABOLIC PANEL STAT 04/13/2017 Results for this 5:00 PM STONE CUTTER procedure are in the results section. B NATRIURETIC PEPT STAT 04/13/2017 Results for this 5:00 PM STONE CUTTER procedure are in the results section. TROPONIN I STAT 04/13/2017 Results for this 5:00 PM STONE CUTTER procedure are in the results section. CK, TOTAL STAT 04/13/2017 Results for this 5:00 PM STONE CUTTER procedure are in the results section. BASIC METABOLIC PANEL STAT 04/13/2017 Results for this 5:00 PM STONE CUTTER procedure are in the results section. TRANSTHORACIC ECHO (TTE) STAT 04/13/2017 Results for this 2:06 PM STONE CUTTER procedure are in the results section. TROPONIN I POC Routine 04/13/2017 Results for this 1:16 PM STONE CUTTER procedure are in the results section. 12 LEAD EKG Routine 04/13/2017 Results for this 11:21 AM STONE CUTTER procedure are in the results section. B NATRIURETIC PEPT STAT 04/13/2017 Results for this 11:20 AM STONE CUTTER procedure are in the results section. UA CHEMISTRIES STAT 04/13/2017 Results for this 11:10 AM STONE CUTTER procedure are in the results section. XRAY CHEST 1 VIEW STAT 04/13/2017 Shortness of breath Results for this 11:03 AM STONE CUTTER procedure are in the results section. VBG POC Routine 04/13/2017 Results for this 10:46 AM STONE CUTTER procedure are in the results section. BMP POC Routine 04/13/2017 Results for this 10:45 AM STONE CUTTER procedure are in the results section. PT/INR/PTT STAT 04/13/2017 Results for this 10:44 AM STONE CUTTER procedure are in the results section. COMPREHENSIVE METABOLIC STAT 04/13/2017 Results for this PANEL(DBIL NOT INCLUDED) 10:44 AM STONE CUTTER procedure are in the results section. CBC/DIFF STAT 04/13/2017 Results for this 10:44 AM STONE CUTTER procedure are in the results section. TROPONIN I POC Routine 04/13/2017 Results for this 10:43 AM STONE CUTTER procedure are in the results section. 12 LEAD EKG Routine 04/13/2017 Results for this 10:38 AM STONE CUTTER procedure are in the results section. after [...] m2 BT MAIN-STATION 1 Performing Organization Address City/[facility]/Zipcode Phone Number MISYS BT MAIN-STATION 1 * POCT BNP (BRAIN NATRIURETIC PEPTIDE) (05/17/2017 1:47 PM) B Natr Pept POC 660 (H) 0 - 100 pg/mL BT MAIN-STATION 1 Performing Organization Address City/[facility]/Zipcode Phone Number MISYS BT MAIN-STATION 1 * GLUCOSE POC (04/20/2017 12:02 PM) Only the most recent of 26 results within the time period is included. Glucose POC 259 (H) 74 - 106 mg/dL BT MAIN-STATION 1 Performing Organization Address City/State/Zipcode Phone Number MISYS BT MAIN-STATION 1 * 12 LEAD EKG (04/20/2017 4:54 AM) 12 LEAD EKG FOR [facility] Test Date:2017-04-20 Pat Name: MINISTERIO KERN Department: Room: Gender: M Cake Press Operator: JACKSON :1946-0 05-24 Requested By: Order Number: R courtney MD: Adrian Schmidt M.D. Measurements Intervals [place] Rate: 62 P:34 KS: 207 QRS: 5 QRSD: 114 T: 208 QT: 474 QTc:484 Interpretive Statements SINUS RHYTHM LEFT VENTRICULAR HYPERTROPHY AND ST-T CHANGE Electronically Signed On 04-20-17 05:38:30 CDT by Adrian Schmidt M.D. Performing Organization Address [facility] Phone Number SMS * MAGNESIUM (04/20/2017 4:05 AM) Only the most recent of 8 results within the time period is included. Magnesium 2.2 1.9 - 2.7 mg/dL BT MAIN-STATION 3 Specimen Blood Performing Organization Address [facility] Phone Number MISYS BT MAIN-STATION 3 * [...] MAIN-STATION 2 Specimen Blood Performing Organization Address [facility] Phone Number MISYS BT MAIN-STATION 2 * [...] MAIN-STATION 3 Specimen Blood Performing Organization Address [facility] Phone Number MISYS BT MAIN-STATION 3 * 12 LEAD EKG (04/19/2017 7:37 AM) 12 LEAD EKG FOR [facility] Test Date:2017-04-19 Pat Name: MINISTERIO KERN Department: Room: Gender: M Cake Press Operator: [id number] :1946-0 05-24 Requested By: Order Number: Kamran valdez MD: Adrian Schmidt M.D. Measurements Intervals [place] Rate: 67 P:45 KS: 201 QRS: 66 QRSD: 114 T: 247 QT: 451 QTc:479 Interpretive Statements SINUS RHYTHM LEFT VENTRICULAR HYPERTROPHY AND ST-T CHANGE Electronically Signed On 04-19-17 09:53:25 CDT by Adrian Schmidt M.D. Performing Organization Address City/[facility] Phone Number SMS * FOLIC ACID (04/18/2017 3:45 AM) Folic Acid >24.0 5.9 - 24.8 ng/mL BT MAIN-STATION 2 Specimen Blood Performing Organization Address City/[employer] Phone Number MISYS BT MAIN-STATION 2 * VITAMIN B12 (04/18/2017 3:45 AM) Vitamin B12 >1500 (H) 211 - 911 pg/mL BT MAIN-STATION 2 Specimen Blood Performing Organization Address [facility]/[employer] Phone Number MISYS BT MAIN-STATION 2 * [...] MAIN-STATION 2 Specimen Blood Performing Organization Address City/[facility] Phone Number ABRILYS BT MAIN-STATION 2 * 12 LEAD EKG (04/18/2017 3:18 AM) 12 LEAD EKG FOR [facility] Test Date:2017-04-18 Pat Name: MINISTERIO KERN Department: Room: Gender: M Cake Press Operator: [id number] :1946 Requested By: Order Number: Kamran valdez MD: Adrian Schmidt M.D. Measurements Intervals [place] Rate: 69 P:20 KS: 195 QRS: 0 QRSD: 114 T: 174 QT: 460 QTc:493 Interpretive Statements SINUS RHYTHM WITH SINUS ARRHYTHMIA POSSIBLE LEFT ATRIAL ENLARGEMENT LEFT VENTRICULAR HYPERTROPHY AND ST-T CHANGE Electronically Signed On 04-18-17 05:14:48 CDT by Adrian Schmidt M.D. Performing Organization Address [facility] Phone Number [facility] * CORONARY ANGIOGRAPHY WITH GRAFTS (04/17/2017 8:46 AM) CORONARY ANGIOGRAPHY WITH Invasive Cardiology Report [facility] MINISTERIO FERGUSON Age:71Gender: M :1945 Exam Date: 04/17/2017 08:46 Exam Location:[facility] Cath Ordering Phys: MARY BUENO ([facility]) Referring Phys:[id number] Reading Phys:Mary Bueno Fellow Phys: Tory Gresham M.D. Fellow Phys: Reason For Exam: Indications: Cardiomyopathy Interventional Fellow Phys: Interventional Fellow Phys: ICD-9 Codes:I42.3 Exam Type:Invasive Cardiology Procedure CPT: 89971 Additional CPT:88895 79155 Height: BSA: Weight: BP:/ HR: Rhythm: Technical Quality: excellent PROCEDURE NOTES History: 71y.o. male with a PMH of CAD s/p 3V CABG in 2001, HTN, DM2 who was transferred from [facility] on 04/13/2017 with heart failure exacerbation [...] Findings LM: 10% stenosis distally LAD: Proximal [employer]ION SERVICES MANAGER, large high D1 branch with mild diffuse plaque CX: Small system with 2 OM branches, mild diffuse plaque RCA: Ostial [employer]VENTION SERVICES MANAGER, distal rPL & rPD supplied by SVG graft and collaterals from [place] D1 NOLASCO-LAD: patent, supplies LAD and D2 SVG-OM: occluded at the ostium SVG-dRCA: patent with 30% long segment of stenosis in the mid vein graft Other Angiographic Findings Right access site is at the level of the bifurcation which is at the level of the bottom third of the femoral head. No significant atherosclerotic disease seen in visualized vessels. CONCLUSIONS 1. Occluded [place] LAD and RCA with patent NOLASCO and SVG grafts. 2. Occluded SVG-OM graft; [place] CX is small with mild diffuse plaque. 3. LVEDP 24. Recommendations Continue medical management and risk factor modification. Event Log Case Times: Inventory: Procedure Log: Medications: Vital Signs: IMAGE ANCHOR CONTROL - DO NOT REMOVE!!!! Mary Bueno (Electronically Signed) Final Date:20 April 2017 15:10 Performing Organization Address [facility] Phone Number SMS * 12 LEAD EKG (04/17/2017 4:08 AM) 12 LEAD EKG FOR [facility] Test Date:2017-04-17 Pat Name: MINISTERIO KERN Department: Room: Gender: Cake Press Operator: 24 :1946-0 05-24 Requested By: Order Number: Kamran valdez MD: Adrian Schmidt M.D. Measurements Intervals [place] Rate: 75 P:22 KS: 200 QRS: 5 QRSD: 113 T: 172 QT: 427 QTc:478 Interpretive Statements SINUS RHYTHM POSSIBLE LEFT ATRIAL ENLARGEMENT [-0.1mV P WAVE IN V1/V2] LEFT VENTRICULAR HYPERTROPHY AND ST-T CHANGE [VOLTAGE CRITERIA PLUS ST/T ABNORMALITY] Electronically Signed On 04-17-17 17:30:06 CDT by Adrian Schmidt M.D. Performing Organization Address [facility] Phone Number SMS * B NATRIURETIC PEPT (04/17/2017 4:00 AM) Only the most recent of 4 results within the time period is included. B Natriuretic Pept 899 (H) <101 pg/mL BT OUTPATIENT DRAW 2 Specimen Blood Performing Organization Address [facility] Phone Number MISYS BT OUTPATIENT DRAW 2 * FERRITIN (04/17/2017 2:30 AM) Ferritin 144.30 23.9 - 336.2 ng/mL BT MAIN-STATION 4 Performing Organization Address [facility] Phone Number MISYS BT MAIN-STATION 4 * [...] please repeat for confirmation Performing Organization Address [facility] Phone Number MISYS BT MAIN-STATION 3 * [...] A "PRELIMINARY" report was made available via [employer] at the time of dictation by the [...] A "PRELIMINARY" report was made available via [employer] at the time of dictation by the resident indicated below. If the report is described as "FINALIZED" it indicates the attending/staff radiologist below has reviewed the images and agrees with the resident's interpretation. Dictated By: Jamel Putnam MD, 04/17/2017 8:52 AM I have reviewed the study and agree with the findings in this report. Signed By: Lis Hernánedz MD, 04/17/2017 10:01 AM Performing Organization Address City/State/Zipcode Phone Number SMS * PTT (04/16/2017 5:00 AM) Only the most recent of 6 results within the time period is included. PTT 76.7 (H) 23.6 - 36.4 Seconds BT MAIN-STATION 3 Performing Organization Address City/[facility] Phone Number [facility] BT MAIN-STATION 3 * 12 LEAD EKG (04/16/2017 4:06 AM) 12 LEAD EKG FOR [facility] Test Date:2017-04-16 Pat Name: MINISTERIO KERN Department: Room: Gender: M Cake Press Operator: 24 :1946-0 05-24 Requested By: Order Number: Kamran valdez MD: Adrian Schmidt M.D. Measurements Intervals [place] Rate: 90 P:51 KS: 188 QRS: 7 QRSD: 110 T: 175 QT: 386 QTc:473 Interpretive Statements SINUS RHYTHM POSSIBLE LEFT ATRIAL ENLARGEMENT [-0.1mV P WAVE IN V1/V2] LEFT VENTRICULAR HYPERTROPHY AND ST-T CHANGE [VOLTAGE CRITERIA PLUS ST/T ABNORMALITY] Electronically Signed On 04-17-17 17:30:04 CDT by Adrian Schmidt M.D. Performing Organization Address City/[facility] Phone Number SMS * 12 LEAD EKG (04/15/2017 3:31 AM) 12 LEAD EKG FOR [facility] Test Date:2017-04-15 Pat Name: MINISTERIO KERN Department: Room: Gender: M Cake Press Operator: 24 :1946-0 05-24 Requested By: Order Number: Kamran valdez MD: Lynn Martinez MD Measurements Intervals [place] Rate: 88 P:65 KS: 191 QRS: 10 QRSD: 112 T: 169 QT: 404 QTc:489 Interpretive Statements SINUS RHYTHM LEFT VENTRICULAR HYPERTROPHY AND ST-T CHANGE [VOLTAGE CRITERIA PLUS ST/T ABNORMALITY] Electronically Signed On 04-18-17 10:06:30 CDT by Lynn Martinez MD Performing Organization Address [facility] Phone Number SMS * PT/INR (04/14/2017 11:15 AM) PT 14.3 11.8 - 15.0 Seconds BT MAIN-STATION 3 INR 1.1 BT MAIN-STATION 3 SUGGESTED THERAPEUTIC RANGES: INR 2.0-3.0 for MODERATE INTENSITY ANTICOAGULATION INR 2.5-3.5 for HIGH INTENSITY ANTICOAGULATION Specimen Blood Performing Organization Address [facility] Phone [facility] * TROPONIN I (04/14/2017 9:05 AM) Only the most recent of 4 results within the time period is included. Troponin I 0.11 (H) <0.04 ng/mL BT OUTPATIENT DRAW 2 Specimen Blood Performing Organization Address [facility] Phone Number [facility] * CK, TOTAL (04/14/2017 9:05 AM) Only the most recent of 3 results within the time period is included. CK, Total 50 30 - 200 U/L BT OUTPATIENT DRAW 2 Specimen Blood Performing Organization Address [facility] Phone Number [facility] * 12 LEAD EKG (04/14/2017 3:33 AM) 12 LEAD EKG FOR [facility] Test Date:2017-04-14 Pat Name: MINISTERIO KERN Department: Room: Gender: M Cake Press Operator: GISELLE :1946-0 05-24 Requested By: Order Number: Kamran valdez MD: mariluz wyatt Measurements Intervals [place] Rate: 88 P:17 KS: 148 QRS: 7 QRSD: 118 T: 188 QT: 438 QTc:530 Interpretive Statements SINUS RHYTHM POSSIBLE LEFT ATRIAL ENLARGEMENT [-0.1mV P WAVE IN V1/V2] T wave abnormality consider anterior ischemia LEFT VENTRICULAR HYPERTROPHY AND ST-T CHANGE [VOLTAGE CRITERIA PLUS ST/T ABNORMALITY] Electronically Signed On 04-14-17 14:46:07 STONE CUTTER by mariluz wyatt Performing Organization Address [facility] Phone Number SMS * HEMOGLOBIN A1C (04/14/2017 12:20 AM) Hemoglobin A1c 10.0 (H) 4.3 - 6.1 % BT DIAGNOSTIC IMMUNOLOGY Est Average Gluc 240.3 mg/dL BT DIAGNOSTIC IMMUNOLOGY Performing Organization Address [facility] Phone Number MISYS BT DIAGNOSTIC IMMUNOLOGY * LIPID PROFILE (04/14/2017 12:20 AM) Cholesterol 168 mg/dL BT MAIN-STATION 3 Comment: REFERENCE RANGE: Desirable: <200 mg/dL Borderline: 200-240 mg/dL High Risk: >240 mg/dL Triglyceride 185 (H) <150 mg/dL BT MAIN-STATION 3 Comment: REFERENCE RANGE: Normal: <150 mg/dL Borderline High: 150-199 mg/dL High: 200-499 mg/dL Very High: >kk=292 mg/dL HDL 30 mg/dL BT MAIN-STATION 3 Comment: Increased CHD risk: <40 mg/dL Decreased CHD risk: >60 mg/dL LDL 101 mg/dL BT MAIN-STATION 3 Comment: REFERENCE RANGE: Optimal: <100 mg/dL Near Optimal: 100-129 mg/dL Borderline High: 130-159 mg/dL High: 160-189 mg/dL Very High: >oi=387 mg/dL Performing Organization Address [facility] Phone Number MISYS BT MAIN-STATION 3 * 12 LEAD EKG (04/13/2017 5:10 PM) 12 LEAD EKG FOR [facility] Test Date:2017-04-13 Pat Name: MINISTERIO KERN Department: Room: Gender: M Cake Press Operator: LONNIE :1946-0 05-24 Requested By: Order Number: Kamran valdez MD: James LUBIN Measurements Intervals [place] Rate: 106 P: 40 KS: 152 QRS: 5 QRSD: 120 T: 189 QT: 417 QTc:555 Interpretive Statements SINUS TACHYCARDIA Poor anterior R wave cannot r/o prior Anteroseptal Infarct LEFT VENTRICULAR HYPERTROPHY AND ST-T CHANGE [VOLTAGE CRITERIA PLUS ST/T ABNORMALITY] Non-specific ST-T changes in part c/w ischemia Prolonged QTc Abnormal ECG Electronically Signed On 04-13-17 17:40:09 STONE CUTTER by James LUBIN Performing Organization Address [facility]/Zipcode Phone Number SMS * TRANSTHORACIC ECHO (TTE) (04/13/2017 2:06 PM) TRANSTHORACIC ECHO (TTE) Transthoracic SMS Echo Report MINISTERIO KERN Age:71 Gender: M :1945 Exam Date: 04/13/2017 14:06 Exam Location: [facility] Echo Ordering Phys: DAVID PATTERSON Referring Phys:Xi, LEONARDO Reading Phys:Manny Mcneal MD Fellow Phys: Fellow Phys: Alligator Shear Operator: Margarito Pandya Reason For Exam: Indications: acute CHF ICD-9 Codes: Exam Type: Transthoracic Echo Procedure CPT:59416 Addtional CPT: Ht (in): 60 BSA: 1.78HR: [...] BP 29.9 cm LV Cardiac Output MOD [id number] cm/min LV Cardiac Index MOD BP 1932 [...] BP 29.9 cm LV Cardiac Output MOD [id number] cm/min LV Cardiac Index MOD BP 1932 [...] cm/s LV E' Septal Velocity 6.2 cm/s [facility] Organization Address City/[facility] Phone Number SMS * TROPONIN I POC (04/13/2017 1:16 PM) Only the most recent of 2 results within the time period is included. Troponin POC 0.13 (HH) 0.00 - 0.08 ng/mL [facility] MAIN-STATION 1 Performing Organization Address [facility] Phone Number MISYS [facility] MAIN-STATION 1 * 12 LEAD EKG (04/13/2017 11:21 AM) [facility] Test Date:2017-04-13 Pat Name: MINISTERIO KERN Department: Room: Gender: M Cake Press Operator: SHAUN :1946-0 05-24 Requested By: Order Number: Kamran valdez MD: James LUBIN Measurements Intervals [place] Rate: 117 P: 45 KS: 181 QRS: -1 QRSD: 112 T: 203 QT: 315 QTc:441 Interpretive Statements SINUS TACHYCARDIA POSSIBLE LEFT ATRIAL ENLARGEMENT [-0.1mV P WAVE IN V1/V2] LEFT VENTRICULAR HYPERTROPHY AND ST-T CHANGE [VOLTAGE CRITERIA PLUS ST/T ABNORMALITY] Non-specific ST-T changes in part c/w ischemia Poor anterior R wave cannot r/o prior Anteroseptal Infarct ABNORMAL EKG Electronically Signed On 04-13-17 13:04:58 STONE CUTTER by James LUBIN Performing Organization Address [facility] Phone Number SMS * UA CHEMISTRIES (04/13/2017 11:10 AM) Color Yellow [facility] MAIN-STATION 2 Clarity Clear [facility] MAIN-STATION 2 Spec [place] 1.026 1.001 - 1.035 [facility] MAIN-STATION 2 [...] WBC 11 (H) 0 - 5 /HPF [facility] MAIN-STATION 2 Bacteria Few [facility] MAIN-STATION 2 Epithelial Cell <1 /HPF [facility] MAIN-STATION 2 Amorphous Sed Present [facility] MAIN-STATION 2 Mucous Present [facility] MAIN-STATION 2 Hyaline Cast 16 /LPF [facility] MAIN-STATION 2 Granular Cast 4 /LPF [facility] MAIN-STATION 2 Specimen Urine Performing Organization Address [facility] Phone Number FERNANDEZ [facility] MAINSTATION 2 * VBG POC (04/13/2017 10:46 AM) pH, Rhett POC 7.39Comment: Physician 7.33 - 7.43 [facility] MAIN-STATION 1 Notified pCO2, Rhett POC 42.4 38.0 - 50.0 mm Hg [facility] MAIN-STATION 1 pO2, Rhett POC 26 (L) 50 - 75 mm Hg [facility] MAIN-STATION 1 Base Excess, Rhett POC 1 mmol/L [facility] MAINSTATION 1 HCO3, Rhett POC 25.8 22.0 - 26.0 mmol/L [facility] MAINSTATION 1 % Sat, Rhett POC 46 (L) 60 - 85 % [facility] MAINSTATION 1 Lactic Acid, Rhett POC 1.99 0.4 - 2.0 mmol/L [facility] Sample Type Rhett [facility] MAIN-STATION 1 TCO2, RHETT POC 27 21 - 32 mmol/L [facility] MAIN-[facility] 1 Performing Organization Address [facility] Phone [facility] * COMPREHENSIVE METABOLIC PANEL(DBIL NOT INCLUDED) (04/13/2017 10:44 AM) Albumin 3.6 3.4 - 5.0 g/dL [facility] 2 Calcium 8.9 8.50 - 10.20 mg/dL [facility] 2 CO2 27 21 - 32 mmol/L [facility] 2 Chloride 96 (L) 98 - 107 mmol/L [facility] 2 Creatinine 1.24 0.60 - 1.30 mg/dL [facility] 2 Glucose 244 (H) 70 - 99 mg/dL [facility] 2 Alk Phos 89 45 - 117 U/L [facility] 2 Potassium 3.9 3.50 - 5.10 mmol/L [facility] 2 Sodium 133 (L) 136 - 145 mmol/L [facility] 2 ALT 26 12 - 78 U/L [facility] 2 AST 18 15 - 37 U/L [facility] 2 Urea Nitrogen 11 7 - 18 mg/dL [facility] 2 T Bilirubin 0.4 0.2 - 1.0 mg/dL [facility] 2 T Protein 6.9 6.4 - 8.2 g/dL [facility] 2 GFR, Estimated 57 mL/min/1.73 m2 [facility] 2 GFR, Estim, Afr-Am >60 mL/min/1.73 m2 [facility] 2 Anion Gap 10 [facility] 2 Specimen Blood Performing Organization Address [facility] Phone Number MISYS [facility] 2 * 12 LEAD EKG (04/13/2017 10:38 AM) 12 LEAD EKG FOR [facility] Test Date:2017-04-13 Pat Name: MINISTERIO KERN Department: Room: Gender: M Cake Press Operator: SHAUN :[id number] 05-24 Requested By: Order Number: Kamran valdez MD: James LUBIN Measurements Intervals [place] Rate: 132 P: 16 KS: 133 QRS: -1 QRSD: 110 T: 186 QT: 308 QTc:457 Interpretive Statements IRREGULAR BASELINE - REGULAR SUPRAVENTRICULAR TACHYCARDIA (ATRIAL FLUTTER VS. SINUS TACHYCARDIA) LEFT VENTRICULAR HYPERTROPHY AND ST-T CHANGE [VOLTAGE CRITERIA PLUS ST/T ABNORMALITY] Non-specific ST-T changes Abnormal ECG Technically Poor Tracing affects interpretation Suggest repeat tracing if clinically indicated. Electronically Signed On 04-13-17 11:50:46 STONE CUTTER by James LUBIN Performing Organization Address City/[facility] Phone Number [facility] after 11/08/2016
--- OUTSIDE RECORDS SUMMARY | 2017-11-21 10:57 | XMS REPORT | Clinical Summary ---
Author Author MAYELIN [facility] Address Unknown Phone Unavailable Care Team Providers Care Welding Teacher Name Role Phone PCP Unavailable Allergies Active [...] without long-term current use 10/05/2017 of insulin ([facility]) CAD (coronary artery disease), by hx 10/05/2017 Diabetic polyneuropathy associated with type 2 diabetes mellitus ([facility]), by 10/05/2017 hx Anemia 10/05/2017 Hx of CABG 10/05/2017 Ischemic cardiomyopathy, LVEF 20-24% per 04-13-2017 Echo 10/05/2017 Acute renal failure, unspecified acute renal failure type ([facility]) 10/05/2017 Hypertension 10/05/2017 Resolved Problems Problem Noted Date Resolved Date Cardiomyopathy (HCC), 20-24% LVEF per 04-13-2017 Echo 10/05/2017 10/05/2017 Encounters Date Type Specialty Care Team Description 10/05/2017 [facility] General Internal Medicine Junior Dubon MD Acute renal failure, - Encounter Anmol Gonzalez, unspecified acute renal 10/16/2017 [place]ren[place]ice failure type ([facility]) MD Silvana (Primary Brain Díaz Dx);Hypercalcemia;Acute kidney injury superimposed on CKD ([facility]);Type 2 diabetes mellitus with diabetic nephropathy, without long-term current use of insulin ([facility]);Ischemic cardiomyopathy, LVEF 20-24% per 04-13-2017 Echo ;Multiple myeloma not having achieved remission ([facility]) 10/05/2017 Orders Only General Internal Medicine after [...] Range POC-Glucose Meter 113 (H)Comment: TESTED AT [address] 70 - 110 mg/dL [place] [address] Specimen Performing Laboratory Blood [address] [address] * CBC (hemogram only) (10/16/2017 5:47 AM) [...] Specimen Performing Laboratory Blood - Arm, Right [address] [address] * Basic Metabolic Panel (10/16/2017 5:47 AM) [...] Specimen Performing Laboratory Blood - [place], [place] [address] * TRANSFUSION SERVICE REPORT - SCAN (10/15/2017 5:51 PM) Only the most recent of 4 results within the time period is included. * Prepare Leuko-Red RBC (10/14/2017 11:55 PM) Only the most recent of 2 results within the time period is included. Component Value Ref Range CROSSMATCH COMPATIBLE Unit ABO B Pos UNIT NUMBER [id number] Status TRANSFUSED Blood Bank Product RED BLOOD CELLS PRODUCT CODE [id number] Specimen Performing Laboratory Other [facility] [place] * Transfuse Leuko-Red RBC (10/13/2017 4:36 PM) Only the most recent of 4 results within the time period is included. * Type and screen, automated (10/13/2017 11:07 AM) Only the most recent of 2 results within the time period is included. Component Value Ref Range ABO/RH AUTOMATED (BEAKER) B POSITIVE Ab Scrn NEGATIVE Specimen Performing Laboratory Blood [address] [address] * Hemoglobin and hematocrit (10/13/2017 9:44 AM) Only the most recent of 2 results within the time period is included. Component Value Ref Range Hemoglobin 6.7 (L) 13.7 - 17.5 GM/DL Hematocrit 20.0 (L) 40.1 - 51.0 % Specimen Performing Laboratory Blood - Arm, Left [address] [address] * Magnesium (10/13/2017 6:17 AM) Only the most recent of 3 results within the time period is included. Component Value Ref Range Magnesium 2.0 1.6 - 2.6 mg/dL Specimen Performing Laboratory Blood - [place], [place] [address] * CBC with platelet count + automated [...] Specimen Performing Laboratory Blood - Arm, [place] [address] * CBC with platelet count + automated diff (10/12/2017 5:33 AM) Only the most recent of 7 results within the time period is included. Specimen Performing Laboratory Blood Narrative The following orders were created for panel order CBC with platelet count + automated diff. Procedure Abnormality Status --------- ------ CBC with platelet count ...[[id number]]AbnormalFinal result Please view results for these tests on the individual orders. * Hemoglobin A1c (10/12/2017 5:33 AM) Component Value Ref Range Hemoglobin A1C 9.1 (H) 4.3 - 6.1 % Specimen Performing Laboratory Blood - Arm, Right [address] [address] * Cortisol (10/11/2017 4:27 AM) Component Value Ref Range Cortisol, Total 3.4 (L) 3.7 - 19.4 ug/dL Specimen Performing Laboratory Blood [address] [address] * Sodium, random urine (10/10/2017 6:14 PM) Component Value Ref Range Sodium Urine <20 meq/L Specimen Performing Laboratory Urine [address] [address] Narrative Reference Range: No Normals * Chromosomes Cancer Study (10/10/2017 11:56 AM) Component Value Ref Range Scan Result Specimen Performing Laboratory Bone Marrow [facility] [address] [facility] [facility] [place] [address] * Flow Cytometry Requisition (10/10/2017 10:27 AM) Component Value Ref Range Flow Cytometry See Separate Report Case # [id number] Specimen Performing Laboratory [facility]row [address] [address] * Bone Marrow- Pathology Exam (10/10/2017 10:27 AM) Component Value Ref Range Anatomic Case# [id number] Ordering Physician MULU Performing Physician Pb Clot Rec'd? Yes Biopsy Rec'd? Yes Rec'd for Culture? No Rec'd for Flow? Yes Rec'd for Cytogenetics? Yes Rec'd for Molecular Hold Genetics? Specimen Performing Laboratory Bone Marrow - Iliac [facility] Crest, Left [address] [place] [address] * Flow Cytometry (10/10/2017 10:27 AM) Component Value Ref Range Case Report Flow Cytometry Report Case: [id number] Authorizing Provider:Karli Lindsay MDCollected: 10/10/2017 1027 Ordering Location: [address] Received:10/10/2017 1324 Service Pathologist: Preston Black MD Specimen:Other Flow Interpretation BONE MARROW, FLOW CYTOMETRY: MONOCLONAL KAPPA RESTRICTED PLASMA CELL POPULATION. CORRELATION WITH MORPHOLOGIC FINDINGS REQUIRED. CPT Code(s) 14318 CLINICAL HISTORY Suspected plasma cell neoplasm SPECIMEN SOURCE Bone marrow CELLULAR BIOMARKER CD8, surface-[place], CD56, surface-Lambda, CD5, ANALYSIS CD19, CD10, CD3, [...] developed and their performance characteristics determined by [facility]. They have not been cleared or approved by the U.S. Food and Drug Administration. The FDA has determined that such clearance or approval is not necessary. It should not be regarded as investigational or for research. This laboratory is certified under the Clinical Laboratory Improvement Amendments of 1988 ("CLIA") as qualified to perform high-complexity clinical testing. Specimen Performing Laboratory [place] [address] * Bone Marrow Exam (10/10/2017 10:27 AM) Component Value Ref Range Case Report Bone Marrow Pathology Report Case: [id number] Authorizing Provider:Gabriela Calderon MD Collected: 10/10/2017 1027 Ordering Location: [address] Received:10/10/2017 1053 Service Pathologist: Preston Black [...] PLASMACYTOID LYMPHOCYTES. Signing Pathologist Direct Phone Line: [phone] COMMENT [place] red stain for amyloid is pending, an addendum report will follow. CPT Code(s) 43517; 88959; 07278 x 2; 82722; 23677I7, 16014, 13479H9 CLINICAL HISTORY Hypercalcemia, ischemic cardiomyopathy, acute renal [...] developed and its performance characteristics determined by [facility], Pathology Laboratory. It has not been cleared [...] Specimen Performing Laboratory Bone Marrow - Iliac [facility] Crest, Left [address] [place] [address] * Multiple Myeloma Fish (10/10/2017 8:08 AM) Component Value Ref Range Scan Result Specimen Performing Laboratory [facility] [address] [place] [address] * Troponin I (10/10/2017 4:29 AM) Only the most recent of 9 results within the time period is included. Component Value Ref Range Troponin I 0.24 (HH) 0.00 - 0.03 ng/mL Specimen Performing Laboratory Blood - Arm, Right [address] [address] Narrative Troponin I (TnI) levels must be [...] Specimen Performing Laboratory Blood - Arm, Right [address] [address] Narrative Baseline and daily starting prior to initiation of heparin infusion * Calcium, Ionized (10/09/2017 5:50 AM) Only the most recent of 15 results within the time period is included. Component Value Ref Range Calcium, Ion 1.36 (H) 1.12 - 1.27 mmol/L pH, Blood 7.48 Specimen Performing Laboratory Blood - Arm, Left [address] [address] * Calcium (10/08/2017 11:56 PM) Only the most recent of 10 results within the time period is included. Component Value Ref Range Calcium 12.4 (H) 8.4 - 10.2 mg/dL Specimen Performing Laboratory Blood - Arm, Left [address] [address] * Urine Immunofixation, random (10/08/2017 11:06 PM) Component Value Ref Range Protein, Urine 58 (H) 0 - 14 mg/dL Albumin %, Urine 20.6 % Globulin %, Urine 79.4 % URINE CHEO ID Free kappa light chains, monoclonal Pathologist: Tabitha Reich MD (electronic signature) Specimen Performing Laboratory Urine - Urine, Voided [address] [address] * ECHOCARDIOGRAM REPORT - SCAN (10/08/2017 5:25 PM) * [place] / lambda light chains, serum (10/08/2017 12:33 PM) Component Value Ref Range [place] Lt Chain,Free 1178.6 (H) 3.3 - 19.4 mg/L Lambda Lt Chain,Free 12.7 5.7 - 26.3 mg/L [place]/Lambda,Free 92.80 (H) 0.26 - 1.65 Comment: Free [...] disorders. Specimen Performing Laboratory Blood - Arm, [facility] [address] [address] Narrative Performing Lab [facility] [address] [address] Rebeka Ballard MD, PhD, LAURA * aPTT (10/08/2017 12:33 PM) Only the most recent of 6 results within the time period is included. Component Value Ref Range PTT 64.6 (H) 22.5 - 36.0 seconds Specimen Performing Laboratory Blood - Arm, [address] [address] * Immunofixation electrophoresis (CHEO) (10/08/2017 12:33 PM) Component Value Ref Range IgG 618 540 - 1822 mg/dL IgA 102 63 - 484 mg/dL IgM 23 22 - 293 mg/dL Serum CHEO Identification Free kappa light chains, monoclonal Pathologist: Tabitha Reich MD (electronic signature) Specimen Performing Laboratory Blood - Arm, [address] [address] * Immunoglobulin A (IgA) (10/08/2017 12:33 PM) Component Value Ref Range IgA 102 63 - 484 mg/dL Specimen Performing Laboratory Blood - Arm, [address] [address] * Immunoglobulin M (IgM) (10/08/2017 12:33 PM) Component Value Ref Range IgM 23 22 - 293 mg/dL Specimen Performing Laboratory Blood - Arm, [address] [address] * Immunoglobulin G (IgG) (10/08/2017 12:33 PM) Component Value Ref Range IgG 618 540 - 1822 mg/dL Specimen Performing Laboratory Blood - Arm, Right [facility] [address] [address] * 2D Echo W/Doppler(CW/PW/Color) (10/08/2017 11:43 AM) Component Value Ref Range Ejection Fraction Specimen Performing Laboratory SLE ECHO HEARTLAB MKCKESSON CPACS Narrative Transthoracic Echocardiography Report (TTE) Demographics Patient Name SAMMY ASHLEY Date of Study 10/08/2017 ENE [id number] Visit Number [id number] Room Number 7306 Number Date of Birth1945Referring Physician VEDA Gonzalez Age72 year(s)Oyster Buyer Dominga Samayoa, [facility] AnalystIzoPhysician DANITZA Price Procedure Type of Study [...] Study 10/08/2017 ENE Gender Male Visit Number [id number] Race Unknown Room Number 7306 Number Date of 1945 Referring Physician VEDA Gonzalez Age 72 year(s) Oyster Buyer Dominga Samayoa, [facility] Transport Technician Janis Samson Interpreting Physician DANITZA Banegas Procedure [...] 10-05-17. No monoclonal bands detected. Pathologist: Tabitha Reihc MD (electronic signature) Protein, Total 6.9 6.0 - 8.3 gm/dL Specimen Performing Laboratory Blood [address] [address] * Lactate dehydrogenase (LDH) (10/08/2017 4:07 AM) Component Value Ref Range LDH 192 125 - 220 U/L Specimen Performing Laboratory Blood [address] [address] * Beta 2 microglobulin (10/08/2017 4:07 AM) Component Value Ref Range B2 Microglobulin, Serum 11.80 (H) < OR=2.51 mg/L Specimen Performing Laboratory Blood [facility] [address] [place] [address] Narrative Performing Lab [facility] [address] [place] [address] Rebeka Ballard MD, PhD, LAURA * ED [...] degree. ST segments normal. T waves normal. [place] is normal. Other findings include: LVH. Q-waves [...] time period is included. Specimen Performing Laboratory [facility] Narrative Ventricular Rate 89 BPM Atrial Rate 89 BPM P-R Interval 224 ms QRS Duration 118 ms Q-T Interval 364 ms QTC Calculation(Bazett) 442 ms P [place] 68 degrees R [place] 15 degrees T [place] 191 degrees Sinus rhythm with 1st degree [...] 364 ms QTC Calculation(Bazett) 442 ms P [place] 68 degrees R [place] 15 degrees T [place] 191 degrees Sinus rhythm with 1st degree A-V block LVH with repolarization abnormality Incomplete left bundle branch block Possible Inferior infarct (cited on or before 06-OCT-2017) ST depression inferolateral leads + ST elevattion in aVR consider subendocardial sichemia or changes secondary to LVH Abnormal ECG When compared with ECG of 07-OCT-2017 06:09, No significant changes Confirmed by MD ENCINAS YOCHAI ([id number]) on 10/11/2017 8:11:11 AM * CT chest without IV contrast (10/07/2017 6:04 PM) Specimen Performing Laboratory DutyCalculator Narrative FINAL REPORT CLINICAL HISTORY: Unintended weight [...] MD Report Verified Date/Time:10/07/2017 18:54:11 Reading Location: [address] Reading Room Procedure Note Interface, External [...] Report Verified Date/Time: 10/07/2017 18:54:11 Reading Location: [address] Reading Room * CT abdomen/pelvis without iv contrast (10/07/2017 6:04 PM) Specimen Performing Laboratory DutyCalculator Narrative FINAL REPORT CLINICAL HISTORY: Unintended weight [...] MD Report Verified Date/Time:10/07/2017 18:54:11 Reading Location: [address] Reading Room Procedure Note Interface, External [...] Report Verified Date/Time: 10/07/2017 18:54:11 Reading Location: [address] Reading Room * Vitamin B12 and Folate (10/07/2017 4:01 PM) Component Value Ref Range Vitamin B12 >2000 (H) 213 - 816 pg/mL Folate 13.2 >=7.0 ng/mL Specimen Performing Laboratory Blood - Arm, [address] [address] * Iron, TIBC, % sat. (without ferritin) (10/07/2017 4:01 PM) Component Value Ref Range Iron 47 40 - 160 ug/dL TIBC 206 (L) 250 - 450 ug/dL Iron % Saturation 23 20 - 55 % Specimen Performing Laboratory Blood - Arm, [address] [address] * Ferritin (10/07/2017 4:01 PM) Component Value Ref Range Ferritin 730 (H) 5 - 275 ng/mL Specimen Performing Laboratory Blood - Arm, [address] [address] * C-Reactive Protein (10/07/2017 6:22 AM) Component Value Ref Range CRP 8.97 (H) 0.00 - 0.50 mg/dL Specimen Performing Laboratory Blood [address] [address] * Prothrombin time/INR (10/07/2017 6:22 AM) Component Value Ref Range Protime 14.7 11.7 - 14.7 seconds INR 1.1 <=5.9 Specimen [place] [address] Narrative RECOMMENDED COUMADIN/WARFARIN INR THERAPY RANGES STANDARD DOSE: 2.0 - 3.0 Includes: PROPHYLAXIS for venous thrombosis, systemic embolization; TREATMENT for venous thrombosis and/or pulmonary embolus. HIGH RISK: Target INR is 2.5-3.5 for patients with mechanical heart valves. * B-type natriuretic peptide (10/07/2017 6:22 AM) Component Value Ref Range BNP 2783 (H) 0 - 100 pg/mL Specimen [place] [address] * Lipid panel (10/07/2017 6:22 AM) Component Value Ref Range Triglycerides 177 mg/dL Cholesterol 136 mg/dL HDL 34 mg/dL LDL Calculated 67 mg/dL Specimen [place] [address] Narrative Triglyceride Reference Range: Low Risk <150 Yiffbowjrf524-790 High Risk 200-499 Very High Risk>=500 Cholesterol Reference Range: Low Risk <200 Reygdcmzzo166-943 High Risk>240 HDL Cholesterol Reference Range: Low Risk >=60 High Risk <40 LDL Cholesterol Reference Range: Optimal<100 Near Oxycwyt873-149 Sluxttalmd580-781 Vwpm387-157 Very High >=190 * Creatine Kinase (CK), Total and MB (10/07/2017 4:03 AM) Only the most recent of 2 results within the time period is included. Component Value Ref Range Total CK 49 29 - 200 U/L CK-MB 3.3 0.0 - 6.6 ng/mL MB Relative Index 6.7 % Specimen Performing Laboratory Blood [address] [address] Narrative CK-MB Reference Range: <6.7Normal 6.7-10.0Borderline >10.0 [...] MD Report Verified Date/Time:10/06/2017 23:52:35 Reading Location: [address] Transitional Reading Room Procedure Note Interface, [...] Report Verified Date/Time: 10/06/2017 23:52:35 Reading Location: [address] Transitional Reading Room * Blood gas, [...] % Specimen Performing Laboratory Blood, [place] [address] * XR chest 1 view portable / [...] MD Report Verified Date/Time:10/06/2017 23:16:53 Reading Location: [address] Transitional Reading Room Procedure Note Interface, [...] Report Verified Date/Time: 10/06/2017 23:16:53 Reading Location: [address] Transitional Reading Room * Creatinine, random urine (10/06/2017 12:02 PM) Component Value Ref Range Creatinine, Ur 29.5 mg/dL Specimen Performing Laboratory Urine - Urine, [place] [address] Narrative Reference Range: No Normals * Calcium, random urine (10/06/2017 12:02 PM) Component Value Ref Range Calcium, Ur 18.8 mg/dL Specimen Performing Laboratory Urine - Urine, [place] [address] Narrative Reference Range: No Normals * Calcitriol [...] analytical performance characteristics have been determined by [facility]. It has not been cleared or approved by the US Food and Drug Administration. This assay has been validated pursuant to the CLIA regulations and is used for clinical purposes. Specimen Performing Laboratory Blood - Arm, Right [facility] [address] [place] [address] Narrative Performing Lab *[facility], [address] [place] [address] [place] MD, PhD * Urine Protein [...] Specimen Performing Laboratory Urine - [place], [place] [address] * PSA, total and free (10/06/2017 8:41 [...] 9 (3) Catalradha, et al.: JEFFERY 277: 4017-6785 (1996) (4) Catalona, et al.: JEFFERY 279: 0380-0597 (1997) (x) These estimates vary with age, [...] Blood - Arm, Right [facility] [address] [address] Narrative Performing Lab [facility] [address] [address] Rebeka Ballard MD, PhD, LAURA * Alkaline phosphatase (10/06/2017 8:41 AM) Component Value Ref Range Alkaline Phosphatase 115 40 - 150 U/L Specimen Performing Laboratory Blood - [place], [place] [address] * Phosphorus (10/06/2017 5:23 AM) Only the most recent of 2 results within the time period is included. Component Value Ref Range Phosphorus 3.9 2.3 - 4.7 mg/dL Specimen [place] [address] * US renal complete (10/05/2017 6:31 PM) Specimen Performing Laboratory [facility] Narrative FINAL REPORT Ultrasound of the [...] MD Report Verified Date/Time:10/05/2017 19:08:08 Reading Location: [facility] C013 Consult Reading Room Procedure Note Interface, [...] Report Verified Date/Time: 10/05/2017 19:08:08 Reading Location: [facility] C013 Consult Reading Room * PTH-related peptide [...] analytical performance characteristics have been determined by [facility]. It has not been cleared or approved by FDA. This assay has been validated pursuant to the CLIA regulations and is used for clinical purposes. Specimen Performing Laboratory Blood - Arm, Left [facility] [address] [address] Narrative Performing Lab [facility] [address] [address] Rebeka Ballard MD, PhD, LAURA * Urinalysis w/Microscopic (10/05/2017 5:07 PM) Component Value Ref Range Color, UA Light Yellow Clarity, UA Clear Specific [place], UA 1.004 1.001 - 1.035 pH, UA [...] Specimen Performing Laboratory Urine - [place]rine, [place] [address] * TSH/Free T4 If Indicated (10/05/2017 3:12 PM) Component Value Ref Range TSH 2.71 0.35 - 4.94 uIU/mL Specimen Performing Laboratory Blood - Arm, [place] [address] * Hepatic function panel (10/05/2017 3:12 PM) Component Value Ref Range Protein, Total 7.8 6.0 - 8.3 gm/dL Albumin 4.4 3.5 - 5.0 g/dL Total Bilirubin 0.8 0.2 - 1.2 mg/dL Bilirubin, Direct 0.4 0.1 - 0.5 mg/dL Alkaline Phosphatase 136 40 - 150 U/L AST 20 5 - 34 U/L ALT 14 6 - 55 U/L Specimen Performing Laboratory Blood - Arm, [place] [address] * XR chest 2 views (10/05/2017 2:51 [...] MD Report Verified Date/Time:10/05/2017 16:22:10 Reading Location: [facility] Radiology Reading Room Procedure Note Interface, External [...] Report Verified Date/Time: 10/05/2017 16:22:10 Reading Location: [facility] Radiology Reading Room * Blood gas, venous [...] Specimen Performing Laboratory Blood - Arm, Left [address] [address] after 11/08/2016
[2017-11-21] MEDS ORDERED: VANCOMYCIN 750MG/NS 150ML IVPB 150 ML IV SCH (12:00)
[2017-11-21] MEDS ORDERED: LIDOCAINE HCL 1% LOCAL INJ 20 ML VIAL ONE (14:02)
[2017-11-21] MEDS ORDERED: SODIUM CHLORIDE 0.9% 500ML 500 ML ONE ×2 (14:02→14:58)
[2017-11-21] MEDS ORDERED: FENTANYL CITRATE/PF 100MCG/2 ML INJ ONE (14:02)
[2017-11-21] MEDS ORDERED: MIDAZOLAM HCL 2 MG/2 ML VIAL ONE (14:02)
[2017-11-21] MEDS ORDERED: HEPARIN SOD (PORCINE) 1000 UNIT/ML 30ML ONE (15:07)
[2017-11-21] MEDS: MAGNESIUM HYDROXIDE 30 ML UDC PO PRN (16:32)
--- NOTE | 2017-11-21 23:00 | Progress Note ---
DATE: November 21, 2017 CARDIOLOGY PROGRESS NOTE SUBJECTIVE: The patient denies chest pain or shortness of breath. He was seen in hemodialysis. OBJECTIVE: VITAL SIGNS: Temperature 97.3 degrees, pulse 73, respiratory rate 18, blood pressure 168/82, oxygen saturation 96%. GENERAL: Well-developed, well-nourished man, in no acute distress, awake and alert. LUNGS: Clear to auscultation bilaterally. No wheezes or crackles. CARDIOVASCULAR: Normal rate, regular rhythm. No murmur. Normal S1 and S2. ABDOMEN: Soft, nontender. EXTREMITIES: No edema. CARDIAC MEDICATIONS: Furosemide 40 mg IV q.12h., carvedilol 12.5 mg p.o. b.i.d., aspirin 81 mg p.o. daily, Plavix 75 mg p.o. daily. LABS: None today. TELEMETRY: Normal sinus rhythm. IMPRESSION: 1. Zuq-BI-aiyugurul myocardial infarction. 2. Pmovn-kz-obeupxo systolic heart failure. 3. Acute renal failure requiring hemodialysis. 4. Methicillin-resistant Staphylococcus aureus pneumonia. 5. Hyperosmolar hyperglycemic state. 6. Elevated liver function tests, likely shock liver versus component of congestive hepatopathy. 7. Acute respiratory failure, now extubated. 8. Multiple myeloma. 9. Diabetes mellitus. 10. Hyperlipidemia. 11. Coronary artery disease, status post recent percutaneous coronary intervention earlier this year. 12. Anemia. RECOMMENDATIONS: Continue current cardiac medications including dual-antiplatelet therapy. Volume management per nephrology given need for hemodialysis. He is currently not a candidate for invasive cardiac evaluation at this time as he has not been declared end-stage renal disease. Continue medical management. Proceed with pharmacologic nuclear stress test tomorrow. No statin at this time as LFTs remained elevated. Follow up as outpatient for statin initiation. Thank you for this consult. We will continue to follow. Job#: [id number]
[2017-11-22] MEDS: ONDANSETRON HCL INJ 2 MG/ML VIAL IV PRN ×2 (00:16→17:30)
[2017-11-22 00:28] VITALS: BP 163/78
[2017-11-22] MEDS ORDERED: BENZONATATE 100 MG CAP PO PRN (00:30)
[2017-11-22] MEDS: IPRATROPIUM BROMIDE 0.02% 2.5 ML NEB NEB SCH ×3 (01:00→10:56)
--- NOTE | 2017-11-22 01:48 | Diagnostic Imaging Report ---
EXAM: ABDOMEN-1VIEW (KUB) DATE: 11/22/2017 12:29 AM Time stamp on exam: 12:55 AM INDICATION: Coughing and vomiting COMPARISON: 11/16/2017 FINDINGS: LINES/TUBES: None BOWEL PATTERN: No evidence for obstruction. SOFT TISSUES: No abnormal calcifications. No mass effect. LUNG BASES: Not included BONES: No acute findings. IMPRESSION: Nonobstructive bowel gas pattern. Signed by: Dr. David Rojas M.D. on 11/22/2017 1:45 AM
--- NOTE | 2017-11-22 01:49 | Diagnostic Imaging Report ---
EXAMINATION: CHEST SINGLE (PORTABLE) INDICATION: Patient is coughing COMPARISON: 11/20/2017 FINDINGS: TUBES and LINES: Interval placement of right IJ tunneled dual-lumen dialysis catheter. Right IJ central line catheter is stable. LUNGS: Lungs are not well inflated. Lungs are clear. There is mild prominence of the central pulmonary vasculature, consistent with pulmonary venous congestion. PLEURA: No pleural effusion or pneumothorax. HEART AND MEDIASTINUM: Cardiac size is mildly enlarged. There are atherosclerotic calcifications within the aorta. BONES AND SOFT TISSUES: No acute osseous lesion. Soft tissues are unremarkable. UPPER ABDOMEN: No free air under the diaphragm. IMPRESSION: 1. No acute thoracic abnormality. 2. Interval placement of right IJ dual-lumen dialysis catheter Signed by: Dr. David Rojas M.D. on 11/22/2017 1:46 AM
[2017-11-22] MEDS: ALBUTEROL/IPRATROPIUM 3 ML NEB NEB SCH ×5 (03:30→23:00)
[2017-11-22 05:12] VITALS: BP 149/72
[2017-11-22] MEDS: INSULIN LISPRO 100 UNIT/1 ML 3ML VIAL SQ SCH ×5 (06:00→23:46)
[2017-11-22 08:00] VITALS: BP 151/73
[2017-11-22] MEDS ORDERED: REGADENOSON 0.4 MG/5 ML SYR IV ONE (10:43)
--- NOTE | 2017-11-22 10:46 | Diagnostic Imaging Report ---
PROCEDURE: PLACEMENT OF RIGHT IJ TUNNELED HEMODIALYSIS CATHETER INDICATION: Need for dialysis. OPERATORS: Cristel Dennis MD RADIATION EXPOSURE: Fluoroscopy Time: 1.3 minutes Dose area product (DAP): 261 cGycm2 CONSENT: The patient was informed of the nature of the proposed procedure. The purposes, alternatives, risks, and benefits were explained and discussed. All questions were answered and written consent was obtained. ANESTHESIA: Local MEDICATIONS: 15 cc of 1% subcutaneous lidocaine TECHNIQUE: The patient was brought to the angiography suite, and the right neck and upper chest were prepped and draped in standard sterile fashion. All elements of maximal sterile barrier technique were followed including cap and mask, sterile gown, sterile gloves, large sterile sheet, hand hygiene and 2% chlorhexidine for cutaneous antisepsis. Pre-procedure time-out confirmed the patient identity and the procedure to be performed. Initial side stitching machine operator image demonstrated an existing right IJ non-tunneled hemodialysis catheter with tip near the cavoatrial junction. Using standard sterile technique, 1 % lidocaine was administered subcutaneously for local anesthesia. Ultrasound demonstrated that the right internal jugular was patent and compressible. Under continuous sonographic guidance, the right internal jugular vein was accessed using a 21 G micropuncture needle. The access needle was exchanged for a 5 Fr micropuncture sheath. An 0.035'' Amplatz wire was advanced into the IVC to secure access. The venotomy site was dilated. Appropriate measurements were made using the 8 Fr dilator. Attention was then turned towards the subcutaneous tunnel. After administration of 1% lidocaine subcutaneously for local anesthesia, a 16 Fr x 19 cm Hemosplit hemodialysis catheter was tunneled in an antegrade direction from skin exit site to venotomy site. The dilator was exchanged for the peel-away sheath under direct fluoroscopic visualization. The catheter was then advanced through the peel-away sheath into the superior vena cava. After confirming appropriate position with fluoroscopy the catheter tip in the right atrium, the peel-away sheath was removed, and both lumens aspirated, check flushed, and terminally flushed with 2 cc each of heparin solution (1000 units/cc of heparin). The catheter was secured using 3-0 Ethilon pursestring suture at the catheter exit site and also 3-0 Ethilon sutures at the catheter hub. The venotomy site was closed with a single subcutaneous Vicryl suture, Dermabond, and steri-strips. Sterile dressings were applied. The patient tolerated the procedure well without immediate complication and was transported back to the floor in stable condition. FINDINGS: 1. Patent and compressible right IJV accessed with continuous ultrasound guidance. 2. Placement of 16 Fr x 19 cm tunneled right IJV hemodialysis catheter. 3. Post-procedure intraprocedural chest radiograph showed the catheter tip in the proximal right atrium, no kinks along course of catheter, and no pneumothorax. Catheter is ready for use. 4. Non-tunneled right IJ hemodialysis catheter with tip terminating near the cavoatrial junction. IMPRESSION: Placement of right IJ tunneled hemodialysis catheter. Catheter is ready for immediate use. Signed by: Dr. Cristel Dennis MD on 11/21/2017 5:15 PM
[2017-11-22] MEDS ORDERED: ONDANSETRON HCL INJ 2 MG/ML VIAL ONE (12:34)
--- NOTE | 2017-11-22 13:44 | Progress Note ---
DATE: November 22, 2017 CARDIOVASCULAR PROGRESS NOTE SUBJECTIVE: No major events overnight. No chest pain, no shortness of breath. OBJECTIVE VITAL SIGNS: Temperature 97.7, pulse 82, respiratory rate 18, blood pressure 151/73, satting 96% on room air. GENERAL: man. No acute distress. Well developed, well nourished. CARDIOVASCULAR: PMI is displaced and diffuse. Palpable carotid pulses. Palpable radial pulses. Lower extremity pulses are weak but palpable, 1+ ankle edema, no ulcers or varicosities. LUNGS: Clear to auscultation bilaterally. No respiratory distress. ABDOMEN: Soft, nontender, nondistended. No masses. NEURO AND PSYCH: Alert and oriented to person, place and time. Normal affect. CARDIOVASCULAR MEDICATIONS: Reviewed. LABORATORY DATA: Reviewed. IMAGING DATA: Reviewed. TELEMETRY DATA: Reviewed. Shows normal sinus rhythm. ASSESSMENT AND PLAN: 1. Rwm-UH-azrdgigyt myocardial infarction. 2. Cpavw-hh-ctjvutx systolic heart failure. 3. Acute renal failure requiring hemodialysis. 4. Methicillin-resistant Staph aureus pneumonia. 5. Hyperosmolar, hyperglycemic state. 6. Elevated liver function tests likely from shock liver versus congestive hepatopathy. 7. Acute respiratory failure requiring mechanical ventilation, now extubated. 8. Multiple myeloma. 9. Diabetes mellitus. 10. Hyperlipidemia. 11. Coronary artery disease, status post coronary artery bypass graft in the past and recent percutaneous coronary intervention earlier this year. 12. Anemia. RECOMMENDATIONS: Continue current cardiac medications including dual antiplatelet therapy with aspirin and Plavix for recent non-STEMI. Given patient's age, comorbidities and other ongoing issues, I had a long discussion with family regarding invasive versus ischemia-guided strategy for treatment. At this point will elect to do ischemia-guided strategy. Patient will continue on his dual antiplatelet therapy and undergo a nuclear stress test for risk stratification later today. If the stress test shows high-risk features, then will proceed with coronary angiography. Otherwise will plan to manage medically. Thank you for this consult. Will continue to follow. Job#: [id number] JUNG
[2017-11-22 13:52] VITALS: BP 161/84
[2017-11-22] MEDS: CARVEDILOL 12.5 MG TAB PO SCH ×2 (14:22→17:09)
[2017-11-22] MEDS: CLOPIDOGREL BISULFATE 75 MG TAB PO SCH (14:23)
[2017-11-22] MEDS: FUROSEMIDE INJ 10 MG/ML 4 ML VIAL IV SCH (14:23)
[2017-11-22] MEDS: FAMOTIDINE 20 MG TAB PO SCH (14:23)
[2017-11-22] MEDS: ASPIRIN 81 MG ENTERIC COATED PO SCH (14:23)
[2017-11-22] MEDS: DOCUSATE SODIUM LIQD 100 MG/10 ML UDC NG SCH ×2 (14:23→21:49)
[2017-11-22 16:10] VITALS: BP 134/63
[2017-11-22 20:00] VITALS: BP 122/65
[2017-11-22] MEDS: PANTOPRAZOLE 40 MG 10ML VIAL IV SCH (21:49)
[2017-11-23] VITALS (7 sets, daily range): BP systolic 108–190; BP diastolic 66–83
[2017-11-23] MEDS: INSULIN LISPRO 100 UNIT/1 ML 3ML VIAL SQ SCH ×3 (06:00→17:44)
[2017-11-23 06:57] LABS: BASOPHILS % 0.4 % (0.0-1.0); EOSINOPHILS # (AUTO) 0.5 (0.0-0.4); EOSINOPHILS % 6.8 % (0.0-6.0); HEMATOCRIT 30.6 % (38.2-49.6); LYMPHOCYTES % 14.5 % (18.0-39.1); MEAN CORPUSCULAR HEMOGLOBIN 29.6 pg (28-32); MEAN CORPUSCULAR HGB CONC 32.7 g/dL (31-35); MEAN CORPUSCULAR VOLUME 90.5 fL (81-99); MONOCYTES # (AUTO) 0.5 (0.2-0.8); MONOCYTES % 6.8 % (4.4-11.3); NEUTROPHILS # (AUTO) 4.8 (2.1-6.9); NEUTROPHILS % 70.8 % (38.7-80.0); PLATELET COUNT 196 x10e3/uL (140-360); RED BLOOD COUNT 3.38 x10e6/uL (4.3-5.7); RED CELL DISTRIBUTION WIDTH 16.3 % (11.7-14.4)
[2017-11-23] MEDS: ALBUTEROL/IPRATROPIUM 3 ML NEB NEB SCH ×3 (07:04→23:00)
[2017-11-23 07:10] LABS: CALCIUM 7.5 mg/dL (8.4-10.2); CREATININE, SERUM 5.57 mg/dL (0.72-1.25)
[2017-11-23] MEDS: CARVEDILOL 12.5 MG TAB PO SCH ×2 (08:00→17:05)
[2017-11-23] MEDS: DOCUSATE SODIUM LIQD 100 MG/10 ML UDC NG SCH ×2 (09:00→22:04)
[2017-11-23] MEDS: ASPIRIN 81 MG ENTERIC COATED PO SCH (09:00)
[2017-11-23] MEDS: FUROSEMIDE 40 MG TAB PO SCH ×2 (09:00→17:04)
[2017-11-23] MEDS: PANTOPRAZOLE 40 MG 10ML VIAL IV SCH ×2 (09:00→17:03)
--- NOTE | 2017-11-23 10:24 | Progress Note ---
DATE: November 23, 2017 SUBJECTIVE: Patient seen and examined today. Patient appeared comfortable. No worsening event noted. Clinical condition is improving. PHYSICAL EXAMINATION: GENERAL: Alert, awake, communicative. HEENT: Normocephalic, atraumatic. Sclerae pale. Conjunctivae clear. NECK: Supple. CHEST: Decreased breath sounds on bases. CARDIOVASCULAR: Regular rate and rhythm. ABDOMEN: Soft. EXTREMITIES: No edema. LABS AND IMAGING: Reviewed. ASSESSMENT AND PLAN: Patient with history of multiple medical conditions. I am currently following for anemia. Patient also has pancytopenia. Blood counts improving and stable. Patient also has multiple myeloma, recommendation outpatient management. Patient admitted with non-ST elevation myocardial infarction, currently following bonding molder. Recommendation, continue current care. Will continue remaining care. Will follow patient closely. Job#: [id number]
[2017-11-23] MEDS ORDERED: HEPARIN SOD (PORCINE) 1000 UNIT/ML SDV IV PRN (10:45)
--- NOTE | 2017-11-23 13:04 | Cardiology Report ---
DATE OF STUDY: November 22, 2017 NUCLEAR STRESS TEST PROCEDURE TITLE Rest stress single isotope SPECT imaging with pharmacologic stress and gated SPECT imaging. INDICATIONS: Congestive heart failure. PROCEDURE: Pharmacologic stress testing was performed with regadenoson, per protocol. The heart rate was 88 beats at rest and increased to 108 beats per minute during the regadenoson infusion. The rest blood pressure was 151/69 and decreased to 136/62 mmHg, which is a normal response. The resting electrocardiogram demonstrated normal sinus rhythm with ST segment abnormalities. There were no ST segment changes consistent with myocardial ischemia. Myocardial perfusion imaging was performed at rest following the injection of 10 mCi of tetrofosmin. At peak pharmacologic effect the patient was injected with 33 mCi of tetrofosmin. Gated post rest tomographic imaging was performed. FINDINGS: The overall quality of the study is fair. Left ventricle is enlarged on the rest and stress studies. SPECT images demonstrate a large moderate perfusion defect in the inferolateral wall at rest that worsens with stress. Gated SPECT imaging reveals inferolateral akinesis. The left ventricular ejection fraction was calculated to be 35%. IMPRESSION: Myocardial perfusion imaging is abnormal. There is a moderate sized non-transmural scar in the inferolateral wall with border zone ischemia. Overall left ventricular systolic function was abnormal with regional wall motion abnormalities as above. Job#: [id number]
--- NOTE | 2017-11-23 14:55 | Progress Note ---
DATE: November 23, 2017 CARDIOVASCULAR PROGRESS NOTE SUBJECTIVE: No major events overnight. No chest pain or shortness of breath. OBJECTIVE VITAL SIGNS: Temperature 98.5, pulse 72, respiratory rate 19, blood pressure 142/74, and satting 96% on room air. GENERAL: Well-developed, well-nourished man, in no acute distress. CARDIOVASCULAR: Regular rate and rhythm. No murmurs, rubs or gallops. Palpable carotid pulses. Palpable femoral pulses. Palpable radial pulses. LUNGS: Clear to auscultation bilaterally. No respiratory distress. ABDOMEN: Soft, nontender, and nondistended. No masses. NEURO AND PSYCH: Alert and oriented to person, place, and time. Normal affect. LABORATORY DATA: Reviewed. Hemoglobin is stable at 10.0. CURRENT MEDICATIONS: Reviewed. Plavix was held given suspicion for possible brown emesis. IMAGING DATA: Reviewed. Myocardial perfusion scan yesterday shows nontransmural scar with mix of ischemia in inferior territory. ASSESSMENT 1. Non-ST elevation myocardial infarction. 2. Fshvm-dk-ljjoknk systolic heart failure. 3. Acute renal failure, requiring hemodialysis. 4. Methicillin-resistant Staphylococcus aureus pneumonia. 5. Hyperosmolar hyperglycemic state. 6. Elevated liver function tests likely from shock liver versus congestive hepatopathy. 7. Acute respiratory failure requiring mechanical ventilation, now extubated. 8. Multiple myeloma. 9. Diabetes. 10. Hyperlipidemia. 11. Coronary artery disease status post coronary artery bypass graft surgery in the past, recent percutaneous coronary intervention earlier this year. 12. Anemia. RECOMMENDATIONS: Patient's stress test was positive for inferior ischemia. We will discuss with patient and family regarding undergoing coronary angiography for his non-ST elevation TN. Given these findings, patient was on aspirin and Plavix for past several days and had been tolerating without any issues. Hemoglobin has remained stable. There was some concern about possible GI bleeding with brown emesis yesterday; however, since his hemoglobin is stable unlikely to be acute GI bleeding, I would continue aspirin and Plavix at this time. Discussed regarding coronary angiography, possible PCI, tentatively, we will plan for tomorrow, if patient agreeable. Thank you for this consult. We will continue to follow. Job#: [id number] PRISCA
[2017-11-24] VITALS (10 sets, daily range): BP systolic 125–185; BP diastolic 63–89
[2017-11-24 06:00] LABS: ALBUMIN 3.1 g/dL (3.5-5.0); ANION GAP 25.2 mmol/L (8-16); CALCIUM 7.9 mg/dL (8.4-10.2); CREATININE, SERUM 4.22 mg/dL (0.72-1.25); POTASSIUM 4.2 mmol/L (3.5-5.1)
[2017-11-24] MEDS: INSULIN LISPRO 100 UNIT/1 ML 3ML VIAL SQ SCH ×5 (06:00→21:32)
[2017-11-24] MEDS: FUROSEMIDE 40 MG TAB PO SCH ×2 (06:00→17:25)
[2017-11-24] MEDS: ALBUTEROL/IPRATROPIUM 3 ML NEB NEB SCH ×3 (07:05→21:38)
[2017-11-24] MEDS: CARVEDILOL 12.5 MG TAB PO SCH ×2 (08:00→15:30)
--- NOTE | 2017-11-24 08:57 | Progress Note ---
DATE: November 24, 2017 Patient was seen and examined today. Patient appeared comfortable. Doing better. Last count is stable. PHYSICAL EXAMINATION GENERAL: Alert, awake and communicative. HEENT: Normocephalic and atraumatic. Sclerae pink. Conjunctivae clear. NECK: Supple. CHEST: Decreased breath sounds. CARDIOVASCULAR: Regular rate and rhythm. ABDOMEN: Soft. EXTREMITIES: No edema. LABS AND IMAGING: Reviewed. ASSESSMENT AND PLAN 1. The patient with history of qzm-KX-eufxcdngt myocardial infarction. 2. Had heart failure. 3. Pneumonia. 4. Renal failure. 5. Multiple myeloma. 6. Diabetes. 7. Hyperlipidemia. 8. Anemia. 9. Thrombocytopenia. The patient clinically doing better. Counts are improving. Clinically doing better. RECOMMENDATIONS: Continue current care. Do not recommend any hematological intervention. Myeloma treatment as an outpatient. Will follow. Job#: [id number] NM
[2017-11-24] MEDS: DOCUSATE SODIUM LIQD 100 MG/10 ML UDC NG SCH ×2 (09:00→21:31)
[2017-11-24] MEDS: PANTOPRAZOLE 40 MG 10ML VIAL IV SCH ×2 (09:00→16:07)
[2017-11-24] MEDS: ASPIRIN 81 MG ENTERIC COATED PO SCH (09:00)
[2017-11-24] MEDS: CLOPIDOGREL BISULFATE 75 MG TAB PO SCH (09:00)
[2017-11-24] MEDS: SUCRALFATE 1 GM TAB PO SCH ×2 (15:30→21:31)
[2017-11-24] MEDS ORDERED: PROPOFOL IV EMULSION 10 MG/ML 20 ML VIAL ONE (17:23)
[2017-11-24] MEDS ORDERED: LIDOCAINE HCL 2% LOCAL INJ 5 ML SDV VIAL INJ ONE (17:23)
[2017-11-25] VITALS (9 sets, daily range): BP systolic 127–179; BP diastolic 63–86
[2017-11-25 05:34] LABS: ANION GAP 25.5 mmol/L (8-16); CALCIUM 7.4 mg/dL (8.4-10.2); CREATININE, SERUM 6.26 mg/dL (0.72-1.25); POTASSIUM 4.5 mmol/L (3.5-5.1)
[2017-11-25] MEDS: FUROSEMIDE 40 MG TAB PO SCH ×2 (07:00→17:21)
[2017-11-25] MEDS: SUCRALFATE 1 GM TAB PO SCH ×4 (07:30→21:01)
[2017-11-25] MEDS: INSULIN LISPRO 100 UNIT/1 ML 3ML VIAL SQ SCH ×4 (07:30→21:05)
[2017-11-25] MEDS: ALBUTEROL/IPRATROPIUM 3 ML NEB NEB SCH (07:31)
[2017-11-25] MEDS: CARVEDILOL 12.5 MG TAB PO SCH ×2 (08:00→17:00)
[2017-11-25] MEDS: DOCUSATE SODIUM LIQD 100 MG/10 ML UDC NG SCH (09:00)
[2017-11-25] MEDS: PANTOPRAZOLE 40 MG 10ML VIAL IV SCH ×2 (09:00→17:00)
[2017-11-25] MEDS: ASPIRIN 81 MG ENTERIC COATED PO SCH (09:00)
[2017-11-25] MEDS: CLOPIDOGREL BISULFATE 75 MG TAB PO SCH (09:00)
[2017-11-25] MEDS ORDERED: ALBUTEROL/IPRATROPIUM 3 ML NEB NEB PRN (11:15)
[2017-11-25] MEDS ORDERED: LACTULOSE SYRUP 20 GM/30 ML UDC PO NR ×3 (11:30→17:15)
[2017-11-25] MEDS: ISOSORBIDE DINITRATE 20 MG TAB PO SCH ×2 (15:00→21:03)
[2017-11-25] MEDS: HYDRALAZINE HCL 25 MG TAB PO SCH ×2 (15:00→21:05)
--- NOTE | 2017-11-25 19:32 | Progress Note ---
DATE: November 25, 2017 SUBJECTIVE: Patient reports no abdominal pain. No nausea or vomiting. He is getting dialysis today. REVIEW OF SYSTEMS GENERAL: No fever or chills. RESPIRATORY: No cough or expectoration. CVS: No chest pain or palpitation. MEDICATIONS: Reviewed the APR. He is on pantoprazole 40 mg IV twice daily along with other medications. PHYSICAL EXAMINATION VITAL SIGNS: Temperature 97.9, pulse 71, respirations 18, blood pressure 136/63, oxygen saturation 96% on room air. GENERAL: Not in any acute distress. HEENT: Oral mucosa is moist. Anicteric sclerae. ABDOMEN: Soft, nondistended, nontender. No palpable mass or hernia. Positive bowel sounds. LABS: WBC 6.78, hemoglobin 10.0 down from 10.2, hematocrit 30.6, MCV 90.5, platelet count 196. Sodium 131, potassium 4.1, chloride 92, bicarb 18, BUN 59, creatinine 6.26. IMPRESSION 1. Ischemic hepatitis (shock liver). Patient has recovered very well from that. 2. Erosive esophagitis seen on upper endoscopy performed yesterday. He was also found to have some mild gastritis. Biopsies were obtained. Results of the biopsies pending. PLAN: Continue PPI. Follow up biopsy results. Rest of the care as per primary team. Job#: [id number] PRISCA
--- NOTE | 2017-11-25 21:19 | Progress Note ---
DATE: November 24, 2017 CARDIOLOGY PROGRESS NOTE: SUBJECTIVE: No major events overnight. Had EGD earlier today, showed no significant bleeding or ulcerations. OBJECTIVE VITAL SIGNS: Temperature 98.4, pulse 83, respiratory rate 18, blood pressure 136/63, and satting 96% on room air. GENERAL: Well-developed, well-nourished man, in no acute distress. CARDIOVASCULAR: Regular rate and rhythm. No murmurs, rubs or gallops. Palpable carotid pulses. Palpable femoral pulses. Palpable radial pulses. LUNGS: Clear to auscultation bilaterally. No respiratory distress. ABDOMEN: Soft, nontender, and nondistended. No masses. NEURO AND PSYCH: Alert and oriented to person, place, and time. Normal affect. LABORATORY DATA: Reviewed. CURRENT MEDICATIONS: Reviewed. IMAGING DATA: Reviewed. ASSESSMENT 1. Bdm-MI-zvhcrizak myocardial infarction. 2. Lirop-ym-qitwaqc systolic heart failure. 3. Acute renal failure requiring hemodialysis. 4. Methicillin-resistant Staphylococcus aureus pneumonia. 5. Hyperosmolar hyperglycemic state. 6. Elevated liver function tests likely from shock liver versus congestive hepatopathy, now resolved. 7. Acute respiratory failure requiring mechanical ventilation, now resolved. 8. Multiple myeloma with pancytopenia. 9. Diabetes. 10. Hyperlipidemia. 11. Coronary artery disease, status post coronary artery bypass graft surgery in the past and recent percutaneous coronary intervention earlier this year. 12. Anemia, status post esophagogastroduodenoscopy without any signs of bleeding. RECOMMENDATION: Continue dialysis and optimal medical therapy including aspirin and Plavix. No overt signs of bleeding. Hemoglobin has been stable. After discussing with renal, if patient is declared end-stage renal, we will proceed with coronary angiography likely on Monday given high risk findings on the nuclear stress test as well as recent NSTEMI and drop in EF. Thank you for this consult. We will continue to follow. Job#: [id number] FARHAN
[2017-11-26] VITALS (9 sets, daily range): BP systolic 116–162; BP diastolic 55–74
[2017-11-26] MEDS: FUROSEMIDE 40 MG TAB PO SCH ×2 (05:30→17:47)
[2017-11-26] MEDS: INSULIN LISPRO 100 UNIT/1 ML 3ML VIAL SQ SCH ×4 (07:30→21:56)
[2017-11-26] MEDS: SUCRALFATE 1 GM TAB PO SCH ×3 (07:30→16:30)
[2017-11-26] MEDS: CARVEDILOL 12.5 MG TAB PO SCH ×2 (08:00→16:42)
[2017-11-26] MEDS: ASPIRIN 81 MG ENTERIC COATED PO SCH (09:00)
[2017-11-26] MEDS: CLOPIDOGREL BISULFATE 75 MG TAB PO SCH (09:00)
[2017-11-26] MEDS: PANTOPRAZOLE 40 MG 10ML VIAL IV SCH (09:00)
[2017-11-26] MEDS: ISOSORBIDE DINITRATE 20 MG TAB PO SCH ×3 (09:00→21:55)
[2017-11-26] MEDS: HYDRALAZINE HCL 25 MG TAB PO SCH ×3 (09:00→21:54)
--- NOTE | 2017-11-26 16:34 | Progress Note ---
DATE: November 26, 2017 CARDIOLOGY PROGRESS NOTE SUBJECTIVE: No major events overnight. No chest pain, shortness of breath. OBJECTIVE VITAL SIGNS: Temperature 97.9, pulse 74, respiratory rate 18, blood pressure 139/63, satting 100% on room air. GENERAL: Well-developed, well-nourished man, in no acute distress. CARDIOVASCULAR: Regular rate and rhythm. No murmurs, rubs or gallops. Palpable carotid pulses. Palpable femoral pulses. Palpable radial pulses. LUNGS: Clear to auscultation bilaterally. No respiratory distress. ABDOMEN: Soft, nontender, nondistended. No masses. NEURO AND PSYCH: Alert and oriented to person, place, and time. Normal affect. LABORATORY DATA: Reviewed. CURRENT MEDICATIONS: Reviewed. IMAGING DATA: Reviewed. ASSESSMENT 1. Znz-ZK-wzlqlojvl myocardial infarction. 2. Zsmka-iy-hquvzed systolic heart failure. 3. Acute renal failure, requiring hemodialysis. 4. Methicillin-resistant Staphylococcus aureus pneumonia. 5. Hyperosmolar hyperglycemic state. 6. Elevated liver function tests likely from shock liver versus congestive hepatopathy, now resolved. 7. Acute respiratory failure, requiring mechanical ventilation, now resolved. 8. Multiple myeloma with pancytopenia. 9. Diabetes. 10. Hyperlipidemia. 11. Coronary artery disease, status post coronary artery bypass graft surgery, recent percutaneous coronary intervention earlier this year. 12. Anemia, status post esophagogastroduodenoscopy without any signs of bleeding. RECOMMENDATIONS: Continue hemodialysis and optimal medical therapy including aspirin and Plavix. Plan for coronary angiography tomorrow. Thank you for this consult. We will continue to follow. Job#: [id number] CARL
--- NOTE | 2017-11-26 19:50 | Progress Note ---
DATE: November 26, 2017 GI PROGRESS NOTE SUBJECTIVE: Patient is eating and drinking well. Has not had any bowel movement for 2 to 3 days. REVIEW OF SYSTEMS GENERAL: No fever or chills. RESPIRATORY: No cough or expectoration. CVS: No chest pain or palpitations. MEDICATIONS: Reviewed APR. He is getting pantoprazole 40 mg daily before meal as well as sucralfate 1 gram q.a.c. and nightly. He is getting other medication as per APR. PHYSICAL EXAMINATION VITAL SIGNS: Temperature 97.8, pulse 79, respirations 18, blood pressure 139/65, oxygen saturation 100% on room air. GENERAL: Not in any acute distress. HEENT: Oral mucosa is moist. Anicteric sclerae. ABDOMEN: Soft, nondistended, and nontender. Bowel sound is hypoactive. No mass or hernia. LABS: None today. IMPRESSION 1. Erosive esophagitis, on proton pump inhibitor as well as sucralfate. 2. Constipation. 3. End-stage renal disease, on hemodialysis. PLAN: Continue PPI, sucralfate has a tendency to cause constipation. Therefore, increase PPI to twice daily and discontinue sucralfate. Daily bowel regimen to ensure 1 bowel movement daily. Job#: [id number] EBEN
[2017-11-26] MEDS: SENNA-S TABLET PO SCH (21:55)
[2017-11-27] VITALS (18 sets, daily range): BP systolic 132–169; BP diastolic 59–88
[2017-11-27] MEDS: FUROSEMIDE 40 MG TAB PO SCH ×2 (05:28→17:42)
[2017-11-27] MEDS: INSULIN LISPRO 100 UNIT/1 ML 3ML VIAL SQ SCH ×4 (07:22→21:00)
[2017-11-27] MEDS ORDERED: PANTOPRAZOLE SOD 40 MG TABEC PO SCH (07:30)
[2017-11-27] MEDS: PANTOPRAZOLE SOD 40 MG TABEC PO SCH ×2 (07:30→16:30)
[2017-11-27] MEDS: CARVEDILOL 12.5 MG TAB PO SCH ×2 (08:00→17:41)
[2017-11-27] MEDS ORDERED: VERAPAMIL HCL 2.5 MG/ML 2 ML VIAL ONE (08:07)
[2017-11-27] MEDS ORDERED: HEPARIN SOD (PORCINE) 1000 UNIT/ML 30ML ONE (08:07)
[2017-11-27] MEDS ORDERED: MIDAZOLAM HCL 2 MG/2 ML VIAL ONE (08:08)
[2017-11-27] MEDS ORDERED: FENTANYL CITRATE/PF 100MCG/2 ML INJ ONE (08:08)
[2017-11-27] MEDS ORDERED: NITROGLYCERIN/D5W 200 MCG/ML 250 ML ONE (08:09)
[2017-11-27] MEDS ORDERED: IOPAMIDOL 370 MG/ML 200 ML INFUS..BTL INJ ONE ×2 (08:09→10:40)
[2017-11-27] MEDS ORDERED: HEPARIN SOD/SOD CHLORIDE 2,000 ML ONE (08:09)
[2017-11-27] MEDS ORDERED: SODIUM CHLORIDE 0.9% 1000ML 1,000 ML ONE (08:09)
[2017-11-27] MEDS: ISOSORBIDE DINITRATE 20 MG TAB PO SCH ×3 (09:00→20:52)
[2017-11-27] MEDS: ASPIRIN 81 MG ENTERIC COATED PO SCH (09:00)
[2017-11-27] MEDS: CLOPIDOGREL BISULFATE 75 MG TAB PO SCH (09:00)
[2017-11-27] MEDS: HYDRALAZINE HCL 25 MG TAB PO SCH ×3 (09:00→21:00)
--- NOTE | 2017-11-27 09:29 | Progress Note ---
DATE: November 27, 2017 Patient was seen and examined today. Patient appeared comfortable. No worsening events noted. Clinically, doing better. PHYSICAL EXAMINATION GENERAL: Alert, awake and communicative. HEENT: Normocephalic and atraumatic. Sclerae pink. Conjunctiva clear. NECK: Supple. CHEST: Decreased breath sounds. CARDIOVASCULAR: Regular rate and rhythm. ABDOMEN: Soft. EXTREMITIES: No edema. LABS AND IMAGING: Reviewed. ASSESSMENT AND PLAN: The patient with history of multiple medical conditions, currently in the hospital with anemia, thrombocytopenia, multiple myeloma, respiratory failure, vib-MZ-wbfrgwppb myocardial infarction. The patient improved and clinically doing better. Current count pending. Labs, hemoglobin and platelet count, and white cell count is stable. RECOMMENDATIONS: Continue current care. Multiple myeloma management as an outpatient. Job#: [id number] JOSE ALFREDO
--- NOTE | 2017-11-27 09:34 | Progress Note ---
DATE: November 25, 2017 The patient was seen and examined today. The patient appeared comfortable. No worsening events noted. No chest pain. Hemoglobin 10, white cell count 6 and platelet count 196,000. PHYSICAL EXAMINATION GENERAL: Alert, awake and communicative. HEENT: Normocephalic and atraumatic. Sclerae pink. Conjunctivae clear. NECK: Supple. CHEST: Decreased breath sounds at the bases. CARDIOVASCULAR: Regular rate and rhythm. ABDOMEN: Soft. EXTREMITIES: No edema. LABS AND IMAGING: Reviewed. ASSESSMENT AND PLAN: The patient with a history of multiple medical conditions, including multiple myeloma, anemia, thrombocytopenia, respiratory failure, renal failure. Clinically, doing better. Count is stable. Waiting for cardiac workup. At this point, will continue remaining care. Will monitor the patient closely. Job#: [id number] JOSE ALFREDO
[2017-11-27 09:39] LABS: BASOPHILS % 0.6 % (0.0-1.0); EOSINOPHILS # (AUTO) 0.3 (0.0-0.4); EOSINOPHILS % 6.7 % (0.0-6.0); HEMATOCRIT 27.3 % (38.2-49.6); HEMOGLOBIN 8.9 g/dL (14.0-18.0); LYMPHOCYTES # (AUTO) 1.2 (1.0-3.2); LYMPHOCYTES % 25.6 % (18.0-39.1); MEAN CORPUSCULAR HEMOGLOBIN 29.4 pg (28-32); MEAN CORPUSCULAR HGB CONC 32.6 g/dL (31-35); MEAN CORPUSCULAR VOLUME 90.1 fL (81-99); MONOCYTES # (AUTO) 0.5 (0.2-0.8); MONOCYTES % 10.1 % (4.4-11.3); NEUTROPHILS # (AUTO) 2.6 (2.1-6.9); NEUTROPHILS % 56.4 % (38.7-80.0); PLATELET COUNT 152 x10e3/uL (140-360); RED BLOOD COUNT 3.03 x10e6/uL (4.3-5.7); RED CELL DISTRIBUTION WIDTH 15.5 % (11.7-14.4)
[2017-11-27] MEDS ORDERED: LIDOCAINE HCL 1% LOCAL INJ 20 ML VIAL ONE (09:47)
--- NOTE | 2017-11-27 13:40 | Discharge Summary ---
PRIMARY CARE DOCTOR: Dr. Sruthi Vazquez with [facility]. FINAL DIAGNOSIS: Acute respiratory failure due to acute systolic congestive heart failure due to [id number] myocardial infarction. SECONDARY DIAGNOSES 1. Presumed Methicillin-sensitive Staphylococcus aureus and possibly Escherichia coli pneumonia. 2. Uncontrolled hypertension, better. 3. Multiple myeloma. 4. Chronic kidney disease. 5. Acute renal failure, now hemodialysis-dependent. 6. Distal erosive esophagitis. CONSULTANTS 1. Dr. Mason, cardiology. 2. Dr. Castro, pulmonology. 3. Dr. Bowles, nephrology. 4. Dr. House, gastrointestinal. 5. Dr. Peña, hematology-oncology. PROCEDURES/STUDIES PERFORMED 1. Esophagogastroduodenoscopy. 2. Intubation and extubation. 3. Left heart catheterization. 4. Stress test. 5. Daniel catheter placement. 6. Daniel catheter was switched to a Perma-Cath. 7. Head computed tomography which did not show any acute disease. 8. Hepatic ultrasound shows hepatomegaly. HISTORY: Per H&P. HOSPITAL COURSE: Patient was admitted, was intubated. Patient was dialyzed for fluid removal, and subsequently patient was able to be extubated. Patient underwent a course of IV vancomycin and aztreonam for his pneumonia. At this time Nephrology is still calling him to be acute kidney injury, dialysis-dependent. His outpatient dialysis has been set up to be Monday//Monday. However, patient just got some IV contrast for his left heart cath; so, it is very likely that now he is end-stage renal disease. Patient also makes minimal urine at this time. Patient had an episode of "brown emesis." Therefore, EGD was done which showed distal erosive gastritis. We were able to continue his aspirin and Plavix. Initially he was on Protonix IV twice a day, now just oral twice a day. For his uncontrolled hypertension, given a low ejection fraction, Isordil and hydralazine were added and titrated up for afterload reduction. Initially with his debility, [facility]. However, now he has improved strength-macias. Currently PT is recommending home PT. They will evaluate again later today just to confirm. Patient was seen and examined today. It took 35 minutes total to discharge this patient. CONDITION ON DISCHARGE: Improved. DISCHARGE MEDICATIONS: Please see medication reconciliation form. ADILENE BAIN M.D. Job#: [id number] EV
--- NOTE | 2017-11-27 13:43 | Operative Report ---
DATE OF PROCEDURE: November 27, 2017 CARDIAC CATHETERIZATION REPORT INDICATIONS FOR THE PROCEDURE: [id number]. PREPROCEDURE ASSESSMENT: All diagnostic information and study findings were reviewed prior to the procedure. Prior history with anesthesia was reviewed with the patient. The patient was deemed to be an appropriate candidate for moderate sedation. All the risks, benefits and alternatives to procedure were also explained to the patient and his family, and they agreed to proceed. PROCEDURE DETAILS: The patient was brought to the cardiac catheterization laboratory in a fasting state. The left wrist was prepped and draped in a sterile fashion. A 5-6-Vincentian Slender sheath was inserted in the left radial artery using modified Seldinger technique. Coronary and bypass graft angiography was performed using JL4 and JR4 diagnostic catheters. Left heart cath was performed using a JR4 catheter. All catheters were removed over a wire. The access site was closed using a TR band. The case ended without any complications. PERTINENT FINDINGS 1. Left main with about 80% distal left main disease involving mostly the LAD and the ramus. LAD has 100% OFFLINE EDITOR of the ostial and proximal LAD. Mid and distal LAD as well as a large diagonal 1 are supplied by NOLASCO to LAD graft. This is widely patent. 2. Ramus intermedius is a 2-mm vessel with 80% stenosis in the proximal segment. Distally it provides collaterals to the RPDA. 3. Circumflex is medium-sized vessel with no significant OM branches. There is likely sun'aq RCA OFFLINE EDITOR in the mid portion. There is SVG to RPL graft that is widely patent. A very large RPL system. Ostial RPDA fills from collaterals from the NOLASCO to LAD graft as well as the sun'aq ramus. Small-caliber, diffusely diseased RPDA. The SVG to likely OM graft is totally occluded at the aortic level. 4. The left ventricular end-diastolic pressures were 11 mmHg. COMPLICATIONS: None. ESTIMATED BLOOD LOSS: 20 mL. IMPLANTS: None. SPECIMEN REMOVED: None. RECOMMENDATIONS 1. Usual postcath care until TR band removal. 2. Continue optimal medical therapy and risk factor control including aspirin and Plavix for at least 1 year and aspirin daily for life. 3. Follow up in the office 2 weeks post discharge. Thank you for this consult. Job#: [id number]
[2017-11-27] MEDS: BALSAM PERU/CASTOR OIL 60 GM OINT...G. TP SCH (17:42)
[2017-11-27] MEDS: SENNA-S TABLET PO SCH (20:52)
[2017-11-28] VITALS: BP 113/59
[2017-11-28 04:00] VITALS: BP 140/65
[2017-11-28] MEDS: FUROSEMIDE 40 MG TAB PO SCH ×2 (07:00→17:26)
[2017-11-28 07:15] VITALS: BP 157/70
[2017-11-28] MEDS: INSULIN LISPRO 100 UNIT/1 ML 3ML VIAL SQ SCH ×3 (07:30→17:25)
[2017-11-28 08:18] VITALS: BP 157/0
[2017-11-28] MEDS: BALSAM PERU/CASTOR OIL 60 GM OINT...G. TP SCH ×2 (09:00→17:26)
--- NOTE | 2017-11-28 09:29 | Progress Note ---
DATE: November 28, 2017 Patient was seen and examined today. Patient appeared comfortable, status post cardiac cath yesterday. Tolerated very well. PHYSICAL EXAMINATION GENERAL: Alert, awake and communicative. HEENT: Normocephalic and atraumatic. Sclerae pink. Conjunctivae clear. NECK: Supple. CHEST: Decreased breath sounds at the bases. CARDIOVASCULAR: Regular rate and rhythm. EXTREMITIES: No edema. LABS AND IMAGING: Reviewed. ASSESSMENT AND PLAN: The patient with history of multiple medical conditions, including anemia, pancytopenia, myeloma admitted with [id number] myocardial infarction. Had acute renal failure. The patient is clinically doing better, status post cardiac cath. Current count is stable. Continue current care. Further recommendations and treatment include myeloma as an outpatient. Will follow the patient closely. Job#: [id number] JOSE ALFREDO
[2017-11-28] MEDS: PANTOPRAZOLE SOD 40 MG TABEC PO SCH ×2 (09:33→17:26)
[2017-11-28] MEDS: CARVEDILOL 12.5 MG TAB PO SCH ×2 (09:33→17:26)
[2017-11-28] MEDS: HYDRALAZINE HCL 25 MG TAB PO SCH ×2 (09:34→17:25)
[2017-11-28] MEDS: ISOSORBIDE DINITRATE 20 MG TAB PO SCH ×2 (09:34→17:26)
[2017-11-28] MEDS: ASPIRIN 81 MG ENTERIC COATED PO SCH (09:34)
[2017-11-28] MEDS: CLOPIDOGREL BISULFATE 75 MG TAB PO SCH (09:34)
[2017-11-28 11:50] VITALS: BP 117/59
[2017-11-28 16:00] VITALS: BP 156/69
--- NOTE | 2017-11-28 16:33 | Progress Note ---
DATE: November 28, 2017 SUBJECTIVE: The patient denies chest pain or shortness of breath. OBJECTIVE VITAL SIGNS: Temperature 96.9 degrees, pulse 73, respiratory rate 14, blood pressure 117/59. Oxygen saturation 99% on room air. GENERAL: An elderly man in no acute distress, awake and alert. LUNGS: Clear to auscultation bilaterally. No wheezes or crackles. CARDIOVASCULAR: Normal rate, regular rhythm. No murmurs. Normal S1 and S2. ABDOMEN: Soft and nontender. EXTREMITIES: No edema. CARDIAC MEDICATIONS: 1. Isosorbide dinitrate 20 mg p.o. t.i.d. 2. Hydralazine 50 mg p.o. t.i.d. 3. Aspirin 81 mg p.o. daily. 4. Plavix 75 mg p.o. daily. 5. Carvedilol 25 mg p.o. b.i.d. 6. Furosemide 40 mg p.o. b.i.d. LABORATORY DATA: None today. TELEMETRY: Normal sinus rhythm. IMPRESSION 1. Non-ST elevation myocardial infarction. 2. Oocqf-bm-[id number] systolic heart failure. 3. Acute renal failure requiring hemodialysis. 4. Methicillin-resistant Staphylococcus aureus pneumonia. 5. Hyperosmolar hyperglycemic state. 6. Elevated LFTs likely from shock liver versus congestive hepatopathy. 7. Acute respiratory distress requiring mechanical ventilation, now extubated. 8. Multiple myeloma. 9. Diabetes mellitus. 10. Hyperlipidemia. 11. Coronary artery disease status post recent PCI earlier this year. 12. Anemia. RECOMMENDATIONS: Cardiac catheterization revealed patent NOLASCO-LAD and SVG-RPL. No revascularization performed. Continue dual antiplatelet therapy given very recent stent as well as non-ST elevation myocardial infarction. Continue current cardiac medications. Monitor hemoglobin and hematocrit. Volume management per Nephrology. Thank you for this consult. Will continue to follow. Job#: [id number] GH MTDD
== END 2017-11-28 17:57 | disposition home health service (06) | DRG 208 ==
LOC: FSED 15:39 → ERHOLD 18:19 → ICU 20:15 → IMCU 11-18 15:43 → MED/SURG2 11-19 21:51
PROVIDERS: ADMIT Internal Medicine; ATTEND Internal Medicine
PROC: 5A1945Z Respiratory Ventilation, 24-96 Consecutive Hours (ICD-10-PCS; principal; 2017-11-09)
PROC: 0BH17EZ Insertion of Endotracheal Airway into Trachea, Via Natural or Artificial Opening (ICD-10-PCS; 2017-11-09)
PROC: 02HV33Z Insertion of Infusion Device into Superior Vena Cava, Percutaneous Approach (ICD-10-PCS; 2017-11-09)
PROC: 30233N1 Transfusion of Nonautologous Red Blood Cells into Peripheral Vein, Percutaneous Approach (ICD-10-PCS; 2017-11-09)
PROC: 5A1D70Z Performance of Urinary Filtration, Intermittent, Less than 6 Hours Per Day (ICD-10-PCS; 2017-11-10)
PROC: 02HV33Z Insertion of Infusion Device into Superior Vena Cava, Percutaneous Approach (ICD-10-PCS; 2017-11-10)
PROC: B548ZZA Ultrasonography of Superior Vena Cava, Guidance (ICD-10-PCS; 2017-11-10)
PROC: 5A1D70Z Performance of Urinary Filtration, Intermittent, Less than 6 Hours Per Day (ICD-10-PCS; 2017-11-11)
PROC: 5A1D70Z Performance of Urinary Filtration, Intermittent, Less than 6 Hours Per Day (ICD-10-PCS; 2017-11-12)
PROC: 5A1D70Z Performance of Urinary Filtration, Intermittent, Less than 6 Hours Per Day (ICD-10-PCS; 2017-11-14)
PROC: 5A1D70Z Performance of Urinary Filtration, Intermittent, Less than 6 Hours Per Day (ICD-10-PCS; 2017-11-15)
PROC: 5A1D70Z Performance of Urinary Filtration, Intermittent, Less than 6 Hours Per Day (ICD-10-PCS; 2017-11-16)
PROC: 5A1D70Z Performance of Urinary Filtration, Intermittent, Less than 6 Hours Per Day (ICD-10-PCS; 2017-11-17)
PROC: 5A1D70Z Performance of Urinary Filtration, Intermittent, Less than 6 Hours Per Day (ICD-10-PCS; 2017-11-18)
PROC: 0JH63XZ Insertion of Tunneled Vascular Access Device into Chest Subcutaneous Tissue and Fascia, Percutaneous Approach (ICD-10-PCS; 2017-11-20)
PROC: 02HV33Z Insertion of Infusion Device into Superior Vena Cava, Percutaneous Approach (ICD-10-PCS; 2017-11-20)
PROC: 5A1D70Z Performance of Urinary Filtration, Intermittent, Less than 6 Hours Per Day (ICD-10-PCS; 2017-11-21)
PROC: 5A1D70Z Performance of Urinary Filtration, Intermittent, Less than 6 Hours Per Day (ICD-10-PCS; 2017-11-23)
PROC: 0DB38ZX Excision of Lower Esophagus, Via Natural or Artificial Opening Endoscopic, Diagnostic (ICD-10-PCS; 2017-11-24)
PROC: 0DB68ZX Excision of Stomach, Via Natural or Artificial Opening Endoscopic, Diagnostic (ICD-10-PCS; 2017-11-24)
PROC: 5A1D70Z Performance of Urinary Filtration, Intermittent, Less than 6 Hours Per Day (ICD-10-PCS; 2017-11-25)
PROC: 4A023N7 Measurement of Cardiac Sampling and Pressure, Left Heart, Percutaneous Approach (ICD-10-PCS; 2017-11-27)
PROC: B2151ZZ Fluoroscopy of Left Heart using Low Osmolar Contrast (ICD-10-PCS; 2017-11-27)
PROC: B2111ZZ Fluoroscopy of Multiple Coronary Arteries using Low Osmolar Contrast (ICD-10-PCS; 2017-11-27)
PROC: B2131ZZ Fluoroscopy of Multiple Coronary Artery Bypass Grafts using Low Osmolar Contrast (ICD-10-PCS; 2017-11-27)
PROC: 5A1D70Z Performance of Urinary Filtration, Intermittent, Less than 6 Hours Per Day (ICD-10-PCS; 2017-11-28)
DX: J96.00 Acute respiratory failure, unspecified whether with hypoxia or hypercapnia (principal); I50.23 Acute on chronic systolic (congestive) heart failure; I21.4 Non-ST elevation (NSTEMI) myocardial infarction; N18.6 End stage renal disease; E11.10 Type 2 diabetes mellitus with ketoacidosis without coma; N17.0 Acute kidney failure with tubular necrosis; K72.00 Acute and subacute hepatic failure without coma; J15.211 Pneumonia due to Methicillin susceptible Staphylococcus aureus; J15.5 Pneumonia due to Escherichia coli; N17.9 Acute kidney failure, unspecified; C90.00 Multiple myeloma not having achieved remission; I25.810 Atherosclerosis of coronary artery bypass graft(s) without angina pectoris; D61.818 Other pancytopenia; I13.2 Hypertensive heart and chronic kidney disease with heart failure and with stage 5 chronic kidney disease, or end stage renal disease; R53.81 Other malaise; K44.9 Diaphragmatic hernia without obstruction or gangrene; E11.22 Type 2 diabetes mellitus with diabetic chronic kidney disease; E78.5 Hyperlipidemia, unspecified; Z82.49 Family history of ischemic heart disease and other diseases of the circulatory system; Z88.0 Allergy status to penicillin; Z95.5 Presence of coronary angioplasty implant and graft; D64.9 Anemia, unspecified; E87.5 Hyperkalemia; E83.51 Hypocalcemia; D50.9 Iron deficiency anemia, unspecified; D64.81 Anemia due to antineoplastic chemotherapy; K21.0 Gastro-esophageal reflux disease with esophagitis; K29.70 Gastritis, unspecified, without bleeding; K59.00 Constipation, unspecified; T38.0X5A Adverse effect of glucocorticoids and synthetic analogues, initial encounter; L89.611 Pressure ulcer of right heel, stage 1
CPT/HCPCS: 31500; 36415; 36430; 36555; 36556; 36565; 36600; 43239; 51700; 70450; 71045; 74018; 74470; 76705; 76937; 78452; 80048; 80053; 80061; 80076; 80202; 81001; 81003; 82044; 82140; 82330; 82550; 82553; 82805; 82947; 82948; 83735; 83880; 84100; 84133; 84443; 84484; 84550; 85025; 85610; 85730; 86704; 86706; 86850; 86900; 86920; 87070; 87186; 87205; 87340; 88305; 88312; 90962; 93005; 93017; 93306; 93459; 94002; 94003; 94640; 94660; 96365; 96372; 96374; 96375; 96376; 97139; A9502; C1750; C1769; J0360; J0610; J1644; J1940; J2001; J2250; J2270; J2405; J2920; J3430; J3475; J7030; J7040; J7050; J7070; J7799; P9016; Q4081; Q9967